=== PATIENT | female | born 1960 | race Caucasian/White ===

== ENCOUNTER 2020-01-11 08:00 | Outpatient (CLI) | payer MEDICAID ==
[2020-01-11 16:49] LABS: BASOPHILS # (AUTO) 0.1 10^3/uL (0.0-0.1); BASOPHILS % (AUTO) 0.7 %; EOSINOPHILS # (AUTO) 0.1 10^3/uL (0.0-0.7); EOSINOPHILS % (AUTO) 1.1 %; HGB - HEMOGLOBIN 15.9 g/dL (12.0-16.0); LYMPHOCYTES # (AUTO) 2.3 10^3/uL (1.5-3.5); LYMPHOCYTES % (AUTO) 24.2 %; MEAN CORPUSCULAR HEMOGLOBIN 30.2 pg (27.0-31.0); MEAN CORPUSCULAR HGB CONC 31.9 g/dL (32.0-36.0); MEAN CORPUSCULAR VOLUME 94.7 fL (81.0-99.0); MEAN PLATELET VOLUME 9.5 fL (7.9-10.8); MONOCYTES # (AUTO) 0.9 10^3/uL (0.0-1.0); MONOCYTES % (AUTO) 9.6 %; NEUTROPHILS % (AUTO) 63.8 %; PLT - PLATELET COUNT 246 10^3/uL (130-450); RED BLOOD COUNT 5.26 10^6/uL (4.20-5.40); RED CELL DISTRIBUTION WIDTH 12.7 % (12.0-15.0); WHITE BLOOD COUNT 9.4 x10^3/uL (4.8-10.8)
[2020-01-11 17:57] LABS: ALBUMIN 4.3 g/dL (3.2-5.5); ALBUMIN/GLOBULIN RATIO 1.4 (1.0-2.2); ALKALINE PHOSPHATASE 63 IU/L (42-121); ALT ALANINE AMINOTRANSFERASE 19 IU/L (10-60); AST ASPARTATE AMINOTRANSFERASE 20 IU/L (10-42); BUN - BLOOD UREA NITROGEN 8 mg/dL (6-20); CALCIUM 9.2 mg/dL (8.5-10.3); CARBON DIOXIDE - CO2 25 mmol/L (21-32); CHLORIDE 91 mmol/L (101-111); CHOL/HDL RATIO 2.1 (<4.4); CHOLESTEROL 204 mg/dL; CREATININE 0.6 mg/dL (0.4-1.0); GLUCOSE 103 mg/dL (70-100); HDL CHOLESTEROL 97 mg/dL; LDL CHOLESTEROL,CALCULATED 91 mg/dL; LDL/HDL RATIO 0.9 (<4.4); SODIUM 127 mmol/L (135-145); TOTAL PROTEIN 7.4 g/dL (6.7-8.2); VLDL CHOLESTEROL 16 mg/dL
== END 2020-01-11 23:59 | disposition home or self-care (01) ==
LOC: LAB.WCP 08:00
PROVIDERS: ATTEND Registered Nurse
DX: J44.9 Chronic obstructive pulmonary disease, unspecified (principal); I10 Essential (primary) hypertension
CPT/HCPCS: 36415; 80053; 80061; 83721; 84443; 85025

== ENCOUNTER 2021-10-17 20:25 | Outpatient (CLI) | payer MEDICAID | END 2021-10-17 20:26 | disposition critical access hospital (66) | LOC: EMS 20:25 | DX: R06.02 Shortness of breath (principal) | CPT/HCPCS: A0425; A0427; A0999 ==

== ENCOUNTER 2021-10-17 20:51 | Observation (INO) | payer MEDICAID ==
--- NOTE | 2021-10-17 21:16 | ED Physician Documentation ---
PD HPI DYSPNEA - Stated complaint Stated Complaint: SOA/POSS C+ EXPOSURE - Chief complaint Chief Complaint: Cardiac - History obtained from History obtained from: Patient - History of Present Illness Timing - onset: How many days ago (2) Timing - onset during: Rest, Light activity Timing - duration: Days (2) Timing - details: Gradual onset, Still present Review of Systems Constitutional: reports: Chills, Myalgias Nose: reports: Congestion Throat: denies: Sore throat Cardiac: denies: Chest pain / pressure, Palpitations, Pedal edema Respiratory: reports: Dyspnea, Cough, Wheezing. denies: Hemoptysis GI: denies: Abdominal Pain, Nausea, Vomiting, Diarrhea Musculoskeletal: denies: Extremity swelling Neurologic: reports: Generalized weakness. denies: Near syncope, Altered mental status, Headache Endocrine: denies: Weight loss Immunocompromised: denies: Immunocompromised PD PAST MEDICAL HISTORY - Past Medical History Cardiovascular: None Respiratory: COPD (uses ALbuterol MDI PRN. Not on regular nebs/steroids. Does not use home oxygen. ) Neuro: None Endocrine/Autoimmune: None - Past Surgical History Past Surgical History: No - Present Medications Home Medications: Ambulatory Orders Medication Instructions Recorded Confirmed Loratadine 10 mg PO DAILY 09/06/15 09/06/15 - Allergies Allergies/Adverse Reactions: Allergies Allergy/AdvReac Type Severity Reaction Status Date / Time No Known Drug Allergies Allergy Verified 10/17/21 21:10 - Living Situation Living Situation: reports: With family Living Arrangement: reports: At home - Social History Does the pt smoke?: Yes Smoking Status: Current every day smoker (she says she stopped smoking 2 days ago.) Does the pt drink ETOH?: Yes Does the pt have substance abuse?: No PD ED PE NORMAL - Vitals Vital signs reviewed: Yes (EMS reported 67% sats RA on their first assessment. ) - General General: Alert and oriented X 3, Well developed/nourished, Other (few word conversational dyspnea, sitting straight upright. ) - HEENT HEENT: Ears normal, Pharynx benign. No: Moist mucous membranes - Neck Neck: Supple, no meningeal sign, No adenopathy - Cardiac Cardiac: No murmur. No: RRR (tachycardic at 109 rate. ) - Respiratory Respiratory: No: No respiratory distress (accessory muscle use, prolonged exp phase, and tripod sitting position. ), Clear bilaterally (diffuse exp tight whee zing. Faint coarse sounds right side in particular. ) - Abdomen Abdomen: Soft, Non tender. No: Normal bowel sounds (diminished) - Back Back: No CVA TTP - Derm Derm: Normal color, Warm and dry - Extremities Extremities: No tenderness to palpate, No edema, No calf tenderness / cord - Neuro Neuro: Alert and oriented X 3, No motor deficit. No: Normal speech (initially unable to talk more than few words at a time. ) Results - Vitals Vitals: Vital Signs - 24 hr 10/17/21 10/17/21 10/17/21 21:00 21:34 21:55 Temperature 36.4 C L Heart Rate 109 H 108 H 114 H Respiratory 22 23 24 Rate Blood Pressure 167/93 H 160/97 H O2 Saturation 91 L 93 10/17/21 10/17/21 10/17/21 22:04 22:55 23:00 Temperature Heart Rate 106 H 92 97 Respiratory 18 24 27 H Rate Blood Pressure 155/92 H 135/80 H O2 Saturation 99 97 Oxygen O2 Source Nasal cannula Oxygen Flow Rate 3 - EKG (time done) 21:20 Rate: Rate (enter#) (105) Rhythm: Sinus tachycardia, Other (lot of artifact from movement/work of breathing.) [place]: Normal - Labs Labs: Laboratory Tests 10/17/21 10/17/21 10/17/21 21:16 21:16 21:16 WBC 12.0 H RBC 5.00 Hgb 15.6 Hct 47.3 H MCV 94.6 MCH 31.2 H MCHC 33.0 RDW 12.8 Plt Count 275 MPV 10.4 Neut # (Auto) 8.7 H Lymph # (Auto) 1.9 Woodward # (Auto) 1.0 Eos # (Auto) 0.3 Baso # (Auto) 0.1 Absolute Nucleated RBC 0.00 Nucleated RBC % 0.0 Sodium Potassium Chloride Carbon Dioxide Anion Gap BUN Creatinine Estimated GFR (MDRD) Glucose Calcium Magnesium Total Bilirubin AST ALT Alkaline Phosphatase Troponin I High Sens 12.0 B-Natriuretic Peptide 63 Total Protein Albumin Globulin Albumin/Globulin Ratio Lipase Nasal Adenovirus (PCR) Nasal B. parapertussis DNA (PCR) Nasal Coronavir 229E PCR Nasal Coronavir HKU1 PCR Nasal Coronavir NL63 PCR Nasal Coronavir OC43 PCR Nasal Enterovir/Rhinovir PCR Nasal Influenza B PCR Nasal Influenza A PCR Nasal Parainfluen 1 PCR Nasal Parainfluen 2 PCR Nasal Parainfluen 3 PCR Nasal Parainfluen 4 PCR Nasal RSV (PCR) Nasal B.pertussis DNA PCR Nasal C.pneumoniae (PCR) Matt Human Metapneumo PCR Nasal M.pneumoniae (PCR) Nasal SARS-CoV-2 (PCR) 10/17/21 10/17/21 21:45 21:50 WBC RBC Hgb Hct MCV MCH MCHC RDW Plt Count MPV Neut # (Auto) Lymph # (Auto) Woodward # (Auto) Eos # (Auto) Baso # (Auto) Absolute Nucleated RBC Nucleated RBC % Sodium 126 L Potassium 4.5 Chloride 89 L Carbon Dioxide 28 Anion Gap 9.0 BUN 11 Creatinine 0.6 Estimated GFR (MDRD) 102 Glucose 165 H Calcium 8.9 Magnesium 2.0 Total Bilirubin 0.6 AST 23 ALT 18 Alkaline Phosphatase 70 Troponin I High Sens B-Natriuretic Peptide Total Protein 7.6 Albumin 4.0 Globulin 3.6 Albumin/Globulin Ratio 1.1 Lipase 24 Nasal Adenovirus (PCR) NOT DETECTED Nasal B. parapertussis DNA (PCR) NOT DETECTED Nasal Coronavir 229E PCR NOT DETECTED Nasal Coronavir HKU1 PCR NOT DETECTED Nasal Coronavir NL63 PCR NOT DETECTED Nasal Coronavir OC43 PCR NOT DETECTED Nasal Enterovir/Rhinovir PCR NOT DETECTED Nasal Influenza B PCR NOT DETECTED Nasal Influenza A PCR NOT DETECTED Nasal Parainfluen 1 PCR NOT DETECTED Nasal Parainfluen 2 PCR NOT DETECTED Nasal Parainfluen 3 PCR NOT DETECTED Nasal Parainfluen 4 PCR NOT DETECTED Nasal RSV (PCR) NOT DETECTED Nasal B.pertussis DNA PCR NOT DETECTED Nasal C.pneumoniae (PCR) NOT DETECTED Matt Human Metapneumo PCR NOT DETECTED Nasal M.pneumoniae (PCR) NOT DETECTED Nasal SARS-CoV-2 (PCR) NOT DETECTED - Rads (name of study) chest xray Radiology: Prelim report reviewed (hyperinflation. No infiltrates, effusion. ), See rad report PD MEDICAL DECISION MAKING - ED course Complexity details: reviewed results, re-evaluated patient, considered differential (seems URI symptoms and has wheezing/COPD exacerbation, but baseline sounds like just intermittent MDI use. Concern for COVID/viral, versus bacterial. Unlikely clinically to be VTE, CHF. ), d/w patient ED course: Lessened work of breathing with few neb treatments. Still wanting to be upright position. But able to talk in sentences now. Lessened wheezing, but still exp wheezing. Sats off oxygen low to 88-91%. Holding okay with just simple NC. I do not feel she is at risk right now of needing intubation/advanced airway. Consider viral illness to cause exac of her mild COPD. Departure - Departure Disposition: ED Place in Observation Clinical Impression: Acute exacerbation of COPD with asthma, Exposure to COVID-19 virus Dyspnea Qualifiers: Dyspnea type: shortness of breath Qualified Code(s): R06.02 - Shortness of breath Condition: Stable Record reviewed to determine appropriate education?: Yes Discharge Date/Time: 10/17/21 23:41
[2021-10-17 21:20] LABS: BASOPHILS # (AUTO) 0.1 10^3/uL (0.0-0.1); BASOPHILS % (AUTO) 0.8 %; EOSINOPHILS # (AUTO) 0.3 10^3/uL (0.0-0.7); EOSINOPHILS % (AUTO) 2.2 %; HCT - HEMATOCRIT 47.3 % (37.0-47.0); HGB - HEMOGLOBIN 15.6 g/dL (12.0-16.0); LYMPHOCYTES # (AUTO) 1.9 10^3/uL (1.5-3.5); LYMPHOCYTES % (AUTO) 15.6 %; MEAN CORPUSCULAR HEMOGLOBIN 31.2 pg (27.0-31.0); MEAN CORPUSCULAR VOLUME 94.6 fL (81.0-99.0); MEAN PLATELET VOLUME 10.4 fL (7.9-10.8); MONOCYTES % (AUTO) 8.4 %; NEUTROPHILS # (AUTO) 8.7 10^3/uL (1.5-6.6); NEUTROPHILS % (AUTO) 72.6 %; PLT - PLATELET COUNT 275 10^3/uL (130-450); RED CELL DISTRIBUTION WIDTH 12.8 % (12.0-15.0)
[2021-10-17] MEDS ORDERED: SODIUM CHLORIDE 0.9% 1,000 ML IV STA (21:36)
[2021-10-17] MEDS ORDERED: IPRATROPIUM/ALBUTEROL 3 ML NEB INH STA (21:36)
[2021-10-17] MEDS ORDERED: MAGNESIUM SULFATE 2 GRAM 2 GM/50 ML BAG IV ONE (21:37)
--- NOTE | 2021-10-17 21:54 | XRAY Report ---
PROCEDURE: Chest 1 View X-Ray INDICATIONS: Chest pain TECHNIQUE: One view of the chest was acquired. COMPARISON: 09/06/2015 FINDINGS: Surgical changes and devices: None. Lungs and pleura: No pleural effusions or pneumothorax. There is no focal infiltrate. Mild hyperinfl ation is seen. Mediastinum: Mediastinal contours appear normal. Heart size is normal. Bones and chest wall: No suspicious bony lesions. Overlying soft tissues appear unremarkable. IMPRESSION: Hyperinflation. No focal infiltrate, pleural effusion or pneumothorax. Reviewed by: Ashwin Ramirez MD on 10/17/2021 9:52 PM PST Approved by: Ashwin Ramirez MD on 10/17/2021 9:52 PM PST Station ID: [id number]
[2021-10-17 22:02] LABS: ALBUMIN/GLOBULIN RATIO 1.1 (1.0-2.2); BILIRUBIN,TOTAL 0.6 mg/dL (0.2-1.0); CALCIUM 8.9 mg/dL (8.5-10.3); CREATININE 0.6 mg/dL (0.4-1.0); POTASSIUM 4.5 mmol/L (3.5-5.0); TOTAL PROTEIN 7.6 g/dL (6.7-8.2)
[2021-10-17] MEDS ORDERED: ALBUTEROL NEB 2.5 MG/3 ML INH STA (22:43)
[2021-10-17 23:12] LABS: B. PARAPERTUSSIS- RESP PCR PAN NOT DETECTED; B. PERTUSSIS- RESP PCR PANEL NOT DETECTED; C. PNEUMONIAE- RESP PCR PANEL NOT DETECTED; CORONAVIRUS 229E-RESP PCR NOT DETECTED; CORONAVIRUS HKU1-RESP PCR NOT DETECTED; CORONAVIRUS NL63-RESP PCR NOT DETECTED; CORONAVIRUS OC43-RESP PCR NOT DETECTED; HUMAN METAPNEUMOVIRUS NOT DETECTED; INFLUENZA A- RESP PCR PANEL NOT DETECTED; INFLUENZA B - RESP PCR PANEL NOT DETECTED; M. PNEUMONIAE- RESP PCR PANEL NOT DETECTED; PARAINFLUENZA VIRUS 1 NOT DETECTED; PARAINFLUENZA VIRUS 2 NOT DETECTED; PARAINFLUENZA VIRUS 3 NOT DETECTED; PARAINFLUENZA VIRUS 4 NOT DETECTED; RHINOVIRUS/ENTEROVIRUS NOT DETECTED; RSV- RESP PCR PANEL NOT DETECTED; SARS-CoV-2 -RESP PCR PANEL NOT DETECTED
[2021-10-17] MEDS ORDERED: ONDANSETRON 4 MG/2 ML VIAL IVP PRN (23:13)
[2021-10-17] MEDS ORDERED: ACETAMINOPHEN 325 MG TABLET PO PRN (23:13)
[2021-10-17] MEDS ORDERED: SODIUM CHLORIDE FLUSH 0.9% 10 ML SYRINGE IVP PRN (23:13)
[2021-10-17] MEDS ORDERED: oxyCODONE 5 MG TABLET PO PRN (23:13)
[2021-10-17] MEDS ORDERED: ONDANSETRON ODT 4 MG TABLET TL PRN (23:13)
[2021-10-17] MEDS ORDERED: MONTELUKAST 10 MG TABLET PO SCH (23:15)
[2021-10-17] MEDS ORDERED: ALBUTEROL NEB 2.5 MG/3 ML INH PRN (23:16)
[2021-10-18] MEDS: SODIUM CHLORIDE FLUSH 0.9% 10 ML SYRINGE IVP SCH ×2 (00:35→09:40)
[2021-10-18] MEDS: SODIUM CHLORIDE 0.9% 1,000 ML IV SCH ×2 (00:35→06:54)
--- NOTE | 2021-10-18 01:11 | HISTORY & PHYSICAL EXAMINATION ---
Chief Complaint - Chief Complaint Chief Complaint: acute on chronic sob History of Present Illness - Admitted From Admitted From:: home - History Obtained From [facility] History obtained from: patient Exam Limitations: short of breath - History of Present Illness HPI Comment/Other: This pleasant female is a 63-year-old who has emphysema. That has been her main problem as well as hypertension for the last 2 to 3 years. She used to see a Dr. Ayoub who had several years ago and her last primary care may have been in 2004. She gradually became becoming blind from cataracts and stopped driving in June 2019 because of the blindness. She finally sought care with an conduit mechanic who requested preoperative evaluation. That meant she had to establish yourself with her primary care provider which was November 2019 with Wendi Lopez. As far as the patient is concerned, she really did not have much problems with her emphysema until the preoperative evaluation started the ball rolling with an overall evaluation of her health. She was drinking a sixpack of beer a day and is currently drinking 2 beers a day. Depression has been a problem and she uses her daughter and is emotional support. At that point in time she was noticing that she was having less and less endurance for getting simple wafer mounter done. She had a chronic daily cough of scant phlegm pr oduction. Her primary care provider started her on a program cessation. Encouraged her to start bupropion and nicotine patches. But she really did not do them for unclear reasons. O2 sat in 2019 was 90% on room air. And she improved to 92% on room air by July 2021. She has not had formal pulmonary function studies yet. She has good days and bad days. There are days that she can work in the garden, bring in wood, and only slow down a little bit. Then there are days where she cannot walk across the room more than 20 feet. She says there is no rhyme or reason to that. The only medicine she has at home is loratadine and a nebulizer that is handheld. In the last 2 weeks that hand-held nebulizer is not helping her at all. There is no hemoptysis, change in phlegm production, fever, chills. No one else is sick around her.Weight over the last couple of years has been stable. She was 102 pounds when she for started seeing her primary care provider and her last weight in July 2021 was 100.6 pounds. July was her last visit with her primary care provider where her medications were adjusted for high blood pressure. She now presents with a 2-week history of gradually increasing dyspnea on exertion. Her nebulizer is not giving her any relief whatsoever. Cough is occ asionally spasmodic but then will go away. Phlegm is unchanged. She denies any fever, chills, hemoptysis. No one else is sick around her. She is vaccinated with the J&J vaccine. EMS was called when she finally had such severe shortness of breath that she thought she was going to . In the EMS rate she was 67% on room air. She was given a nebulizer, Solu-Medrol. When she got to the ER she was able to be maintained on her O2 sats but was still tripoding with tachypnea and a heart rate of 108 214. She has received more nebulizers. And gradually starting to improve but is not stable enough to go home.Chest x-ray has hyperinflation but no infiltrate. She is chronically hyponatremic and is 126 today. White cell count is mildly elevated at 12. She is COVID-negative on swab testing. Dr. Rios, emergency room provider, has asked us to place this patient in observation to continue nebulizers and steroids and see if she can be discharged tomorrow. 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 She had severe hypertension and of a heart attack. Dad in his 60s of drug and alcohol abuse. 1 brother. She is not In contact and does not know anything about them in his adulthood. 3 children are healthy except they all have high blood pressure. There is no depression or alcohol abuse or major medical issues. Living arrangement: At home Living Situation: With spouse/s.o. Social History Notes: Born and raised in [place] until the age of 18 and her family moved to [facility]. She has lived here since. to her first and they live in their own home. She started smoking 20 years ago and smoked up to 1 pack/day. She is drinking a sixpack a day at the beginning of the COVID epidemic and is brought her self down to 2 a day. 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 She and her live in their own home about 3 [place] from [place]. - Substance History Use: Uses substance without health or social issues: Tobacco, Alcohol Abuse: Recurrent use of substance despite neg consequences: Alcohol Dependence: Experiences withdrawal or developed tolerances: NONE - POLST Patient has POLST: No POLST Status: Full Code (SHe does not want to be intubated for any length of time. If we can save her life and she can come off the ventilator and 2 or 3 days that would be fine. If it looks like its going to be longer than that, DO NOT INTUBATE her.) Meds/Allgy - Home Medications Home Medications: Ambulatory Orders Medication Instructions Recorded Confirmed Loratadine 10 mg PO DAILY 09/06/15 09/06/15 - Allergies Allergies/Adverse Reactions: Allergies Allergy/AdvReac Type Severity Reaction Status Date / Time No Known Drug Allergies Allergy Verified 10/17/21 21:10 Review of Systems - Constitutional Constitutional: reports: Fatigue, Poor appetite. denies: Fever, Chills, Weight gain, Weight loss - Eyes Eyes: reports: Vision loss. denies: Pain, Irritation, Amaurosis - Ears, Nose & Throat Ears, Nose & Throat: denies: Ear pain, Hearing loss, Hearing aids, Nasal discharge, Nasal obstruction, Nasal congestion, Postnasal drainage, Sore throat - Cardiovascular Cariovascular: reports: Palpitations (in the past), Chest pain (right now, sharp pleuritic, worse w cough). denies: Irregular heart rate - Respiratory Respiratory: reports: Cough, Sputum production, Wheezing, Orthopnea, SOB at rest, SOB with exertion. denies: Snoring - Gastrointestinal Gastrointestinal: reports: Other (has never had a colonscopy). denies: Abdominal pain, Abdominal distention, Constipation, Diarrhea, Change in bowel habits, Bloody stools - Genitourinary Genitourinary: denies: Dysuria, Frequency, Urgency, Hematuria - Musculoskeletal Musculoskeletal: reports: Other (has never had DEXA scan). denies: Muscle pain, Back pain, Muscle aches, Stiffness, Joint pain - Integumentary Integumentary: denies: Rash, Pruritis, Lesions, Dryness, Pigment changes - Neurological Neurological: denies: General weakness, Focal weakness, Headache, Memory problems, Pre-existing deficit - Psychiatric Psychiatric: reports: Depression, Anxiety. denies: Suicidal, Delusions - Endocrine Endocrine: denies: Polyuria, Polydypsia, Polyphagia - Hematologic/Lymphatic Hematologic/Lymphatic: denies: Anemia, Bruising, Petechiae - All Other Systems All Other Systems: denies: Reviewed and negative Prior Level of Functionality: She does not use any durable medical equipment. At this point she can still dress herself, feed herself, do housework and work in the garden if is not a bad day with her emphysema. Exam - Vital Signs Reviewed Vital Signs: Yes Vital Signs: Vital Signs x48h Temp Pulse Pulse Resp BP BP Pulse Ox 10/17/21 23:55 36.4 C L 106 H 18 115/89 H 99 10/17/21 23:00 97 27 H 135/80 H 97 10/17/21 22:55 92 24 10/17/21 22:04 106 H 18 155/92 H 99 10/17/21 21:55 114 H 24 10/17/21 21:34 108 H 23 160/97 H 93 10/17/21 21:00 36.4 C L 109 H 22 167/93 H 91 L - Physical Exam General Appearance: positive: Alert, Moderate distress (short of breath w speaking but no tripodding and no use of accessory muscles), Other (thin female, looks fatigued and older than stated age) Eyes Bilateral: positive: PERRL, EOMI ENT: positive: No signs of dehydration Neck: positive: No JVD. negative: Stiff neck Respiratory: positive: Wheezes, Other (occ pursed lip breathing when she speaks to me. has to stop talking for a bit then resumes). negative: Rales, Rhonchi Cardiovascular: positive: Regular rate & rhythm, Systolic murmur. negative: Gallop/S4, Friction rub Peripheral Pulses: positive: 1+ Abdomen: positive: Non-tender, No organomegaly, Nml bowel sounds, No distention Skin: positive: Warm, Dry Extremities: positive: Full ROM, No pedal edema Neurologic/Psychiatric: positive: Oriented x3, CN's nml (2-12), Motor nml Conclusion/Plan - Problem List (1) Acute and chronic respiratory failure with hypoxia Conclusion/Plan: In reviewing her outpatient medical records, this patient has chronic respiratory failure and is chronically hypoxic. However she does not meet the criteria for home oxygen yet. With this current episode of hypoxemia, she has definitely worsening hypoxia. Wheezing is gradually getting better with our treatment. She states that if she has to go home on oxygen she would be okay with that. We also discussed her advanced directives. She is hesitant about calling herself a full code but she is never really discussed this with her . Or her family. She does not want to be intubated for any great length of time because of her claustrophobia. She would rather . But she would like to have full treatment up until that point. If she needs CPR and chest compressions she is willing to do that. Cardioversion electrically is acceptab le. She just hesitates that intubation. For now she will let us intubate her but if she is going to be intubated for longer than 2 or 3 days to let her go. I have also encouraged her to make sure that she speaks to her and family about her wishes so they know to plan accordingly. (2) Acute exacerbation of COPD with asthma Conclusion/Plan: In a smoker. Plan: Patient educated about emphysema and asthma and what the differences between the 2 of them. Observation status Solu-Medrol DuoNeb on a fixed schedule plus albuterol as needed Azithromycin empirically, p.o. Patient is encouraged to stop smoking. When in a stable status, outpatient pulmonary function studies. (3) Hypertension Conclusion/Plan: While here her blood pressure was high in the emergency room. She was 167/93. By the time she got to her room on the MedSurg unit she is 135/80. Her primary care provider notes state that she is on losartan and clonidine patch. She states she is not taking any medication at this time. I would let her address that in the outpatient setting with her primary care provider. I told her that she may need medication even if it is just 1 medication such as losartan. Qualifiers: Hypertension type: primary hypertension Qualified Code(s): I10 - Essential (primary) hypertension (4) Alcohol abuse Conclusion/Plan: She hesitates when she says that she is only drinking 2 beers a day. But she says that she is no longer drinking a sixpack a day. She denies alcohol withdrawal history, alcohol withdrawal seizures. Chronic hyponatremia on labs. So there may be some element of cirrhosis that is yet diagnosed. Plan: Multivitamin p.o. in the form of a vitamin as well as thiamine. - Lab Results Lab results reviewed: Yes Tank Bones: 10/17/21 21:16 10/17/21 21:45 - Diagnostic Imaging Results Diagnostic Imaging Results: positive: Final report reviewed Diagnostic Imaging Results Comments: hyperinflation without acute cardiopulmonary status - EKG Results EKG Interpreted Independently: No Core Measures - Anticipated LOS I expect patient to be DC'd or transferred within 96 hours.: Yes - DVT/VTE - Prophylaxis VTE/DVT Device ordered at admit?: Yes
[2021-10-18] MEDS: AZITHROMYCIN 250 MG TABLET PO SCH ×2 (01:27→09:40)
[2021-10-18] MEDS: IPRATROPIUM/ALBUTEROL 3 ML NEB INH SCH ×3 (07:20→15:12)
[2021-10-18] MEDS ORDERED: predniSONE 20 MG TABLET PO SCH (07:35)
[2021-10-18] MEDS: methylPREDNISolone SUCCINATE 40 MG/ML VIAL IVP SCH ×2 (07:59→13:56)
[2021-10-18 08:06] LABS: BASOPHILS % (AUTO) 0.2 %; EOSINOPHILS % (AUTO) 2.1 %; HCT - HEMATOCRIT 44.1 % (37.0-47.0); HGB - HEMOGLOBIN 14.3 g/dL (12.0-16.0); LYMPHOCYTES % (AUTO) 11.5 %; MEAN CORPUSCULAR HEMOGLOBIN 31.2 pg (27.0-31.0); MEAN CORPUSCULAR HGB CONC 32.4 g/dL (32.0-36.0); MEAN CORPUSCULAR VOLUME 96.1 fL (81.0-99.0); MEAN PLATELET VOLUME 9.3 fL (7.9-10.8); MONOCYTES % (AUTO) 6.5 %; NEUTROPHILS % (AUTO) 79.4 %; PLT - PLATELET COUNT 210 10^3/uL (130-450); RED BLOOD COUNT 4.59 10^6/uL (4.20-5.40); RED CELL DISTRIBUTION WIDTH 12.5 % (12.0-15.0); WHITE BLOOD COUNT 6.6 x10^3/uL (4.8-10.8)
[2021-10-18 08:11] LABS: ABNORMAL LYMPHS % (MANUAL) 0 %
[2021-10-18 08:12] LABS: CALCIUM 8.6 mg/dL (8.5-10.3); CREATININE 0.5 mg/dL (0.4-1.0); POTASSIUM 5.7 mmol/L (3.5-5.0)
[2021-10-18 08:29] LABS: BAND NEUTROPHILS % (MANUAL) 8 %; DIFFERENTIAL COMMENT MANUAL DIFFERENTIAL; LYMPHOCYTES # (MANUAL) 0.7 10^3/uL (1.5-3.5); LYMPHOCYTES % (MANUAL) 2 %; MONOCYTES # (MANUAL) 0.5 10^3/uL (0.0-1.0); NEUTROPHILS # (MANUAL) 5.4 10^3/uL (1.5-6.6); REACTIVE LYMPHS % (MANUAL) 8 %
[2021-10-18] MEDS ORDERED: SODIUM POLYSTYRENE SULFONATE 15 GM/60 ML BOTTLE PO ONE (08:45)
[2021-10-18] MEDS ORDERED: ALBUTEROL NEB 2.5 MG/3 ML INH ONE (08:48)
[2021-10-18] MEDS ORDERED: FOLIC ACID 1 MG TABLET PO SCH (09:00)
[2021-10-18] MEDS ORDERED: ENOXAPARIN 40 MG/0.4 ML SYRINGE SUBQ SCH (09:00)
[2021-10-18] MEDS ORDERED: THIAMINE 100 MG TABLET PO SCH (09:00)
[2021-10-18 13:26] LABS: CALCIUM 8.3 mg/dL (8.5-10.3); CREATININE 0.5 mg/dL (0.4-1.0)
--- NOTE | 2021-10-18 14:19 | Discharge Plan ---
Discharge Plan Problem Reviewed?: Yes Disposition: Home, Self Care Condition: Stable No Smoking: If you smoke, Please STOP! Call for help.
--- NOTE | 2021-10-18 14:21 | PHARMACY PROGRESS NOTE ---
- Best Possible Medication History Admit Date and Time: 10/17/21 2494 Processed by: Pharmacy Medication History completed: Yes Secondary Source(s): Physician records, Insurance records As the person ultimately responsible for medication therapy, providers are able to order a medication from an existing home medication list in [facility] via the "Reconcile Routine" prior to Confirmation of that medication by physician support coordinator. Such practice is discouraged except when the physician, in their clinical judgment, deems that a medical need exists for a medication without regard to previous use.
--- NOTE | 2021-10-18 14:33 | Discharge Plan ---
Discharge Plan Problem Reviewed?: Yes Disposition: Home, Self Care Condition: Stable Prescriptions: Albuterol Sulfate 1.25 mg IH Q4H PRN #100 vial PRN Reason: Shortness Of Air/Wheezing Ipratropium [Atrovent] 0.5 mg INH Q6H PRN #100 vial PRN Reason: Shortness Of Air/Wheezing predniSONE [Deltasone] 20 mg PO [id number] #21 tab Pnv No.95/Ferrous Fum/Folic AC [ Tablet] 1 each PO DAILY #30 tablet Montelukast [Singulair] 10 mg PO QPM #30 tablet Thiamine [Vitamin B-1] 100 mg PO DAILY #30 tablet Azithromycin [Zithromax] 250 mg PO DAILY #4 tablet Diet: Regular Activity Restrictions: Activity as Tolerated Shower Restrictions: No (fall precaution) Instruction Topics: Oxygen Home Use, Nebulizer Use, Azithromycin tablets, Prednisone tablets, Montelukast oral tablets Health Concerns: COPD, home Oxygen usage Plan of Treatment: You are really hoping to be d/c to home. You are prescribed home O2. per RT desat study, recommend you have 2 lpm of O2 at rest and 4 lpm of O2 at exertion. Please followup with RT instruction for safety usage of O2 at home. You are also prescribed home nebulizer, albuterol and ipratropium solution are prescribed for nebulizer. tapered down of Prednisone, singular, and short term of antibiotics of azithromycin are prescribed for you. Strongly advise you quit of cigarette smoking and alcohol abuse. Care Goals: Stabilization and improvement of your medical conditions Assessment: Discussed the care plan with you, answered your questions, you understood Additional Instructions or Follow Up instructions: You may follow-up with your PCP in 1 week, Follow-up with weed cutter as outpatient. Should your symptoms return or worsen, you may present to ER or call 911 for help Follow-Up Care: [facility] No Smoking: If you smoke, Please STOP! Call for help.
--- NOTE | 2021-10-18 15:44 | DISCHARGE SUMMARY ---
Discharge Summary Admit Date: 10/18/21 Discharge Date: 10/18/21 Discharging Provider: Luis Daniel Fonseca Primary Care Provider: Shantel Fish Condition at Discharge: Stable Discharge Disposition: 01 Home, Self Care Discharge Facility Name: home - DIAGNOSES Discharge Diagnoses with Status of Each Condition: (1) Acute and chronic respiratory failure with hypoxia pt report she had 100% better on today and really hope to be d/c to home on today. after treatment, her Tachycardia and tachypnea are resolved, she is very comfortable rest with 94% O2 sat on 3 lpm of O2. pt is prescribed home O2 as blow (2) Acute exacerbation of COPD with asthma resolved on acute exacerbation of COPD with asthma. her Tachycardia and tachypnea are resolved, she is very comfortable rest with 94% O2 sat on 3 lpm of O2. pt is prescribed tapered down Prednisone, singular, 4 days Of Azithromycin, home O2, nebulizer with albuterol and ipratropium solution. pt had O2 desat study. Patient was hypoxia at the rest on room air, oxygen saturation is 84%. With exertion or room air, her oxygen saturation was 82%. On 2 lpm of O2, At her rest, her oxygen saturation was 92%. ON 4 lpm, On ambulation, her oxygen saturation was 90%. I am ordering home O2 on 2 LPM on rest, 4 LPM on exertion to treat her COPD. I am also ordering a home nebulizer machine to administer of albuterol and ipratropium to treat her COPD (3) Hypertension stable, resume home meds (4) Alcohol abuse stable, without alcohol withdrawal symptoms. - HPI History of Present Illness: refer from Dr. Gongora's HPI on 10/18/21 This pleasant female is a 63-year-old who has emphysema. That has been her main problem as well as hypertension for the last 2 to 3 years. She used to see a Dr. Ayoub who had several years ago and her last primary care may have been in 2004. She gradually became becoming blind from cataracts and stopped driving in June 2019 because of the blindness. She finally sought care with an bench worker helper who requested preoperative evaluation. That meant she had to establish yourself with her primary care provider which was November 2019 with Wendi Lopez. As far as the patient is concerned, she really did not have much problems with her emphysema until the preoperative evaluation started the ball rolling with an overall evaluation of her health. She was drinking a sixpack of beer a day and is currently drinking 2 beers a day. Depression has been a problem and she uses her daughter and is emotional support. At that point in time she was noticing that she was having less and less endurance for getting simple industrial/organizational psychologist done. She had a chronic daily cough of scant phlegm production. Her primary care provider started her on a program cessation. Encouraged her to start bupropion and nicotine patches. But she really did not do them for unclear reasons. O2 sat in 2019 was 90% on room air. And she improved to 92% on room air by July 2021. She has not had formal pulmonary function studies yet. She has good days and bad days. There are days that she can work in the garden, bring in wood, and only slow down a little bit. Then there are days where she cannot walk across the room more than 20 feet. She says there is no rhyme or reason to that. The only medicine she has at home is loratadine and a nebulizer that is handheld. In the last 2 weeks that hand-held nebulizer is not helping her at all. There is no hemoptysis, change in phlegm production, fever, chills. No one else is sick around her.Weight over the last couple of years has been stable. She was 102 pounds when she for started seeing her primary care provider and her last weight in July 2021 was 100.6 pounds. July was her last visit with her primary care provider where her medications were adjusted for high blood pressure. She now presents with a 2-week history of gradually increasing dyspnea on exertion. Her nebulizer is not giving her any relief whatsoever. Cough is occasionally spasmodic but then will go away. Phlegm is unchanged. She denies any fever, chills, hemoptysis. No one else is sick around her. She is vaccinated with the J&J vaccine. EMS was called when she finally had such severe shortness of breath that she thought she was going to . In the EMS rate she was 67% on room air. She was given a nebulizer, Solu-Medrol. When she got to the ER she was able to be maintained on her O2 sats but was still tripoding with tachypnea and a heart rate of 108 214. She has received more nebulizers. And gradually starting to improve but is not stable enough to go home.Chest x-ray has hyperinflation but no infiltrate. She is chronically hyponatremic and is 126 today. White cell count is mildly elevated at 12. She is COVID-negative on swab testing. Dr. Rios, emergency room provider, has asked us to place this patient in observation to continue nebulizers and steroids and see if she can be discharged tomorrow. - ALLERGIES Allergies/Adverse Reactions: Allergies Allergy/AdvReac Type Severity Reaction Status Date / Time No Known Drug Allergies Allergy Verified 10/17/21 21:10 - MEDICATIONS Home Medications: Ambulatory Orders Medication Instructions Recorded Confirmed Loratadine 10 mg PO DAILY 09/06/15 10/18/21 Albuterol Sulfate 1.25 mg IH Q4H PRN #100 vial 10/18/21 Albuterol Sulfate [Proair Hfa 2 puffs INH Q4H PRN 10/18/21 10/18/21 Inhaler] Aspirin EC [Ecotrin] 325 mg PO DAILY 10/18/21 10/18/21 Azithromycin [Zithromax] 250 mg PO DAILY #4 tablet 10/18/21 Ipratropium [Atrovent] 0.5 mg INH Q6H PRN #100 vial 10/18/21 Ipratropium [Atrovent] 2 puffs INH QID 10/18/21 10/18/21 Losartan [Cozaar] 50 mg PO DAILY 10/18/21 10/18/21 Montelukast [Singulair] 10 mg PO QPM #30 tablet 10/18/21 Pnv No.95/Ferrous Fum/Folic AC 1 each PO DAILY #30 tablet 10/18/21 [ Tablet] Thiamine [Vitamin B-1] 100 mg PO DAILY #30 tablet 10/18/21 cloNIDine 0.1 MG PATCH 1 patch TD Q7D 10/18/21 10/18/21 [[id number]] predniSONE [Deltasone] 20 mg PO [id number] #21 tab 10/18/21 - PHYSICAL EXAM AT DISCHARGE General Appearance: positive: No acute distress, Alert. negative: Lethargic Eyes Bilateral: positive: Normal inspection, No lid inflammation ENT: positive: ENT inspection nml, No signs of dehydration. negative: Purulent nasal drainage Neck: positive: Nml inspection, Trachea midline. negative: Tracheal deviation Respiratory: positive: Chest non-tender, No respiratory distress. negative: Wheezes Cardiovascular: positive: Regular rate & rhythm. negative: Tachycardia, Buddy cardia, Systolic murmur Peripheral Pulses: positive: 2+ Abdomen: positive: Non-tender, Nml bowel sounds, No distention. negative: Tenderness Back: positive: Nml inspection Skin: positive: Color nml, Warm, Dry. negative: Cyanosis Extremities: positive: Non-tender, Full ROM, Nml appearance Neurologic/Psychiatric: positive: Oriented x3, Motor nml, Sensation nml, Mood/affect nml. negative: Weakness, Sensory loss, Facial droop, Slurred/abnml speech, Depressed mood/affect - LABS Result Diagrams: 10/18/21 07:52 10/18/21 13:14 - FOLLOW UP Follow Up: You are really hoping to be d/c to home. You are prescribed home O2. per RT desat study, recommend you have 2 lpm of O2 at rest and 4 lpm of O2 at exertion. Please followup with RT instruction for safety usage of O2 at home. You are also prescribed home nebulizer, albuterol and ipratropium solution are prescribed for nebulizer. tapered down of Prednisone, singular, and short term of antibiotics of azithromycin are prescribed for you. Strongly advise you quit of cigarette smoking and alcohol abuse. You may follow-up with your PCP in 1 week, Follow-up with corporate quality manager as outpatient. Should your symptoms return or worsen, you may present to ER or call 911 for help - TIME SPENT Time Spent in Discharge (Minutes): 30
[2021-10-18 16:13] VITALS: BP 128/69
== END 2021-10-18 18:00 | disposition home or self-care (01) ==
LOC: EDUNIT# → EDBD → ED 20:51 → MS2 23:13
PROVIDERS: ADMIT Specialist; ATTEND Nurse Practitioner Gerontology
DX: J96.01 Acute respiratory failure with hypoxia (principal); J43.9 Emphysema, unspecified; I10 Essential (primary) hypertension; F10.10 Alcohol abuse, uncomplicated; F32.A Depression, unspecified; Z20.822 Contact with and (suspected) exposure to COVID-19; F41.9 Anxiety disorder, unspecified; F17.210 Nicotine dependence, cigarettes, uncomplicated
CPT/HCPCS: 0202U; 36415; 71045; 80048; 80053; 83690; 83735; 83880; 84484; 85025; 93005; 94640; 94664; 94761; 96365; 96372; 96375; 96376; 99283; 99285; A9270; G0378; J1650; 84132

== ENCOUNTER 2021-11-22 05:11 | Outpatient (CLI) | payer MEDICAID | END 2021-11-22 05:12 | disposition critical access hospital (66) | LOC: EMS 05:11 | DX: R06.00 Dyspnea, unspecified (principal); R07.89 Other chest pain; R53.83 Other fatigue | CPT/HCPCS: A0425; A0427; A0999 ==

== ENCOUNTER 2021-11-22 05:40 | Emergency (ER) | payer MEDICAID ==
[2021-11-22] MEDS ORDERED: IPRATROPIUM/ALBUTEROL 3 ML NEB INH STA ×2 (05:51→08:54)
[2021-11-22 05:58] LABS: BASOPHILS # (AUTO) 0.1 10^3/uL (0.0-0.1); BASOPHILS % (AUTO) 0.9 %; EOSINOPHILS # (AUTO) 0.2 10^3/uL (0.0-0.7); EOSINOPHILS % (AUTO) 2.6 %; HGB - HEMOGLOBIN 14.1 g/dL (12.0-16.0); MEAN CORPUSCULAR HEMOGLOBIN 30.5 pg (27.0-31.0); MEAN CORPUSCULAR VOLUME 95.2 fL (81.0-99.0); MEAN PLATELET VOLUME 8.7 fL (7.9-10.8); MONOCYTES % (AUTO) 12.2 %; NEUTROPHILS # (AUTO) 4.9 10^3/uL (1.5-6.6); NEUTROPHILS % (AUTO) 59.8 %; PLT - PLATELET COUNT 238 10^3/uL (130-450); RED BLOOD COUNT 4.62 10^6/uL (4.20-5.40); RED CELL DISTRIBUTION WIDTH 12.4 % (12.0-15.0); WHITE BLOOD COUNT 8.2 x10^3/uL (4.8-10.8)
[2021-11-22 05:59] LABS: VBG BASE EXCESS -0.1 mmol/L (-2 - +2); VBG HCO3 29.6 mmol/L (23-28); VBG OXYGEN SATURATION 52.9 % (60-80); VBG PH 7.232 (7.31-7.41); VBG PO2 31.4 mmHg (25-47); VBG TOTAL CO2 31.8 mmol/L (24-29)
[2021-11-22 06:11] LABS: ALBUMIN 4.2 g/dL (3.2-5.5); ALBUMIN/GLOBULIN RATIO 1.2 (1.0-2.2); BILIRUBIN,TOTAL 0.8 mg/dL (0.2-1.0); CALCIUM 9.1 mg/dL (8.5-10.3); CREATININE 0.4 mg/dL (0.4-1.0); TOTAL PROTEIN 7.8 g/dL (6.7-8.2)
[2021-11-22] MEDS ORDERED: SODIUM CHLORIDE 0.9% 1,000 ML IV STA (07:07)
--- NOTE | 2021-11-22 07:11 | ED Physician Documentation ---
History of Present Illness - Stated complaint Stated Complaint: COPD EXACERBATION - Chief complaint Chief Complaint: Resp - History obtained from History obtained from: Patient, EMS - Additonal information Additional information: 61yF with advanced copd on 2-3 liters home o2 p/w acute SOA this am requiring 2 neb treatments at home, additional albuterol neb and duoneb en route with 125 solumedrol and 250 ns administered by iv. on arrival patient with some persistent soa. endorses nonproductive cough but no fevers. had been feeling progressively soa over past couple days, unrelieved by home neb machine. denies hemoptysis, leg swelling, pleurisy, cp, nausea. Review of Systems Ten Systems: 10 systems reviewed and negative Constitutional: denies: Fever, Chills Cardiac: denies: Chest pain / pressure Respiratory: reports: Dyspnea, Cough PD PAST MEDICAL HISTORY - Past Medical History Past Medical History: Yes Cardiovascular: None Respiratory: COPD Neuro: None Endocrine/Autoimmune: None GI: None INFECTION CONTROL SPECIALIST: Other : None HEENT: Chronic vision loss Psych: Depression, Anxiety Musculoskeletal: None Derm: None - Past Surgical History Past Surgical History: Yes HEENT: Cataracts - Present Medications Home Medications: Ambulatory Orders Medication Instructions Recorded Confirmed Loratadine 10 mg PO DAILY 09/06/15 10/18/21 Albuterol Sulfate 1.25 mg IH Q4H PRN #100 vial 10/18/21 Albuterol Sulfate [Proair Hfa 2 puffs INH Q4H PRN 10/18/21 10/18/21 Inhaler] Aspirin EC [Ecotrin] 325 mg PO DAILY 10/18/21 10/18/21 Azithromycin [Zithromax] 250 mg PO DAILY #4 tablet 10/18/21 Ipratropium [Atrovent] 0.5 mg INH Q6H PRN #100 vial 10/18/21 Ipratropium [Atrovent] 2 puffs INH QID 10/18/21 10/18/21 Losartan [Cozaar] 50 mg PO DAILY 10/18/21 10/18/21 Montelukast [Singulair] 10 mg PO QPM #30 tablet 10/18/21 Pnv No.95/Ferrous Fum/Folic AC 1 each PO DAILY #30 tablet 10/18/21 [ Tablet] Thiamine [Vitamin B-1] 100 mg PO DAILY #30 tablet 10/18/21 cloNIDine 0.1 MG PATCH 1 patch TD Q7D 10/18/21 10/18/21 [[id number]] predniSONE [Deltasone] 20 mg PO [id number] #21 tab 10/18/21 predniSONE [Prednisone 21-TAB dose 60 mg PO QDAC 6 Days #21 tab 11/22/21 pack] - Allergies Allergies/Adverse Reactions: Allergies Allergy/AdvReac Type Severity Reaction Status Date / Time No Known Drug Allergies Allergy Verified 11/22/21 05:59 - Social History Does the pt smoke?: No Smoking Status: Never smoker Does the pt drink ETOH?: Yes Does the pt have substance abuse?: No - Immunizations Immunizations: TDAP >10years/unknown - POLST Patient has POLST: No POLST Status: Full Code (SHe does not want to be intubated for any length of time. If we can save her life and she can come off the ventilator and 2 or 3 days that would be fine. If it looks like its going to be longer than that, DO NOT INTUBATE her.) PD ED PE NORMAL - Vitals Vital signs reviewed: Yes - General General: Alert and oriented X 3, No acute distress, Other (uncomfortable appearing on initial exam, improving s/p nebulizer in ED. ) - HEENT HEENT: Atraumatic, PERRL, EOMI - Neck Neck: Supple, no meningeal sign - Cardiac Cardiac: Other (tachycardic rate, regular rhythm) - Respiratory Respiratory: Other (initially with scant BL end expiratory wheezing, improved s/p nebulizer) - Abdomen Abdomen: Non tender, Non distended - Derm Derm: Normal color, Warm and dry - Extremities Extremities: No edema, No calf tenderness / cord - Neuro Neuro: No motor deficit, No sensory deficit - Psych Psych: Normal mood, Normal affect Results - Vitals Vitals: Vital Signs - 24 hr 11/22/21 11/22/21 11/22/21 05:52 05:54 06:04 Temperature 36.6 C Heart Rate 145 H 139 H 128 H Respiratory 22 24 19 Rate Blood Pressure 157/101 H O2 Saturation 91 L 11/22/21 06:25 Temperature Heart Rate 140 H Respiratory 14 Rate Blood Pressure 170/100 H O2 Saturation Oxygen O2 Source Nasal cannula Oxygen Flow Rate 4 - Labs Labs: Laboratory Tests 11/22/21 11/22/21 11/22/21 05:54 05:54 05:54 WBC 8.2 RBC 4.62 Hgb 14.1 Hct 44.0 MCV 95.2 MCH 30.5 MCHC 32.0 RDW 12.4 Plt Count 238 MPV 8.7 Neut # (Auto) 4.9 Lymph # (Auto) 2.0 Donley # (Auto) 1.0 Eos # (Auto) 0.2 Baso # (Auto) 0.1 Absolute Nucleated RBC 0.00 Nucleated RBC % 0.0 VBG pH 7.232 L VBG pCO2 72.0 H VBG pO2 31.4 VBG HCO3 29.6 H VBG Total CO2 31.8 H VBG O2 Saturation 52.9 L VBG Base Excess -0.1 Sodium 133 L Potassium 4.0 Chloride 90 L Carbon Dioxide 30 Anion Gap 13.0 BUN 6 Creatinine 0.4 Estimated GFR (MDRD) 163 Glucose 140 H Calcium 9.1 Total Bilirubin 0.8 AST 20 ALT 20 Alkaline Phosphatase 81 Total Protein 7.8 Albumin 4.2 Globulin 3.6 Albumin/Globulin Ratio 1.2 Lipase 31 Nasal Adenovirus (PCR) Nasal B. parapertussis DNA (PCR) Nasal Coronavir 229E PCR Nasal Coronavir HKU1 PCR Nasal Coronavir NL63 PCR Nasal Coronavir OC43 PCR Nasal Enterovir/Rhinovir PCR Nasal Influenza B PCR Nasal Influenza A PCR Nasal Parainfluen 1 PCR Nasal Parainfluen 2 PCR Nasal Parainfluen 3 PCR Nasal Parainfluen 4 PCR Nasal RSV (PCR) Nasal B.pertussis DNA PCR Nasal C.pneumoniae (PCR) Matt Human Metapneumo PCR Nasal M.pneumoniae (PCR) Nasal SARS-CoV-2 (PCR) 11/22/21 06:15 WBC RBC Hgb Hct MCV MCH MCHC RDW Plt Count MPV Neut # (Auto) Lymph # (Auto) Donley # (Auto) Eos # (Auto) Baso # (Auto) Absolute Nucleated RBC Nucleated RBC % VBG pH VBG pCO2 VBG pO2 VBG HCO3 VBG Total CO2 VBG O2 Saturation VBG Base Excess Sodium Potassium Chloride Carbon Dioxide Anion Gap BUN Creatinine Estimated GFR (MDRD) Glucose Calcium Total Bilirubin AST ALT Alkaline Phosphatase Total Protein Albumin Globulin Albumin/Globulin Ratio Lipase Nasal Adenovirus (PCR) NOT DETECTED Nasal B. parapertussis DNA (PCR) NOT DETECTED Nasal Coronavir 229E PCR NOT DETECTED Nasal Coronavir HKU1 PCR NOT DETECTED Nasal Coronavir NL63 PCR NOT DETECTED Nasal Coronavir OC43 PCR NOT DETECTED Nasal Enterovir/Rhinovir PCR NOT DETECTED Nasal Influenza B PCR NOT DETECTED Nasal Influenza A PCR NOT DETECTED Nasal Parainfluen 1 PCR NOT DETECTED Nasal Parainfluen 2 PCR NOT DETECTED Nasal Parainfluen 3 PCR NOT DETECTED Nasal Parainfluen 4 PCR NOT DETECTED Nasal RSV (PCR) NOT DETECTED Nasal B.pertussis DNA PCR NOT DETECTED Nasal C.pneumoniae (PCR) NOT DETECTED Matt Human Metapneumo PCR NOT DETECTED Nasal M.pneumoniae (PCR) NOT DETECTED Nasal SARS-CoV-2 (PCR) NOT DETECTED PD MEDICAL DECISION MAKING - ED course ED course: 61yF with pmh copd p/w soa improved with nebs and steroid treatment. Still tachycardic s/p 4 nebs. Pulse ox 95% on 2.5 L o2, which is her home dose. patient feeling significantly better but is tachycardic to 130 on my reexam. Likely side effect of her nebs. Will endorse to Dr. Rios awaiting ivf to finish. Departure - Departure Clinical Impression: COPD exacerbation Condition: Good Instructions: COPD Dc Prescriptions: predniSONE [Prednisone 21-TAB dose pack] 60 mg PO QDAC 6 Days #21 tab Comments: You were seen in the ED for evaluation of shortness of breath and found to have a copd exacerbation. Steroids were given and you should fill the script as soon as possible and follow up with your primary doctor. Return to the ED for any new or worsening symptoms or if you have other concerns.
[2021-11-22 07:24] LABS: B. PARAPERTUSSIS- RESP PCR PAN NOT DETECTED; B. PERTUSSIS- RESP PCR PANEL NOT DETECTED; C. PNEUMONIAE- RESP PCR PANEL NOT DETECTED; CORONAVIRUS 229E-RESP PCR NOT DETECTED; CORONAVIRUS HKU1-RESP PCR NOT DETECTED; CORONAVIRUS NL63-RESP PCR NOT DETECTED; CORONAVIRUS OC43-RESP PCR NOT DETECTED; HUMAN METAPNEUMOVIRUS NOT DETECTED; INFLUENZA A- RESP PCR PANEL NOT DETECTED; INFLUENZA B - RESP PCR PANEL NOT DETECTED; M. PNEUMONIAE- RESP PCR PANEL NOT DETECTED; PARAINFLUENZA VIRUS 1 NOT DETECTED; PARAINFLUENZA VIRUS 2 NOT DETECTED; PARAINFLUENZA VIRUS 3 NOT DETECTED; PARAINFLUENZA VIRUS 4 NOT DETECTED; RHINOVIRUS/ENTEROVIRUS NOT DETECTED; RSV- RESP PCR PANEL NOT DETECTED; SARS-CoV-2 -RESP PCR PANEL NOT DETECTED
--- NOTE | 2021-11-22 07:45 | XRAY Report ---
PROCEDURE: Chest 1 View X-Ray INDICATIONS: Chest Pain TECHNIQUE: One view of the chest was acquired. COMPARISON: 10/17/2021. FINDINGS: Surgical changes and devices: None. Lungs and pleura: No pleural effusions or pneumothorax. Lungs are clear. Lungs hyperinflated chest with COPD. Possible 8 mm nodule in the right lung base adjacent to the diaphragm. Mediastinum: Mediastinal contours appear normal. Heart size is normal. Bones and chest wall: No suspicious bony lesions. Overlying soft tissues appear unremarkable. IMPRESSION: 1. No acute cardiopulmonary disease process. 2. Possible 8 mm nodule in the right lung base adjacent to the hemidiaphragm. Recommend standard two- view chest or CT scan of the chest when clinically feasible. Reviewed by: Malgorzata Mclaughlin MD, PhD on 11/22/2021 7:43 AM PST Approved by: Malgorzata Mclaughlin MD, PhD on 11/22/2021 7:43 AM PST Station ID: [id number]
[2021-11-22 09:20] LABS: VBG BASE EXCESS -0.1 mmol/L (-2 - +2); VBG HCO3 29.3 mmol/L (23-28); VBG OXYGEN SATURATION 51.7 % (60-80); VBG PCO2 70.6 mmHg (41-51); VBG PH 7.236 (7.31-7.41); VBG PO2 33.5 mmHg (25-47); VBG TOTAL CO2 31.5 mmol/L (24-29)
[2021-11-22 11:58] VITALS: BP 124/88
--- NOTE | 2021-11-23 00:27 | ED Physician Documentation ---
ED Addendum - Addendum Addendum: 11/23/21 00:25 PAtient seen on re-exam and was still wheezing. Given repeat Duoneb. She was not sure if felt well enough for home and wanted to give a bit more time. Subsequently she did feel improved enough. Sats adequate here on NC< which she has at home. Discharged stable. DIsopsition: discharged home in stable condition. DIagnoses: 1. acute exacerbation COPD WITH Wheezing. 2. dyspnea.
== END 2021-11-22 11:57 | disposition home or self-care (01) ==
LOC: EDUNIT# → ED 05:40
DX: J44.1 Chronic obstructive pulmonary disease with (acute) exacerbation (principal); Z99.81 Dependence on supplemental oxygen; Z20.822 Contact with and (suspected) exposure to COVID-19
CPT/HCPCS: 0202U; 36415; 71045; 80053; 82803; 83690; 85025; 94640; 94664; 96360; 99284

== ENCOUNTER 2022-02-05 13:30 | Outpatient (CLI) | payer MEDICAID ==
--- NOTE | 2022-02-05 16:27 | CT Report ---
PROCEDURE: CHEST WO INDICATIONS: COPD TECHNIQUE: Noncontrast 1mm axial images were acquired from the pulmonary apices to the posterior costophrenic an gles. Axial 5 mm soft tissue kernel reconstructions were performed as well as 8 mm axial MIP and cor onal and sagittal 5 mm reformations. For radiation dose reduction, the following was used: automate d exposure control, adjustment of mA and/or kV according to patient size. COMPARISON: Chest x-ray, 11/22/2021 and 10/15/2021. FINDINGS: Image quality: There are respiratory motions. Lungs and pleura: Moderate emphysema. There is a 2 mm nodule in the left lower lobe (series 4 image 179). No acute air space opacities. No pleural effusions or pneumothorax. Central and peripheral ai rways are patent and normal in caliber. Mediastinum: Heart size is normal. Severe coronary artery calcification. No pericardial effusion. N o mediastinal adenopathy by size criteria. Thoracic aorta and central pulmonary arteries are normal in size. Moderate aortic calcification. Esophagus is normal in caliber. No hiatal hernia. Bones and chest wall: No suspicious bony lesions. No vertebral body compression fractures. No axil amanda or supraclavicular adenopathy by size criteria. The thyroid is normal in size and there are no incidental findings. Abdomen: Visualized upper abdominal solid organs and bowel loops appear normal in the absence of con trast. IMPRESSION: 1. Moderate emphysema. 2. A 2 mm nodule in the left lower lobe. Please see enclosed follow-up recommendation. 3. Atherosclerosis. Fleischner Society criteria for SOLID lung nodule followup. Nodule size (mm)Low-risk patientHigh-risk patient "d4No follow-up neededFollow-up at 12 mo; if no change, no further follow-up >0-3Klatdt-zr CT at 12 mo; if no change, no further follow-up needed.Initial follow-up CT at 6-12 mo, then 18-24 mo if no change. >6-8Initial follow-up CT at 6-12 mo, then 18-24 mo if no change. Initial follow-up CT at 3-6 mo, then 9-12 mo and 24 mo if no change. >8Follow-up CT at 3, 9, 24 mo. Or PET and/or biopsy.Same as for low-risk pts. Reviewed by: Nena Donovan MD on 02/05/2022 3:26 PM AKDT Approved by: Nena Donovan MD on 02/05/2022 3:26 PM AKVILMA Station ID: [id number]
== END 2022-02-05 13:31 | disposition home or self-care (01) ==
LOC: DI 13:30
PROVIDERS: ATTEND Internal Medicine
DX: J43.9 Emphysema, unspecified (principal); R91.1 Solitary pulmonary nodule; I25.10 Atherosclerotic heart disease of native coronary artery without angina pectoris

== ENCOUNTER 2022-06-20 16:10 | Outpatient (CLI) | payer MEDICAID | END 2022-06-20 16:11 | disposition critical access hospital (66) | LOC: EMS 16:10 | DX: R06.02 Shortness of breath (principal); R45.1 Restlessness and agitation | CPT/HCPCS: A0425; A0427; A0999 ==

== ENCOUNTER 2022-06-20 16:32 | Emergency (ER) | payer MEDICAID ==
[2022-06-20] MEDS ORDERED: KETAMINE 500 MG/10 ML VIAL IVP STA (16:37)
[2022-06-20] MEDS ORDERED: ROCURONIUM 50 MG/5 ML VIAL IVP STA (16:37)
[2022-06-20 16:50] LABS: VBG BASE EXCESS -1.8 mmol/L (-2 - +2); VBG HCO3 28.1 mmol/L (23-28); VBG PCO2 77.3 mmHg (41-51); VBG PH 7.179 (7.31-7.41); VBG PO2 110.1 mmHg (25-47); VBG TOTAL CO2 30.5 mmol/L (24-29)
[2022-06-20 16:51] LABS: BASOPHILS # (AUTO) 0.1 10^3/uL (0.0-0.1); EOSINOPHILS # (AUTO) 0.1 10^3/uL (0.0-0.7); EOSINOPHILS % (AUTO) 1.2 %; HCT - HEMATOCRIT 31.7 % (37.0-47.0); HGB - HEMOGLOBIN 10.9 g/dL (12.0-16.0); LYMPHOCYTES # (AUTO) 2.3 10^3/uL (1.5-3.5); LYMPHOCYTES % (AUTO) 19.7 %; MEAN CORPUSCULAR HEMOGLOBIN 31.4 pg (27.0-31.0); MEAN CORPUSCULAR HGB CONC 34.4 g/dL (32.0-36.0); MEAN CORPUSCULAR VOLUME 91.4 fL (81.0-99.0); MONOCYTES # (AUTO) 1.3 10^3/uL (0.0-1.0); MONOCYTES % (AUTO) 10.8 %; NEUTROPHILS # (AUTO) 7.5 10^3/uL (1.5-6.6); NEUTROPHILS % (AUTO) 63.2 %; NRBC ABSOLUTE COUNT (AUTO) 0.09 x10^3/uL; NUCLEATED RED BLOOD CELLS AUTO 0.8 /100WBC; PLT - PLATELET COUNT 376 10^3/uL (130-450); RED BLOOD COUNT 3.47 10^6/uL (4.20-5.40); RED CELL DISTRIBUTION WIDTH 12.5 % (12.0-15.0); WHITE BLOOD COUNT 11.8 x10^3/uL (4.8-10.8)
[2022-06-20] MEDS ORDERED: KETAMINE 500 MG/10 ML VIAL ONE (16:54)
[2022-06-20] MEDS ORDERED: ROCURONIUM 50 MG/5 ML VIAL ONE (16:54)
[2022-06-20 16:56] LABS: INR 1.1 (0.8-1.2); PT - PROTHROMBIN TIME 12.4 secs (9.9-12.6)
[2022-06-20] MEDS ORDERED: ALBUTEROL NEB 2.5 MG/3 ML INH STA (16:59)
[2022-06-20] MEDS ORDERED: PROPOFOL 1000 MG/100 ML 1,000 MG/100 ML BOTTLE IV STA ×2 (16:59→18:10)
--- NOTE | 2022-06-20 17:02 | ED Physician Documentation ---
History of Present Illness - Stated complaint Stated Complaint: COPD EXACERBATION - History obtained from History obtained from: EMS - Additonal information Additional information: 61-year-old woman with history of COPD is brought in by ambulance for respiratory distress. Reportedly has been feeling ill for a few days with cough and cold symptoms. On EMS arrival today her room air oximetry was in the 80s. She was brought in, intubation in route failed, but she has a Car tube in place. 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 HEENT: Chronic vision loss Psych: Depression, Anxiety Musculoskeletal: None Derm: None - Past Surgical History Past Surgical History: Yes HEENT: Cataracts - Present Medications Home Medications: Ambulatory Orders Medication Instructions Recorded Confirmed Loratadine 10 mg PO DAILY 09/06/15 10/18/21 Albuterol Sulfate 1.25 mg IH Q4H PRN #100 vial 10/18/21 Albuterol Sulfate [Proair Hfa 2 puffs INH Q4H PRN 10/18/21 10/18/21 Inhaler] Aspirin EC [Ecotrin] 325 mg PO DAILY 10/18/21 10/18/21 Azithromycin [Zithromax] 250 mg PO DAILY #4 tablet 10/18/21 Ipratropium [Atrovent] 0.5 mg INH Q6H PRN #100 vial 10/18/21 Ipratropium [Atrovent] 2 puffs INH QID 10/18/21 10/18/21 Losartan [Cozaar] 50 mg PO DAILY 10/18/21 10/18/21 Montelukast [Singulair] 10 mg PO QPM #30 tablet 10/18/21 Pnv No.95/Ferrous Fum/Folic AC 1 each PO DAILY #30 tablet 10/18/21 [ Tablet] Thiamine [Vitamin B-1] 100 mg PO DAILY #30 tablet 10/18/21 cloNIDine 0.1 MG PATCH 1 patch TD Q7D 10/18/21 10/18/21 [[id number]] predniSONE [Deltasone] 20 mg PO [id number] #21 tab 10/18/21 predniSONE [Prednisone 21-TAB dose 60 mg PO QDAC 6 Days #21 tab 11/22/21 pack] - Allergies Allergies/Adverse Reactions: Allergies Allergy/AdvReac Type Severity Reaction Status Date / Time No Known Drug Allergies Allergy Verified 11/22/21 05:59 - Social History Does the pt smoke?: No Smoking Status: Never smoker Does the pt drink ETOH?: Yes Does the pt have substance abuse?: No - Immunizations Immunizations: TDAP >10years/unknown - POLST Patient has POLST: No POLST Status: Full Code (SHe does not want to be intubated for any length of time. If we can save her life and she can come off the ventilator and 2 or 3 days that would be fine. If it looks like its going to be longer than that, DO NOT INTUBATE her.) PD ED PE NORMAL - Vitals Vital signs reviewed: Yes - General General: Other (Car tube in place with bilateral rhonchorous breath sounds. Initially GCS 3 but starts to wake up a bit as prehospital meds wear off.) - HEENT HEENT: PERRL, EOMI - Neck Neck: Supple, no meningeal sign, No bony TTP - Cardiac Cardiac: Other (Tachycardic but regular, no murmur) - Respiratory Respiratory: Other (Rhonchorous throughout) - Abdomen Abdomen: Soft, Non tender, Other (Distended abdomen with no free fluid on ultrasound) - Back Back: No CVA TTP, No spinal TTP - Derm Derm: Normal color, Warm and dry - Extremities Extremities: Other (3+ pitting pedal edema) - Neuro Eye Opening: Spontaneous Motor: Withdraws to Pain Verbal: None GCS Score: 9 Results - Vitals Vitals: Vital Signs - 24 hr 06/20/22 06/20/22 06/20/22 17:07 17:29 18:47 Temperature 36.0 C L Heart Rate 132 H 105 H 113 H Respiratory 25 H 16 Rate Blood Pressure 160/97 H 94/63 O2 Saturation 100 100 If not protocol : Oxygen Flow, liters/minute 06/20/22 06/20/22 06/20/22 18:49 19:00 19:15 Temperature 36.4 C L Heart Rate 113 H 108 H 109 H Respiratory 12 20 20 Rate Blood Pressure 103/71 123/82 H 93/63 O2 Saturation 100 100 97 If not protocol 3 3 : Oxygen Flow, liters/minute 06/20/22 06/20/22 06/20/22 19:44 20:15 21:15 Temperature 36.7 C 36.7 C Heart Rate 106 H 105 H 105 H Respiratory 20 20 20 Rate Blood Pressure 106/70 103/70 116/77 O2 Saturation 98 100 99 If not protocol : Oxygen Flow, liters/minute Oxygen O2 Source Mechanical ventilator - EKG (time done) 1720 Rate: Rate (enter#) (106) Rhythm: Sinus tachycardia [place]: Normal Intervals: Normal NC, Prolonged QT QRS: Normal Ischemia: Normal ST segments - Labs Labs: Laboratory Tests 06/20/22 06/20/22 06/20/22 16:41 16:41 16:41 WBC 11.8 H RBC 3.47 L Hgb 10.9 L Hct 31.7 L MCV 91.4 MCH 31.4 H MCHC 34.4 RDW 12.5 Plt Count 376 MPV 8.0 Neut # (Auto) 7.5 H Lymph # (Auto) 2.3 [place] # (Auto) 1.3 H Eos # (Auto) 0.1 Baso # (Auto) 0.1 Absolute Nucleated RBC 0.09 Nucleated RBC % 0.8 PT 12.4 INR 1.1 Bld Gas Analysis Time Sample Site ABG pH ABG pCO2 ABG pO2 ABG HCO3 ABG Total CO2 ABG O2 Saturation ABG Base Excess Josh Test VBG pH VBG pCO2 VBG pO2 VBG HCO3 VBG Total CO2 VBG O2 Saturation VBG Base Excess Respiration Rate O2 Delivery Device Vent Mode FiO2 Tidal Volume PEEP Sodium 112 L* Potassium 4.5 Chloride 74 L* Carbon Dioxide 29 Anion Gap 9.0 BUN 5 L Creatinine 0.4 Estimated GFR (MDRD) 163 Glucose 131 H Lactic Acid Calcium 8.3 L Phosphorus 4.1 Magnesium 1.6 L Total Bilirubin 1.0 AST 45 H ALT 47 Alkaline Phosphatase 99 Troponin I High Sens B-Natriuretic Peptide Total Protein 6.8 Albumin 3.3 Globulin 3.5 Albumin/Globulin Ratio 0.9 L Urine Color Urine Clarity Urine pH Ur Specific [place] Urine Protein Urine Glucose (UA) Urine Ketones Urine Occult Blood Urine Nitrite Urine Bilirubin Urine Urobilinogen Ur Leukocyte Esterase Ur Microscopic Review Urine Culture Comments Nasal Adenovirus (PCR) Nasal B. parapertussis DNA (PCR) Nasal Coronavir 229E PCR Nasal Coronavir HKU1 PCR Nasal Coronavir NL63 PCR Nasal Coronavir OC43 PCR Nasal Enterovir/Rhinovir PCR Nasal Influenza B PCR Nasal Influenza A PCR Nasal Parainfluen 1 PCR Nasal Parainfluen 2 PCR Nasal Parainfluen 3 PCR Nasal Parainfluen 4 PCR Nasal RSV (PCR) Nasal B.pertussis DNA PCR Nasal C.pneumoniae (PCR) Matt Human Metapneumo PCR Nasal M.pneumoniae (PCR) Nasal SARS-CoV-2 (PCR) Urine Opiates Screen Ur Oxycodone Screen Urine Methadone Screen Ur Propoxyphene Screen Ur Barbiturates Screen Ur Tricyclics Screen Ur Phencyclidine Scrn Ur Amphetamine Screen U Methamphetamines Scrn U Benzodiazepines Scrn Urine Cocaine Screen U Cannabinoids Screen Ethyl Alcohol < 5.0 06/20/22 06/20/22 06/20/22 16:41 16:41 16:41 WBC RBC Hgb Hct MCV MCH MCHC RDW Plt Count MPV Neut # (Auto) Lymph # (Auto) [place] # (Auto) Eos # (Auto) Baso # (Auto) Absolute Nucleated RBC Nucleated RBC % PT INR Bld Gas Analysis Time Sample Site ABG pH ABG pCO2 ABG pO2 ABG HCO3 ABG Total CO2 ABG O2 Saturation ABG Base Excess Josh Test VBG pH VBG pCO2 VBG pO2 VBG HCO3 VBG Total CO2 VBG O2 Saturation VBG Base Excess Respiration Rate O2 Delivery Device Vent Mode FiO2 Tidal Volume PEEP Sodium Potassium Chloride Carbon Dioxide Anion Gap BUN Creatinine Estimated GFR (MDRD) Glucose Lactic Acid 1.8 Calcium Phosphorus Magnesium Total Bilirubin AST ALT Alkaline Phosphatase Troponin I High Sens 20.1 H* B-Natriuretic Peptide 110 H Total Protein Albumin Globulin Albumin/Globulin Ratio Urine Color Urine Clarity Urine pH Ur Specific [place] Urine Protein Urine Glucose (UA) Urine Ketones Urine Occult Blood Urine Nitrite Urine Bilirubin Urine Urobilinogen Ur Leukocyte Esterase Ur Microscopic Review Urine Culture Comments Nasal Adenovirus (PCR) Nasal B. parapertussis DNA (PCR) Nasal Coronavir 229E PCR Nasal Coronavir HKU1 PCR Nasal Coronavir NL63 PCR Nasal Coronavir OC43 PCR Nasal Enterovir/Rhinovir PCR Nasal Influenza B PCR Nasal Influenza A PCR Nasal Parainfluen 1 PCR Nasal Parainfluen 2 PCR Nasal Parainfluen 3 PCR Nasal Parainfluen 4 PCR Nasal RSV (PCR) Nasal B.pertussis DNA PCR Nasal C.pneumoniae (PCR) Matt Human Metapneumo PCR Nasal M.pneumoniae (PCR) Nasal SARS-CoV-2 (PCR) Urine Opiates Screen Ur Oxycodone Screen Urine Methadone Screen Ur Propoxyphene Screen Ur Barbiturates Screen Ur Tricyclics Screen Ur Phencyclidine Scrn Ur Amphetamine Screen U Methamphetamines Scrn U Benzodiazepines Scrn Urine Cocaine Screen U Cannabinoids Screen Ethyl Alcohol 06/20/22 06/20/22 06/20/22 16:41 17:00 17:28 WBC RBC Hgb Hct MCV MCH MCHC RDW Plt Count MPV Neut # (Auto) Lymph # (Auto) [place] # (Auto) Eos # (Auto) Baso # (Auto) Absolute Nucleated RBC Nucleated RBC % PT INR Bld Gas Analysis Time Sample Site ABG pH ABG pCO2 ABG pO2 ABG HCO3 ABG Total CO2 ABG O2 Saturation ABG Base Excess Josh Test VBG pH 7.179 L VBG pCO2 77.3 H VBG pO2 110.1 H VBG HCO3 28.1 H VBG Total CO2 30.5 H VBG O2 Saturation 97.0 H VBG Base Excess -1.8 Respiration Rate O2 Delivery Device Vent Mode FiO2 Tidal Volume PEEP Sodium Potassium Chloride Carbon Dioxide Anion Gap BUN Creatinine Estimated GFR (MDRD) Glucose Lactic Acid Calcium Phosphorus Magnesium Total Bilirubin AST ALT Alkaline Phosphatase Troponin I High Sens B-Natriuretic Peptide Total Protein Albumin Globulin Albumin/Globulin Ratio Urine Color YELLOW Urine Clarity CLEAR Urine pH 6.0 Ur Specific [place] >=1.030 H Urine Protein NEGATIVE Urine Glucose (UA) NEGATIVE Urine Ketones >=80 H Urine Occult Blood NEGATIVE Urine Nitrite NEGATIVE Urine Bilirubin NEGATIVE Urine Urobilinogen 0.2 (NORMAL) Ur Leukocyte Esterase NEGATIVE Ur Microscopic Review NOT INDICATED Urine Culture Comments NOT INDICATED Nasal Adenovirus (PCR) NOT DETECTED Nasal B. parapertussis DNA (PCR) NOT DETECTED Nasal Coronavir 229E PCR NOT DETECTED Nasal Coronavir HKU1 PCR NOT DETECTED Nasal Coronavir NL63 PCR NOT DETECTED Nasal Coronavir OC43 PCR NOT DETECTED Nasal Enterovir/Rhinovir PCR NOT DETECTED Nasal Influenza B PCR NOT DETECTED Nasal Influenza A PCR NOT DETECTED Nasal Parainfluen 1 PCR NOT DETECTED Nasal Parainfluen 2 PCR NOT DETECTED Nasal Parainfluen 3 PCR NOT DETECTED Nasal Parainfluen 4 PCR NOT DETECTED Nasal RSV (PCR) NOT DETECTED Nasal B.pertussis DNA PCR NOT DETECTED Nasal C.pneumoniae (PCR) NOT DETECTED Matt Human Metapneumo PCR NOT DETECTED Nasal M.pneumoniae (PCR) NOT DETECTED Nasal SARS-CoV-2 (PCR) NOT DETECTED Urine Opiates Screen NEGATIVE Ur Oxycodone Screen NEGATIVE Urine Methadone Screen NEGATIVE Ur Propoxyphene Screen NEGATIVE Ur Barbiturates Screen NEGATIVE Ur Tricyclics Screen NEGATIVE Ur Phencyclidine Scrn NEGATIVE Ur Amphetamine Screen NEGATIVE U Methamphetamines Scrn NEGATIVE U Benzodiazepines Scrn NEGATIVE Urine Cocaine Screen NEGATIVE U Cannabinoids Screen NEGATIVE Ethyl Alcohol 06/20/22 06/20/22 06/20/22 19:18 20:13 20:13 WBC RBC Hgb Hct MCV MCH MCHC RDW Plt Count MPV Neut # (Auto) Lymph # (Auto) [place] # (Auto) Eos # (Auto) Baso # (Auto) Absolute Nucleated RBC Nucleated RBC % PT INR Bld Gas Analysis Time 1923 Sample Site RIGHT RADIAL ABG pH 7.34 L ABG pCO2 47 H ABG pO2 76 L ABG HCO3 24.3 ABG Total CO2 25.8 ABG O2 Saturation 95 ABG Base Excess -1.7 Josh Test POSITIVE VBG pH VBG pCO2 VBG pO2 VBG HCO3 VBG Total CO2 VBG O2 Saturation VBG Base Excess Respiration Rate 20 O2 Delivery Device VENTILATOR Vent Mode ASSIST/CONTROL FiO2 30.00 Tidal Volume 450 PEEP 5 Sodium 117 L* Potassium 3.8 Chloride 79 L* Carbon Dioxide 24 Anion Gap 14.0 H BUN 5 L Creatinine 0.4 Estimated GFR (MDRD) 163 Glucose 114 H Lactic Acid Calcium 8.0 L Phosphorus Magnesium Total Bilirubin AST ALT Alkaline Phosphatase Troponin I High Sens 24.7 H* B-Natriuretic Peptide Total Protein Albumin Globulin Albumin/Globulin Ratio Urine Color Urine Clarity Urine pH Ur Specific [place] Urine Protein Urine Glucose (UA) Urine Ketones Urine Occult Blood Urine Nitrite Urine Bilirubin Urine Urobilinogen Ur Leukocyte Esterase Ur Microscopic Review Urine Culture Comments Nasal Adenovirus (PCR) Nasal B. parapertussis DNA (PCR) Nasal Coronavir 229E PCR Nasal Coronavir HKU1 PCR Nasal Coronavir NL63 PCR Nasal Coronavir OC43 PCR Nasal Enterovir/Rhinovir PCR Nasal Influenza B PCR Nasal Influenza A PCR Nasal Parainfluen 1 PCR Nasal Parainfluen 2 PCR Nasal Parainfluen 3 PCR Nasal Parainfluen 4 PCR Nasal RSV (PCR) Nasal B.pertussis DNA PCR Nasal C.pneumoniae (PCR) Matt Human Metapneumo PCR Nasal M.pneumoniae (PCR) Nasal SARS-CoV-2 (PCR) Urine Opiates Screen Ur Oxycodone Screen Urine Methadone Screen Ur Propoxyphene Screen Ur Barbiturates Screen Ur Tricyclics Screen Ur Phencyclidine Scrn Ur Amphetamine Screen U Methamphetamines Scrn U Benzodiazepines Scrn Urine Cocaine Screen U Cannabinoids Screen Ethyl Alcohol - Rads (name of study) CTA Chest Radiology: EMP read contemporaneously (No PE, Mild pulm edema, ETT @ roxy, Mild T6/T7 comp frxs) Procedures - Intubation Provider: Emergency physician Medications: Ketamine (200mg), Rocuronium (40mg) Blade: Glidescope Tube: Size-enter number (7.0), Cuffed Route: Oral Confirmation: Direct visualization, Bilateral breath sounds, No abdominal breath sound, End tidal CO2 Complications: No compications - Central Line Central Line Preparation: Unable to obtain consent, Time out completed, Ultrasound used, Sterile prep and drape Central line location: Right IJ Central line type: Triple lumen Central line aftercare: Chlorhexidine disc placed, Secured, Placement confirmed, No pneumothorax, No complications, Bundle checklist complete, Pt tolerated well PD MEDICAL DECISION MAKING - ED course ED course: 61-year-old woman presents with respiratory failure, likely related to known history of COPD but the differential includes other causes. She does have some pedal edema as well, that appears symmetric so CHF is a possibility, that said her BNP is negligibly elevated at 110. She has a Car tube on arrival and this was switched out via glide scope for an endotracheal tube. A central line was placed as well given her critical illness. She was treated with Solu-Medrol, inline nebs and Rocephin for likely COPD exacerbation. Her chest x-ray looks relatively clear so PE is still in the differential and a pulmonary angiogram was ordered. Notes from previous hospitalizations reviewed, it mentioned that she would not want to be intubated for more than a few days but initial intubation was okay. Our ICU is full and we also do not have a respiratory therapist in house at this moment, efforts to transfer were begun, but due to hospital capacity issues throughout the state she may have to board in the emergency department. Lab fajardo she is noted to be mildly anemic with a modest leukocytosis, she has acute on chronic CO2 retention with acidosis, she has profound hyponatremia. Prior values on the chart ranged from 126-133. She was administered 1 L of normal saline as she did become hypotensive, and 50 mL of hypertonic saline as well. Subsequently her sodium came up to 117 which I am happy with that rise, we can stop the hypertonic saline and I will put her on maintenance saline with 20 of K. Her troponin went up just a bit but not enough to be really consistent with a primary ACS. Multiple hospitals in the [place] [facility] called, disposition tonight is unlikely despite her critical nature. - Critical Care Time(min): 85 Time Includes: Direct patient care, Review records, Reassess patient, Document care, Coordinate care, Medical consult Data interpretation: Labs, Pulse ox Procedures included in critical care time: Peripheral IV Procedures excluded from critical care time: Central IV, Intubation, EKG Departure - Departure Disposition: 02 Transfer Acute Care Hosp Clinical Impression: Hyponatremia Respiratory failure Qualifiers: Chronicity: acute on chronic Respiratory failure complication: hypoxia and hypercapnia Qualified Code(s): J96.21 - Acute and chronic respiratory failure with hypoxia Condition: Critical
[2022-06-20 17:05] LABS: ALBUMIN 3.3 g/dL (3.2-5.5); ALBUMIN/GLOBULIN RATIO 0.9 (1.0-2.2); ALKALINE PHOSPHATASE 99 IU/L (42-121); ALT ALANINE AMINOTRANSFERASE 47 IU/L (10-60); AST ASPARTATE AMINOTRANSFERASE 45 IU/L (10-42); BUN - BLOOD UREA NITROGEN 5 mg/dL (6-20); CALCIUM 8.3 mg/dL (8.5-10.3); CARBON DIOXIDE - CO2 29 mmol/L (21-32); CREATININE 0.4 mg/dL (0.4-1.0); ETOH - ETHANOL < 5.0 mg/dL; GFR - MDRD 163 (>89); GLUCOSE 131 mg/dL (70-100); MAGNESIUM 1.6 mg/dL (1.7-2.8); PHOSPHORUS 4.1 mg/dL (2.5-4.6); POTASSIUM 4.5 mmol/L (3.5-5.0); TOTAL PROTEIN 6.8 g/dL (6.7-8.2)
[2022-06-20] MEDS ORDERED: cefTRIAXone 1 GM in SODIUM CHLORIDE 0.9% MINIBAG 100 ML IV STA (17:05)
[2022-06-20] MEDS ORDERED: methylPREDNISolone SUCCINATE 125 MG/2 ML VIAL IVP STA (17:05)
[2022-06-20 17:13] LABS: SODIUM 112 mmol/L (135-145)
[2022-06-20 17:14] LABS: CHLORIDE 74 mmol/L (101-111)
[2022-06-20] MEDS ORDERED: SODIUM CHLORIDE 0.9% 1,000 ML IV STA (17:15)
[2022-06-20] MEDS ORDERED: ALBUTEROL NEB 2.5 MG/3 ML INH ONE (17:15)
[2022-06-20] MEDS ORDERED: MAGNESIUM SULFATE 2 GRAM 2 GM/50 ML BAG IV ONE (17:15)
[2022-06-20 17:59] LABS: B. PARAPERTUSSIS- RESP PCR PAN NOT DETECTED; B. PERTUSSIS- RESP PCR PANEL NOT DETECTED; C. PNEUMONIAE- RESP PCR PANEL NOT DETECTED; CORONAVIRUS 229E-RESP PCR NOT DETECTED; CORONAVIRUS HKU1-RESP PCR NOT DETECTED; CORONAVIRUS NL63-RESP PCR NOT DETECTED; CORONAVIRUS OC43-RESP PCR NOT DETECTED; HUMAN METAPNEUMOVIRUS NOT DETECTED; INFLUENZA A- RESP PCR PANEL NOT DETECTED; INFLUENZA B - RESP PCR PANEL NOT DETECTED; M. PNEUMONIAE- RESP PCR PANEL NOT DETECTED; PARAINFLUENZA VIRUS 1 NOT DETECTED; PARAINFLUENZA VIRUS 2 NOT DETECTED; PARAINFLUENZA VIRUS 3 NOT DETECTED; PARAINFLUENZA VIRUS 4 NOT DETECTED; RHINOVIRUS/ENTEROVIRUS NOT DETECTED; RSV- RESP PCR PANEL NOT DETECTED; SARS-CoV-2 -RESP PCR PANEL NOT DETECTED
[2022-06-20] MEDS ORDERED: SODIUM CHLORIDE 3% HYPERTONIC 500 ML IV SCH (18:00)
[2022-06-20] MEDS ORDERED: SODIUM CHLORIDE 3% HYPERTONIC 100 ML IV SCH (18:40)
[2022-06-20 18:50] LABS: MUDS CUTOFF CONCENTRATIONS CUTOFF CONC BELOW:
[2022-06-20 18:55] LABS: BILIRUBIN,URINE NEGATIVE (NEGATIVE); GLUCOSE, URINE (UA) NEGATIVE (NEGATIVE); KETONES,URINE (UA) >=80 mg/dL (NEGATIVE); LEUKOCYTE ESTERASE, URINE NEGATIVE (NEGATIVE); NITRITE,URINE NEGATIVE (NEGATIVE); OCCULT BLOOD,URINE NEGATIVE (NEGATIVE); PROTEIN,URINE NEGATIVE (NEGATIVE); UROBILINOGEN,URINE 0.2 (NORMAL) E.U./dL (NORMAL)
[2022-06-20 18:56] LABS: CLARITY,URINE CLEAR (CLEAR)
[2022-06-20 19:06] LABS: AMPHETAMINE SCREEN,URINE NEGATIVE (NEGATIVE); BARBITURATE SCREEN,UR NEGATIVE (NEGATIVE); BENZODIAZEPINES SCREEN, URINE NEGATIVE (NEGATIVE); COCAINE SCREEN URINE NEGATIVE (NEGATIVE); METHADONE SCREEN, URINE NEGATIVE (NEGATIVE); METHAMPHETAMINES SCREEN, URINE NEGATIVE (NEGATIVE); OPIATE SCREEN, URINE NEGATIVE (NEGATIVE); OXYCODONE SCREEN, URINE NEGATIVE (NEGATIVE); PROPOXYPHENE SCREEN, URINE NEGATIVE (NEGATIVE); THC CANNABINOID SCREEN, URINE NEGATIVE (NEGATIVE); TRICYCLIC ANTIDEPRESSANT,URINE NEGATIVE (NEGATIVE)
[2022-06-20 19:23] LABS: ABG BASE EXCESS -1.7 mmol/L (-2.0-3.0); ABG HCO3 24.3 mmol/L (22.0-26.0); ABG OXYGEN SATURATION 95 % (94-98); ABG PCO2 47 mmHg (34-45); ABG PH 7.34 (7.35-7.45); ABG PO2 76 mmHg (80-100); ABG TCO2 25.8 MMOL/L (21.0-29.0); ALLEN TEST POSITIVE
[2022-06-20 19:24] LABS: ABG MODE OF VENTILATION ASSIST/CONTROL; ABG RESPIRATORY RATE 20 b/min
--- NOTE | 2022-06-20 19:42 | CT Report ---
PROCEDURE: ANGIO CHEST with contrast pulmonary embolism protocol INDICATIONS: resp failure, pe protocol CONTRAST: IV CONTRAST: Optiray 320 ml: 80 PO CONTRAST: *NO PO CONTRAST TECHNIQUE: After the administration of intravenous contrast, 2 mm axial images were acquired from the pulmonary apices to the posterior costophrenic angles during the arterial phase. In addition, 1 mm lung kernel and 5 mm soft tissue kernel reconstructions were performed. 3-dimensional coronal oblique maximum int ensity projection (MIP) reformats, 8 mm axial MIP, and 5 mm coronal and sagittal MPR reformats were t hen performed through the thorax. For radiation dose reduction, the following was used: automated exp osure control, adjustment of mA and/or kV according to patient size. COMPARISON: CT chest 02/05/2022. FINDINGS: Image quality: Excellent. Medical devices: Right internal jugular central venous catheter terminates at the lower SVC. Endotrac heal tube terminates at the roxy. NG/OG tube terminates at the mid-lower esophagus. Pulmonary arteries: Pulmonary arteries are normal in size, and demonstrate no intraluminal filling d efects to suggest central pulmonary embolism. Lungs and pleura: Emphysema. No lobar consolidation, pleural effusion, or pneumothorax. Interlobular septal thickening is present. Mediastinum: Heart size is normal, without pericardial effusion. No mediastinal or hilar adenopathy . Thoracic aorta is normal in caliber and enhancement. Esophagus is normal in caliber, without hiat al hernia. Bones and chest wall: No suspicious bony lesions. Mild compression deformity of T6 and T7 superior endplates, approximately 25% vertebral body height loss, new since the prior exam. No axillary or ceballos praclavicular adenopathy. Abdomen: Visualized upper abdominal solid organs appear normal in the early arterial phase of enhanc ement. IMPRESSION: 1. No pulmonary embolism demonstrated. 2. Findings suggestive of mild pulmonary edema. 3. Endotracheal tube terminates at the roxy. 4. Mild compression deformities of the T6 and T7 superior endplates are new since the prior exam. Reviewed by: Dion Alvarez MD on 06/20/2022 7:41 PM PDT Approved by: Dion Alvarez MD on 06/20/2022 7:41 PM PDT Station ID: [id number]
[2022-06-20] MEDS ORDERED: ENOXAPARIN 60 MG/0.6 ML SYRINGE SUBQ SCH (21:00)
[2022-06-20] MEDS ORDERED: IPRATROPIUM/ALBUTEROL 3 ML NEB INH SCH (21:00)
[2022-06-20 21:05] LABS: CREATININE 0.4 mg/dL (0.4-1.0); POTASSIUM 3.8 mmol/L (3.5-5.0)
[2022-06-20] MEDS ORDERED: NS W/20 MEQ KCL 1,000 ML IV STA (21:23)
--- NOTE | 2022-06-20 23:55 | ED Physician Documentation ---
ED Addendum - Addendum Addendum: 06/20/22 23:43 D/W Dr. Madsen (ICU, [facility]). Reviewed history and pertinent results. Graciously accepts the patient for transfer. Departure - Departure Disposition: 02 Transfer Acute Care Hosp Clinical Impression: Hyponatremia Respiratory failure Qualifiers: Chronicity: acute on chronic Respiratory failure complication: hypoxia and hypercapnia Qualified Code(s): J96.21 - Acute and chronic respiratory failure with hypoxia Condition: Critical Discharge Date/Time: 06/21/22 00:46
[2022-06-21] MEDS ORDERED: PROPOFOL 1000 MG/100 ML 1,000 MG/100 ML BOTTLE IV STA (00:09)
[2022-06-21 00:46] VITALS: BP 110/84
[2022-06-21] MEDS ORDERED: PANTOPRAZOLE 40 MG VIAL IV SCH (09:00)
== END 2022-06-21 00:46 | disposition short-term general hospital (02) ==
LOC: EDUNIT# → ED 16:32
DX: J96.90 Respiratory failure, unspecified, unspecified whether with hypoxia or hypercapnia (principal); E87.1 Hypo-osmolality and hyponatremia; Z20.822 Contact with and (suspected) exposure to COVID-19
CPT/HCPCS: 31500; 36415; 36556; 36600; 43753; 51702; 71275; 80048; 80053; 80306; 80320; 81003; 82803; 83605; 83735; 83880; 84100; 84484; 85025; 85610; 87040; 87150; 87181; 87633; 93005; 94640; 96365; 96366; 96368; 96372; 96375; 99291; 99292; J1650; Q9967; 81001; 87086; 94770

== ENCOUNTER 2022-09-10 15:05 | Outpatient (CLI) | payer MEDICAID | END 2022-09-10 15:06 | disposition home or self-care (01) | LOC: DI 15:05 | PROVIDERS: ATTEND Registered Nurse | DX: J43.9 Emphysema, unspecified (principal); Z99.81 Dependence on supplemental oxygen | CPT/HCPCS: 93306 ==

== ENCOUNTER 2023-02-25 13:34 | Outpatient (CLI) | payer MEDICAID ==
--- NOTE | 2023-02-25 15:52 | CT Report ---
PROCEDURE: CHEST WO INDICATIONS: PULMONARY NODULE TECHNIQUE: Noncontrast 1mm axial images were acquired from the pulmonary apices to the posterior costophrenic an gles. Axial 5 mm soft tissue kernel reconstructions were performed as well as 8 mm axial MIP and cor onal and sagittal 5 mm reformations. For radiation dose reduction, the following was used: automate d exposure control, adjustment of mA and/or kV according to patient size. COMPARISON: CT chest without contrast dated 02/05/2022 FINDINGS: Image quality: Excellent. Lungs and pleura: At least moderate centrilobular emphysema. No pleural effusions. No pneumothorax. Development of ill-defined multifocal peripheral opacities, most likely representing an inflammatory or infectious process. However, there are somewhat confluent nodular densities which have developed, including a 7 x 13 mm pleural-based pulmonary nodular density in the left lower lobe on image 145/4. Other patchy densities are less masslike, and appear more inflammatory or infectious in nature, and m ay also potentially represent atelectasis. A 2 mm subpleural nodular density in previously described the left lower lobe is unchanged. Mediastinum: Heart size is normal. No pericardial effusions. Moderate to severe coronary artery calci fications. There is dense circumferential atherosclerotic calcification involving the origin of the r ight subclavian artery. Suspect possible hemodynamically significant stenosis, proximal to the right vertebral artery. No mediastinal adenopathy by size criteria. Chest wall and lower neck: Thyroid is unremarkable. No axillary or supraclavicular adenopathy by size . Bones: Interval development of numerous compression fractures. These include moderate T7, moderate to severe T8, mild to moderate T9, mild to moderate T10, and mild T11. Upper Abdomen: Unremarkable. IMPRESSION: 1. A 2 mm pulmonary nodule previously in the left lower lobe is unchanged. 2. Interval development of a process which has the appearance of an inflammatory infectious process. Findings include a 7 x 13 mm pleural-based nodular pulmonary density in the left lower lobe. 3. Moderate to severe coronary artery disease, severe proximal right subclavian artery calcifications with a suggestion of possible stenosis proximal to the right vertebral artery. This may potentially result in right subclavian steal physiology. If the patient has symptoms suggesting metastases, consi le carotid ultrasound. 4. Interval development of numerous compression fractures. Differential includes severe osteoporosis, and less likely multiple myeloma. Comment: Recommend three-month follow-up CT to evaluate change in the size and appearance of the 7 x 13 mm pulmonary density in the left lower lobe. Recommend DEXA bone densitometry for this patient wit h numerous compression fractures. Reviewed by: Len Jimenez MD on 02/25/2023 3:51 PM PDT Approved by: Len Jimenez MD on 02/25/2023 3:51 PM PDT Station ID: [id number]
== END 2023-02-25 13:35 | disposition home or self-care (01) ==
LOC: DI 13:34
PROVIDERS: ATTEND Registered Nurse
DX: R91.8 Other nonspecific abnormal finding of lung field (principal); I25.10 Atherosclerotic heart disease of native coronary artery without angina pectoris; M48.54XA Collapsed vertebra, not elsewhere classified, thoracic region, initial encounter for fracture

== ENCOUNTER 2023-03-19 13:45 | Outpatient (CLI) | payer MEDICAID ==
--- NOTE | 2023-03-19 16:55 | Ultrasound Report ---
PROCEDURE: Carotid Doppler Complete INDICATIONS: RIGHT SUBCLAVIAN ARTERY STENOSIS TECHNIQUE: Color and pulse Doppler interrogation was performed of both carotid systems, with image documentation and velocity measurements. COMPARISON: None. FINDINGS: Right side: Brachial blood pressure: 161/80 mm Hg. Common carotid artery peak systolic velocity: 55 cm/sec. Internal carotid artery peak systolic velocity: 95 cm/sec. Internal carotid artery end diastolic velocity: 34 cm/sec. External carotid artery peak systolic velocity: 95 cm/sec. ICA/CCA peak systolic ratio: 1.7 . Pinto scale imaging description: Mild plaque Percent internal carotid artery stenosis: Less than 50% stenosis.. Vertebral artery: Flow direction is antegrade. Left side: Brachial blood pressure: 151/75 mm Hg. Common carotid artery peak systolic velocity: 69 cm/sec. Internal carotid artery peak systolic velocity: 116 cm/sec. Internal carotid artery end diastolic velocity: 44 cm/sec. External carotid artery peak systolic velocity: 99 cm/sec. ICA/CCA peak systolic ratio: 1.67 . Pinto scale imaging description: Mild plaque Percent internal carotid artery stenosis: Less than 50 percent stenosis. Vertebral artery: Flow direction is antegrade. IMPRESSION: 1. In the right internal carotid artery, there is less than 50% based on peak systolic velocity crite patrick. 2. In the left internal carotid artery, there is less than 50% based on peak systolic velocity criter ia. 3. Antegrade blood flow within the right vertebral artery. 4. Antegrade blood flow within the left vertebral artery. The estimate of stenosis included in the report of the imaging study was calculated using the [facility]-end orsed standards of carotid artery stenosis. Reviewed by: Kashif Mendoza on 03/19/2023 4:53 PM PDT Approved by: Kashif Mendoza on 03/19/2023 4:53 PM PDT Station ID: [id number]
== END 2023-03-19 13:46 | disposition home or self-care (01) ==
LOC: DI 13:45
PROVIDERS: ATTEND Registered Nurse
DX: I65.23 Occlusion and stenosis of bilateral carotid arteries (principal)
CPT/HCPCS: 93880

== ENCOUNTER 2023-08-19 13:02 | Outpatient (CLI) | payer MEDICAID ==
--- NOTE | 2023-08-19 14:41 | CT Report ---
PROCEDURE: CHEST WO INDICATIONS: MASS OF PLEURA TECHNIQUE: Noncontrast 1mm axial images were acquired from the pulmonary apices to the posterior costophrenic an gles. Axial 5 mm soft tissue kernel reconstructions were performed as well as 8 mm axial MIP and cor onal and sagittal 5 mm reformations. For radiation dose reduction, the following was used: automate d exposure control, adjustment of mA and/or kV according to patient size. COMPARISON: 02/25/2023 FINDINGS: Image quality: Excellent. Lungs and pleura: Multifocal subtle ill-defined peripheral opacities in the left lower lobe, first pr esent on the previous study, with a focal consolidative density measuring 7 x 13 mm extending to the pleura on that study has nearly completely resolved. No acute pulmonary process. At least moderate ce ntrilobular emphysema. No suspicious pulmonary nodules. No pleural effusions. No pneumothorax. No ceballos spicious pulmonary nodules which require follow up. Mediastinum: Heart size is normal. No pericardial effusion. Moderate to severe coronary artery athero sclerotic calcifications. Again noted is dense circumferential calcifications of the right subclavian artery at its origin, with a suggestion of possible hemodynamically significant stenosis proximal to the origin of the right vertebral artery. No mediastinal adenopathy by size criteria. Chest wall and lower neck: Thyroid is unremarkable. No axillary or supraclavicular adenopathy by size . Bones: No aggressive osseous abnormality. Numerous compression fractures, including T7, T8, T9, T10, and T11, as well as the inferior endplate of L2, are all chronic. No interval compression fractures. No lytic or blastic bony lesions. Upper Abdomen: Unremarkable. IMPRESSION: 1. Near-complete resolution of a infectious or inflammatory process in the left lower lobe. The assoc iated 7 x 13 mm pleural-based masslike density has resolved. 2. At least moderate centrilobular emphysema. 3. Moderate to severe coronary artery calcifications. 4. Possible hemodynamically significant stenosis of the origin of the right subclavian artery, which could potentially result in a right subclavian steal syndrome. 5. Severe osteoporosis with numerous chronic compressions. Comment: Consider yearly screening lung CT, next study in 12 months. Also consider DEXA bone densitom etry. Reviewed by: Len Jimenez MD on 08/19/2023 2:39 PM PST Approved by: Len Jimenez MD on 08/19/2023 2:39 PM PST Station ID: [id number]
== END 2023-08-19 13:03 | disposition home or self-care (01) ==
LOC: DI 13:02
PROVIDERS: ATTEND Registered Nurse
DX: J43.2 Centrilobular emphysema (principal); I25.10 Atherosclerotic heart disease of native coronary artery without angina pectoris; M48.54XA Collapsed vertebra, not elsewhere classified, thoracic region, initial encounter for fracture

== ENCOUNTER 2023-10-07 16:21 | Outpatient (CLI) | payer BC | END 2023-10-07 23:59 | disposition critical access hospital (66) | LOC: EMS 16:21 | DX: R06.03 Acute respiratory distress (principal); R09.02 Hypoxemia; R00.0 Tachycardia, unspecified; Z99.81 Dependence on supplemental oxygen | CPT/HCPCS: A0425; A0427 ==

== ENCOUNTER 2023-10-07 16:53 | Inpatient (IN) | payer BC, MEDICAID ==
[2023-10-07] MEDS ORDERED: IPRATROPIUM/ALBUTEROL 3 ML NEB INH STA (16:57)
[2023-10-07] MEDS ORDERED: SODIUM CHLORIDE 0.9% 1,000 ML IV STA (16:58)
[2023-10-07] MEDS ORDERED: DEXAMETHASONE 10 MG/ML VIAL IV STA (16:58)
--- NOTE | 2023-10-07 17:02 | ED Physician Documentation ---
History of Present Illness - Stated complaint Stated Complaint: SOA - History obtained from History obtained from: Patient, EMS - Additonal information Additional information: The patient comes to the emergency department chief complaint of shortness of breath and cough. She has a history of severe COPD and is on home oxygen at home. She says some sort of upper respiratory infection has been going around their family and that she feels like she has had it for about the last 3 to 4 days. She states that she just been feeling more short of breath and medics state that when they arrived to the clinic on self would be, where the patient had presented, they found the patient to be at an oxygen saturation of 79% on her normal 2 L of supplemental O2. They do state that they tried to give a DuoNeb in route and it did seem to objectively improve the patient's status, but the patient felt that she was not able to breathe with the mask on and refused to complete the treatment. The patient states she had a fever right at the beginning of her illness but has not had any since. No history of any cardiac issues. She does have hypertension. No other complaints at this time. 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 HEENT: Chronic vision loss Psych: Depression, Anxiety Musculoskeletal: None Derm: None - Past Surgical History Past Surgical History: Yes HEENT: Cataracts - Present Medications Home Medications: Ambulatory Orders Medication Instructions Recorded Confirmed Albuterol Sulfate [Proair Hfa 2 puffs INH Q4H PRN 10/18/21 10/08/23 Inhaler] Aspirin EC [Ecotrin] 325 mg PO DAILY 10/18/21 10/08/23 Ipratropium/Albuterol [Duoneb] 3 ml INH QID PRN 10/08/23 10/08/23 Mometasone/Formoterol [Dulera 200 2 puffs PO BID 10/08/23 10/08/23 Mcg-5 Mcg Inhaler] cloNIDine [Catapres] 0.1 mg PO DAILY 10/08/23 10/08/23 - Allergies Allergies/Adverse Reactions: Allergies Allergy/AdvReac Type Severity Reaction Status Date / Time No Known Drug Allergies Allergy Verified 10/07/23 16:55 - Social History Does the pt smoke?: No Smoking Status: Never smoker Does the pt drink ETOH?: Yes Does the pt have substance abuse?: No - Immunizations Immunizations: TDAP >10years/unknown - POLST Patient has POLST: No POLST Status: Full Code (SHe does not want to be intubated for any length of time. If we can save her life and she can come off the ventilator and 2 or 3 days that would be fine. If it looks like its going to be longer than that, DO NOT INTUBATE her.) PD ED PE NORMAL - Vitals Vital signs reviewed: Yes - General General: No acute distress, Other (Alert, responsive. Moderate resp distress) - HEENT HEENT: Atraumatic, PERRL, EOMI, Moist mucous membranes - Neck Neck: Supple, no meningeal sign - Cardiac Cardiac: RRR, No murmur - Respiratory Respiratory: Other (SEverely decreased air movement, mild wheezing, moderate resp distress with tripoding and speaking in phrases.) - Abdomen Abdomen: Normal bowel sounds, Soft, Non tender, Non distended - Derm Derm: Normal color, Warm and dry, No rash - Extremities Extremities: No deformity, No edema - Neuro Neuro: Other (Grossly intact) - Psych Psych: Normal mood, Normal affect Results - Vitals Vitals: Oxygen O2 Source BIPAP - Labs Labs: Microbiology 10/07/23 22:20 Blood Culture - Preliminary Blood - Right Hand NO GROWTH AFTER 2 DAYS Laboratory Tests 10/07/23 10/07/23 10/07/23 17:10 17:10 17:10 WBC 18.4 H RBC 3.72 L Hgb 10.3 L Hct 34.6 L MCV 93.0 MCH 27.7 MCHC 29.8 L RDW 13.2 Plt Count 537 H MPV 8.1 Neut # (Auto) Not Reportable Lymph # (Auto) Not Reportable Grayson # (Auto) Not Reportable Eos # (Auto) Not Reportable Baso # (Auto) Not Reportable Absolute Nucleated RBC Not Reportable Total Counted 100 Band Neuts % (Manual) 2 Abnorm Lymph % (Manual) 0 Metamyelocytes % 1 H Nucleated RBC % Not Reportable Neutrophils # (Manual) 14.0 H Lymphocytes # (Manual) 1.5 Monocytes # (Manual) 2.8 H Eosinophils # (Manual) 0.0 Basophils # (Manual) 0.0 Differential Comment MANUAL DIFFERENTIAL Manual Slide Review Indicated WBC Morphology 1+ TOXIC GRANULATION Platelet Estimate INCREASED (>450,000) Platelet Morphology NORMAL APPEARANCE RBC Morph Micro Appear NORMAL APPEARANCE Bld Gas Analysis Time Sample Site ABG pH ABG pCO2 ABG pO2 ABG HCO3 ABG Total CO2 ABG O2 Saturation ABG Base Excess Josh Test Respiration Rate O2 Delivery Device FiO2 EPAP IPAP Sodium 130 L Potassium 4.5 Chloride 88 L Carbon Dioxide 37 H Anion Gap 5.0 L BUN 9 Creatinine 0.2 L Estimated GFR (MDRD) 360 Glucose 120 H Calcium 9.3 Total Bilirubin 0.3 AST 10 ALT 9 L Alkaline Phosphatase 111 Troponin I High Sens B-Natriuretic Peptide Total Protein 7.2 Albumin 3.5 Globulin 3.7 Albumin/Globulin Ratio 0.9 L Lipase 15 Nasal Adenovirus (PCR) NOT DETECTED Nasal B. parapertussis DNA (PCR) NOT DETECTED Nasal Coronavir 229E PCR NOT DETECTED Nasal Coronavir HKU1 PCR NOT DETECTED Nasal Coronavir NL63 PCR NOT DETECTED Nasal Coronavir OC43 PCR NOT DETECTED Nasal Enterovir/Rhinovir PCR NOT DETECTED Nasal Influenza B PCR NOT DETECTED Nasal Influenza A PCR NOT DETECTED Nasal Parainfluen 1 PCR NOT DETECTED Nasal Parainfluen 2 PCR NOT DETECTED Nasal Parainfluen 3 PCR NOT DETECTED Nasal Parainfluen 4 PCR NOT DETECTED Nasal RSV (PCR) DETECTED A Nasal B.pertussis DNA PCR NOT DETECTED Nasal C.pneumoniae (PCR) NOT DETECTED Matt Human Metapneumo PCR NOT DETECTED Nasal M.pneumoniae (PCR) NOT DETECTED Nasal SARS-CoV-2 (PCR) NOT DETECTED 10/07/23 10/07/23 10/07/23 17:30 19:50 22:20 WBC RBC Hgb Hct MCV MCH MCHC RDW Plt Count MPV Neut # (Auto) Lymph # (Auto) Grayson # (Auto) Eos # (Auto) Baso # (Auto) Absolute Nucleated RBC Total Counted Band Neuts % (Manual) Abnorm Lymph % (Manual) Metamyelocytes % Nucleated RBC % Neutrophils # (Manual) Lymphocytes # (Manual) Monocytes # (Manual) Eosinophils # (Manual) Basophils # (Manual) Differential Comment Manual Slide Review WBC Morphology Platelet Estimate Platelet Morphology RBC Morph Micro Appear Bld Gas Analysis Time 1822 1949 Sample Site RIGHT RADIAL RIGHT RADIAL ABG pH 7.27 L 7.33 L ABG pCO2 77 H* 68 H* ABG pO2 99 78 L ABG HCO3 34.1 H 35.0 H ABG Total CO2 36.5 H 37.1 H ABG O2 Saturation 96 94 ABG Base Excess 5.3 H 7.2 H Josh Test POSITIVE POSITIVE Respiration Rate 16 O2 Delivery Device BiPAP BiPAP FiO2 45.00 35.00 EPAP 5 5 IPAP 14 16 Sodium Potassium Chloride Carbon Dioxide Anion Gap BUN Creatinine Estimated GFR (MDRD) Glucose Calcium Total Bilirubin AST ALT Alkaline Phosphatase Troponin I High Sens 18.2 H* B-Natriuretic Peptide Total Protein Albumin Globulin Albumin/Globulin Ratio Lipase Nasal Adenovirus (PCR) Nasal B. parapertussis DNA (PCR) Nasal Coronavir 229E PCR Nasal Coronavir HKU1 PCR Nasal Coronavir NL63 PCR Nasal Coronavir OC43 PCR Nasal Enterovir/Rhinovir PCR Nasal Influenza B PCR Nasal Influenza A PCR Nasal Parainfluen 1 PCR Nasal Parainfluen 2 PCR Nasal Parainfluen 3 PCR Nasal Parainfluen 4 PCR Nasal RSV (PCR) Nasal B.pertussis DNA PCR Nasal C.pneumoniae (PCR) Matt Human Metapneumo PCR Nasal M.pneumoniae (PCR) Nasal SARS-CoV-2 (PCR) 10/07/23 22:20 WBC RBC Hgb Hct MCV MCH MCHC RDW Plt Count MPV Neut # (Auto) Lymph # (Auto) Grayson # (Auto) Eos # (Auto) Baso # (Auto) Absolute Nucleated RBC Total Counted Band Neuts % (Manual) Abnorm Lymph % (Manual) Metamyelocytes % Nucleated RBC % Neutrophils # (Manual) Lymphocytes # (Manual) Monocytes # (Manual) Eosinophils # (Manual) Basophils # (Manual) Differential Comment Manual Slide Review WBC Morphology Platelet Estimate Platelet Morphology RBC Morph Micro Appear Bld Gas Analysis Time Sample Site ABG pH ABG pCO2 ABG pO2 ABG HCO3 ABG Total CO2 ABG O2 Saturation ABG Base Excess Josh Test Respiration Rate O2 Delivery Device FiO2 EPAP IPAP Sodium Potassium Chloride Carbon Dioxide Anion Gap BUN Creatinine Estimated GFR (MDRD) Glucose Calcium Total Bilirubin AST ALT Alkaline Phosphatase Troponin I High Sens B-Natriuretic Peptide 236 H Total Protein Albumin Globulin Albumin/Globulin Ratio Lipase Nasal Adenovirus (PCR) Nasal B. parapertussis DNA (PCR) Nasal Coronavir 229E PCR Nasal Coronavir HKU1 PCR Nasal Coronavir NL63 PCR Nasal Coronavir OC43 PCR Nasal Enterovir/Rhinovir PCR Nasal Influenza B PCR Nasal Influenza A PCR Nasal Parainfluen 1 PCR Nasal Parainfluen 2 PCR Nasal Parainfluen 3 PCR Nasal Parainfluen 4 PCR Nasal RSV (PCR) Nasal B.pertussis DNA PCR Nasal C.pneumoniae (PCR) Matt Human Metapneumo PCR Nasal M.pneumoniae (PCR) Nasal SARS-CoV-2 (PCR) - Rads (name of study) CXR Relevant Findings:: Final report received, See rad report PD Medical Decision Making - ED course Complexity details: reviewed old records, reviewed results, re-evaluated patient, considered differential, d/w patient, d/w mobile sales consultant ED course: The pt was immediately given a duoneb and steroids, but it quickly became clear she needed biPAP. She did improve with this, but continued to need respiratory support in the form of biPAP throughout her stay in the ED. The pt was clearly in need of ICU admission, but due to the time of day, we could not admit to the daytime hospitalist, but had to wait for the night coverage to be available. As such, the pt was signed out to Dr. Rios at change of shift, pending admission. - Critical Care Time(min): 30 Comments: Critical care time was necessary, due to high probability of imminent decline and , secondary to COPD exacerbation and respiratory failure in the setting of end-stage COPD. Time Includes: Direct patient care, Review records, Reassess patient, Document care, Coordinate care, Medical consult, See progress note Data interpretation: Labs, Pulse ox, ABG, CXR, Cardiac output, See progress note Procedures included in critical care time: Ventilator mgmt, See progress note Departure - Departure Disposition: 66 [facility] DC/Xfer Clinical Impression: Moderate COPD (chronic obstructive pulmonary disease), Respiratory failure, Pneumonia, Dyspnea, Hypoxia, Hypercapnia, RSV (acute bronchiolitis due to resp iratory syncytial virus) Condition: Serious Discharge Date/Time: 10/07/23 23:26
[2023-10-07] MEDS ORDERED: LORazepam 2 MG/ML VIAL IVP STA (17:11)
[2023-10-07 17:25] LABS: BASOPHILS % (AUTO) 0.5 %; HCT - HEMATOCRIT 34.6 % (37.0-47.0); HGB - HEMOGLOBIN 10.3 g/dL (12.0-16.0); MEAN CORPUSCULAR HEMOGLOBIN 27.7 pg (27.0-31.0); MEAN CORPUSCULAR HGB CONC 29.8 g/dL (32.0-36.0); MEAN PLATELET VOLUME 8.1 fL (7.9-10.8); MONOCYTES % (AUTO) 11.6 %; NEUTROPHILS % (AUTO) 76.5 %; PLT - PLATELET COUNT 537 10^3/uL (130-450); RED BLOOD COUNT 3.72 10^6/uL (4.20-5.40); RED CELL DISTRIBUTION WIDTH 13.2 % (12.0-15.0); WHITE BLOOD COUNT 18.4 x10^3/uL (4.8-10.8)
[2023-10-07 17:27] LABS: SLIDE REVIEW? Indicated
--- NOTE | 2023-10-07 17:39 | XRAY Report ---
PROCEDURE: Chest 1V INDICATIONS: cough/sob TECHNIQUE: One view of the chest was acquired. COMPARISON: Chest CT 08/19/2023. FINDINGS: Surgical changes and devices: None. Lungs and pleura: Small right pleural effusion. Bibasilar opacities. Mediastinum: Mediastinal contours appear normal. Heart size is normal. Bones and chest wall: No suspicious bony lesions. Overlying soft tissues appear unremarkable. IMPRESSION: Bibasilar opacities and small right pleural effusion concerning for infection. Recommend follow-up ra diographs to resolution. Reviewed by: Orion Tineo MD on 10/07/2023 5:38 PM PST Approved by: Orion Tineo MD on 10/07/2023 5:38 PM PST Station ID: [id number]
[2023-10-07 17:50] LABS: ALBUMIN 3.5 g/dL (3.2-5.5); ALBUMIN/GLOBULIN RATIO 0.9 (1.0-2.2); BILIRUBIN,TOTAL 0.3 mg/dL (0.2-1.0); CALCIUM 9.3 mg/dL (8.5-10.3); CREATININE 0.2 mg/dL (0.6-1.3); POTASSIUM 4.5 mmol/L (3.5-4.5); TOTAL PROTEIN 7.2 g/dL (6.4-8.9)
[2023-10-07 17:51] LABS: ABNORMAL LYMPHS % (MANUAL) 0 %
[2023-10-07 17:54] LABS: BAND NEUTROPHILS % (MANUAL) 2 %; LYMPHOCYTES # (MANUAL) 1.5 10^3/uL (1.5-3.5); LYMPHOCYTES % (MANUAL) 8 %; METAMYELOCYTES % (MANUAL) 1 %; MONOCYTES # (MANUAL) 2.8 10^3/uL (0.0-1.0)
[2023-10-07 17:55] LABS: DIFFERENTIAL COMMENT MANUAL DIFFERENTIAL; PLATELET ESTIMATE, MANUAL INCREASED (>450,000) (NORMAL); PLATELET MORPHOLOGY NORMAL APPEARANCE (NORMAL); RBC MORPHOLOGY (MULTIPLE) NORMAL APPEARANCE (NORMAL); WBC MORPHOLOGY (MULTIPLE) 1+ TOXIC GRANULATION (NORMAL)
[2023-10-07 18:29] LABS: ABG BASE EXCESS 5.3 mmol/L (-2.0-3.0); ABG HCO3 34.1 mmol/L (22.0-26.0); ABG OXYGEN SATURATION 96 % (94-98); ABG PH 7.27 (7.35-7.45); ABG PO2 99 mmHg (80-100); ABG TCO2 36.5 MMOL/L (21.0-29.0); ALLEN TEST POSITIVE
[2023-10-07 18:31] LABS: ABG PCO2 77 mmHg (34-45)
[2023-10-07] MEDS ORDERED: cefTRIAXone 2 GM in SODIUM CHLORIDE 0.9% MINIBAG 100 ML IV STA (19:02)
[2023-10-07] MEDS ORDERED: AZITHROMYCIN INJ 500 MG in SODIUM CHLORIDE 0.9% 250 ML IV STA (19:03)
[2023-10-07 19:07] LABS: CORONAVIRUS 229E-RESP PCR NOT DETECTED; CORONAVIRUS HKU1-RESP PCR NOT DETECTED; CORONAVIRUS NL63-RESP PCR NOT DETECTED; CORONAVIRUS OC43-RESP PCR NOT DETECTED; HUMAN METAPNEUMOVIRUS NOT DETECTED; INFLUENZA A- RESP PCR PANEL NOT DETECTED; INFLUENZA B - RESP PCR PANEL NOT DETECTED; PARAINFLUENZA VIRUS 1 NOT DETECTED; PARAINFLUENZA VIRUS 2 NOT DETECTED; PARAINFLUENZA VIRUS 3 NOT DETECTED; PARAINFLUENZA VIRUS 4 NOT DETECTED; RHINOVIRUS/ENTEROVIRUS NOT DETECTED; SARS-CoV-2 -RESP PCR PANEL NOT DETECTED
[2023-10-07 19:08] LABS: B. PARAPERTUSSIS- RESP PCR PAN NOT DETECTED; B. PERTUSSIS- RESP PCR PANEL NOT DETECTED; C. PNEUMONIAE- RESP PCR PANEL NOT DETECTED; M. PNEUMONIAE- RESP PCR PANEL NOT DETECTED; RSV- RESP PCR PANEL DETECTED
[2023-10-07] MEDS ORDERED: cefTRIAXone 2 GM VIAL ONE (19:36)
[2023-10-07 19:58] LABS: ABG PH 7.33 (7.35-7.45); ABG PO2 78 mmHg (80-100)
[2023-10-07 19:59] LABS: ABG BASE EXCESS 7.2 mmol/L (-2.0-3.0); ABG OXYGEN SATURATION 94 % (94-98); ABG RESPIRATORY RATE 16 b/min; ABG TCO2 37.1 MMOL/L (21.0-29.0); ALLEN TEST POSITIVE
[2023-10-07 20:02] LABS: ABG PCO2 68 mmHg (34-45)
--- NOTE | 2023-10-07 21:55 | ED Physician Documentation ---
ED Addendum - Addendum Addendum: 10/07/23 21:53 The patient remains comfortable on the BiPAP. She is arousable easily to verbal and light tactile. She answers questions yes and no. She does still seem a bit sleepy. We did recheck a blood gas which showed improvement from 7.1 now to 7.3 pH and pCO2 improved from 77 to 60s. She is still maintaining good respiratory effort. I put in a consult to the telemetry hospitalist to call back. I reviewed the case with him and agreement was to write orders and place the patient in the ICU. Disposition the patient is admitted to the hospital in stable condition Diagnoses 1. Respiratory insufficiency 2. Exacerbation of COPD with hypoxia 3. Acute pneumonia 4. Hypercapneia.
[2023-10-07] MEDS ORDERED: ONDANSETRON 4 MG/2 ML VIAL IVP PRN (22:03)
[2023-10-07] MEDS ORDERED: ACETAMINOPHEN 325 MG TABLET PO PRN (22:03)
[2023-10-07] MEDS: IPRATROPIUM 0.2 MG/ML NEB INH SCH (23:21)
[2023-10-07] MEDS ORDERED: BENZONATATE 100 MG CAPSULE PO PRN (23:25)
--- NOTE | 2023-10-07 23:33 | HISTORY & PHYSICAL EXAMINATION ---
Chief Complaint - Chief Complaint Chief Complaint: sob, fatigue History of Present Illness - History of Present Illness HPI Comment/Other: pt with worsening sob + fevers and chills over last 3-4 days. some family members have also been sick at home. she has also been more confused and tired lately. no recent travels reported. no chest pain reported. no falls reported. pt has been overall weak. 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 She had severe hypertension and of a heart attack. Dad in his 60s of drug and alcohol abuse. 1 brother. She is not In contact and does not know anything about them in his adulthood. 3 children are healthy except they all have high blood pressure. There is no depression or alcohol abuse or major medical issues. Living Situation: With family Social History Notes: Born and raised in [place] until the age of 18 and her family moved to [facility]. She has lived here since. to her first and they live in their own home. She started smoking 20 years ago and smoked up to 1 pack/day. She is drinking a sixpack a day at the beginning of the COVID epidemic and is brought her self down to 2 a day. 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 She and her live in their own home about 3 [place] from [place]. - Substance History Use: Uses substance without health or social issues: Tobacco, Alcohol - POLST Patient has POLST: No POLST Status: Full Code (SHe does not want to be intubated for any length of time. If we can save her life and she can come off the ventilator and 2 or 3 days that would be fine. If it looks like its going to be longer than that, DO NOT INTUBATE her.) Meds/Allgy - Home Medications Home Medications: Ambulatory Orders Medication Instructions Recorded Confirmed Loratadine 10 mg PO DAILY 09/06/15 10/18/21 Albuterol Sulfate 1.25 mg IH Q4H PRN #100 vial 10/18/21 10/07/23 Albuterol Sulfate [Proair Hfa 2 puffs INH Q4H PRN 10/18/21 10/07/23 Inhaler] Aspirin EC [Ecotrin] 325 mg PO DAILY 10/18/21 10/07/23 Azithromycin [Zithromax] 250 mg PO DAILY #4 tablet 10/18/21 Ipratropium [Atrovent] 0.5 mg INH Q6H PRN #100 vial 10/18/21 10/07/23 Ipratropium [Atrovent] 2 puffs INH QID 10/18/21 10/07/23 Losartan [Cozaar] 50 mg PO DAILY 10/18/21 10/18/21 Montelukast [Singulair] 10 mg PO QPM #30 tablet 10/18/21 10/07/23 Pnv No.95/Ferrous Fum/Folic AC 1 each PO DAILY #30 tablet 10/18/21 10/07/23 [ Tablet] Thiamine [Vitamin B-1] 100 mg PO DAILY #30 tablet 10/18/21 10/07/23 cloNIDine 0.1 MG PATCH 1 patch TD Q7D 10/18/21 10/07/23 [[id number]] predniSONE [Deltasone] 20 mg PO [id number] #21 tab 10/18/21 predniSONE [Prednisone 21-TAB dose 60 mg PO QDAC 6 Days #21 tab 11/22/21 pack] Mometasone/Formoterol [Dulera 200 10/07/23 Mcg-5 Mcg Inhaler] Mometasone/Formoterol [Dulera 200 2 puffs BID PRN 10/07/23 Mcg-5 Mcg Inhaler] - Allergies Allergies/Adverse Reactions: Allergies Allergy/AdvReac Type Severity Reaction Status Date / Time No Known Drug Allergies Allergy Verified 10/07/23 16:55 Review of Systems - Other Findings Other Findings: unable to obtain d/t ams / lethargy Exam - Vital Signs Vital Signs: Vital Signs x48h Temp Pulse Resp BP Pulse Ox 10/07/23 23:24 87 17 10/07/23 21:47 104 H 10/07/23 21:00 107 H 19 120/77 97 01/09/24 20:00 110 H 22 143/88 H 94 10/07/23 19:00 112 H 25 H 158/74 H 92 10/07/23 18:30 109 H 19 128/75 95 10/07/23 18:28 110 H 10/07/23 18:00 122 H 28 H 154/79 H 97 10/07/23 17:28 120 H 10/07/23 17:05 118 H 24 10/07/23 17:00 112 H 40 H 161/94 H 95 10/07/23 16:55 36.2 C L 117 H 28 H 161/93 H 99 - Physical Exam Comments/Other: gen - on bipap, asleep, tired, arousable but falls back asleep heent - bipap, nc/at heart - per ed charting lungs - per ed charting abd - per ed charting msk - no obvious evidence of acute trauma Conclusion/Plan - Lab Results Fish Bones: 10/07/23 17:10 10/07/23 17:10 - Other Other Results/Comments: pt with - - acute, hypoxemic resp failure in setting of copd exacerbation + pna + rsv O2/bipap, supportive mgmt, further details below - pna rsv + bacterial pna rocephin + azithromycin inhalers/nebs, supportive mgmt, steroid - rsv contributory to above - elevated troponin no chest pain reported check 2d echo continue trending trop check bnp likely elevated in setting of current presentation vs viral myocarditis f/u labs, cultures, replete electrolytes further orders per clinical course CODE STATUS - DO NOT INTUBATE - also noted in ED documentation
[2023-10-07] MEDS: guaiFENesin 600 MG TABLET PO SCH (23:40)
[2023-10-07] MEDS: SODIUM CHLORIDE FLUSH 0.9% 10 ML SYRINGE IVP SCH (23:41)
--- NOTE | 2023-10-08 01:38 | CT Report ---
PROCEDURE: Head WO INDICATIONS: ams TECHNIQUE: Noncontrast 4.5 mm thick angled axial sections acquired from the foramen magnum to the vertex. For r adiation dose reduction, the following was used: automated exposure control, adjustment of mA and/or kV according to patient size. COMPARISON: None. FINDINGS: Image quality: Diagnostic CSF spaces: Basal cisterns are patent. Lateral ventricles are symmetric. Volume: Vascular calcifications. Periventricular white matter disease is commonly seen with chronic m icroangiopathy. Volume loss is present. These findings are mild. Brain: No intracranial hemorrhage. Pinto-white differentiation is grossly maintained. Craniofacial structures: Partially seen paranasal sinus opacification, particularly in the left sphen oid and ethmoid air cells. Partially seen empty sella. Left mastoid effusion. IMPRESSION: No acute intracranial abnormality. If there is high concern for parenchymal pathology, consider furth er evaluation with MRI. Paranasal sinus disease partially seen. Left mastoid effusion. Reviewed by: Raad Jarquin MD on 10/08/2023 1:37 AM PST Approved by: Raad Jarquin MD on 10/08/2023 1:37 AM PST Station ID: [id number]
[2023-10-08 04:42] LABS: BASOPHILS # (AUTO) 0.1 10^3/uL (0.0-0.1); BASOPHILS % (AUTO) 0.4 %; HCT - HEMATOCRIT 32.2 % (37.0-47.0); HGB - HEMOGLOBIN 9.5 g/dL (12.0-16.0); LYMPHOCYTES # (AUTO) 0.7 10^3/uL (1.5-3.5); LYMPHOCYTES % (AUTO) 5.1 %; MEAN CORPUSCULAR HEMOGLOBIN 28.1 pg (27.0-31.0); MEAN CORPUSCULAR HGB CONC 29.5 g/dL (32.0-36.0); MEAN CORPUSCULAR VOLUME 95.3 fL (81.0-99.0); MEAN PLATELET VOLUME 8.2 fL (7.9-10.8); MONOCYTES # (AUTO) 0.5 10^3/uL (0.0-1.0); MONOCYTES % (AUTO) 3.6 %; NEUTROPHILS # (AUTO) 12.9 10^3/uL (1.5-6.6); NEUTROPHILS % (AUTO) 88.6 %; PLT - PLATELET COUNT 451 10^3/uL (130-450); RED BLOOD COUNT 3.38 10^6/uL (4.20-5.40); RED CELL DISTRIBUTION WIDTH 13.4 % (12.0-15.0); WHITE BLOOD COUNT 14.5 x10^3/uL (4.8-10.8)
[2023-10-08 04:44] LABS: CALCIUM, IONIZED 1.05 mmol/L (1.15-1.33); VBG PH 7.436 (7.31-7.41)
[2023-10-08 04:54] LABS: ALBUMIN 3.1 g/dL (3.2-5.5); ALBUMIN/GLOBULIN RATIO 0.9 (1.0-2.2); ALKALINE PHOSPHATASE 92 IU/L (42-121); ALT ALANINE AMINOTRANSFERASE 7 IU/L (10-60); AST ASPARTATE AMINOTRANSFERASE 9 IU/L (10-42); BILIRUBIN,TOTAL 0.2 mg/dL (0.2-1.0); BUN - BLOOD UREA NITROGEN 6 mg/dL (6-20); CALCIUM 8.9 mg/dL (8.5-10.3); CARBON DIOXIDE - CO2 37 mmol/L (21-32); CHLORIDE 95 mmol/L (101-111); CREATININE < 0.2 mg/dL (0.6-1.3); GLUCOSE 134 mg/dL (74-104); PHOSPHORUS 3.7 mg/dL (2.5-5.0); POTASSIUM 4.9 mmol/L (3.5-4.5); SODIUM 136 mmol/L (135-145); TOTAL PROTEIN 6.4 g/dL (6.4-8.9)
[2023-10-08] MEDS: IPRATROPIUM 0.2 MG/ML NEB INH SCH (06:15)
[2023-10-08] MEDS ORDERED: PANTOPRAZOLE 40 MG TABLET PO SCH (07:00)
[2023-10-08 07:36] LABS: ABG HCO3 37.8 mmol/L (22.0-26.0); ABG OXYGEN SATURATION 99 % (94-98); ABG PCO2 55 mmHg (34-45); ABG PH 7.45 (7.35-7.45)
[2023-10-08 07:37] LABS: ABG MODE OF VENTILATION S/T; ABG RESPIRATORY RATE 10 b/min; ALLEN TEST POSITIVE
[2023-10-08 07:40] LABS: ABG PO2 150 mmHg (80-100)
[2023-10-08] MEDS ORDERED: PRENATAL VITAMIN TABLET PO SCH (08:00)
[2023-10-08] MEDS ORDERED: SACCHAROMYCES BOULARDII 250 MG CAPSULE PO SCH (08:00)
[2023-10-08] MEDS ORDERED: predniSONE 20 MG TABLET PO SCH (08:00)
[2023-10-08] MEDS ORDERED: IPRATROPIUM/ALBUTEROL 3 ML NEB INH PRN (08:57)
[2023-10-08] MEDS ORDERED: THIAMINE 100 MG TABLET PO SCH (09:00)
[2023-10-08] MEDS ORDERED: ASPIRIN CHEW 81 MG TABLET PO SCH (09:00)
[2023-10-08] MEDS: BUDESONIDE 0.5 MG/2 ML NEB INH SCH ×2 (09:00→18:43)
[2023-10-08] MEDS ORDERED: ASPIRIN EC 325 MG TABLET PO SCH (09:00)
--- NOTE | 2023-10-08 09:02 | PROVIDER PROGRESS NOTE ---
Subjective - Subjective Pt reports feeling: No change (The patient was admitted last night and required BiPAP, this morning she is down to needing 4 to 6 L/min O2 via nasal cannula, however she feels unchanged shortness of breath) Objective - Vital Signs/Intake & Output Vital Signs: Vital Signs Temp Pulse Pulse Resp BP Pulse Ox O2 Flow Rate 10/08/23 08:00 105 H 20 145/90 H 98 4 10/08/23 07:44 35.8 C L 10/08/23 07:20 103 H 10/08/23 07:00 106 H 18 143/82 H 99 10/08/23 06:16 98 19 10/08/23 06:00 105 H 20 135/77 H 100 Intake & Output: Intake & Output 10/05/23 10/06/23 10/07/23 10/08/23 23:59 23:59 23:59 23:59 Intake Total 1350 Output Total 100 Balance 1350 -100 - Objective General Appearance: positive: Moderate distress (from air hunger, she is tachypneic, sitting bolt upright w/ one leg dangling off the side lof bed), Other (Emaciated) Eyes Bilateral: positive: No lid inflammation ENT: positive: No signs of dehydration, Other (wearing O2 n.c.) Neck: positive: Nml inspection Respiratory: positive: Wheezes (Poor air movement in all lung hunter), Other (Her voice is hoarse. She has to take a breath at [facility]) Cardiovascular: positive: Tachycardia (Very distant heart sounds due to COPD) Abdomen: positive: Non-tender, No distention Skin: positive: Warm, Dry Extremities: positive: Non-tender, No pedal edema Neurologic/Psychiatric: positive: Oriented x3, CN's nml (2-12) - Lab Results Fish Bones: 10/08/23 04:29 10/08/23 04:29 Other Labs: Lab Results x24hrs 10/08/23 10/08/23 10/08/23 Range/Units 07:23 07:15 04:29 WBC (4.8-10.8) x10^3/uL RBC (4.20-5.40) 10^6/uL Hgb (12.0-16.0) g/dL Hct (37.0-47.0) % MCV (81.0-99.0) fL MCH (27.0-31.0) pg MCHC (32.0-36.0) g/dL RDW (12.0-15.0) % Plt Count (130-450) 10^3/uL MPV (7.9-10.8) fL Neut # (Auto) Lymph # (Auto) [place] # (Auto) Eos # (Auto) Baso # (Auto) Absolute Nucleated RBC Total Counted Band Neuts % (Manual) (0 - 10) % Abnorm Lymph % (Manual) % Metamyelocytes % ( - 0) % Nucleated RBC % Neutrophils # (Manual) (1.5-6.6) 10^3/uL Lymphocytes # (Manual) (1.5-3.5) 10^3/uL Monocytes # (Manual) (0.0-1.0) 10^3/uL Eosinophils # (Manual) (0-0.7) 10^3/uL Basophils # (Manual) (0-0.1) 10^3/uL Differential Comment Manual Slide Review WBC Morphology (NORMAL) Platelet Estimate (NORMAL) Platelet Morphology (NORMAL) RBC Morph Micro Appear (NORMAL) Bld Gas Analysis Time 0725 Sample Site ABG pH 7.45 (7.35-7.45) ABG pCO2 55 H (34-45) mmHg ABG pO2 150 H* (80-100) mmHg ABG HCO3 37.8 H (22.0-26.0) mmol/L ABG Total CO2 39.0 H (21.0-29.0) MMOL/L ABG O2 Saturation 99 H (94-98) % ABG Base Excess 14.0 H (-2.0-3.0) mmol/L Josh Test POSITIVE VBG pH (7.31-7.41) Ionized Calcium (1.15-1.33) mmol/L Respiration Rate 10 b/min O2 Delivery Device BiPAP S/T Vent Mode S/T FiO2 40.00 EPAP 5 cmH2O IPAP 10 cmH2O Sodium (135-145) mmol/L Potassium (3.5-4.5) mmol/L Chloride (101-111) mmol/L Carbon Dioxide (21-32) mmol/L Anion Gap (6-13) BUN (6-20) mg/dL Creatinine (0.6-1.3) mg/dL Estimated GFR (MDRD) (>89) Glucose (74-104) mg/dL Calcium (8.5-10.3) mg/dL Phosphorus (2.5-5.0) mg/dL Magnesium (1.7-2.3) mg/dL Total Bilirubin (0.2-1.0) mg/dL AST (10-42) IU/L ALT (10-60) IU/L Alkaline Phosphatase (42-121) IU/L Troponin I High Sens 13.6 13.9 (2.3-14.8) ng/L B-Natriuretic Peptide (5-100) pg/mL Total Protein (6.4-8.9) g/dL Albumin (3.2-5.5) g/dL Globulin (2.1-4.2) g/dL Albumin/Globulin Ratio (1.0-2.2) Lipase (11-82) U/L Nasal Adenovirus (PCR) Nasal B. parapertussis DNA (PCR) Nasal Coronavir 229E PCR Nasal Coronavir HKU1 PCR Nasal Coronavir NL63 PCR Nasal Coronavir OC43 PCR Nasal Enterovir/Rhinovir PCR Nasal Influenza B PCR Nasal Influenza A PCR Nasal Parainfluen 1 PCR Nasal Parainfluen 2 PCR Nasal Parainfluen 3 PCR Nasal Parainfluen 4 PCR Nasal RSV (PCR) Nasal Screen MRSA (PCR) (NEGATIVE) Nasal B.pertussis DNA PCR Nasal C.pneumoniae (PCR) Matt Human Metapneumo PCR Nasal M.pneumoniae (PCR) Nasal SARS-CoV-2 (PCR) 10/08/23 10/08/23 10/08/23 Range/Units 04:29 04:29 04:29 WBC 14.5 H (4.8-10.8) x10^3/uL RBC 3.38 L (4.20-5.40) 10^6/uL Hgb 9.5 L (12.0-16.0) g/dL Hct 32.2 L (37.0-47.0) % MCV 95.3 (81.0-99.0) fL MCH 28.1 (27.0-31.0) pg MCHC 29.5 L (32.0-36.0) g/dL RDW 13.4 (12.0-15.0) % Plt Count 451 H (130-450) 10^3/uL MPV 8.2 (7.9-10.8) fL Neut # (Auto) 12.9 H Lymph # (Auto) 0.7 L [place] # (Auto) 0.5 Eos # (Auto) 0.0 Baso # (Auto) 0.1 Absolute Nucleated RBC 0.00 Total Counted Band Neuts % (Manual) (0 - 10) % Abnorm Lymph % (Manual) % Metamyelocytes % ( - 0) % Nucleated RBC % 0.0 Neutrophils # (Manual) (1.5-6.6) 10^3/uL Lymphocytes # (Manual) (1.5-3.5) 10^3/uL Monocytes # (Manual) (0.0-1.0) 10^3/uL Eosinophils # (Manual) (0-0.7) 10^3/uL Basophils # (Manual) (0-0.1) 10^3/uL Differential Comment Manual Slide Review WBC Morphology (NORMAL) Platelet Estimate (NORMAL) Platelet Morphology (NORMAL) RBC Morph Micro Appear (NORMAL) Bld Gas Analysis Time Sample Site ABG pH (7.35-7.45) ABG pCO2 (34-45) mmHg ABG pO2 (80-100) mmHg ABG HCO3 (22.0-26.0) mmol/L ABG Total CO2 (21.0-29.0) MMOL/L ABG O2 Saturation (94-98) % ABG Base Excess (-2.0-3.0) mmol/L Josh Test VBG pH 7.436 H (7.31-7.41) Ionized Calcium 1.05 L (1.15-1.33) mmol/L Respiration Rate b/min O2 Delivery Device Vent Mode FiO2 EPAP cmH2O IPAP cmH2O Sodium 136 (135-145) mmol/L Potassium 4.9 H (3.5-4.5) mmol/L Chloride 95 L (101-111) mmol/L Carbon Dioxide 37 H (21-32) mmol/L Anion Gap 4.0 L (6-13) BUN 6 (6-20) mg/dL Creatinine < 0.2 L (0.6-1.3) mg/dL Estimated GFR (MDRD) (>89) Glucose 134 H (74-104) mg/dL Calcium 8.9 (8.5-10.3) mg/dL Phosphorus 3.7 (2.5-5.0) mg/dL Magnesium 2.0 (1.7-2.3) mg/dL Total Bilirubin 0.2 (0.2-1.0) mg/dL AST 9 L (10-42) IU/L ALT 7 L (10-60) IU/L Alkaline Phosphatase 92 (42-121) IU/L Troponin I High Sens (2.3-14.8) ng/L B-Natriuretic Peptide (5-100) pg/mL Total Protein 6.4 (6.4-8.9) g/dL Albumin 3.1 L (3.2-5.5) g/dL Globulin 3.3 (2.1-4.2) g/dL Albumin/Globulin Ratio 0.9 L (1.0-2.2) Lipase (11-82) U/L Nasal Adenovirus (PCR) Nasal B. parapertussis DNA (PCR) Nasal Coronavir 229E PCR Nasal Coronavir HKU1 PCR Nasal Coronavir NL63 PCR Nasal Coronavir OC43 PCR Nasal Enterovir/Rhinovir PCR Nasal Influenza B PCR Nasal Influenza A PCR Nasal Parainfluen 1 PCR Nasal Parainfluen 2 PCR Nasal Parainfluen 3 PCR Nasal Parainfluen 4 PCR Nasal RSV (PCR) Nasal Screen MRSA (PCR) (NEGATIVE) Nasal B.pertussis DNA PCR Nasal C.pneumoniae (PCR) Matt Human Metapneumo PCR Nasal M.pneumoniae (PCR) Nasal SARS-CoV-2 (PCR) 10/08/23 10/07/23 10/07/23 Range/Units 00:12 23:40 22:20 WBC (4.8-10.8) x10^3/uL RBC (4.20-5.40) 10^6/uL Hgb (12.0-16.0) g/dL Hct (37.0-47.0) % MCV (81.0-99.0) fL MCH (27.0-31.0) pg MCHC (32.0-36.0) g/dL RDW (12.0-15.0) % Plt Count (130-450) 10^3/uL MPV (7.9-10.8) fL Neut # (Auto) Lymph # (Auto) [place] # (Auto) Eos # (Auto) Baso # (Auto) Absolute Nucleated RBC Total Counted Band Neuts % (Manual) (0 - 10) % Abnorm Lymph % (Manual) % Metamyelocytes % ( - 0) % Nucleated RBC % Neutrophils # (Manual) (1.5-6.6) 10^3/uL Lymphocytes # (Manual) (1.5-3.5) 10^3/uL Monocytes # (Manual) (0.0-1.0) 10^3/uL Eosinophils # (Manual) (0-0.7) 10^3/uL Basophils # (Manual) (0-0.1) 10^3/uL Differential Comment Manual Slide Review WBC Morphology (NORMAL) Platelet Estimate (NORMAL) Platelet Morphology (NORMAL) RBC Morph Micro Appear (NORMAL) Bld Gas Analysis Time Sample Site ABG pH (7.35-7.45) ABG pCO2 (34-45) mmHg ABG pO2 (80-100) mmHg ABG HCO3 (22.0-26.0) mmol/L ABG Total CO2 (21.0-29.0) MMOL/L ABG O2 Saturation (94-98) % ABG Base Excess (-2.0-3.0) mmol/L Josh Test VBG pH (7.31-7.41) Ionized Calcium (1.15-1.33) mmol/L Respiration Rate b/min O2 Delivery Device Vent Mode FiO2 EPAP cmH2O IPAP cmH2O Sodium (135-145) mmol/L Potassium (3.5-4.5) mmol/L Chloride (101-111) mmol/L Carbon Dioxide (21-32) mmol/L Anion Gap (6-13) BUN (6-20) mg/dL Creatinine (0.6-1.3) mg/dL Estimated GFR (MDRD) (>89) Glucose (74-104) mg/dL Calcium (8.5-10.3) mg/dL Phosphorus (2.5-5.0) mg/dL Magnesium (1.7-2.3) mg/dL Total Bilirubin (0.2-1.0) mg/dL AST (10-42) IU/L ALT (10-60) IU/L Alkaline Phosphatase (42-121) IU/L Troponin I High Sens 15.4 H* (2.3-14.8) ng/L B-Natriuretic Peptide 236 H (5-100) pg/mL Total Protein (6.4-8.9) g/dL Albumin (3.2-5.5) g/dL Globulin (2.1-4.2) g/dL Albumin/Globulin Ratio (1.0-2.2) Lipase (11-82) U/L Nasal Adenovirus (PCR) Nasal B. parapertussis DNA (PCR) Nasal Coronavir 229E PCR Nasal Coronavir HKU1 PCR Nasal Coronavir NL63 PCR Nasal Coronavir OC43 PCR Nasal Enterovir/Rhinovir PCR Nasal Influenza B PCR Nasal Influenza A PCR Nasal Parainfluen 1 PCR Nasal Parainfluen 2 PCR Nasal Parainfluen 3 PCR Nasal Parainfluen 4 PCR Nasal RSV (PCR) Nasal Screen MRSA (PCR) NEGATIVE (NEGATIVE) Nasal B.pertussis DNA PCR Nasal C.pneumoniae (PCR) Matt Human Metapneumo PCR Nasal M.pneumoniae (PCR) Nasal SARS-CoV-2 (PCR) 10/07/23 10/07/23 10/07/23 Range/Units 22:20 19:50 17:30 WBC (4.8-10.8) x10^3/uL RBC (4.20-5.40) 10^6/uL Hgb (12.0-16.0) g/dL Hct (37.0-47.0) % MCV (81.0-99.0) fL MCH (27.0-31.0) pg MCHC (32.0-36.0) g/dL RDW (12.0-15.0) % Plt Count (130-450) 10^3/uL MPV (7.9-10.8) fL Neut # (Auto) Lymph # (Auto) [place] # (Auto) Eos # (Auto) Baso # (Auto) Absolute Nucleated RBC Total Counted Band Neuts % (Manual) (0 - 10) % Abnorm Lymph % (Manual) % Metamyelocytes % ( - 0) % Nucleated RBC % Neutrophils # (Manual) (1.5-6.6) 10^3/uL Lymphocytes # (Manual) (1.5-3.5) 10^3/uL Monocytes # (Manual) (0.0-1.0) 10^3/uL Eosinophils # (Manual) (0-0.7) 10^3/uL Basophils # (Manual) (0-0.1) 10^3/uL Differential Comment Manual Slide Review WBC Morphology (NORMAL) Platelet Estimate (NORMAL) Platelet Morphology (NORMAL) RBC Morph Micro Appear (NORMAL) Bld Gas Analysis Time 1950 1823 Sample Site RIGHT RADIAL RIGHT RADIAL ABG pH 7.33 L 7.27 L (7.35-7.45) ABG pCO2 68 H* 77 H* (34-45) mmHg ABG pO2 78 L 99 (80-100) mmHg ABG HCO3 35.0 H 34.1 H (22.0-26.0) mmol/L ABG Total CO2 37.1 H 36.5 H (21.0-29.0) MMOL/L ABG O2 Saturation 94 96 (94-98) % ABG Base Excess 7.2 H 5.3 H (-2.0-3.0) mmol/L Josh Test POSITIVE POSITIVE VBG pH (7.31-7.41) Ionized Calcium (1.15-1.33) mmol/L Respiration Rate 16 b/min O2 Delivery Device BiPAP BiPAP Vent Mode FiO2 35.00 45.00 EPAP 5 5 cmH2O IPAP 16 14 cmH2O Sodium (135-145) mmol/L Potassium (3.5-4.5) mmol/L Chloride (101-111) mmol/L Carbon Dioxide (21-32) mmol/L Anion Gap (6-13) BUN (6-20) mg/dL Creatinine (0.6-1.3) mg/dL Estimated GFR (MDRD) (>89) Glucose (74-104) mg/dL Calcium (8.5-10.3) mg/dL Phosphorus (2.5-5.0) mg/dL Magnesium (1.7-2.3) mg/dL Total Bilirubin (0.2-1.0) mg/dL AST (10-42) IU/L ALT (10-60) IU/L Alkaline Phosphatase (42-121) IU/L Troponin I High Sens 18.2 H* (2.3-14.8) ng/L B-Natriuretic Peptide (5-100) pg/mL Total Protein (6.4-8.9) g/dL Albumin (3.2-5.5) g/dL Globulin (2.1-4.2) g/dL Albumin/Globulin Ratio (1.0-2.2) Lipase (11-82) U/L Nasal Adenovirus (PCR) Nasal B. parapertussis DNA (PCR) Nasal Coronavir 229E PCR Nasal Coronavir HKU1 PCR Nasal Coronavir NL63 PCR Nasal Coronavir OC43 PCR Nasal Enterovir/Rhinovir PCR Nasal Influenza B PCR Nasal Influenza A PCR Nasal Parainfluen 1 PCR Nasal Parainfluen 2 PCR Nasal Parainfluen 3 PCR Nasal Parainfluen 4 PCR Nasal RSV (PCR) Nasal Screen MRSA (PCR) (NEGATIVE) Nasal B.pertussis DNA PCR Nasal C.pneumoniae (PCR) Matt Human Metapneumo PCR Nasal M.pneumoniae (PCR) Nasal SARS-CoV-2 (PCR) 10/07/23 10/07/23 10/07/23 Range/Units 17:10 17:10 17:10 WBC 18.4 H (4.8-10.8) x10^3/uL RBC 3.72 L (4.20-5.40) 10^6/uL Hgb 10.3 L (12.0-16.0) g/dL Hct 34.6 L (37.0-47.0) % MCV 93.0 (81.0-99.0) fL MCH 27.7 (27.0-31.0) pg MCHC 29.8 L (32.0-36.0) g/dL RDW 13.2 (12.0-15.0) % Plt Count 537 H (130-450) 10^3/uL MPV 8.1 (7.9-10.8) fL Neut # (Auto) Not Reportable Lymph # (Auto) Not Reportable [place] # (Auto) Not Reportable Eos # (Auto) Not Reportable Baso # (Auto) Not Reportable Absolute Nucleated RBC Not Reportable Total Counted 100 Band Neuts % (Manual) 2 (0 - 10) % Abnorm Lymph % (Manual) 0 % Metamyelocytes % 1 H ( - 0) % Nucleated RBC % Not Reportable Neutrophils # (Manual) 14.0 H (1.5-6.6) 10^3/uL Lymphocytes # (Manual) 1.5 (1.5-3.5) 10^3/uL Monocytes # (Manual) 2.8 H (0.0-1.0) 10^3/uL Eosinophils # (Manual) 0.0 (0-0.7) 10^3/uL Basophils # (Manual) 0.0 (0-0.1) 10^3/uL Differential Comment MANUAL DIFFERENTIAL Manual Slide Review Indicated WBC Morphology 1+ TOXIC GRANULATION (NORMAL) Platelet Estimate INCREASED (>450,000) (NORMAL) Platelet Morphology NORMAL APPEARANCE (NORMAL) RBC Morph Micro Appear NORMAL APPEARANCE (NORMAL) Bld Gas Analysis Time Sample Site ABG pH (7.35-7.45) ABG pCO2 (34-45) mmHg ABG pO2 (80-100) mmHg ABG HCO3 (22.0-26.0) mmol/L ABG Total CO2 (21.0-29.0) MMOL/L ABG O2 Saturation (94-98) % ABG Base Excess (-2.0-3.0) mmol/L Josh Test VBG pH (7.31-7.41) Ionized Calcium (1.15-1.33) mmol/L Respiration Rate b/min O2 Delivery Device Vent Mode FiO2 EPAP cmH2O IPAP cmH2O Sodium 130 L (135-145) mmol/L Potassium 4.5 (3.5-4.5) mmol/L Chloride 88 L (101-111) mmol/L Carbon Dioxide 37 H (21-32) mmol/L Anion Gap 5.0 L (6-13) BUN 9 (6-20) mg/dL Creatinine 0.2 L (0.6-1.3) mg/dL Estimated GFR (MDRD) 360 (>89) Glucose 120 H (74-104) mg/dL Calcium 9.3 (8.5-10.3) mg/dL Phosphorus (2.5-5.0) mg/dL Magnesium (1.7-2.3) mg/dL Total Bilirubin 0.3 (0.2-1.0) mg/dL AST 10 (10-42) IU/L ALT 9 L (10-60) IU/L Alkaline Phosphatase 111 (42-121) IU/L Troponin I High Sens (2.3-14.8) ng/L B-Natriuretic Peptide (5-100) pg/mL Total Protein 7.2 (6.4-8.9) g/dL Albumin 3.5 (3.2-5.5) g/dL Globulin 3.7 (2.1-4.2) g/dL Albumin/Globulin Ratio 0.9 L (1.0-2.2) Lipase 15 (11-82) U/L Nasal Adenovirus (PCR) NOT DETECTED Nasal B. parapertussis DNA (PCR) NOT DETECTED Nasal Coronavir 229E PCR NOT DETECTED Nasal Coronavir HKU1 PCR NOT DETECTED Nasal Coronavir NL63 PCR NOT DETECTED Nasal Coronavir OC43 PCR NOT DETECTED Nasal Enterovir/Rhinovir PCR NOT DETECTED Nasal Influenza B PCR NOT DETECTED Nasal Influenza A PCR NOT DETECTED Nasal Parainfluen 1 PCR NOT DETECTED Nasal Parainfluen 2 PCR NOT DETECTED Nasal Parainfluen 3 PCR NOT DETECTED Nasal Parainfluen 4 PCR NOT DETECTED Nasal RSV (PCR) DETECTED A Nasal Screen MRSA (PCR) (NEGATIVE) Nasal B.pertussis DNA PCR NOT DETECTED Nasal C.pneumoniae (PCR) NOT DETECTED Matt Human Metapneumo PCR NOT DETECTED Nasal M.pneumoniae (PCR) NOT DETECTED Nasal SARS-CoV-2 (PCR) NOT DETECTED Assessment/Plan - Problem List (1) Acute and chronic respiratory failure with hypoxia Impression: The cause appears to be bilateral pneumonia and COPD exacerbation Her trop was 18 then each subsequent trop was lower (all labs were reviewed). Plan: Continue with supplemental O2, weaning down BiPAP as tolerated. As of this morning she is down to 4-5 L O2 per minute via nasal cannula Treat the underlying causes Remain in the ICU in case BiPAP is needed again Await Echo result (2) COPD exacerbation Impression: Exacerbation likely caused by the pneumonia plus the RSV. Patient takes inhalers at home but according to her she has never had formal PFTs to diagnose COPD. She was an ex-smoker who quit about 2 years ago Plan: I we will give her scheduled bronchodilators and as needed every 4 hours Add Pulmicort nebulized BID Unfortunately she cannot get montelukast pills because she cannot swallow tablets because of problem #3 I will order liquid cough suppressant/expectorant Continue with IV steroids, not p.o. steroids Remain on supplemental O2 with target saturation 88% or greater (3) Odynophagia Impression: Since Jun 2023, after she swallowed meat which "got stuck" going down, she has had pain and inability to swallow solids. There is a plan for a barium swallow to be done at [facility] in the upcoming weeks and she has not been able to get into a [employer] office yet for several more months, both were scheduled to be done as an outpatient I discussed this case with the general surgeon, Dr. Basilio today and was told that while the pt has hypoxia, it is not advised to put her under anesthesia to undergo endoscopy. Plan: I will change all her necessary p.o. meds and give them either IV or crushed in applesauce Will change her diet to pure and thin liquids I will order her cough expectorant by using liquid cough medicine dextromethorphan/guaifenesin prn, and stop po Guaifenesin BID CT of the chest will be considered (4) PNA (pneumonia) Impression: Plan: Continue with empiric IV Zithromax and IV ceftriaxone Unfortunately she cannot get Mucinex to help expectorate her phlegm, because she cannot swallow pills because of problem #3 I will give liquid cough suppressant/expectorant (5) RSV (acute bronchiolitis due to respiratory syncytial virus) Impression: Plan: Continue with droplet isolation (6) KWASI on CPAP Impression: The RT learned that the patient has sleep apnea and has a home CPAP device Plan: I will order her home CPAP device to be used while she is here (7) Anxiety Impression: Patient is telling her RN that she is very anxious. This is probably from getting albuterol nebs at a high dose, and IV steroids at high doses, and from air hunger Plan: I will restart any antianxiety meds that she is on, once the med list is reconciled by pharmacy Will give small doses of IV lorazepam as needed for anxiety (8) Severe protein-calorie malnutrition Impression: This patient has lost 15 pounds over the last month. She reports that all she does is drink a liquid diet for the past 3 months because of the trouble swallowing Plan: Nutrition consult ordered I will start her on PPN via peripheral iv
[2023-10-08] MEDS: ENOXAPARIN 40 MG/0.4 ML SYRINGE SUBQ SCH (09:53)
[2023-10-08] MEDS: methylPREDNISolone SUCCINATE 40 MG/ML VIAL IVP SCH ×3 (09:54→22:20)
[2023-10-08] MEDS: SODIUM CHLORIDE FLUSH 0.9% 10 ML SYRINGE IVP SCH ×2 (09:54→18:10)
--- NOTE | 2023-10-08 10:50 | PHARMACY PROGRESS NOTE ---
- Best Possible Medication History Admit Date and Time: 10/07/236 Processed by: Pharmacy Medication History completed: Yes Patient Interview: Completed Secondary Source(s): Written medication list, Pharmacy records, Insurance records As the person ultimately responsible for medication therapy, providers are able to order a medication from an existing home medication list in [facility] via the "Reconcile Routine" prior to Confirmation of that medication by support associate. Such practice is discouraged except when the physician, in their clinical judgment, deems that a medical need exists for a medication without regard to previous use.
[2023-10-08] MEDS: IPRATROPIUM/ALBUTEROL 3 ML NEB INH SCH ×3 (10:58→18:43)
[2023-10-08] MEDS ORDERED: ACETAMINOPHEN 160 MG/5 ML SUSP UDC PO PRN ×2 (13:09→13:10)
[2023-10-08] MEDS: guaiFENesin 600 MG TABLET PO SCH (13:10)
[2023-10-08] MEDS: cloNIDine 0.1 MG PATCH TOP SCH (14:15)
[2023-10-08] MEDS: SODIUM CHLORIDE FLUSH 0.9% 10 ML SYRINGE IVP PRN (14:19)
[2023-10-08] MEDS: LORazepam 2 MG/ML VIAL IVP PRN ×2 (14:22→18:39)
[2023-10-08] MEDS: guaiFENesin/DEXTROMETHORPHAN 10 ML UDC PO PRN (16:05)
[2023-10-08] MEDS ORDERED: BENZOCAINE/MENTHOL LOZENGE MM PRN (18:06)
[2023-10-08] MEDS: cefTRIAXone 1 GM in SODIUM CHLORIDE 0.9% MINIBAG 100 ML IV SCH (18:40)
[2023-10-08] MEDS: PPN (CLINIMIX E 4.25/5) 2,000 ML with MULTIVITAMIN 10 ML, TRACE ELEMENTS 1 ML IV SCH ×3 (18:59)
[2023-10-08] MEDS ORDERED: FAT EMULSION 20% 250 ML IV SCH (19:00)
[2023-10-08] MEDS ORDERED: PPN (CLINIMIX E 4.25/5) 2,000 ML with MULTIVITAMIN 10 ML, TRACE ELEMENTS 1 ML IV SCH ×3 (19:00)
[2023-10-08] MEDS: AZITHROMYCIN INJ 500 MG in SODIUM CHLORIDE 0.9% 250 ML IV SCH (20:31)
[2023-10-08] MEDS ORDERED: MONTELUKAST 10 MG TABLET PO SCH (21:00)
[2023-10-08] MEDS ORDERED: LORazepam 2 MG/ML VIAL IVP SCH (21:00)
[2023-10-09] MEDS: SODIUM CHLORIDE FLUSH 0.9% 10 ML SYRINGE IVP SCH ×3 (00:19→18:20)
[2023-10-09 05:11] LABS: BASOPHILS % (AUTO) 0.2 %; HCT - HEMATOCRIT 30.2 % (37.0-47.0); LYMPHOCYTES % (AUTO) 7.1 %; MEAN CORPUSCULAR HEMOGLOBIN 28.2 pg (27.0-31.0); MEAN CORPUSCULAR HGB CONC 29.8 g/dL (32.0-36.0); MEAN CORPUSCULAR VOLUME 94.7 fL (81.0-99.0); MONOCYTES % (AUTO) 8.1 %; PLT - PLATELET COUNT 498 10^3/uL (130-450); RED BLOOD COUNT 3.19 10^6/uL (4.20-5.40); RED CELL DISTRIBUTION WIDTH 13.2 % (12.0-15.0); WHITE BLOOD COUNT 15.4 x10^3/uL (4.8-10.8)
[2023-10-09 05:19] LABS: CALCIUM, IONIZED 1.11 mmol/L (1.15-1.33); VBG PH 7.435 (7.31-7.41)
[2023-10-09] MEDS: methylPREDNISolone SUCCINATE 40 MG/ML VIAL IVP SCH ×3 (05:27→21:17)
[2023-10-09 05:34] LABS: ABNORMAL LYMPHS % (MANUAL) 0 %
[2023-10-09 05:39] LABS: MAGNESIUM 1.9 mg/dL (1.7-2.3); PHOSPHORUS 2.9 mg/dL (2.5-5.0)
[2023-10-09] MEDS: BUDESONIDE 0.5 MG/2 ML NEB INH SCH ×2 (05:40→20:48)
[2023-10-09] MEDS: IPRATROPIUM/ALBUTEROL 3 ML NEB INH SCH ×4 (05:40→20:48)
[2023-10-09 05:55] LABS: POTASSIUM 4.4 mmol/L (3.5-4.5)
[2023-10-09 05:56] LABS: BILIRUBIN,TOTAL 0.2 mg/dL (0.2-1.0); CALCIUM 8.9 mg/dL (8.5-10.3); CREATININE 0.3 mg/dL (0.6-1.3)
[2023-10-09 05:57] LABS: ALBUMIN/GLOBULIN RATIO 0.9 (1.0-2.2); TOTAL PROTEIN 6.2 g/dL (6.4-8.9)
[2023-10-09] MEDS: LORazepam 2 MG/ML VIAL IVP PRN ×3 (06:11→21:48)
[2023-10-09 06:40] LABS: BAND NEUTROPHILS % (MANUAL) 8 %; DIFFERENTIAL COMMENT MANUAL DIFFERENTIAL; LYMPHOCYTES % (MANUAL) 13 %; METAMYELOCYTES % (MANUAL) 2 %; MONOCYTES # (MANUAL) 0.8 10^3/uL (0.0-1.0); MYELOCYTES % (MANUAL) 2 %; PLATELET ESTIMATE, MANUAL INCREASED (>450,000) (NORMAL); RBC MORPHOLOGY (MULTIPLE) NORMAL APPEARANCE (NORMAL)
[2023-10-09] MEDS: ALBUTEROL NEB 2.5 MG/3 ML INH PRN ×2 (08:41→12:04)
--- NOTE | 2023-10-09 09:50 | XRAY Report ---
PROCEDURE: Chest 1V INDICATIONS: SOB, Hypoxia, COPD, PNA TECHNIQUE: One view of the chest was acquired. COMPARISON: None. FINDINGS: Surgical changes and devices: None. Lungs and pleura: No pleural effusions or pneumothorax. Mild diffuse reticulonodular pulmonary opaci ty. Mediastinum: Mediastinal contours appear normal. Heart size is normal. Bones and chest wall: No suspicious bony lesions. Overlying soft tissues appear unremarkable. IMPRESSION: Mild atypical pneumonia. Reviewed by: Bc Shaffer MD on 10/09/2023 9:48 AM PST Approved by: Bc Shaffer MD on 10/09/2023 9:48 AM [facility] Station ID: [id number]
[2023-10-09] MEDS: ACETAMINOPHEN 1,000 MG/100 ML 1,000 MG/100 ML BAG IV PRN (09:59)
[2023-10-09] MEDS: guaiFENesin/DEXTROMETHORPHAN 10 ML UDC PO PRN (10:02)
[2023-10-09] MEDS: ENOXAPARIN 40 MG/0.4 ML SYRINGE SUBQ SCH (10:06)
[2023-10-09] MEDS: SODIUM CHLORIDE FLUSH 0.9% 10 ML SYRINGE IVP PRN ×2 (10:07→14:33)
[2023-10-09] MEDS ORDERED: FAMOTIDINE 20 MG/2 ML VIAL IVP SCH (10:32)
[2023-10-09] MEDS: THIAMINE INJ 100 MG in SODIUM CHLORIDE 0.9% 50 ML IV SCH (11:47)
[2023-10-09] MEDS: CHLORHEXIDINE GLUCONATE 15 ML UDC PO SCH ×2 (11:48→20:38)
[2023-10-09] MEDS: FAMOTIDINE 20 MG/2 ML VIAL IVP SCH (12:14)
[2023-10-09] MEDS: MORPHINE 10 MG/ML VIAL IVP STA ×2 (12:34→14:34)
[2023-10-09] MEDS ORDERED: MORPHINE 10 MG/ML VIAL ONE (14:24)
--- NOTE | 2023-10-09 17:23 | PROVIDER PROGRESS NOTE ---
Subjective - Subjective Pt reports feeling: Worse Objective - Vital Signs/Intake & Output Reviewed Vital Signs: Yes Vital Signs: Vital Signs Temp Pulse Pulse Resp BP Pulse Ox O2 Flow Rate 10/09/23 16:56 104 H 13 120/68 94 10/09/23 16:00 36.3 C L 110 H 13 120/68 99 10/09/23 15:00 116 H 12 121/71 96 10/09/23 14:04 133 H 22 10/09/23 14:00 123 H 130 H 21 168/99 H 87 L 4 Intake & Output: Intake & Output 10/06/23 10/07/23 10/08/23 10/09/23 23:59 23:59 23:59 23:59 Intake Total 1350 1530 611 Output Total 800 1150 Balance 1350 730 -539 - Objective General Appearance: positive: Lethargic (After getting iv Morphine for dyspnea), Other (Cachectic) Eyes Bilateral: positive: No lid inflammation ENT: positive: No signs of dehydration Neck: positive: Nml inspection, No JVD Respiratory: positive: Wheezes, Other (Increased AP diameter. Poor air mvm in all lung hunter. Tachypnea despite being lethargic) Cardiovascular: positive: Tachycardia (distant heart sounds due to COPD) Abdomen: positive: Non-tender, No distention Skin: positive: Warm, Dry Extremities: positive: Non-tender, No pedal edema, Other (Muscle wasting of limbs) Neurologic/Psychiatric: positive: Other (Lethargic. Moves all extrem spontaneously) - Lab Results Fish Bones: 10/09/23 04:59 10/09/23 04:59 Other Labs: Lab Results x24hrs 10/09/23 10/09/23 10/09/23 Range/Units 09:43 04:59 04:59 WBC 15.4 H (4.8-10.8) x10^3/uL RBC 3.19 L (4.20-5.40) 10^6/uL Hgb 9.0 L (12.0-16.0) g/dL Hct 30.2 L (37.0-47.0) % MCV 94.7 (81.0-99.0) fL MCH 28.2 (27.0-31.0) pg MCHC 29.8 L (32.0-36.0) g/dL RDW 13.2 (12.0-15.0) % Plt Count 498 H (130-450) 10^3/uL MPV 8.0 (7.9-10.8) fL Neut # (Auto) Not Reportable Lymph # (Auto) Not Reportable [place] # (Auto) Not Reportable Eos # (Auto) Not Reportable Baso # (Auto) Not Reportable Absolute Nucleated RBC Not Reportable Total Counted 100 Band Neuts % (Manual) 8 (0 - 10) % Abnorm Lymph % (Manual) 0 % Metamyelocytes % 2 H ( - 0) % Myelocytes % 2 H ( - 0) % Nucleated RBC % Not Reportable Neutrophils # (Manual) 12.0 H (1.5-6.6) 10^3/uL Lymphocytes # (Manual) 2.0 (1.5-3.5) 10^3/uL Monocytes # (Manual) 0.8 (0.0-1.0) 10^3/uL Eosinophils # (Manual) 0.0 (0-0.7) 10^3/uL Basophils # (Manual) 0.0 (0-0.1) 10^3/uL Differential Comment MANUAL DIFFERENTIAL Platelet Estimate INCREASED (>450,000) (NORMAL) RBC Morph Micro Appear NORMAL APPEARANCE (NORMAL) VBG pH (7.31-7.41) Ionized Calcium (1.15-1.33) mmol/L Sodium 134 L (135-145) mmol/L Potassium 4.4 (3.5-4.5) mmol/L Chloride 93 L (101-111) mmol/L Carbon Dioxide 40 H* (21-32) mmol/L Anion Gap 1.0 L (6-13) BUN 12 (6-20) mg/dL Creatinine 0.3 L (0.6-1.3) mg/dL Estimated GFR (MDRD) 225 (>89) Glucose 149 H (74-104) mg/dL Calcium 8.9 (8.5-10.3) mg/dL Phosphorus 2.9 (2.5-5.0) mg/dL Magnesium 1.9 (1.7-2.3) mg/dL Iron 61 (50-212) ug/dL TIBC 137 L (250-450) ug/dL % Saturation 44 (20-50) % Transferrin 98 L (203-362) mg/dL Total Bilirubin 0.2 (0.2-1.0) mg/dL AST 9 L (10-42) IU/L ALT 8 L (10-60) IU/L Alkaline Phosphatase 78 (42-121) IU/L B-Natriuretic Peptide 779 H (5-100) pg/mL Total Protein 6.2 L (6.4-8.9) g/dL Albumin 3.0 L (3.2-5.5) g/dL Globulin 3.2 (2.1-4.2) g/dL Albumin/Globulin Ratio 0.9 L (1.0-2.2) Prealbumin 8 L (17-34) mg/dL Triglycerides 131 (48-352) mg/dL Vitamin B12 327 (180-914) pg/mL Folate 8.3 (5.90 - >24.8) ng/mL 10/09/23 Range/Units 04:59 WBC (4.8-10.8) x10^3/uL RBC (4.20-5.40) 10^6/uL Hgb (12.0-16.0) g/dL Hct (37.0-47.0) % MCV (81.0-99.0) fL MCH (27.0-31.0) pg MCHC (32.0-36.0) g/dL RDW (12.0-15.0) % Plt Count (130-450) 10^3/uL MPV (7.9-10.8) fL Neut # (Auto) Lymph # (Auto) [place] # (Auto) Eos # (Auto) Baso # (Auto) Absolute Nucleated RBC Total Counted Band Neuts % (Manual) (0 - 10) % Abnorm Lymph % (Manual) % Metamyelocytes % ( - 0) % Myelocytes % ( - 0) % Nucleated RBC % Neutrophils # (Manual) (1.5-6.6) 10^3/uL Lymphocytes # (Manual) (1.5-3.5) 10^3/uL Monocytes # (Manual) (0.0-1.0) 10^3/uL Eosinophils # (Manual) (0-0.7) 10^3/uL Basophils # (Manual) (0-0.1) 10^3/uL Differential Comment Platelet Estimate (NORMAL) RBC Morph Micro Appear (NORMAL) VBG pH 7.435 H (7.31-7.41) Ionized Calcium 1.11 L (1.15-1.33) mmol/L Sodium (135-145) mmol/L Potassium (3.5-4.5) mmol/L Chloride (101-111) mmol/L Carbon Dioxide (21-32) mmol/L Anion Gap (6-13) BUN (6-20) mg/dL Creatinine (0.6-1.3) mg/dL Estimated GFR (MDRD) (>89) Glucose (74-104) mg/dL Calcium (8.5-10.3) mg/dL Phosphorus (2.5-5.0) mg/dL Magnesium (1.7-2.3) mg/dL Iron (50-212) ug/dL TIBC (250-450) ug/dL % Saturation (20-50) % Transferrin (203-362) mg/dL Total Bilirubin (0.2-1.0) mg/dL AST (10-42) IU/L ALT (10-60) IU/L Alkaline Phosphatase (42-121) IU/L B-Natriuretic Peptide (5-100) pg/mL Total Protein (6.4-8.9) g/dL Albumin (3.2-5.5) g/dL Globulin (2.1-4.2) g/dL Albumin/Globulin Ratio (1.0-2.2) Prealbumin (17-34) mg/dL Triglycerides (48-352) mg/dL Vitamin B12 (180-914) pg/mL Folate (5.90 - >24.8) ng/mL Assessment/Plan - Problem List (1) Acute and chronic respiratory failure with hypoxia Impression: She does use O2 at home. The current cause for worsening hypoxia appears to be bilateral pneumonia and a COPD exacerbation Her trop was 18 then each subsequent trop was lower (all labs were reviewed), so [place] ruled out. ABG obtained today when she had a "panic attack" with air hunger and this showed resp acidosis and hypoxia Plan: Continue with supplemental O2, weaning down as tolerated. She did need BIPAP overnight. Treat the underlying causes Remain in the ICU for BiPAP use again Today I added Morphine iv prn dyspnea Await Echo result (2) COPD exacerbation Impression: Exacerbation likely caused by the pneumonia plus the RSV. Patient takes inhalers at home but according to her she has never had formal PFTs to diagnose COPD. She was an ex-smoker who quit about 2 years ago Plan: Cont scheduled bronchodilators and as needed every 4 hours Cont Pulmicort nebulized BID Unfortunately she cannot get montelukast pills because she cannot swallow tablets because of problem #3 Cont liquid cough suppressant/expectorant Continue with IV steroids, not p.o. steroids Remain on supplemental O2 with target saturation 88% or greater (3) Odynophagia Impression: Since Jun 2023, after she swallowed meat which "got stuck" going down, she has had pain in mid-chest after swallowing and inability to swallow solids. There is a plan for a barium swallow w/ flouroscopy to be done at [facility] in the upcoming weeks and she has not been able to get into a [employer] office yet for several more months, both were scheduled to be done as an outpatient On 10/08/23 I discussed this case with the general surgeon, Dr. Basilio who said that while the pt has hypoxia, it is not advised to put her under anesthesia to undergo endoscopy. Plan: I changed all her necessary p.o. meds and ordered them either IV or as liquids or crushed in applesauce I changed her diet to pure and thin liquids I ordered her cough expectorant by using liquid cough medicine dextromethorphan/guaifenesin prn, and stopped po Guaifenesin tabs BID (4) PNA (pneumonia) Impression: CXR repeated today and showed atypical infiltrate Plan: Continue with empiric IV Zithromax and IV ceftriaxone Unfortunately she cannot get Mucinex to help expectorate her phlegm, because she cannot swallow pills because of problem #3 Cont liquid cough suppressant/expectorant (5) RSV (acute bronchiolitis due to respiratory syncytial virus) Impression: Plan: Continue with droplet isolation (6) KWASI on CPAP Impression: The RT learned that the patient has sleep apnea and has a home CPAP device Plan: I ordered her home CPAP device to be used while she is here, in her case she needs BIPAP at night (7) Anxiety Impression: Patient is telling her RN that she is very anxious. This is probably from getting albuterol nebs at a high dose, and IV steroids at high doses, and from air hunger. Overnight she had several panic attacks, pulled off her BIPAP mask, was yelling at hrr RN Plan: I will restart any antianxiety meds that she is on, once the med list is shamika nciled by pharmacy I ordered IV lorazepam as needed for anxiety Today I added Morphine iv prn dyspnea (8) Severe protein-calorie malnutrition Impression: This patient has lost 15-30 pounds over the last month. She reports that all she does is drink a liquid diet for the past 3 months because of the trouble swallowing Plan: Nutrition consult ordered I started her on PPN w/ Lipids via peripheral iv
[2023-10-09] MEDS: cefTRIAXone 1 GM in SODIUM CHLORIDE 0.9% MINIBAG 100 ML IV SCH (18:41)
[2023-10-09] MEDS: AZITHROMYCIN INJ 500 MG in SODIUM CHLORIDE 0.9% 250 ML IV SCH (20:38)
[2023-10-09] MEDS: PPN (CLINIMIX E 4.25/5) 2,000 ML with MULTIVITAMIN 10 ML, TRACE ELEMENTS 1 ML IV SCH ×3 (20:40)
[2023-10-09] MEDS: MORPHINE 2 MG/ML CARPUJECT IVP PRN (20:44)
[2023-10-10] MEDS: SODIUM CHLORIDE FLUSH 0.9% 10 ML SYRINGE IVP SCH ×3 (02:48→17:17)
[2023-10-10 04:50] LABS: BASOPHILS % (AUTO) 0.2 %; HCT - HEMATOCRIT 31.3 % (37.0-47.0); HGB - HEMOGLOBIN 9.1 g/dL (12.0-16.0); LYMPHOCYTES # (AUTO) 0.8 10^3/uL (1.5-3.5); LYMPHOCYTES % (AUTO) 6.8 %; MEAN CORPUSCULAR HEMOGLOBIN 28.3 pg (27.0-31.0); MEAN CORPUSCULAR HGB CONC 29.1 g/dL (32.0-36.0); MEAN CORPUSCULAR VOLUME 97.2 fL (81.0-99.0); MEAN PLATELET VOLUME 8.2 fL (7.9-10.8); MONOCYTES % (AUTO) 8.4 %; NEUTROPHILS # (AUTO) 9.8 10^3/uL (1.5-6.6); NEUTROPHILS % (AUTO) 82.7 %; PLT - PLATELET COUNT 498 10^3/uL (130-450); RED BLOOD COUNT 3.22 10^6/uL (4.20-5.40); RED CELL DISTRIBUTION WIDTH 13.1 % (12.0-15.0); WHITE BLOOD COUNT 11.8 x10^3/uL (4.8-10.8)
[2023-10-10 05:05] LABS: CALCIUM, IONIZED 1.15 mmol/L (1.15-1.33); VBG PH 7.408 (7.31-7.41)
[2023-10-10 05:13] LABS: CALCIUM 9.1 mg/dL (8.5-10.3); CREATININE 0.3 mg/dL (0.6-1.3); POTASSIUM 4.5 mmol/L (3.5-4.5)
[2023-10-10] MEDS: LORazepam 2 MG/ML VIAL IVP PRN ×4 (05:22→20:34)
[2023-10-10] MEDS: IPRATROPIUM/ALBUTEROL 3 ML NEB INH SCH ×4 (05:24→18:45)
[2023-10-10] MEDS: BUDESONIDE 0.5 MG/2 ML NEB INH SCH ×2 (05:24→18:45)
[2023-10-10 05:33] LABS: PHOSPHORUS 2.7 mg/dL (2.5-5.0)
[2023-10-10] MEDS: methylPREDNISolone SUCCINATE 40 MG/ML VIAL IVP SCH (05:33)
[2023-10-10] MEDS: MORPHINE 2 MG/ML CARPUJECT IVP PRN ×3 (05:33→23:34)
[2023-10-10] MEDS ORDERED: THIAMINE 100 MG/1 ML 2 ML MDV ONE (10:07)
[2023-10-10] MEDS: THIAMINE INJ 100 MG in SODIUM CHLORIDE 0.9% 50 ML IV SCH (10:22)
[2023-10-10] MEDS: CHLORHEXIDINE GLUCONATE 15 ML UDC PO SCH ×2 (10:43→20:29)
[2023-10-10] MEDS: ENOXAPARIN 40 MG/0.4 ML SYRINGE SUBQ SCH (11:45)
[2023-10-10] MEDS: ACETAMINOPHEN 1,000 MG/100 ML 1,000 MG/100 ML BAG IV PRN (12:50)
--- NOTE | 2023-10-10 12:53 | PROVIDER PROGRESS NOTE ---
Subjective - Subjective Pt reports feeling: No change Objective - Vital Signs/Intake & Output Vital Signs: Vital Signs Pulse Pulse Resp BP Pulse Ox O2 Flow Rate 10/10/23 11:35 104 H 10/10/23 11:18 104 H 16 10/10/23 11:00 108 H 24 174/91 H 99 4 10/10/23 10:00 81 18 163/74 H 99 10/10/23 09:53 78 10/10/23 09:00 81 16 141/79 H 99 Intake & Output: Intake & Output 10/07/23 10/08/23 10/09/23 10/10/23 23:59 23:59 23:59 23:59 Intake Total 1350 1530 2629.05 400 Output Total 800 2550 1150 Balance 1350 730 79.05 -750 - Objective General Appearance: positive: Lethargic (Asleep after Ativan and Morphine, and is complying with wearing BIPAP) Eyes Bilateral: positive: No lid inflammation ENT: positive: No signs of dehydration, Other (Face is fluished, while on BIPAP) Neck: positive: Nml inspection Respiratory: positive: Other (Poor air mvm in all lung hunter and scattered wheezing) Cardiovascular: positive: Regular rate & rhythm Abdomen: positive: No distention Skin: positive: Warm, Dry Extremities: positive: No pedal edema, Other (Muscle wasting) Neurologic/Psychiatric: positive: Oriented x3 (when awake), Other (Currently lethargic after Ativan and Morphine) - Lab Results Fish Bones: 10/10/23 04:35 10/10/23 04:35 Other Labs: Lab Results x24hrs 10/10/23 10/10/23 10/10/23 Range/Units 04:35 04:35 04:35 WBC 11.8 H (4.8-10.8) x10^3/uL RBC 3.22 L (4.20-5.40) 10^6/uL Hgb 9.1 L (12.0-16.0) g/dL Hct 31.3 L (37.0-47.0) % MCV 97.2 (81.0-99.0) fL MCH 28.3 (27.0-31.0) pg MCHC 29.1 L (32.0-36.0) g/dL RDW 13.1 (12.0-15.0) % Plt Count 498 H (130-450) 10^3/uL MPV 8.2 (7.9-10.8) fL Neut # (Auto) 9.8 H (1.5-6.6) 10^3/uL Lymph # (Auto) 0.8 L (1.5-3.5) 10^3/uL [place] # (Auto) 1.0 (0.0-1.0) 10^3/uL Eos # (Auto) 0.0 (0.0-0.7) 10^3/uL Baso # (Auto) 0.0 (0.0-0.1) 10^3/uL Absolute Nucleated RBC 0.00 x10^3/uL Nucleated RBC % 0.0 /100WBC VBG pH (7.31-7.41) Ionized Calcium (1.15-1.33) mmol/L Sodium 136 (135-145) mmol/L Potassium 4.5 (3.5-4.5) mmol/L Chloride 89 L (101-111) mmol/L Carbon Dioxide 43 H* (21-32) mmol/L Anion Gap 4.0 L (6-13) BUN 16 (6-20) mg/dL Creatinine 0.3 L (0.6-1.3) mg/dL Estimated GFR (MDRD) 225 (>89) Glucose 133 H (74-104) mg/dL Calcium 9.1 (8.5-10.3) mg/dL Phosphorus 2.7 (2.5-5.0) mg/dL Magnesium 2.0 (1.7-2.3) mg/dL 10/10/23 Range/Units 04:35 WBC (4.8-10.8) x10^3/uL RBC (4.20-5.40) 10^6/uL Hgb (12.0-16.0) g/dL Hct (37.0-47.0) % MCV (81.0-99.0) fL MCH (27.0-31.0) pg MCHC (32.0-36.0) g/dL RDW (12.0-15.0) % Plt Count (130-450) 10^3/uL MPV (7.9-10.8) fL Neut # (Auto) (1.5-6.6) 10^3/uL Lymph # (Auto) (1.5-3.5) 10^3/uL [place] # (Auto) (0.0-1.0) 10^3/uL Eos # (Auto) (0.0-0.7) 10^3/uL Baso # (Auto) (0.0-0.1) 10^3/uL Absolute Nucleated RBC x10^3/uL Nucleated RBC % /100WBC VBG pH 7.408 (7.31-7.41) Ionized Calcium 1.15 (1.15-1.33) mmol/L Sodium (135-145) mmol/L Potassium (3.5-4.5) mmol/L Chloride (101-111) mmol/L Carbon Dioxide (21-32) mmol/L Anion Gap (6-13) BUN (6-20) mg/dL Creatinine (0.6-1.3) mg/dL Estimated GFR (MDRD) (>89) Glucose (74-104) mg/dL Calcium (8.5-10.3) mg/dL Phosphorus (2.5-5.0) mg/dL Magnesium (1.7-2.3) mg/dL Assessment/Plan - Problem List (1) Acute and chronic respiratory failure with hypoxia Impression: She does use O2 at home. The current cause for worsening hypoxia appears to be bilateral pneumonia and a COPD exacerbation Her trop was 18 then each subsequent trop was lower (all labs were reviewed), so [place] ruled out. ABG done yesterday, when she had a "panic attack" with air hunger, showed resp acidosis and hypoxia. Today and yest she has elevated Bicarb (from CO2 retention) on her BMP. Her Echo was done yesterday and showed normal LV size and syst function, and mild cor pulmonale with dilated RV with mildly depressed RV function Plan: Continue with supplemental O2, weaning down as tolerated. She does need BIPAP overnight and during naps. Cont to treat the underlying causes Remain in the ICU for BiPAP use Cont Morphine iv prn dyspnea I updated daughter and her family at bedside today (2) COPD exacerbation Impression: Exacerbation likely caused by the pneumonia plus the RSV infection. Patient takes inhalers at home but according to her she has never had formal PFTs to diagnose COPD. She was an ex-smoker who quit about 2 years ago Plan: Cont scheduled bronchodilators and as needed Duonebs every 4 hours Cont Pulmicort nebulized BID Unfortunately she cannot get montelukast pills because she cannot swallow tablets because of problem #3 Cont liquid cough suppressant/expectorant Continue with IV steroids, not p.o. steroids Remain on supplemental O2 with target saturation 88% or greater (3) Odynophagia Impression: Since Jun 2023, after she swallowed meat which "got stuck" going down, she has had pain in mid-chest after swallowing and inability to swallow solids. There is a plan for a barium swallow w/ flouroscopy to be done at [facility] in the upcoming weeks and she has not been able to get into a [employer] office yet for several more months, both were scheduled to be done as an outpatient On 10/08/23 I discussed this case with the general surgeon, Dr. Basilio who said that while the pt has hypoxia, it is not advised to put her under anesthesia to undergo endoscopy. Plan: I changed all her necessary p.o. meds and ordered them either IV or as liquids or crushed in applesauce I changed her diet to pure and thin liquids I ordered her cough expectorant by using liquid cough medicine dextro methorphan/guaifenesin prn, and stopped po Guaifenesin tabs BID If O2 desats improve, I will request Gen Surg to see for endoscopy (4) PNA (pneumonia) Impression: CXR repeated yesterday and still showed infiltrate her bld cx are ntd Plan: Continue with empiric IV Zithromax and IV ceftriaxone I will add Flagyl for poss aspuration, given her 3 mos of "food getting stuck" Unfortunately she cannot get Mucinex to help expectorate her phlegm, because she cannot swallow pills because of problem #3 Cont liquid cough suppressant/expectorant (5) RSV (acute bronchiolitis due to respiratory syncytial virus) Impression: Plan: Continue with droplet isolation (6) KWASI on CPAP Impression: The RT learned that the patient has sleep apnea and has a home CPAP device Plan: I ordered her home CPAP device to be used while she is here, in her case she needs BIPAP at night The daughter said they want education on ow to better clean it. I will order RT to educate (7) Anxiety Impression: Patient was telling her RN that she is very anxious. This is probably from getting albuterol nebs at a high dose, and IV steroids at high doses, and from air hunger. Over the last 24 hrs, she had several panic attacks, pulled off her BIPAP mask, was yelling at her RN Plan: I ordered IV lorazepam as needed for anxiety Also I added Morphine iv prn dyspnea which will help with anxiety (8) HTN Despite no anxiety today, her BP is running 170/99. She is on a Clonidine patch here, since Clonidone was listed as a home med Plan: Will add iv Hydralazine BID scheduled (9) Severe protein-calorie malnutrition Impression: This patient has lost 15-30 pounds over the last month. She reports that all she does is drink a liquid diet for the past 3 months because of the trouble swallowing Plan: Nutrition consult ordered Cont her on PPN w/ Lipids via peripheral iv
[2023-10-10] MEDS ORDERED: methylPREDNISolone SUCCINATE 125 MG/2 ML VIAL IVP SCH (14:30)
[2023-10-10] MEDS ORDERED: methylPREDNISolone SUCCINATE 125 MG/2 ML VIAL IVP ONE (14:30)
[2023-10-10] MEDS: methylPREDNISolone SUCCINATE 125 MG/2 ML VIAL IVP SCH ×2 (14:50→22:37)
[2023-10-10] MEDS ORDERED: hydrALAZINE INJ 20 MG/ML VIAL IVP ONE (15:32)
[2023-10-10] MEDS ORDERED: MORPHINE 2 MG/ML CARPUJECT IVP ONE (18:16)
[2023-10-10] MEDS: MULTIVITAMIN IV SCH ×4 (18:29)
[2023-10-10] MEDS: PPN IV SCH ×4 (18:29)
[2023-10-10] MEDS: [UNRECOGNIZED DRUG - OTHER] IV SCH ×4 (18:29)
[2023-10-10] MEDS: TRACE ELEMENTS IV SCH ×4 (18:29)
[2023-10-10] MEDS: FAT EMULSION 20% 250 ML IV SCH (18:30)
[2023-10-10] MEDS ORDERED: cefTRIAXone 1 GM VIAL ONE (18:45)
[2023-10-10] MEDS: cefTRIAXone 1 GM in SODIUM CHLORIDE 0.9% MINIBAG 100 ML IV SCH (18:46)
[2023-10-10 19:30] LABS: MYCOPLASMA PNEUMONIAE IGG ABS 202 U/mL (0-99); MYCOPLASMA PNEUMONIAE IGM ABS <770 U/mL (0-769)
[2023-10-10] MEDS: metroNIDAZOLE 500 MG/100 ML 500 MG/100 ML BAG IV SCH (20:05)
[2023-10-10] MEDS: hydrALAZINE INJ 20 MG/ML VIAL IVP SCH (20:29)
[2023-10-10] MEDS: guaiFENesin/DEXTROMETHORPHAN 10 ML UDC PO PRN (20:29)
[2023-10-10] MEDS: ALBUTEROL NEB 2.5 MG/3 ML INH PRN (20:35)
[2023-10-11] MEDS: SODIUM CHLORIDE FLUSH 0.9% 10 ML SYRINGE IVP SCH ×3 (00:35→18:52)
[2023-10-11] MEDS: metroNIDAZOLE 500 MG/100 ML 500 MG/100 ML BAG IV SCH ×3 (02:58→20:02)
[2023-10-11] MEDS: MORPHINE 2 MG/ML CARPUJECT IVP PRN ×3 (03:48→16:15)
[2023-10-11] MEDS: ALBUTEROL NEB 2.5 MG/3 ML INH PRN ×2 (03:49→09:37)
[2023-10-11] MEDS: LORazepam 2 MG/ML VIAL IVP PRN ×3 (04:21→20:07)
[2023-10-11] MEDS: SODIUM CHLORIDE FLUSH 0.9% 10 ML SYRINGE IVP PRN ×3 (04:21→18:47)
[2023-10-11 04:58] LABS: BASOPHILS % (AUTO) 0.3 %; HCT - HEMATOCRIT 32.6 % (37.0-47.0); HGB - HEMOGLOBIN 9.6 g/dL (12.0-16.0); LYMPHOCYTES # (AUTO) 0.7 10^3/uL (1.5-3.5); LYMPHOCYTES % (AUTO) 4.8 %; MEAN CORPUSCULAR HEMOGLOBIN 27.5 pg (27.0-31.0); MEAN CORPUSCULAR HGB CONC 29.4 g/dL (32.0-36.0); MEAN CORPUSCULAR VOLUME 93.4 fL (81.0-99.0); MEAN PLATELET VOLUME 8.3 fL (7.9-10.8); MONOCYTES # (AUTO) 1.1 10^3/uL (0.0-1.0); MONOCYTES % (AUTO) 7.9 %; NEUTROPHILS # (AUTO) 11.2 10^3/uL (1.5-6.6); NEUTROPHILS % (AUTO) 82.6 %; PLT - PLATELET COUNT 574 10^3/uL (130-450); RED BLOOD COUNT 3.49 10^6/uL (4.20-5.40); RED CELL DISTRIBUTION WIDTH 13.5 % (12.0-15.0); WHITE BLOOD COUNT 13.6 x10^3/uL (4.8-10.8)
[2023-10-11 05:13] LABS: CALCIUM, IONIZED 1.12 mmol/L (1.15-1.33); VBG PH 7.508 (7.31-7.41)
[2023-10-11 05:51] LABS: ALBUMIN 3.3 g/dL (3.2-5.5)
[2023-10-11] MEDS: methylPREDNISolone SUCCINATE 125 MG/2 ML VIAL IVP SCH ×3 (06:05→21:42)
[2023-10-11] MEDS: IPRATROPIUM/ALBUTEROL 3 ML NEB INH SCH (06:25)
[2023-10-11] MEDS: BUDESONIDE 0.5 MG/2 ML NEB INH SCH ×2 (06:25→19:40)
[2023-10-11 06:46] LABS: ALBUMIN/GLOBULIN RATIO 1.1 (1.0-2.2); BILIRUBIN,TOTAL 0.2 mg/dL (0.2-1.0); CALCIUM 9.2 mg/dL (8.5-10.3); CREATININE 0.3 mg/dL (0.6-1.3); TOTAL PROTEIN 6.3 g/dL (6.4-8.9)
[2023-10-11] MEDS: polyethylene glycoL 3350 17 GM PACKET PO SCH (08:38)
[2023-10-11] MEDS: hydrALAZINE INJ 20 MG/ML VIAL IVP SCH (09:16)
[2023-10-11] MEDS: CHLORHEXIDINE GLUCONATE 15 ML UDC PO SCH ×2 (09:16→21:42)
[2023-10-11] MEDS: ENOXAPARIN 40 MG/0.4 ML SYRINGE SUBQ SCH (09:16)
[2023-10-11] MEDS: FAMOTIDINE 20 MG/2 ML VIAL IVP SCH (09:16)
--- NOTE | 2023-10-11 10:33 | PROVIDER PROGRESS NOTE ---
Subjective - Subjective Pt reports feeling: Improved (Less panicky, is laughing and has lonegr sentences, even while wearing BIPAP) Objective - Vital Signs/Intake & Output Vital Signs: Vital Signs Temp Pulse Pulse Resp BP BP Pulse Ox 10/11/23 09:45 123 H 10/11/23 09:39 123 H 17 10/11/23 09:16 141/94 H 10/11/23 09:00 116 H 17 141/94 H 98 10/11/23 08:54 36.4 C L 103 H 16 152/88 H 99 10/11/23 07:56 101 H 10/11/23 07:00 104 H 15 137/89 H 91 L O2 Flow Rate 10/11/23 09:45 10/11/23 09:39 10/11/23 09:16 10/11/23 09:00 4 10/11/23 08:54 4 10/11/23 07:56 10/11/23 07:00 Intake & Output: Intake & Output 10/08/23 10/09/23 10/10/23 10/11/23 23:59 23:59 23:59 23:59 Intake Total 1530 2629.05 1801 650 Output Total 800 2550 3100 850 Balance 730 79.05 -1299 -200 - Objective General Appearance: positive: No acute distress, Alert Eyes Bilateral: positive: No lid inflammation ENT: positive: No signs of dehydration, Other (wearing BIPAP) Neck: positive: Nml inspection, Other (No carotid bruits) Respiratory: positive: Other (No wheezing slightly better air mvm) Cardiovascular: positive: No murmur, Tachycardia Abdomen: positive: Non-tender, No distention Skin: positive: Warm, Dry Extremities: positive: Non-tender, No pedal edema Neurologic/Psychiatric: positive: Oriented x3, CN's nml (2-12), Motor nml - Lab Results Fish Bones: 10/11/23 04:19 10/11/23 04:19 Other Labs: Lab Results x24hrs 10/11/23 10/11/23 10/11/23 Range/Units 04:19 04:19 04:19 WBC (4.8-10.8) x10^3/uL RBC (4.20-5.40) 10^6/uL Hgb (12.0-16.0) g/dL Hct (37.0-47.0) % MCV (81.0-99.0) fL MCH (27.0-31.0) pg MCHC (32.0-36.0) g/dL RDW (12.0-15.0) % Plt Count (130-450) 10^3/uL MPV (7.9-10.8) fL Neut # (Auto) (1.5-6.6) 10^3/uL Lymph # (Auto) (1.5-3.5) 10^3/uL [place] # (Auto) (0.0-1.0) 10^3/uL Eos # (Auto) (0.0-0.7) 10^3/uL Baso # (Auto) (0.0-0.1) 10^3/uL Absolute Nucleated RBC x10^3/uL Nucleated RBC % /100WBC VBG pH 7.508 H (7.31-7.41) Ionized Calcium 1.12 L (1.15-1.33) mmol/L Sodium 134 L (135-145) mmol/L Potassium 4.0 (3.5-4.5) mmol/L Chloride 92 L (101-111) mmol/L Carbon Dioxide 41 H* (21-32) mmol/L Anion Gap 1.0 L (6-13) BUN 15 (6-20) mg/dL Creatinine 0.3 L (0.6-1.3) mg/dL Estimated GFR (MDRD) 225 (>89) Glucose 146 H (74-104) mg/dL Calcium 9.2 (8.5-10.3) mg/dL Phosphorus 3.2 (2.5-5.0) mg/dL Magnesium 2.0 (1.7-2.3) mg/dL Total Bilirubin 0.2 (0.2-1.0) mg/dL AST 13 (10-42) IU/L ALT 13 (10-60) IU/L Alkaline Phosphatase 68 (42-121) IU/L Total Protein 6.3 L (6.4-8.9) g/dL Albumin 3.3 (3.2-5.5) g/dL Globulin 3.0 (2.1-4.2) g/dL Albumin/Globulin Ratio 1.1 (1.0-2.2) Prealbumin 23 (17-34) mg/dL Mycoplasma pneumon IgG (0-99) U/mL Mycoplasma pneumon IgM (0-769) U/mL 10/11/23 10/07/23 Range/Units 04:19 17:10 WBC 13.6 H (4.8-10.8) x10^3/uL RBC 3.49 L (4.20-5.40) 10^6/uL Hgb 9.6 L (12.0-16.0) g/dL Hct 32.6 L (37.0-47.0) % MCV 93.4 (81.0-99.0) fL MCH 27.5 (27.0-31.0) pg MCHC 29.4 L (32.0-36.0) g/dL RDW 13.5 (12.0-15.0) % Plt Count 574 H (130-450) 10^3/uL MPV 8.3 (7.9-10.8) fL Neut # (Auto) 11.2 H (1.5-6.6) 10^3/uL Lymph # (Auto) 0.7 L (1.5-3.5) 10^3/uL [place] # (Auto) 1.1 H (0.0-1.0) 10^3/uL Eos # (Auto) 0.0 (0.0-0.7) 10^3/uL Baso # (Auto) 0.0 (0.0-0.1) 10^3/uL Absolute Nucleated RBC 0.00 x10^3/uL Nucleated RBC % 0.0 /100WBC VBG pH (7.31-7.41) Ionized Calcium (1.15-1.33) mmol/L Sodium (135-145) mmol/L Potassium (3.5-4.5) mmol/L Chloride (101-111) mmol/L Carbon Dioxide (21-32) mmol/L Anion Gap (6-13) BUN (6-20) mg/dL Creatinine (0.6-1.3) mg/dL Estimated GFR (MDRD) (>89) Glucose (74-104) mg/dL Calcium (8.5-10.3) mg/dL Phosphorus (2.5-5.0) mg/dL Magnesium (1.7-2.3) mg/dL Total Bilirubin (0.2-1.0) mg/dL AST (10-42) IU/L ALT (10-60) IU/L Alkaline Phosphatase (42-121) IU/L Total Protein (6.4-8.9) g/dL Albumin (3.2-5.5) g/dL Globulin (2.1-4.2) g/dL Albumin/Globulin Ratio (1.0-2.2) Prealbumin (17-34) mg/dL Mycoplasma pneumon IgG 202 H (0-99) U/mL Mycoplasma pneumon IgM <770 (0-769) U/mL Assessment/Plan - Problem List (1) Acute and chronic respiratory failure with hypoxia Impression: She does use O2 at home. The current cause for worsening hypoxia appears to be bilateral pneumonia and a COPD exacerbation Her trop was 18 then each subsequent trop was lower (all labs were reviewed), so ID ruled out. ABG done yesterday, when she had a "panic attack" with air hunger, showed resp acidosis and hypoxia. Today and yest she has elevated Bicarb (from CO2 retent ion) on her BMP. Her Echo was done yesterday and showed normal LV size and syst function, and mild cor pulmonale with dilated RV with mildly depressed RV function Plan: Continue with supplemental O2, weaning down as tolerated. She does need BIPAP overnight and during naps. Cont to treat the underlying causes Remain in the ICU for BiPAP use Cont Morphine iv prn dyspnea I updated daughter and her family at bedside today (2) Tachycardia Her HR is maintaining at 120-130, joon after a DuoNeb treatment Her BUN/creat are WNL, suggesting no dehydration. I did carotid massage, after listening for bruits. This did not slow the HR. EKG was done just as she did slow down, I interpreted it: NSR at 98, LA enlgm, otherwise WNL. Plan: I will change the Duoneb to Xopenex I will also add iv Lopressor scheduled for her HTN control, given the persistent tachycardia (3) COPD exacerbation Impression: Exacerbation likely caused by the pneumonia plus the RSV infection. Patient takes inhalers at home but according to her she has never had formal PFTs to diagnose COPD. She was an ex-smoker who quit about 2 years ago Plan: Cont scheduled bronchodilators and as needed Duonebs every 4 hours Cont Pulmicort nebulized BID Unfortunately she cannot get montelukast pills because she cannot swallow tablets because of problem #3 Cont liquid cough suppressant/expectorant Continue with IV steroids, not p.o. steroids Remain on supplemental O2 with target saturation 88% or greater (4) PNA (pneumonia) Impression: CXR repeated yesterday and still showed infiltrate her bld cx are ntd Plan: Continue with empiric IV Zithromax and IV ceftriaxone I will add Flagyl for poss aspuration, given her 3 mos of "food getting stuck" Unfortunately she cannot get Mucinex to help expectorate her phlegm, because she cannot swallow pills because of problem #3 Cont liquid cough suppressant/expectorant (5) RSV (acute bronchiolitis due to respiratory syncytial virus) Impression: Plan: Continue with droplet isolation (6) KWASI on CPAP Impression: The RT learned that the patient has sleep apnea and has a home CPAP device Plan: I ordered her home CPAP device to be used while she is here, in her case she needs BIPAP at night The daughter said they want education on ow to better clean it. I will order RT to educate (7) Odynophagia Impression: Since Jun 2023, after she swallowed meat which "got stuck" going down, she has had pain in mid-chest after swallowing and inability to swallow solids. There is a plan for a barium swallow w/ flouroscopy to be done at [facility] in the upcoming weeks and she has not been able to get into a [employer] office yet for several more months, both were scheduled to be done as an outpatient On 10/08/23 I discussed this case with the general surgeon, Dr. Basilio who said that while the pt has hypoxia, it is not advised to put her under anesthesia to undergo endoscopy. Plan: I changed all her necessary p.o. meds and ordered them either IV or as liquids or crushed in applesauce I changed her diet to pure and thin liquids I ordered her cough expectorant by using liquid cough medicine dextromethorph an/guaifenesin prn, and stopped po Guaifenesin tabs BID If O2 desats improve, I will request Gen Surg to see for endoscopy (8) Anxiety Impression: Patient was telling her RN that she is very anxious. This is probably from getting albuterol nebs at a high dose, and IV steroids at high doses, and from air hunger. Over the last 24 hrs, she had several panic attacks, pulled off her BIPAP mask, was yelling at her RN Plan: I ordered IV lorazepam as needed for anxiety Also I added Morphine iv prn dyspnea which will help with anxiety (9) HTN Despite no anxiety today, her BP is running 170/99. She is on a Clonidine patch here, since Clonidine was listed as a home med On Cloidone plus Hydralazine her BP is 120 Plan: Stop iv Hydralazine BID scheduled Start iv Lopressor scheduled q8h, given the persistent tachycardia (10) Severe protein-calorie malnutrition Impression: This patient has lost 15-30 pounds over the last month. She reports that all she does is drink a liquid diet for the past 3 months because of the trouble swallowing Plan: Nutrition consult ordered Cont her on PPN w/ Lipids via peripheral iv
[2023-10-11] MEDS: METOPROLOL 5 MG/5 ML VIAL IVP SCH ×2 (15:07→21:42)
[2023-10-11] MEDS: LEVALBUTEROL 1.25 MG/3 ML NEB INH SCH ×2 (15:30→19:40)
[2023-10-11] MEDS: LEVALBUTEROL 1.25 MG/3 ML NEB INH PRN (16:29)
[2023-10-11] MEDS: cefTRIAXone 1 GM in SODIUM CHLORIDE 0.9% MINIBAG 100 ML IV SCH (18:39)
[2023-10-11] MEDS: PPN IV SCH ×4 (18:42)
[2023-10-11] MEDS: MULTIVITAMIN IV SCH ×4 (18:42)
[2023-10-11] MEDS: TRACE ELEMENTS IV SCH ×4 (18:42)
[2023-10-11] MEDS: [UNRECOGNIZED DRUG - OTHER] IV SCH ×4 (18:42)
[2023-10-12] MEDS: SODIUM CHLORIDE FLUSH 0.9% 10 ML SYRINGE IVP SCH ×3 (00:10→18:38)
[2023-10-12] MEDS: MORPHINE 2 MG/ML CARPUJECT IVP PRN ×5 (02:07→20:29)
[2023-10-12] MEDS: metroNIDAZOLE 500 MG/100 ML 500 MG/100 ML BAG IV SCH ×3 (02:48→18:36)
[2023-10-12] MEDS: LORazepam 2 MG/ML VIAL IVP PRN ×5 (04:19→22:33)
[2023-10-12 05:10] LABS: BASOPHILS % (AUTO) 0.3 %; HCT - HEMATOCRIT 32.2 % (37.0-47.0); HGB - HEMOGLOBIN 9.7 g/dL (12.0-16.0); LYMPHOCYTES # (AUTO) 0.8 10^3/uL (1.5-3.5); LYMPHOCYTES % (AUTO) 5.2 %; MEAN CORPUSCULAR HEMOGLOBIN 27.7 pg (27.0-31.0); MEAN CORPUSCULAR HGB CONC 30.1 g/dL (32.0-36.0); MEAN PLATELET VOLUME 8.3 fL (7.9-10.8); MONOCYTES # (AUTO) 0.9 10^3/uL (0.0-1.0); MONOCYTES % (AUTO) 6.4 %; NEUTROPHILS # (AUTO) 12.6 10^3/uL (1.5-6.6); NEUTROPHILS % (AUTO) 86.1 %; PLT - PLATELET COUNT 549 10^3/uL (130-450); RED CELL DISTRIBUTION WIDTH 13.9 % (12.0-15.0); WHITE BLOOD COUNT 14.6 x10^3/uL (4.8-10.8)
[2023-10-12 05:22] LABS: CALCIUM, IONIZED 1.12 mmol/L (1.15-1.33); VBG PH 7.506 (7.31-7.41)
[2023-10-12 05:30] LABS: CALCIUM 9.1 mg/dL (8.5-10.3); CREATININE 0.3 mg/dL (0.6-1.3); POTASSIUM 4.2 mmol/L (3.5-4.5)
[2023-10-12 05:46] LABS: MAGNESIUM 1.9 mg/dL (1.7-2.3); PHOSPHORUS 3.4 mg/dL (2.5-5.0)
[2023-10-12] MEDS: METOPROLOL 5 MG/5 ML VIAL IVP SCH ×3 (05:53→21:17)
[2023-10-12] MEDS: methylPREDNISolone SUCCINATE 125 MG/2 ML VIAL IVP SCH ×3 (05:55→21:18)
[2023-10-12] MEDS: BUDESONIDE 0.5 MG/2 ML NEB INH SCH ×2 (07:48→17:37)
[2023-10-12] MEDS: LEVALBUTEROL 1.25 MG/3 ML NEB INH SCH ×4 (07:52→17:37)
--- NOTE | 2023-10-12 07:59 | CONSULTATION NOTE ---
Surgery Consult - Admit Date Hospital Admission Date: 10/07/23 - Consult Date Consult Date: 10/12/23 Requesting Provider: Guille - Chief Complaint Chief Complaint: Inability to swallow - Home Meds/Allergies Home Medications: Patient History Medication Instructions Recorded Confirmed Albuterol Sulfate [Proair Hfa 2 puffs INH Q4H PRN 10/18/21 10/08/23 Inhaler] Aspirin EC [Ecotrin] 325 mg PO DAILY 10/18/21 10/08/23 Ipratropium/Albuterol [Duoneb] 3 ml INH QID PRN 10/08/23 10/08/23 Mometasone/Formoterol [Dulera 200 2 puffs PO BID 10/08/23 10/08/23 Mcg-5 Mcg Inhaler] cloNIDine [Catapres] 0.1 mg PO DAILY 10/08/23 10/08/23 Allergies/Adverse Reactions: Allergies Allergy/AdvReac Type Severity Reaction Status Date / Time No Known Drug Allergies Allergy Verified 10/07/23 16:55 - Vital Signs Vital Signs: Last Vital Signs Temp 97.7 F 10/12/23 00:00 Pulse 110 H 10/12/23 07:54 Resp 17 10/12/23 07:53 BP 161/94 H 10/12/23 07:00 Pulse Ox 97 10/12/23 07:00 O2 Flow Rate 4 10/11/23 09:00 Intake & Output: Intake & Output 10/09/23 10/10/23 10/11/23 10/12/23 23:59 23:59 23:59 23:59 Intake Total 2629.05 3176 3040.65 300 Output Total 2550 3100 2200 1250 Balance 79.05 76 840.65 -950 - Lab Results Result Diagrams: 10/12/23 04:18 10/12/23 04:18 - Consultation Note Consultation Note: General Surgery Consultation Note Assessment: 1) Dysphagia for solid foods with 30 pound weight loss. Upper endoscopy for diagnosis and possible dilation indicated. I would like to see her respiratory status improved before considering IV sedation. I will discuss this with anesthesia tomorrow and if they are comfortable with managing her airway we can proceed with EGD this week. 2) COPD 3) Protein/calorie malnutrition Recommendation: 1) Continue to manage her COPD exacerbation 2) May have sips, liquids as tolerated; avoid solid food 3) PPN has been started 4) If her pulmonary condition continues to improve, EGD this week will be performed. <><><><><><><><><><> Reason for Consultation Dysphagia HPI I am asked to see Aleena Chatman in consultation from Dr. Han for a possible esophageal stricture. She has had several months of symptoms (food getting stuck in her esophagus) and was scheduled for an out-patient esophagram which has yet to be performed. She was admitted to our facility 10-07-2023 for exacerbation of her COPD and is in the ICU on BiPap support. Her respiratory status is improving but she has been unable to swallow solids. She is tolerating liquids and pureed food but is also receiving PPN as she has lost 30+ pounds over the last several months. Her UGI symptoms started in June after she "choked" eating a hamburger. She has had progressive worsening of her swallowing symptoms. I am asked to consider offering her upper endoscopy for diagnosis and potential therapy (dilation) for her symptoms. Past Medical History COPD, Depression, Hiatal hernia with GERD Past Surgical History None Family History No history of esophageal issues Current Medications See "Medication" section Allergies PCN ROS Pertinent positives Dysphagia for solid food All other reviewed systems negative Physical Examination Vital Signs: See "Vital Signs" section BMI: 16 GENERAL APPEARANCE: Thin, emaciated, female struggling to speak while on BiPap PSYCHIATRIC: AAO; No complaint of pain EYES: Pupils equal, round and reactive to light, sclera anicteric NECK: No crepitus, lymphadenopathy, or thyromegaly LUNGS: Distant sounds but clear CARDIOVASCULAR: Heart-NSR without murmurs; ABD: soft, non distended, No masses LYMPHATIC: Neck, Axillae no palpable adenopathy Labs See "Labs" section Imaging CT Chest August 2023 reviewed. No clear indication of a distal esophageal m ass but the air column does narrow at the GEJ. All images were personally reviewed by me for this encounter. Cameron Broderick MD, FACS General Surgery Service [phone]
[2023-10-12] MEDS: CHLORHEXIDINE GLUCONATE 15 ML UDC PO SCH ×2 (10:15→21:17)
[2023-10-12] MEDS: ENOXAPARIN 40 MG/0.4 ML SYRINGE SUBQ SCH (10:25)
[2023-10-12] MEDS: FAMOTIDINE 20 MG/2 ML VIAL IVP SCH (10:26)
[2023-10-12] MEDS: polyethylene glycoL 3350 17 GM PACKET PO SCH (11:37)
[2023-10-12] MEDS: SODIUM CHLORIDE FLUSH 0.9% 10 ML SYRINGE IVP PRN (11:40)
--- NOTE | 2023-10-12 14:30 | PROVIDER PROGRESS NOTE ---
Subjective - Subjective Pt reports feeling: Improved (Feels better, more energy. She is able to speak in longer sentences and laugh) Objective - Vital Signs/Intake & Output Vital Signs: Vital Signs Pulse Resp BP Pulse Ox O2 Flow Rate 10/12/23 14:00 94 15 146/96 H 94 10/12/23 13:00 102 H 13 155/103 H 95 10/12/23 12:00 121 H 14 152/84 H 93 10/12/23 11:00 123 H 13 135/80 H 93 4 Intake & Output: Intake & Output 10/09/23 10/10/23 10/11/23 10/12/23 23:59 23:59 23:59 23:59 Intake Total 2629.05 3176 3040.65 740 Output Total 2550 3100 2200 1900 Balance 79.05 76 840.65 -1160 - Objective General Appearance: positive: No acute distress (wearing BIPAP), Alert, Other (cachectic) Eyes Bilateral: positive: Normal inspection, EOMI ENT: positive: ENT inspection nml, No signs of dehydration Neck: positive: Nml inspection, No JVD Respiratory: positive: Wheezes (scattered wheeze, better air mvm) Cardiovascular: positive: Regular rate & rhythm, No murmur (distant heart sounds due to COPD), Tachycardia Abdomen: positive: Non-tender, No distention Skin: positive: Warm, Dry Extremities: positive: Non-tender, No pedal edema Neurologic/Psychiatric: positive: Oriented x3, CN's nml (2-12) - Lab Results Fish Bones: 10/12/23 04:18 10/12/23 04:18 Other Labs: Lab Results x24hrs 10/12/23 10/12/23 10/12/23 Range/Units 04:18 04:18 04:18 WBC (4.8-10.8) x10^3/uL RBC (4.20-5.40) 10^6/uL Hgb (12.0-16.0) g/dL Hct (37.0-47.0) % MCV (81.0-99.0) fL MCH (27.0-31.0) pg MCHC (32.0-36.0) g/dL RDW (12.0-15.0) % Plt Count (130-450) 10^3/uL MPV (7.9-10.8) fL Neut # (Auto) (1.5-6.6) 10^3/uL Lymph # (Auto) (1.5-3.5) 10^3/uL [place] # (Auto) (0.0-1.0) 10^3/uL Eos # (Auto) (0.0-0.7) 10^3/uL Baso # (Auto) (0.0-0.1) 10^3/uL Absolute Nucleated RBC x10^3/uL Nucleated RBC % /100WBC VBG pH 7.506 H (7.31-7.41) Ionized Calcium 1.12 L (1.15-1.33) mmol/L Sodium 135 (135-145) mmol/L Potassium 4.2 (3.5-4.5) mmol/L Chloride 94 L (101-111) mmol/L Carbon Dioxide 37 H (21-32) mmol/L Anion Gap 4.0 L (6-13) BUN 18 (6-20) mg/dL Creatinine 0.3 L (0.6-1.3) mg/dL Estimated GFR (MDRD) 225 (>89) Glucose 147 H (74-104) mg/dL Calcium 9.1 (8.5-10.3) mg/dL Phosphorus 3.4 (2.5-5.0) mg/dL Magnesium 1.9 (1.7-2.3) mg/dL 10/12/23 Range/Units 04:18 WBC 14.6 H (4.8-10.8) x10^3/uL RBC 3.50 L (4.20-5.40) 10^6/uL Hgb 9.7 L (12.0-16.0) g/dL Hct 32.2 L (37.0-47.0) % MCV 92.0 (81.0-99.0) fL MCH 27.7 (27.0-31.0) pg MCHC 30.1 L (32.0-36.0) g/dL RDW 13.9 (12.0-15.0) % Plt Count 549 H (130-450) 10^3/uL MPV 8.3 (7.9-10.8) fL Neut # (Auto) 12.6 H (1.5-6.6) 10^3/uL Lymph # (Auto) 0.8 L (1.5-3.5) 10^3/uL [place] # (Auto) 0.9 (0.0-1.0) 10^3/uL Eos # (Auto) 0.0 (0.0-0.7) 10^3/uL Baso # (Auto) 0.0 (0.0-0.1) 10^3/uL Absolute Nucleated RBC 0.00 x10^3/uL Nucleated RBC % 0.0 /100WBC VBG pH (7.31-7.41) Ionized Calcium (1.15-1.33) mmol/L Sodium (135-145) mmol/L Potassium (3.5-4.5) mmol/L Chloride (101-111) mmol/L Carbon Dioxide (21-32) mmol/L Anion Gap (6-13) BUN (6-20) mg/dL Creatinine (0.6-1.3) mg/dL Estimated GFR (MDRD) (>89) Glucose (74-104) mg/dL Calcium (8.5-10.3) mg/dL Phosphorus (2.5-5.0) mg/dL Magnesium (1.7-2.3) mg/dL Assessment/Plan - Problem List (1) Acute and chronic respiratory failure with hypoxia Impression: (1) Acute and chronic respiratory failure with hypoxia Impression: She does use O2 at home. The current cause for worsening hypoxia appears to be bilateral pneumonia and a COPD exacerbation Her trop was 18 then each subsequent trop was lower (all labs were reviewed), so MD ruled out. ABG done yesterday, when she had a "panic attack" with air hunger, showed resp acidosis and hypoxia. Today and yest she has elevated Bicarb (from CO2 retention) on her BMP. Her Echo was done yesterday and showed normal LV size and syst function, and mild cor pulmonale with dilated RV with mildly depressed RV function Plan: Continue with supplemental O2, weaning down as tolerated. She does need BIPAP o vernight and during naps. Cont to treat the underlying causes Remain in the ICU for BiPAP use Cont Morphine iv prn dyspnea (2) Tachycardia Her HR is maintaining at 120-130, joon after a DuoNeb treatment Her BUN/creat are WNL, suggesting no dehydration. I did carotid massage, after listening for bruits. This did not slow the HR. EKG was done just as she did slow down, I interpreted it: NSR at 98, LA enlgm, otherwise WNL. Plan: I changed the Duoneb to Xopenex I added iv Lopressor scheduled for her HTN control, given the persistent tachycardia (3) COPD exacerbation Impression: Exacerbation likely caused by the pneumonia plus the RSV infection. Patient takes inhalers at home but according to her she has never had formal PFTs to diagnose COPD. She was an ex-smoker who quit about 2 years ago Plan: Cont scheduled bronchodilators and as needed Duonebs every 4 hours Cont Pulmicort nebulized BID Unfortunately she cannot get montelukast pills because she cannot swallow tablets because of problem #3 Cont liquid cough suppressant/expectorant Continue with IV steroids, not p.o. steroids, I have been titrating the iv dose down slowly Remain on supplemental O2 with target saturation 88% or greater (4) PNA (pneumonia) Impression: CXR repeated yesterday and still showed infiltrate her bld cx are ntd Plan: Continue with empiric IV Zithromax and IV ceftriaxone I added Flagyl for poss aspuration, given her 3 mos of "food getting stuck" Unfortunately she cannot get Mucinex to help expectorate her phlegm, because she cannot swallow pills because of problem #3 Cont liquid cough suppressant/expectorant (5) RSV (acute bronchiolitis due to respiratory syncytial virus) Impression: Plan: Continue with droplet isolation (6) KWASI on CPAP Impression: The RT learned that the patient has sleep apnea and has a home CPAP device. The daughter said they want education on how to better clean it. I ordered RT to educate Plan: I ordered her home CPAP device to be used while she is here, in her case she needs BIPAP at night (7) Odynophagia Impression: Since Jun 2023, after she swallowed meat which "got stuck" going down, she has had pain in mid-chest after swallowing and inability to swallow solids. There is a plan for a barium swallow w/ flouroscopy to be done at [facility] in the upcoming weeks and she has not been able to get into a [employer] office yet for several more months, both were scheduled to be done as an outpatient On 1/10/24 I discussed this case with the general surgeon, Dr. Basilio who said that while the pt has hypoxia, it is not advised to put her under anesthesia to undergo endoscopy. Plan: I changed all her necessary p.o. meds and ordered them either IV or as liquids or crushed in applesauce I changed her diet to pure and thin liquids I ordered her cough expectorant by using liquid cough medicine dextromethorphan/guaifenesin prn, and stopped po Guaifenesin tabs BID Today I requested Gen Surg consult to see for endoscopy, and spoke to Dr Broderick about her case (8) Anxiety Impression: Patient was telling her RN that she is very anxious. This is probably from getting albuterol nebs at a high dose, and IV steroids at high doses, and from air hunger. Over the last 24 hrs, she had several panic attacks, pulled off her BIPAP mask, was yelling at her RN Plan: I ordered IV lorazepam as needed for anxiety Also I added Morphine iv prn dyspnea which will help with anxiety (9) HTN Despite no anxiety today, her BP is running 170/99. She is on a Clonidine patch here, since Clonidine was listed as a home med On Cloidone plus Hydralazine her BP is 120 Plan: I added iv Lopressor scheduled q8h, given the persistent tachycardia, and stopped iv Hydralazine (10) Severe protein-calorie malnutrition Impression: This patient has lost 15-30 pounds over the last month. She reports that all she does is drink a liquid diet for the past 3 months because of the trouble swallowing Plan: Nutrition consult appreciated Cont her on PPN w/ Lipids via peripheral iv
[2023-10-12] MEDS: TRACE ELEMENTS IV SCH ×4 (18:17)
[2023-10-12] MEDS: PPN IV SCH ×4 (18:17)
[2023-10-12] MEDS: MULTIVITAMIN IV SCH ×4 (18:17)
[2023-10-12] MEDS: [UNRECOGNIZED DRUG - OTHER] IV SCH ×4 (18:17)
[2023-10-12] MEDS: FAT EMULSION 20% 250 ML IV SCH (18:26)
[2023-10-13] MEDS: SODIUM CHLORIDE FLUSH 0.9% 10 ML SYRINGE IVP SCH ×3 (02:54→20:04)
[2023-10-13] MEDS: metroNIDAZOLE 500 MG/100 ML 500 MG/100 ML BAG IV SCH ×2 (03:42→13:15)
[2023-10-13] MEDS: MORPHINE 2 MG/ML CARPUJECT IVP PRN ×5 (05:35→20:04)
[2023-10-13] MEDS: METOPROLOL 5 MG/5 ML VIAL IVP SCH ×3 (05:37→21:00)
[2023-10-13] MEDS: methylPREDNISolone SUCCINATE 125 MG/2 ML VIAL IVP SCH ×3 (05:38→21:00)
[2023-10-13] MEDS: BUDESONIDE 0.5 MG/2 ML NEB INH SCH ×2 (06:15→19:44)
[2023-10-13] MEDS: LEVALBUTEROL 1.25 MG/3 ML NEB INH SCH ×4 (06:15→19:45)
[2023-10-13 06:39] LABS: ALBUMIN 3.1 g/dL (3.2-5.5); ALBUMIN/GLOBULIN RATIO 1.3 (1.0-2.2); BILIRUBIN,TOTAL 0.2 mg/dL (0.2-1.0); CALCIUM 8.8 mg/dL (8.5-10.3); CREATININE 0.2 mg/dL (0.6-1.3); MAGNESIUM 1.9 mg/dL (1.7-2.3); PHOSPHORUS 3.5 mg/dL (2.5-5.0); POTASSIUM 4.3 mmol/L (3.5-4.5); TOTAL PROTEIN 5.5 g/dL (6.4-8.9)
[2023-10-13] MEDS: LORazepam 2 MG/ML VIAL IVP PRN ×3 (08:04→21:01)
[2023-10-13] MEDS: FAMOTIDINE 20 MG/2 ML VIAL IVP SCH ×2 (08:05→21:01)
[2023-10-13] MEDS: guaiFENesin/DEXTROMETHORPHAN 10 ML UDC PO PRN (09:30)
[2023-10-13] MEDS: polyethylene glycoL 3350 17 GM PACKET PO SCH (10:16)
[2023-10-13] MEDS: CHLORHEXIDINE GLUCONATE 15 ML UDC PO SCH ×2 (10:16→21:01)
--- NOTE | 2023-10-13 10:28 | CONSULTATION NOTE ---
Consultation Report: Evaluated patient for possible EGD with anesthesia. Patient is in the ICU for exacerbation of COPD and bilateral pneumonia. She is currently on BiPAP. She has very poor physical status and immediately desaturates with removal of BiPAP. She has air hunger with BiPAP. In order to provide anesthesia for an EGD, she would require intubation and it is unlikely she would be extubated post op. She would need vent management post op and is not a good candidate for [facility] since we do not have intensivists/pulmonology available. She would likely need exterminator helper ventilatory support. Discussed with Dr. Han who stated she would work on transfer to a facility with those services available.
[2023-10-13] MEDS: ENOXAPARIN 40 MG/0.4 ML SYRINGE SUBQ SCH (12:12)
--- NOTE | 2023-10-13 13:33 | XRAY Report ---
PROCEDURE: Chest 1V INDICATIONS: Worse SOB, persistent hypoxia TECHNIQUE: One view of the chest was acquired. COMPARISON: Chest x-ray 10/09/2023 FINDINGS: Surgical changes and devices: None. Lungs and pleura: Lungs are hyperexpanded suggestive COPD. There is unchanged blunting of the costop hrenic angles bilaterally. No consolidations. Mediastinum: Mediastinal contours appear normal. Heart size is enlarged. Bones and chest wall: No suspicious bony lesions. Overlying soft tissues appear unremarkable. IMPRESSION: No consolidations. Reviewed by: Myrtle Leger MD on 10/13/2023 1:32 PM PST Approved by: Myrtle Leger MD on 10/13/2023 1:32 PM [facility] Station ID: [id number]
--- NOTE | 2023-10-13 13:34 | PROVIDER PROGRESS NOTE ---
Subjective - Subjective Pt reports feeling: No change Subjective: Breathing is better every day. Today she feels anxious. RN noticed that she is anxious before every nebulizer treatment Objective - Vital Signs/Intake & Output Reviewed Vital Signs: Yes Vital Signs: Vital Signs Temp Pulse Pulse Resp BP Pulse Ox O2 Flow Rate 10/13/23 12:00 37.1 C 96 13 150/97 H 100 10/13/23 11:00 120 H 24 133/107 H 94 4 10/13/23 10:17 104 H 10/13/23 10:16 128 H 18 10/13/23 10:00 119 H 15 148/101 H 95 Intake & Output: Intake & Output 10/10/23 10/11/23 10/12/23 10/13/23 23:59 23:59 23:59 23:59 Intake Total 3176 3040.65 2725.75 710 Output Total 3100 2200 3450 1650 Balance 76 840.65 -724.25 -940 - Objective General Appearance: positive: No acute distress, Alert, Other (Cachectic) Eyes Bilateral: positive: No lid inflammation ENT: positive: Other (wearing BIPAP) Neck: positive: Nml inspection Respiratory: positive: Wheezes (scattered and poor air mvm in al, lung hunter) Cardiovascular: positive: Regular rate & rhythm, No murmur (Distant heart sounds due to COPD), Tachycardia Abdomen: positive: Non-tender, No distention Skin: positive: Warm, Dry Extremities: positive: Non-tender, No pedal edema Neurologic/Psychiatric: positive: Oriented x3, CN's nml (2-12), Motor nml, Other (Has generalized weakness) - Lab Results Fish Bones: 10/12/23 04:18 10/13/23 05:22 Other Labs: Lab Results x24hrs 10/13/23 Range/Units 05:22 Sodium 135 (135-145) mmol/L Potassium 4.3 (3.5-4.5) mmol/L Chloride 95 L (101-111) mmol/L Carbon Dioxide 37 H (21-32) mmol/L Anion Gap 3.0 L (6-13) BUN 18 (6-20) mg/dL Creatinine 0.2 L (0.6-1.3) mg/dL Estimated GFR (MDRD) 360 (>89) Glucose 137 H (74-104) mg/dL Calcium 8.8 (8.5-10.3) mg/dL Phosphorus 3.5 (2.5-5.0) mg/dL Magnesium 1.9 (1.7-2.3) mg/dL Total Bilirubin 0.2 (0.2-1.0) mg/dL AST 14 (10-42) IU/L ALT 42 (10-60) IU/L Alkaline Phosphatase 56 (42-121) IU/L Total Protein 5.5 L (6.4-8.9) g/dL Albumin 3.1 L (3.2-5.5) g/dL Globulin 2.4 (2.1-4.2) g/dL Albumin/Globulin Ratio 1.3 (1.0-2.2) Prealbumin 30 (17-34) mg/dL Triglycerides 118 (48-352) mg/dL Assessment/Plan - Problem List (1) Acute and chronic respiratory failure with hypoxia Impression: She does use O2 at home. The current cause for worsening hypoxia was bilateral pneumonia and a severe COPD exacerbation Her trop was 18 then each subsequent trop was lower (all labs were reviewed), so MS ruled out. She has elevated Bicarb (from CO2 retention) on her BMP. Her Echo was done and showed normal LV size and syst function, and mild cor pulmonale with dilated RV with mildly depressed RV function A chest x-ray was repeated today and shows resolution of infiltrates Plan: Continue with supplemental O2 using BIPAP. Remain in the ICU for BiPAP use Cont to treat the underlying cause Cont Morphine iv prn dyspnea (2) COPD exacerbation Impression: Exacerbation likely caused by the pneumonia plus the RSV infection. Patient takes inhalers at home but according to her she has never had formal PFTs to diagnose COPD. She was an ex-smoker who quit about 2 years ago Plan: Cont scheduled and prn nebulized Xopenex bronchodilator Cont Pulmicort nebulized BID Unfortunately she cannot get montelukast pills because she cannot swallow tablets Cont liquid cough suppressant/expectorant Continue with IV steroids, not p.o. steroids, I have been titrating the iv dose down slowly Remain on supplemental O2 with target saturation 88% or greater This patient has chronic respiratory failure and COPD and currently uses a home noninvasive ventilator from [facility]. I am increasing the previously ordered target volumes of 420 mL up to 450 mL. This noninvasive home ventilator device is needed to treat her symptoms and reduce her hospital readmissions. (3) KWASI on CPAP Impression: After adm, the RT learned that the patient has sleep apnea and has a home CPAP device. The daughter said they want education on how to better clean it. I ordered RT to educate Plan: I ordered her home CPAP device to be used while she is here, in her case she needs BIPAP at night (4) RSV (acute bronchiolitis due to respiratory syncytial virus) Impression: Plan: Continue with droplet isolation until OK to stop, as per CD guidelines (5) Odynophagia Impression: Since Jun 2023, after she swallowed meat which "got stuck" going down, she has had pain in mid-chest after swallowing and inability to swallow solids. There is a plan for a barium swallow w/ flouroscopy to be done at [facility] in the upcoming weeks and she has not been able to get into a Aviation Program Manager office yet for several more months, both were scheduled to be done as an outpatient On 10/08/23 I discussed this case with the general surgeon, Dr. Basilio who said that while the pt has hypoxia, it is not advised to put her under anesthesia to undergo endoscopy. On 10/11/23, I requested a Gen Surg consult from Dr Broderick and agreed that she needs an EGD. Today the patient was seen by Anesthesia for preop eval for her EGD. Anton Quinonezin came to talk to me about her today and said the patient is excessively high risk to have an EGD done here because she would need general anesthesia, intubation and then may be on the vent a prolonged time. Thus no EGD can be done here, I informed Dr Broderick. Plan: I changed all her necessary p.o. meds and ordered them either IV or as liquids or crushed in applesauce I changed her diet to pure and thin liquids I ordered her cough expectorant by using liquid cough medicine dextromethorphan/guaifenesin prn, and stopped po Guaifenesin tabs BID She has been on PPN with Lipids for a week Since she cannot have EGD here, she may need transfer for EGD at a larger h ospital (6) Anxiety Impression: Patient reports her RN that she is very anxious. This was probably from getting albuterol nebs at a high dose, and IV steroids at high doses, and from air hunger. Since being put on BiPAP she now wears it all day long and is now afraid to stop using BIPAP. RN reports that the patient was very nervous today and that she is usually nervous noiw before getting bronchodilator nebulized treatments.The patient requested more frequent Ativan and morphine as needed Plan: I ordered IV lorazepam as needed for anxiety Also I added Morphine iv prn dyspnea which will help with anxiety, and have shortened the time between treatments (7) Tachycardia Her HR was maintaining at 120-130, joon after a DuoNeb treatment Her BUN/creat are WNL, suggesting no dehydration. I did carotid massage, after listening for bruits. This did slow the HR briefly to 98, there was no Aflutter uncovered. Plan: I changed the Duoneb to Xopenex I added iv Lopressor scheduled for her HTN control, given the persistent tachycardia. Cont iv form, since she cannot swallow pills, unless we transition to crushing immediate release Metoprolol (8) HTN Her BP was running 170/99. She is on a Clonidine patch here, since Clonidine was listed as a home med Plan: I added iv Lopressor scheduled q8h, given the persistent tachycardia, and stopped iv Hydralazine (9) Severe protein-calorie malnutrition Impression: This patient has lost 15-30 pounds over the last month. She reports that all she does is drink a liquid diet for the past 3 months because of the trouble swallowing Plan: Nutrition consult appreciated Cont her on PPN w/ Lipids via peripheral iv (10) PNA (pneumonia) Impression: RESOLVED She got empiric IV Zithromax and IV ceftriaxone and I added Flagyl for poss aspiration, given her 3 mos of "food getting stuck" Unfortunately she cannot get Mucinex to help expectorate her phlegm, because she cannot swallow pills Cont liquid cough suppressant/expectorant
[2023-10-13] MEDS: MULTIVITAMIN IV SCH ×4 (18:00)
[2023-10-13] MEDS: TRACE ELEMENTS IV SCH ×4 (18:00)
[2023-10-13] MEDS: PPN IV SCH ×4 (18:00)
[2023-10-13] MEDS: [UNRECOGNIZED DRUG - OTHER] IV SCH ×4 (18:00)
[2023-10-13] MEDS: SODIUM CHLORIDE FLUSH 0.9% 10 ML SYRINGE IVP PRN (21:01)
[2023-10-14] MEDS: SODIUM CHLORIDE FLUSH 0.9% 10 ML SYRINGE IVP SCH ×4 (04:35→20:49)
[2023-10-14] MEDS: METOPROLOL 5 MG/5 ML VIAL IVP SCH ×3 (06:10→21:04)
[2023-10-14] MEDS: methylPREDNISolone SUCCINATE 125 MG/2 ML VIAL IVP SCH ×3 (06:11→21:04)
[2023-10-14] MEDS: LEVALBUTEROL 1.25 MG/3 ML NEB INH SCH ×4 (07:27→19:40)
[2023-10-14] MEDS: BUDESONIDE 0.5 MG/2 ML NEB INH SCH ×2 (07:27→19:40)
[2023-10-14] MEDS: CHLORHEXIDINE GLUCONATE 15 ML UDC PO SCH ×2 (08:43→20:48)
[2023-10-14] MEDS: MORPHINE 2 MG/ML CARPUJECT IVP PRN ×3 (08:44→20:48)
[2023-10-14] MEDS: polyethylene glycoL 3350 17 GM PACKET PO SCH (08:44)
[2023-10-14] MEDS: FAMOTIDINE 20 MG/2 ML VIAL IVP SCH ×2 (08:44→20:48)
[2023-10-14] MEDS: ENOXAPARIN 40 MG/0.4 ML SYRINGE SUBQ SCH (08:44)
[2023-10-14] MEDS: FAT EMULSION 20% 250 ML IV SCH (09:54)
--- NOTE | 2023-10-14 14:55 | PROVIDER PROGRESS NOTE ---
Subjective - Prog Note Date Prog Note Date: 10/14/23 Prog Note Time: 14:55 - Subjective Pt reports feeling: Improved Subjective: She was reluctant to do so but I did managed to get her out of bed and into a chair. She has only been off BiPAP for 20 minutes this morning and 20 minutes this afternoon. She seems to have an anxiety driven shortness of breath. Within 10 minutes of being off BiPAP she starts to feel like she cannot breathe and wants the machine back on. Plan is for her to use this at home on a long- term basis. Shortness of breath is present with minimal activity such as speaking. She is able to stand but completely winded just doing that (going from supine to sitting to standing). She complains that she has been out of bed for 4 hours and really just wants to be in bed. She does tell me that at home she is up and about, does not spend her time in bed. She is not eating. She is on a pured diet and TPN. The diet is minimal and most of her caloric intake is TPN at this point in time. She is not eating because of dysphagia in the upper esophagus. Not oropharyngeal. And we cannot do an EGD to figure out why she has dysphagia due to anesthesia declining to do the case. I discussed the case with radiology. We do not have a fluoroscopy room and as such cannot do an upper GI. But the radiologist feels that we can do a CT of the chest with oral and IV contrast. In reviewing the previous CTs she has 1 from July that has a possible esophageal mass. Prior to that she had a food bolus impaction in June. Just speaking about the CT causes tremendous anxiety for her. She starts to get tachypneic and panicky. She is afraid of laying flat because she feels like she cannot breathe when she does that. Current Medications - Current Medications Current Medications: Active Medications Budesonide (Budesonide 0.5 Mg/2 Ml Neb) 0.5 mg INH RTBID [facility] Last Admin: 10/14/23 07:27 Dose: 0.5 mg Chlorhexidine Gluconate (Chlorhexidine Gluconate 15 Ml Udc) 15 ml PO BID [facility] Last Admin: 10/14/23 08:43 Dose: 15 ml Clonidine HCl (Clonidine 0.1 Mg Patch) 1 patch TOP Q7D [facility] Last Admin: 10/08/23 14:15 Dose: 1 patch Enoxaparin Sodium (Enoxaparin 40 Mg/0.4 Ml Syringe) 40 mg SUBQ DAILY [facility] Last Admin: 10/14/23 08:44 Dose: 40 mg Famotidine (Famotidine 20 Mg/2 Ml Vial) 20 mg IVP BID [facility] Last Admin: 10/14/23 08:44 Dose: 20 mg Guaifenesin (Guaifenesin/Dextromethorphan 10 Ml Udc) 10 ml PO Q6HR PRN PRN Reason: Cough Last Admin: 10/13/23 09:30 Dose: 10 ml Acetaminophen (Acetaminophen) 1,000 mg in 100 mls @ 400 mls/hr IV Q6HR PRN PRN Reason: Pain or Fever > 38C (100.4F) Last Infusion: 10/10/23 13:05 Dose: Infused Fat Emulsion Intravenous (Intralipid 20%) 250 mls @ 21 mls/hr IV QOD [facility] Last Admin: 10/14/23 09:54 Dose: 21 mls/hr Multivitamins 10 ml/ TRACE ELEMENTS 1 ml/ Thiamine HCl 100 mg/ Amino Acids/Electrolytes/Dextrose 2,012 mls @ 63 mls/hr IV 1900 [facility]; Protocol Last Admin: 10/13/23 18:00 Dose: 63 mls/hr Levalbuterol HCl (Levalbuterol 1.25 Mg/3 Ml Neb) 1.25 mg INH Q4H PRN PRN Reason: Shortness of Air/Wheezing Last Admin: 10/11/23 16:29 Dose: 1.25 mg Levalbuterol HCl (Levalbuterol 1.25 Mg/3 Ml Neb) 1.25 mg INH RTQID [facility] Last Admin: 10/14/23 11:15 Dose: 1.25 mg Lorazepam (Lorazepam 2 Mg/Ml Vial) 0.5 mg IVP Q4H PRN PRN Reason: Anxiety Last Admin: 10/13/23 21:01 Dose: 0.5 mg Methylprednisolone Sodium Succinate (Methylprednisolone Succinate 125 Mg/2 Ml Vial) 40 mg IVP TID [facility] Last Admin: 10/14/23 13:25 Dose: 40 mg Metoprolol Tartrate (Metoprolol 5 Mg/5 Ml Vial) 5 mg IVP Q8HR [facility] Last Admin: 10/14/23 13:24 Dose: 5 mg Morphine Sulfate (Morphine 2 Mg/Ml Carpuject) 2 mg IVP Q2HR PRN PRN Reason: Dyspnea Last Admin: 10/14/23 13:25 Dose: 2 mg Ondansetron HCl (Ondansetron 4 Mg/2 Ml Vial) 4 mg IVP Q6HR PRN PRN Reason: Nausea / Vomiting Polyethylene Glycol (Polyethylene Glycol 3350 17 Gm Packet) 17 gm PO DAILY [facility] Last Admin: 10/14/23 08:44 Dose: 17 gm Sodium Chloride (Sodium Chloride Flush 0.9% 10 Ml Syringe) 10 ml IVP 0100,0900,1700 [facility] Last Admin: 10/14/23 08:44 Dose: 10 ml Sodium Chloride (Sodium Chloride Flush 0.9% 10 Ml Syringe) 10 ml IVP PRN PRN PRN Reason: NEEDED PER PROVIDER ORDERS Last Admin: 10/13/23 21:01 Dose: 10 ml Throat Lozenges (Benzocaine/Menthol Lozenge) 1 lozenge MM Q2HR PRN PRN Reason: Throat pain Last Admin: 10/08/23 19:06 Dose: 1 lozenge Albuterol Sulfate [Proair Hfa Inhaler] 2 puffs INH Q4H PRN 10/18/21 Aspirin EC [Ecotrin] 325 mg PO DAILY 10/18/21 Ipratropium/Albuterol [Duoneb] 3 ml INH QID PRN 10/08/23 Mometasone/Formoterol [Dulera 200 Mcg-5 Mcg Inhaler] 2 puffs PO BID 10/08/23 cloNIDine [Catapres] 0.1 mg PO DAILY 10/08/23 Objective - Vital Signs/Intake & Output Reviewed Vital Signs: Yes Vital Signs: Vital Signs Pulse Pulse Pulse Resp BP BP BP 10/14/23 13:24 131/91 H 10/14/23 13:00 123 H 16 131/91 H 10/14/23 12:00 102 H 19 131/91 H 10/14/23 11:42 90 163/87 H 10/14/23 11:16 86 16 10/14/23 11:00 82 15 163/87 H Pulse Ox Pulse Ox O2 Flow Rate 10/14/23 13:24 10/14/23 13:00 95 2 10/14/23 12:00 94 2 10/14/23 11:42 95 10/14/23 11:16 10/14/23 11:00 98 2 Intake & Output: Intake & Output 10/11/23 10/12/23 10/13/23 10/14/23 23:59 23:59 23:59 23:59 Intake Total 3040.65 2725.75 2384.15 630 Output Total 2200 3450 2400 650 Balance 840.65 -724.25 -15.85 -20 - Objective General Appearance: positive: No acute distress, Alert, Other (5 foot tall, 36 kg female. The markings of the face macular them better into the skin of her face from the pressure. Again she is only taken off the mask 40 minutes in 24 hours. Alert, oriented) Eyes Bilateral: positive: PERRL, EOMI ENT: positive: No signs of dehydration Neck: positive: No JVD. negative: Stiff neck Respiratory: positive: No respiratory distress (Unless she gets anxious then she gets tachypneic), Other (Very silent lungs. Almost no air sounds in both lung hunter). negative: Wheezes, Rales, Rhonchi Cardiovascular: positive: Regular rate & rhythm, Tachycardia (When she tries to get out of bed and when she is speaking about the CT) Abdomen: positive: Non-tender, No organomegaly, Nml bowel sounds Skin: positive: Warm, Dry Extremities: positive: Full ROM, No pedal edema Neurologic/Psychiatric: positive: Oriented x3, CN's nml (2-12), Motor nml - Lab Results Fish Bones: 10/12/23 04:18 10/13/23 05:22 Assessment/Plan - Problem List (1) Acute and chronic respiratory failure with hypoxia Impression: Patient is on home O2 even before admission. Current because of acute on chronic failure is bilateral pneumonia and severe COPD exacerbation. AL ruled out with negative troponin. Compensatory metabolic alkalosis present on her labs. Her Echo was done and showed normal LV size and syst function, and mild cor pulmonale with dilated RV with mildly depressed RV function A chest x-ray was repeated and shows resolution of infiltrates seen by OT and PT: Pt is a 63 yo female who was referred for OT evaluation secondary to weakness and anxiety during movement. Pt lives in her dtr's home with her , "Ryan" (she and recently lost their home). There are a total of 6 people living in the home along with a dog and cat. H with 3 JENNIFER. Pt owns a walker but does not use it. Pt was previously indep for mobility and ADLs, req supplemental O2 use of 2L at baseline. Upon OT eval, pt was anxious with self limiting behaviors req mod encouragement to participate. She req SBA for bed mobility and tolerated sitting EOB for ~8 mins indep. CGA for STS t/f with FWW and for standing balance (~4 mins) with maxA to change soiled brief and remove purewick. CGA w/ FWW for SPT to b/s chair. Pt strongly directed session and req cueing for attention to task. Positioned comfortably in b/s chair with call machado and all needs met. Pt presents below baseline for functional task performance and will benefit from skilled OT services in acute care setting to increase safety and indep with ADLs and functional mobility. Pt is a 63 y/o F presenting to PT COPD exacerbation, RSV and bilateral pneumonia. Pt currently is on 2LO2 on BIPAP highly anxious regarding mobility secondary to poor breathing mechanics. Pt at baseline reports mostly limited activity secondary to fatigue and SOB. Pt tolerated sitting up at eOB for a few minutes and standing with FWW 2P assist for management of multiple lines/tubes. Pt tolerated taking 4-5 side steps towards the recliner chair to sit up. Pt would benefit from continued skilled PT in SNF setting to improve breathing mechanics for improve functional activity tolerance and build gait tolerance. Plan: Continue with supplemental O2 using BIPAP. Remain in the ICU for BiPAP use Cont to treat the underlying causes Cont Morphine iv prn dyspnea. I have reassured her that I will use morphine or Ativan tomorrow before she goes on the CT table so that her sense of respiratory distress is not so severe thereby causing increased anxiety Continue working with PT and OT. Possibility of having to transfer to a long term facility for rehab is now being thought of (2) COPD exacerbation Impression: Exacerbation caused by the pneumonia plus RSV infection. Patient takes inhalers at home but according to her she has never had formal PFTs to diagnose COPD. She was an ex-smoker who quit about 2 years ago Plan: Cont scheduled and prn nebulized Xopenex bronchodilator Cont Pulmicort nebulized BID Unfortunately she cannot get montelukast pills because she cannot swallow tablets Cont liquid cough suppressant/expectorant She was on Solu-Medrol 80 mg IV push 3 times daily. On the she went down to 40 mg IV push 3 times daily. Tomorrow I will decrease to 40 mg IV push twice daily. Remain on supplemental O2 with target saturation 88% or greater This patient has chronic respiratory failure and COPD and currently uses a home noninvasive ventilator from [facility]. On this her previously ordered target volumes of 420 mL was increased to 450 mL.. This noninvasive home ventilator device is needed to treat her symptoms and reduce her hospital readmissions. She is currently stable on his treatment regimen. However I am worried that she needs quite a bit of noninvasive support to get home. She cannot maintain 24/7 mask support indefinitely (3) KWASI on CPAP Impression: After adm, the RT learned that the patient has sleep apnea and has a home CPAP device. Daughter and the patient were instructed on how to clean the CPAP device from RT here. (4) RSV (acute bronchiolitis due to respiratory syncytial virus) Impression: Plan: Continue with droplet isolation until OK to stop, as per CD guidelines RSV usually presents as tracheobronchitis. There is no rhonchi, or spasmodic coughing on today's exam (5) Odynophagia Impression: Since Jun 2023, after she swallowed meat which "got stuck" going down, she has had pain in mid-chest after swallowing and inability to swallow solids. There is a plan for a barium swallow w/ flouroscopy to be done at [facility] in the upcoming weeks and she has not been able to get into a Senior Electrical Designer office yet for several more months, both were scheduled to be done as an outpatient On 10/08/23 case discussed with the general surgeon, Dr. Basilio who said that while the pt has hypoxia, it is not advised to put her under anesthesia to undergo endoscopy. On 10/11/23, Gen Surg consult requested from Dr Broderick and he agreed that she needs an EGD. 10/13 the patient was seen by Anesthesia for preop eval for her E GD. Anton Dillon from Anesthesia said the patient is excessively high risk to have an EGD done here because she would need general anesthesia, intubation and then may be on the vent a prolonged time. Thus no EGD can be done here, and Dr Broderick was informed. In trying to figure out why this lady cannot swallow, I reviewed her records. In July CT of the chest shows possible esophageal thickening. So the differential should include esophageal neoplasm. I discussed the case with radiology and explained that we cannot get an EGD. We do not have fluoroscopy. He suggested an oral and IV contrast CT. That would at least get his pulmonary information. Depending on the results of the CT, the patient could then follow-up with outpatient gastroenterology. Or, if the results are severe, I will transfer her for higher level of care for diagnosis and treatment. I explained this to the patient which then set off her anxiety. Understandably so. We went over the pros and cons. She is scared about laying down but agrees to do this tomorrow if she can at least keep her mask on to breathe. As such I will order a CT of the chest with oral and IV contrast for tomorrow. Oral contrast to be given [address] and IV contrast. Approved by Dr. Jarquin (6) Anxiety Impression: Anxiety, in addition to her shortness of breath is her predominant complaint today. Initially anxiety was attributed to frequent albuterol, IV steroids, and air hunger. BiPAP has alleviated his anxiety tremendously but that in itself is a problem and that she gets very anxious when the BiPAP is removed. So she is not eating very much nor is she taking much by p.o. Currently on IV lorazepam as needed, and morphine IV as needed dyspnea and anxiety. Plan is to give her 1 mg of morphine and half a milligram of Ativan before her CT tomorrow. (7) Tachycardia Her HR was maintaining at 120-130, joon after a DuoNeb treatment Her BUN/creat are WNL, suggesting no dehydration. Previous hospitalist was worried about atrial flutter. So the hospitalist did carotid massage and the heart rate did slow briefly to 98. No atrial flutter w as present with the slowed heart rate. Her DuoNeb was changed to Xopenex, and IV Lopressor was added for persistent tachycardia. IV Lopressor was added because she could not swallow pills. As of today, she still finds it difficult to swallow pills we will keep her on IV metoprolol (8) HTN Her BP was running 170/99. She is on a Clonidine patch here, since Clonidine was listed as a home med With the slowing of her heart rate with metoprolol, her blood pressure has come down. Yesterday she was in the 120s. Today she is 102 pulse. With that blood pressure is 131/91. However it was as high as 163/87. Plan: Continue clonidine patch, metoprolol 5 mg IV push every 8 hours as needed. (9) Severe protein-calorie malnutrition Impression: This patient has lost 15-30 pounds over the last month. She reports that all she does is drink a liquid diet for the past 3 months because of the trouble swallowing. We are attempting a slow workup with the above-mentioned CT of the chest. If this does not get us an answer, we may have to transfer. She cannot be sent home with such a high level of oxygen need, and inability to eat. Plan: Nutrition consult appreciated Cont her on PPN w/ Lipids via peripheral iv (10) PNA (pneumonia) Impression: RESOLVED She got empiric IV Zithromax and IV ceftriaxone and I added Flagyl for poss aspiration, given her 3 mos of "food getting stuck" Unfortunately she cannot get Mucinex to help expectorate her phlegm, because she cannot swallow pills Cont liquid cough suppressant/expectorant
[2023-10-14] MEDS: LORazepam 2 MG/ML VIAL IVP PRN ×2 (16:49→20:48)
[2023-10-14] MEDS: MULTIVITAMIN IV SCH ×4 (19:29)
[2023-10-14] MEDS: TRACE ELEMENTS IV SCH ×4 (19:29)
[2023-10-14] MEDS: [UNRECOGNIZED DRUG - OTHER] IV SCH ×4 (19:29)
[2023-10-14] MEDS: PPN IV SCH ×4 (19:29)
[2023-10-15] MEDS: LORazepam 2 MG/ML VIAL IVP PRN ×3 (02:32→23:00)
[2023-10-15] MEDS: MORPHINE 2 MG/ML CARPUJECT IVP PRN ×3 (02:32→21:16)
[2023-10-15 05:08] LABS: CALCIUM, IONIZED 1.11 mmol/L (1.15-1.33); VBG PH 7.467 (7.31-7.41)
[2023-10-15 05:16] LABS: MAGNESIUM 2.1 mg/dL (1.7-2.3); PHOSPHORUS 3.7 mg/dL (2.5-5.0)
[2023-10-15] MEDS: METOPROLOL 5 MG/5 ML VIAL IVP SCH ×3 (05:48→21:16)
[2023-10-15] MEDS: methylPREDNISolone SUCCINATE 40 MG/ML VIAL IVP SCH ×3 (05:48→20:51)
[2023-10-15] MEDS: LEVALBUTEROL 1.25 MG/3 ML NEB INH SCH ×4 (07:54→18:57)
[2023-10-15] MEDS: BUDESONIDE 0.5 MG/2 ML NEB INH SCH ×2 (07:54→18:57)
[2023-10-15] MEDS: CHLORHEXIDINE GLUCONATE 15 ML UDC PO SCH ×2 (08:41→20:50)
[2023-10-15] MEDS: FAMOTIDINE 20 MG/2 ML VIAL IVP SCH ×2 (08:41→20:51)
[2023-10-15] MEDS: polyethylene glycoL 3350 17 GM PACKET PO SCH (08:41)
[2023-10-15] MEDS: SODIUM CHLORIDE FLUSH 0.9% 10 ML SYRINGE IVP SCH ×2 (08:42→17:14)
[2023-10-15] MEDS: ENOXAPARIN 40 MG/0.4 ML SYRINGE SUBQ SCH (08:42)
[2023-10-15] MEDS ORDERED: DIATRIZOATE MEGLU/DIATRIZO SOD 30 ML BOTTLE PO ONE (09:17)
[2023-10-15] MEDS ORDERED: iohexoL-300 100 ML VIAL ONE (09:17)
[2023-10-15] MEDS: ACETAMINOPHEN 1,000 MG/100 ML 1,000 MG/100 ML BAG IV PRN (10:37)
[2023-10-15] MEDS: cloNIDine 0.1 MG PATCH TOP SCH (14:45)
--- NOTE | 2023-10-15 17:46 | PROVIDER PROGRESS NOTE ---
Subjective - Prog Note Date Prog Note Date: 10/15/23 Prog Note Time: 17:46 - Subjective Subjective: Today is a day of tears. She is scared about going home but wants to go home. She would really love a bowl of mac & cheese but knows that she cannot eat because she just cannot swallow. She says that even water at this time comes right back up after she tries to swallow it. And then there is the shortness of breath. She gets that severe anxiety when she feels like she cannot breathe. The BiPAP machine really helps her but she only takes it off for a few minutes at a time. Nursing is working with her trying to get her out of bed. Their goal is to get her to a bedside commode as opposed to pure wick when she has to urinate. And hopefully have her sitting up in a chair longer. CT scan was to be today. But the machine is down so we are not able to get the CT with oral or IV contrast. Current Medications - Current Medications Current Medications: Active Medications Budesonide (Budesonide 0.5 Mg/2 Ml Neb) 0.5 mg INH RTBID [facility] Last Admin: 10/15/23 07:54 Dose: 0.5 mg Chlorhexidine Gluconate (Chlorhexidine Gluconate 15 Ml Udc) 15 ml PO BID [facility] Last Admin: 10/15/23 08:41 Dose: 15 ml Clonidine HCl (Clonidine 0.1 Mg Patch) 1 patch TOP Q7D [facility] Last Admin: 10/15/23 14:45 Dose: 1 patch Enoxaparin Sodium (Enoxaparin 40 Mg/0.4 Ml Syringe) 40 mg SUBQ DAILY [facility] Last Admin: 10/15/23 08:42 Dose: 40 mg Famotidine (Famotidine 20 Mg/2 Ml Vial) 20 mg IVP BID [facility] Last Admin: 10/15/23 08:41 Dose: 20 mg Guaifenesin (Guaifenesin/Dextromethorphan 10 Ml Udc) 10 ml PO Q6HR PRN PRN Reason: Cough Last Admin: 10/13/23 09:30 Dose: 10 ml Acetaminophen (Acetaminophen) 1,000 mg in 100 mls @ 400 mls/hr IV Q6HR PRN PRN Reason: Pain or Fever > 38C (100.4F) Last Infusion: 10/15/23 10:55 Dose: Infused Fat Emulsion Intravenous (Intralipid 20%) 250 mls @ 21 mls/hr IV QOD [facility] Last Infusion: 10/15/23 04:57 Dose: Infused Multivitamins 10 ml/ TRACE ELEMENTS 1 ml/ Thiamine HCl 100 mg/ Amino Acids/Electrolytes/Dextrose 2,012 mls @ 63 mls/hr IV 1900 AZAEL; Protocol Last Admin: 10/14/23 19:29 Dose: 63 mls/hr Levalbuterol HCl (Levalbuterol 1.25 Mg/3 Ml Neb) 1.25 mg INH Q4H PRN PRN Reason: Shortness of Air/Wheezing Last Admin: 10/11/23 16:29 Dose: 1.25 mg Levalbuterol HCl (Levalbuterol 1.25 Mg/3 Ml Neb) 1.25 mg INH RTQID [facility] Last Admin: 10/15/23 14:55 Dose: 1.25 mg Lorazepam (Lorazepam 2 Mg/Ml Vial) 0.5 mg IVP Q4H PRN PRN Reason: Anxiety Last Admin: 10/15/23 08:42 Dose: 0.5 mg Methylprednisolone (Methylprednisolone Succinate 40 Mg/Ml Vial) 40 mg IVP TID [facility] Last Admin: 10/15/23 14:43 Dose: 40 mg Metoprolol Tartrate (Metoprolol 5 Mg/5 Ml Vial) 5 mg IVP Q8HR [facility] Last Admin: 10/15/23 14:45 Dose: 5 mg Morphine Sulfate (Morphine 2 Mg/Ml Carpuject) 2 mg IVP Q2HR PRN PRN Reason: Dyspnea Last Admin: 10/15/23 17:12 Dose: 2 mg Ondansetron HCl (Ondansetron 4 Mg/2 Ml Vial) 4 mg IVP Q6HR PRN PRN Reason: Nausea / Vomiting Polyethylene Glycol (Polyethylene Glycol 3350 17 Gm Packet) 17 gm PO DAILY [facility] Last Admin: 10/15/23 08:41 Dose: 17 gm Sodium Chloride (Sodium Chloride Flush 0.9% 10 Ml Syringe) 10 ml IVP 0100,0900,1700 [facility] Last Admin: 10/15/23 17:14 Dose: 10 ml Sodium Chloride (Sodium Chloride Flush 0.9% 10 Ml Syringe) 10 ml IVP PRN PRN PRN Reason: NEEDED PER PROVIDER ORDERS Last Admin: 10/13/23 21:01 Dose: 10 ml Throat Lozenges (Benzocaine/Menthol Lozenge) 1 lozenge MM Q2HR PRN PRN Reason: Throat pain Last Admin: 10/08/23 19:06 Dose: 1 lozenge Albuterol Sulfate [Proair Hfa Inhaler] 2 puffs INH Q4H PRN 10/18/21 Aspirin EC [Ecotrin] 325 mg PO DAILY 10/18/21 Ipratropium/Albuterol [Duoneb] 3 ml INH QID PRN 10/08/23 Mometasone/Formoterol [Dulera 200 Mcg-5 Mcg Inhaler] 2 puffs PO BID 10/08/23 cloNIDine [Catapres] 0.1 mg PO DAILY 10/08/23 Objective - Vital Signs/Intake & Output Reviewed Vital Signs: Yes Vital Signs: Vital Signs Temp Pulse Resp BP BP Pulse Ox O2 Flow Rate 10/15/23 17:00 84 23 166/99 H 100 4 10/15/23 16:00 36.5 C 82 22 163/105 H 100 4 10/15/23 15:00 69 13 139/81 H 98 2 10/15/23 14:45 147/79 H 10/15/23 14:00 85 14 147/79 H 99 4 Intake & Output: Intake & Output 10/12/23 10/13/23 10/14/23 10/15/23 23:59 23:59 23:59 23:59 Intake Total 2725.75 2384.15 2285.45 740 Output Total 3450 2400 1050 1400 Balance -724.25 -15.85 1235.45 -660 - Objective General Appearance: positive: Alert, Moderate distress (Emotionally. Crying. She is full of anxiety. Hurts all over. And then she cannot take pills to make yourself feel better (now that she wants to take pills) because she cannot swallow), Other (Short statured, very cachectic female who looks much older than stated age. Wearing BiPAP mask. She takes it on and off herself. Takes it off to converse with me so I can hear her better) Eyes Bilateral: positive: PERRL, EOMI ENT: positive: No signs of dehydration Neck: positive: No JVD. negative: Stiff neck Respiratory: positive: Other (Diffusely diminished breath sounds in all lung hunter. Occasional pursed lip breathing. BiPAP mask is essentially on 24 hours a day. Easily tachypneic with minimal activity.) Cardiovascular: positive: Regular rate & rhythm, No murmur Abdomen: positive: Non-tender, No organomegaly, Nml bowel sounds, No distention Skin: positive: Dry, Other (Hands and feet cool to touch but no cyanosis) Extremities: positive: Full ROM, No pedal edema, Other (Severe loss of muscle mass. Extremely cachectic) Neurologic/Psychiatric: positive: Oriented x3, CN's nml (2-12), Motor nml. negative: Mood/affect nml (Tearful, anxious, depressed), Slurred/abnml speech - Lab Results Fish Bones: 10/12/23 04:18 10/15/23 04:38 Other Labs: Lab Results x24hrs 10/15/23 10/15/23 10/15/23 Range/Units 04:38 04:38 04:38 VBG pH 7.467 H (7.31-7.41) Ionized Calcium 1.11 L (1.15-1.33) mmol/L Potassium 4.8 H (3.5-4.5) mmol/L Phosphorus 3.7 (2.5-5.0) mg/dL Magnesium 2.1 (1.7-2.3) mg/dL Assessment/Plan - Problem List (1) Acute and chronic respiratory failure with hypoxia Impression: Patient is on home O2 even before admission. Current because of acute on chronic failure is bilateral pneumonia and severe COPD exacerbation. CT ruled out with negative troponin. Compensatory metabolic alkalosis present on her labs. Her Echo was done and showed normal LV size and syst function, and mild cor pulmonale with dilated RV with mildly depressed RV function A chest x-ray was repeated and shows resolution of infiltrates Seen by Occupational Therapy today. Not able to be seen by PT because they thought she was going to get a CT scan. Recommend D/C to SNF for continued rehab to improve endurance and activity tolerance for increased indep and safety. Pt will req supplemental O2 during t/f to next location. I would say that her chronic hypoxia and chronic respiratory distress is tenuously stable. But you take off the facemask and tachypnea and pursed lip breathing starts immediately. She can only last about 5 or 10 minutes then she is to put the mask back on again. I am not sure how we can move forward with this unfortunate female. Wearing BiPAP 24 hours a day is not able to be done and still lead an independent life at home. Plan: Continue with supplemental O2 using BIPAP. Remain in the ICU for BiPAP use Cont to treat the underlying causes Cont Morphine iv prn dyspnea. I have reassured her again that I will use morphine or Ativan before she goes on the CT table so that her sense of respiratory distress is not so severe thereby causing increased anxiety Continue working with PT and OT. Possibility of having to [place] a [place] [facility] facility for rehab is now being thought of. She is not happy about that. Just just wants to go home. (2) COPD exacerbation Impression: Exacerbation caused by the pneumonia plus RSV infection. Patient takes inhalers at home but according to her she has never had formal PFTs to diagnose COPD. She was an ex-smoker who quit about 2 years ago Plan: Cont scheduled and prn nebulized Xopenex bronchodilator Cont Pulmicort nebulized BID Unfortunately she cannot get montelukast pills because she cannot swallow tablets Cont liquid cough suppressant/expectorant She was on Solu-Medrol 80 mg IV push 3 times daily. On the she went down to 40 mg IV push 3 times daily. Today I will decrease to 40 mg IV push twice reinaldo ly. Remain on supplemental O2 with target saturation 88% or greater This patient has chronic respiratory failure and COPD and currently uses a home noninvasive ventilator from [facility]. On this her previously ordered target volumes of 420 mL was increased to 450 mL.. This noninvasive home ventilator device is needed to treat her symptoms and reduce her hospital readmissions. She is currently stable on his treatment regimen. However I am worried that she needs quite a bit of noninvasive support to get home. She cannot maintain 24/7 mask support indefinitely. She herself acknowledges that if she cannot get her nutrition stabilized, be able to eat, she will not develop the muscular strength to allow her to get off BiPAP and permanent respiratory support. (3) KWASI on CPAP Impression: After adm, the RT learned that the patient has sleep apnea and has a home CPAP device. Daughter and the patient were instructed on how to clean the CPAP device from RT here. (4) RSV (acute bronchiolitis due to respiratory syncytial virus) Impression: Plan: Continue with droplet isolation until OK to stop, as per CD guidelines RSV usually presents as tracheobronchitis. There is no rhonchi, or spasmodic coughing on exam (5) Odynophagia Impression: Since Jun 2023, after she swallowed meat which "got stuck" going down, she has had pain in mid-chest after swallowing and inability to swallow solids. There is a plan for a barium swallow w/ flouroscopy to be done at [facility] in the upcoming weeks and she has not been able to get into a [facility] [employer] office yet for several more months, both were scheduled to be done as an outpatient On 10/08/23 case discussed with the general surgeon, Dr. Basilio who said that while the pt has hypoxia, it is not advised to put her under anesthesia to undergo endoscopy. On 10/11/23, Gen Surg consult requested from Dr Broderick and he agreed that she needs an EGD. 10/13 the patient was seen by Anesthesia for preop eval for her EGD. Anton Dillon from Anesthesia said the patient is excessively high risk to have an EGD done here because she would need general anesthesia, intubation and then may be on the vent a prolonged time. Thus no EGD can be done here, and Dr Broderick was informed. In trying to figure out why this lady cannot swallow, I reviewed her records. In July CT of the chest shows possible esophageal thickening. So the differential should include esophageal neoplasm. I discussed the case with radiology and explained that we cannot get an EGD. We do not have fluoroscopy. He suggested an oral and IV contrast CT. That would at least get his pulmonary information. Depending on the results of the CT, the patient could then follow-up with outpatient gastroenterology. Or, if the results are severe, I will transfer her for higher level of care for diagnosis and treatment. I explained this to the patient which then set off her anxiety. Understandably so. I ordered the CT of the chest with oral and IV contrast for today. Unfortunately the CT scanner broke down and were not going to try and do it mor rrow. She is in tears about all of this. But she does not want me to give her any benzodiazepines at this time. (6) Anxiety Impression: Anxiety, in addition to her shortness of breath is her predominant complaint today. Initially anxiety was attributed to frequent albuterol, IV steroids, and air hunger. BiPAP has alleviated his anxiety tremendously but that in itself is a problem and that she gets very anxious when the BiPAP is removed. So she is not eating very much nor is she taking much by p.o. Currently on IV lorazepam as needed, and morphine IV as needed dyspnea and anxiety. Plan is to give her 1 mg of morphine and half a milligram of Ativan before her CT tomorrow. I have also recommended that she really needs to start some type of therapy program. Whether it is a in person therapist in [place] or [place], or an online telehealth person. She is understandable reasons for being anxious. She is lost her home, living in a crowded house with her daughter and her children, is losing a tremendous amount of weight because of dysphagia, and has end-stage COPD.At this time she declines me starting her on any antianxiety medication. (7) Tachycardia Her HR was maintaining at 120-130, joon after a DuoNeb treatment Her BUN/creat are WNL, suggesting no dehydration. Previous hospitalist was worried about atrial flutter. So the hospitalist did carotid massage and the heart rate did slow briefly to 98. No atrial flutter was present with the slowed heart rate. Her DuoNeb was changed to Xopenex, and IV Lopressor was added for persistent tachycardia. IV Lopressor was added because she could not swallow pills. As of today, she still finds it difficult to swallow pills we will keep her on IV metoprolol (8) HTN Her BP was running 170/99. She is on a Clonidine patch here, since Clonidine was listed as a home med With the slowing of her heart rate with metoprolol, her blood pressure has come down. Today however, with her tears and anxiety, Blood pressure 166/99, 163/105. Plan: Continue clonidine patch, metoprolol 5 mg IV push every 8 hours as needed.I will not be making any changes right now (9) Severe protein-calorie malnutrition Impression: This patient has lost 15-30 pounds over the last month. She reports that all she does is drink a liquid diet for the past 3 months because of the trouble swallowing. We are attempting a slow workup with the above-mentioned CT of the chest. If this does not get us an answer, we may have to transfer. She cannot be sent home with such a high level of oxygen need, and inability to eat. Plan: Nutrition consult appreciated Cont her on PPN w/ Lipids via peripheral iv I told her that if she cannot keep any meaningful nutrition down, we may have to send her home or to a intermediate with TPN. That would mean getting a PICC line, etc. (10) PNA (pneumonia) Impression: RESOLVED She got empiric IV Zithromax and IV ceftriaxone and I added Flagyl for poss aspiration, given her 3 mos of "food getting stuck" Unfortunately she cannot get Mucinex to help expectorate her phlegm, because she cannot swallow pills Cont liquid cough suppressant/expectorant
[2023-10-15] MEDS: MULTIVITAMIN IV SCH ×4 (18:54)
[2023-10-15] MEDS: TRACE ELEMENTS IV SCH ×4 (18:54)
[2023-10-15] MEDS: PPN IV SCH ×4 (18:54)
[2023-10-15] MEDS: [UNRECOGNIZED DRUG - OTHER] IV SCH ×4 (18:54)
[2023-10-15] MEDS: SODIUM CHLORIDE FLUSH 0.9% 10 ML SYRINGE IVP PRN (19:01)
[2023-10-15] MEDS: LEVALBUTEROL 1.25 MG/3 ML NEB INH PRN (23:00)
[2023-10-16] MEDS: SODIUM CHLORIDE FLUSH 0.9% 10 ML SYRINGE IVP SCH ×3 (01:56→13:02)
[2023-10-16 04:35] LABS: BASOPHILS % (AUTO) 0.2 %; HCT - HEMATOCRIT 31.4 % (37.0-47.0); HGB - HEMOGLOBIN 9.8 g/dL (12.0-16.0); LYMPHOCYTES # (AUTO) 0.4 10^3/uL (1.5-3.5); LYMPHOCYTES % (AUTO) 3.3 %; MEAN CORPUSCULAR HEMOGLOBIN 28.7 pg (27.0-31.0); MEAN CORPUSCULAR HGB CONC 31.2 g/dL (32.0-36.0); MEAN CORPUSCULAR VOLUME 92.1 fL (81.0-99.0); MEAN PLATELET VOLUME 9.1 fL (7.9-10.8); MONOCYTES % (AUTO) 7.9 %; NEUTROPHILS # (AUTO) 11.2 10^3/uL (1.5-6.6); NEUTROPHILS % (AUTO) 87.8 %; PLT - PLATELET COUNT 392 10^3/uL (130-450); RED BLOOD COUNT 3.41 10^6/uL (4.20-5.40); RED CELL DISTRIBUTION WIDTH 14.3 % (12.0-15.0); WHITE BLOOD COUNT 12.7 x10^3/uL (4.8-10.8)
[2023-10-16 04:42] LABS: CALCIUM, IONIZED 1.09 mmol/L (1.15-1.33); VBG PH 7.529 (7.31-7.41)
[2023-10-16 05:01] LABS: ALBUMIN 2.8 g/dL (3.2-5.5); ALBUMIN/GLOBULIN RATIO 1.3 (1.0-2.2); BILIRUBIN,TOTAL 0.3 mg/dL (0.2-1.0); CALCIUM 8.4 mg/dL (8.5-10.3); CREATININE 0.2 mg/dL (0.6-1.3); MAGNESIUM 1.9 mg/dL (1.7-2.3); PHOSPHORUS 3.4 mg/dL (2.5-5.0); POTASSIUM 4.2 mmol/L (3.5-4.5)
[2023-10-16] MEDS: MORPHINE 2 MG/ML CARPUJECT IVP PRN ×5 (05:07→22:24)
[2023-10-16] MEDS ORDERED: CALCIUM GLUC 1,000MG/50ML-NACL 1,000 MG/50 ML BAG IV ONE (05:19)
[2023-10-16] MEDS: METOPROLOL 5 MG/5 ML VIAL IVP SCH ×3 (05:43→21:14)
[2023-10-16] MEDS: BUDESONIDE 0.5 MG/2 ML NEB INH SCH ×2 (05:48→17:48)
[2023-10-16] MEDS: LEVALBUTEROL 1.25 MG/3 ML NEB INH SCH ×4 (05:48→17:47)
[2023-10-16] MEDS: FAMOTIDINE 20 MG/2 ML VIAL IVP SCH ×2 (08:22→21:14)
[2023-10-16] MEDS: methylPREDNISolone SUCCINATE 40 MG/ML VIAL IVP SCH ×2 (08:22→21:15)
[2023-10-16] MEDS: FAT EMULSION 20% 250 ML IV SCH (08:23)
[2023-10-16] MEDS: CHLORHEXIDINE GLUCONATE 15 ML UDC PO SCH ×2 (08:23→21:13)
[2023-10-16] MEDS: ENOXAPARIN 40 MG/0.4 ML SYRINGE SUBQ SCH (08:23)
[2023-10-16] MEDS: polyethylene glycoL 3350 17 GM PACKET PO SCH (08:23)
[2023-10-16] MEDS: LORazepam 2 MG/ML VIAL IVP PRN ×3 (08:29→18:52)
--- NOTE | 2023-10-16 08:35 | PROVIDER PROGRESS NOTE ---
Subjective - Prog Note Date Prog Note Date: 10/16/23 Prog Note Time: 08:31 - Subjective Subjective: Much calmer affect today. Sitting upright in bed. The mask is not on. She is having a normal conversation with the nurse. Main complaint is indigestion that started last night after drinking strawberry Ensure. Indigestion is substernal and epigastric. Associated with belching that brings up acid waterbrash to the back of her throat. She lost Pepto-Bismol for this but I warned her that we may not be able to have that here. I will talk to pharmacy. Not tearful. Not tachypneic. Not anxious. Current Medications - Current Medications Current Medications: Active Medications Al Hydroxide/Mg Hydroxide (Mag Hydrox/Al Hydrox/Simeth 30 Ml Udc) 30 ml PO Q4HR PRN PRN Reason: INDIGESTION Budesonide (Budesonide 0.5 Mg/2 Ml Neb) 0.5 mg INH RTBID [facility] Last Admin: 10/16/23 05:48 Dose: 0.5 mg Calcium Carbonate/Glycine (Calcium Carbonate Chew 500 Mg Tablet) 1,250 mg PO Q4H [facility]; Protocol Stop: 10/16/23 13:01 Chlorhexidine Gluconate (Chlorhexidine Gluconate 15 Ml Udc) 15 ml PO BID [facility] Last Admin: 10/16/23 08:23 Dose: 15 ml Clonidine HCl (Clonidine 0.1 Mg Patch) 1 patch TOP Q7D [facility] Last Admin: 10/15/23 14:45 Dose: 1 patch Enoxaparin Sodium (Enoxaparin 40 Mg/0.4 Ml Syringe) 40 mg SUBQ DAILY [facility] Last Admin: 10/16/23 08:23 Dose: 40 mg Famotidine (Famotidine 20 Mg/2 Ml Vial) 20 mg IVP BID [facility] Last Admin: 10/16/23 08:22 Dose: 20 mg Guaifenesin (Guaifenesin/Dextromethorphan 10 Ml Udc) 10 ml PO Q6HR PRN PRN Reason: Cough Last Admin: 10/13/23 09:30 Dose: 10 ml Acetaminophen (Acetaminophen) 1,000 mg in 100 mls @ 400 mls/hr IV Q6HR PRN PRN Reason: Pain or Fever > 38C (100.4F) Last Infusion: 10/15/23 10:55 Dose: Infused Fat Emulsion Intravenous (Intralipid 20%) 250 mls @ 21 mls/hr IV QOD [facility] Last Admin: 10/16/23 08:23 Dose: 21 mls/hr Multivitamins 10 ml/ TRACE ELEMENTS 1 ml/ Thiamine HCl 100 mg/ Amino Acids /Electrolytes/Dextrose 2,012 mls @ 63 mls/hr IV 1900 AZAEL; Protocol Last Admin: 10/15/23 18:54 Dose: 63 mls/hr Levalbuterol HCl (Levalbuterol 1.25 Mg/3 Ml Neb) 1.25 mg INH Q4H PRN PRN Reason: Shortness of Air/Wheezing Last Admin: 10/15/23 23:00 Dose: 1.25 mg Levalbuterol HCl (Levalbuterol 1.25 Mg/3 Ml Neb) 1.25 mg INH RTQID [facility] Last Admin: 10/16/23 05:48 Dose: 1.25 mg Lorazepam (Lorazepam 2 Mg/Ml Vial) 0.5 mg IVP Q4H PRN PRN Reason: Anxiety Last Admin: 10/16/23 08:29 Dose: 0.5 mg Methylprednisolone (Methylprednisolone Succinate 40 Mg/Ml Vial) 40 mg IVP BID [facility] Last Admin: 10/16/23 08:22 Dose: 40 mg Metoprolol Tartrate (Metoprolol 5 Mg/5 Ml Vial) 5 mg IVP Q8HR [facility] Last Admin: 10/16/23 05:43 Dose: 5 mg Morphine Sulfate (Morphine 2 Mg/Ml Carpuject) 2 mg IVP Q2HR PRN PRN Reason: Dyspnea Last Admin: 10/16/23 05:07 Dose: 2 mg Ondansetron HCl (Ondansetron 4 Mg/2 Ml Vial) 4 mg IVP Q6HR PRN PRN Reason: Nausea / Vomiting Polyethylene Glycol (Polyethylene Glycol 3350 17 Gm Packet) 17 gm PO DAILY [facility] Last Admin: 10/16/23 08:23 Dose: 17 gm Sodium Chloride (Sodium Chloride Flush 0.9% 10 Ml Syringe) 10 ml IVP 0100,0900,1700 [facility] Last Admin: 10/16/23 08:24 Dose: 10 ml Sodium Chloride (Sodium Chloride Flush 0.9% 10 Ml Syringe) 10 ml IVP PRN PRN PRN Reason: NEEDED PER PROVIDER ORDERS Last Admin: 10/15/23 19:01 Dose: 10 ml Throat Lozenges (Benzocaine/Menthol Lozenge) 1 lozenge MM Q2HR PRN PRN Reason: Throat pain Last Admin: 10/08/23 19:06 Dose: 1 lozenge Albuterol Sulfate [Proair Hfa Inhaler] 2 puffs INH Q4H PRN 10/18/21 Aspirin EC [Ecotrin] 325 mg PO DAILY 10/18/21 Ipratropium/Albuterol [Duoneb] 3 ml INH QID PRN 10/08/23 Mometasone/Formoterol [Dulera 200 Mcg-5 Mcg Inhaler] 2 puffs PO BID 10/08/23 cloNIDine [Catapres] 0.1 mg PO DAILY 10/08/23 Objective - Vital Signs/Intake & Output Reviewed Vital Signs: Yes Vital Signs: Vital Signs Temp Pulse Pulse Resp BP BP Pulse Ox 10/16/23 07:00 36.7 C 71 15 150/73 H 100 10/16/23 06:00 62 13 140/80 H 96 10/16/23 05:45 74 16 10/16/23 05:43 157/87 H 10/16/23 05:00 75 16 157/87 H 96 O2 Flow Rate 10/16/23 07:00 4 10/16/23 06:00 2 10/16/23 05:45 2 10/16/23 05:43 10/16/23 05:00 2 Intake & Output: Intake & Output 10/13/23 10/14/23 10/15/23 10/16/23 23:59 23:59 23:59 23:59 Intake Total 2384.15 2285.45 2515.25 150 Output Total 2400 1050 1850 500 Balance -15.85 1235.45 665.25 -350 - Objective General Appearance: positive: No acute distress, Alert, Other (Cachectic, looks older than stated age.) Eyes Bilateral: positive: PERRL, EOMI ENT: positive: No signs of dehydration Neck: positive: No JVD. negative: Stiff neck Respiratory: positive: No respiratory distress, Other (Actually more air movement today. I can hear normal breath sounds. Slightly more diminished on the left than the right. She still has prolonged end exhalation phase but no wheezing. More importantly, no tachypnea struggling for air as she has the mask off and speaks to me). negative: Wheezes, Rales, Rhonchi Cardiovascular: positive: Regular rate & rhythm, Systolic murmur Abdomen: positive: Non-tender, No organomegaly, Nml bowel sounds, No distention Skin: positive: Warm, Dry Extremities: positive: Full ROM, No pedal edema Neurologic/Psychiatric: positive: Oriented x3, CN's nml (2-12), Motor nml - Lab Results Fish Bones: 10/16/23 04:12 10/16/23 04:12 Other Labs: Lab Results x24hrs 10/16/23 10/16/23 10/16/23 Range/Units 05:50 04:12 04:12 WBC (4.8-10.8) x10^3/uL RBC (4.20-5.40) 10^6/uL Hgb (12.0-16.0) g/dL Hct (37.0-47.0) % MCV (81.0-99.0) fL MCH (27.0-31.0) pg MCHC (32.0-36.0) g/dL RDW (12.0-15.0) % Plt Count (130-450) 10^3/uL MPV (7.9-10.8) fL Neut # (Auto) (1.5-6.6) 10^3/uL Lymph # (Auto) (1.5-3.5) 10^3/uL [place] # (Auto) (0.0-1.0) 10^3/uL Eos # (Auto) (0.0-0.7) 10^3/uL Baso # (Auto) (0.0-0.1) 10^3/uL Absolute Nucleated RBC x10^3/uL Nucleated RBC % /100WBC VBG pH 7.529 H (7.31-7.41) Ionized Calcium 1.09 L (1.15-1.33) mmol/L Sodium 132 L (135-145) mmol/L Potassium 4.2 (3.5-4.5) mmol/L Chloride 96 L (101-111) mmol/L Carbon Dioxide 35 H (21-32) mmol/L Anion Gap 1.0 L (6-13) BUN 22 H (6-20) mg/dL Creatinine 0.2 L (0.6-1.3) mg/dL Estimated GFR (MDRD) 360 (>89) Glucose 137 H (74-104) mg/dL POC Whole Bld Glucose 139 H (70 - 100) mg/dL Calcium 8.4 L (8.5-10.3) mg/dL Phosphorus 3.4 (2.5-5.0) mg/dL Magnesium 1.9 (1.7-2.3) mg/dL Total Bilirubin 0.3 (0.2-1.0) mg/dL AST 9 L (10-42) IU/L ALT 23 (10-60) IU/L Alkaline Phosphatase 45 (42-121) IU/L Total Protein 5.0 L (6.4-8.9) g/dL Albumin 2.8 L (3.2-5.5) g/dL Globulin 2.2 (2.1-4.2) g/dL Albumin/Globulin Ratio 1.3 (1.0-2.2) Prealbumin 33 (17-34) mg/dL Triglycerides 151 (48-352) mg/dL 10/16/23 10/16/23 10/15/23 Range/Units 04:12 00:21 18:21 WBC 12.7 H (4.8-10.8) x10^3/uL RBC 3.41 L (4.20-5.40) 10^6/uL Hgb 9.8 L (12.0-16.0) g/dL Hct 31.4 L (37.0-47.0) % MCV 92.1 (81.0-99.0) fL MCH 28.7 (27.0-31.0) pg MCHC 31.2 L (32.0-36.0) g/dL RDW 14.3 (12.0-15.0) % Plt Count 392 (130-450) 10^3/uL MPV 9.1 (7.9-10.8) fL Neut # (Auto) 11.2 H (1.5-6.6) 10^3/uL Lymph # (Auto) 0.4 L (1.5-3.5) 10^3/uL [place] # (Auto) 1.0 (0.0-1.0) 10^3/uL Eos # (Auto) 0.0 (0.0-0.7) 10^3/uL Baso # (Auto) 0.0 (0.0-0.1) 10^3/uL Absolute Nucleated RBC 0.00 x10^3/uL Nucleated RBC % 0.0 /100WBC VBG pH (7.31-7.41) Ionized Calcium (1.15-1.33) mmol/L Sodium (135-145) mmol/L Potassium (3.5-4.5) mmol/L Chloride (101-111) mmol/L Carbon Dioxide (21-32) mmol/L Anion Gap (6-13) BUN (6-20) mg/dL Creatinine (0.6-1.3) mg/dL Estimated GFR (MDRD) (>89) Glucose (74-104) mg/dL POC Whole Bld Glucose 141 H 139 H (70 - 100) mg/dL Calcium (8.5-10.3) mg/dL Phosphorus (2.5-5.0) mg/dL Magnesium (1.7-2.3) mg/dL Total Bilirubin (0.2-1.0) mg/dL AST (10-42) IU/L ALT (10-60) IU/L Alkaline Phosphatase (42-121) IU/L Total Protein (6.4-8.9) g/dL Albumin (3.2-5.5) g/dL Globulin (2.1-4.2) g/dL Albumin/Globulin Ratio (1.0-2.2) Prealbumin (17-34) mg/dL Triglycerides (48-352) mg/dL 10/15/23 10/15/23 10/15/23 Range/Units 12:24 06:00 04:38 WBC (4.8-10.8) x10^3/uL RBC (4.20-5.40) 10^6/uL Hgb (12.0-16.0) g/dL Hct (37.0-47.0) % MCV (81.0-99.0) fL MCH (27.0-31.0) pg MCHC (32.0-36.0) g/dL RDW (12.0-15.0) % Plt Count (130-450) 10^3/uL MPV (7.9-10.8) fL Neut # (Auto) (1.5-6.6) 10^3/uL Lymph # (Auto) (1.5-3.5) 10^3/uL [place] # (Auto) (0.0-1.0) 10^3/uL Eos # (Auto) (0.0-0.7) 10^3/uL Baso # (Auto) (0.0-0.1) 10^3/uL Absolute Nucleated RBC x10^3/uL Nucleated RBC % /100WBC VBG pH (7.31-7.41) Ionized Calcium (1.15-1.33) mmol/L Sodium (135-145) mmol/L Potassium 4.8 H (3.5-4.5) mmol/L Chloride (101-111) mmol/L Carbon Dioxide (21-32) mmol/L Anion Gap (6-13) BUN (6-20) mg/dL Creatinine (0.6-1.3) mg/dL Estimated GFR (MDRD) (>89) Glucose (74-104) mg/dL POC Whole Bld Glucose 119 H 127 H (70 - 100) mg/dL Calcium (8.5-10.3) mg/dL Phosphorus (2.5-5.0) mg/dL Magnesium (1.7-2.3) mg/dL Total Bilirubin (0.2-1.0) mg/dL AST (10-42) IU/L ALT (10-60) IU/L Alkaline Phosphatase (42-121) IU/L Total Protein (6.4-8.9) g/dL Albumin (3.2-5.5) g/dL Globulin (2.1-4.2) g/dL Albumin/Globulin Ratio (1.0-2.2) Prealbumin (17-34) mg/dL Triglycerides (48-352) mg/dL 10/14/23 10/14/23 10/14/23 Range/Units 23:52 17:49 11:39 WBC (4.8-10.8) x10^3/uL RBC (4.20-5.40) 10^6/uL Hgb (12.0-16.0) g/dL Hct (37.0-47.0) % MCV (81.0-99.0) fL MCH (27.0-31.0) pg MCHC (32.0-36.0) g/dL RDW (12.0-15.0) % Plt Count (130-450) 10^3/uL MPV (7.9-10.8) fL Neut # (Auto) (1.5-6.6) 10^3/uL Lymph # (Auto) (1.5-3.5) 10^3/uL [place] # (Auto) (0.0-1.0) 10^3/uL Eos # (Auto) (0.0-0.7) 10^3/uL Baso # (Auto) (0.0-0.1) 10^3/uL Absolute Nucleated RBC x10^3/uL Nucleated RBC % /100WBC VBG pH (7.31-7.41) Ionized Calcium (1.15-1.33) mmol/L Sodium (135-145) mmol/L Potassium (3.5-4.5) mmol/L Chloride (101-111) mmol/L Carbon Dioxide (21-32) mmol/L Anion Gap (6-13) BUN (6-20) mg/dL Creatinine (0.6-1.3) mg/dL Estimated GFR (MDRD) (>89) Glucose (74-104) mg/dL POC Whole Bld Glucose 152 H 181 H 151 H (70 - 100) mg/dL Calcium (8.5-10.3) mg/dL Phosphorus (2.5-5.0) mg/dL Magnesium (1.7-2.3) mg/dL Total Bilirubin (0.2-1.0) mg/dL AST (10-42) IU/L ALT (10-60) IU/L Alkaline Phosphatase (42-121) IU/L Total Protein (6.4-8.9) g/dL Albumin (3.2-5.5) g/dL Globulin (2.1-4.2) g/dL Albumin/Globulin Ratio (1.0-2.2) Prealbumin (17-34) mg/dL Triglycerides (48-352) mg/dL 10/14/23 10/14/23 10/13/23 Range/Units 06:10 00:02 18:26 WBC (4.8-10.8) x10^3/uL RBC (4.20-5.40) 10^6/uL Hgb (12.0-16.0) g/dL Hct (37.0-47.0) % MCV (81.0-99.0) fL MCH (27.0-31.0) pg MCHC (32.0-36.0) g/dL RDW (12.0-15.0) % Plt Count (130-450) 10^3/uL MPV (7.9-10.8) fL Neut # (Auto) (1.5-6.6) 10^3/uL Lymph # (Auto) (1.5-3.5) 10^3/uL [place] # (Auto) (0.0-1.0) 10^3/uL Eos # (Auto) (0.0-0.7) 10^3/uL Baso # (Auto) (0.0-0.1) 10^3/uL Absolute Nucleated RBC x10^3/uL Nucleated RBC % /100WBC VBG pH (7.31-7.41) Ionized Calcium (1.15-1.33) mmol/L Sodium (135-145) mmol/L Potassium (3.5-4.5) mmol/L Chloride (101-111) mmol/L Carbon Dioxide (21-32) mmol/L Anion Gap (6-13) BUN (6-20) mg/dL Creatinine (0.6-1.3) mg/dL Estimated GFR (MDRD) (>89) Glucose (74-104) mg/dL POC Whole Bld Glucose 121 H 136 H 167 H (70 - 100) mg/dL Calcium (8.5-10.3) mg/dL Phosphorus (2.5-5.0) mg/dL Magnesium (1.7-2.3) mg/dL Total Bilirubin (0.2-1.0) mg/dL AST (10-42) IU/L ALT (10-60) IU/L Alkaline Phosphatase (42-121) IU/L Total Protein (6.4-8.9) g/dL Albumin (3.2-5.5) g/dL Globulin (2.1-4.2) g/dL Albumin/Globulin Ratio (1.0-2.2) Prealbumin (17-34) mg/dL Triglycerides (48-352) mg/dL 10/13/23 10/13/23 10/13/23 Range/Units 12:07 06:07 00:23 WBC (4.8-10.8) x10^3/uL RBC (4.20-5.40) 10^6/uL Hgb (12.0-16.0) g/dL Hct (37.0-47.0) % MCV (81.0-99.0) fL MCH (27.0-31.0) pg MCHC (32.0-36.0) g/dL RDW (12.0-15.0) % Plt Count (130-450) 10^3/uL MPV (7.9-10.8) fL Neut # (Auto) (1.5-6.6) 10^3/uL Lymph # (Auto) (1.5-3.5) 10^3/uL [place] # (Auto) (0.0-1.0) 10^3/uL Eos # (Auto) (0.0-0.7) 10^3/uL Baso # (Auto) (0.0-0.1) 10^3/uL Absolute Nucleated RBC x10^3/uL Nucleated RBC % /100WBC VBG pH (7.31-7.41) Ionized Calcium (1.15-1.33) mmol/L Sodium (135-145) mmol/L Potassium (3.5-4.5) mmol/L Chloride (101-111) mmol/L Carbon Dioxide (21-32) mmol/L Anion Gap (6-13) BUN (6-20) mg/dL Creatinine (0.6-1.3) mg/dL Estimated GFR (MDRD) (>89) Glucose (74-104) mg/dL POC Whole Bld Glucose 135 H 133 H 187 H (70 - 100) mg/dL Calcium (8.5-10.3) mg/dL Phosphorus (2.5-5.0) mg/dL Magnesium (1.7-2.3) mg/dL Total Bilirubin (0.2-1.0) mg/dL AST (10-42) IU/L ALT (10-60) IU/L Alkaline Phosphatase (42-121) IU/L Total Protein (6.4-8.9) g/dL Albumin (3.2-5.5) g/dL Globulin (2.1-4.2) g/dL Albumin/Globulin Ratio (1.0-2.2) Prealbumin (17-34) mg/dL Triglycerides (48-352) mg/dL 10/12/23 10/12/23 10/12/23 Range/Units 18:07 12:03 06:03 WBC (4.8-10.8) x10^3/uL RBC (4.20-5.40) 10^6/uL Hgb (12.0-16.0) g/dL Hct (37.0-47.0) % MCV (81.0-99.0) fL MCH (27.0-31.0) pg MCHC (32.0-36.0) g/dL RDW (12.0-15.0) % Plt Count (130-450) 10^3/uL MPV (7.9-10.8) fL Neut # (Auto) (1.5-6.6) 10^3/uL Lymph # (Auto) (1.5-3.5) 10^3/uL [place] # (Auto) (0.0-1.0) 10^3/uL Eos # (Auto) (0.0-0.7) 10^3/uL Baso # (Auto) (0.0-0.1) 10^3/uL Absolute Nucleated RBC x10^3/uL Nucleated RBC % /100WBC VBG pH (7.31-7.41) Ionized Calcium (1.15-1.33) mmol/L Sodium (135-145) mmol/L Potassium (3.5-4.5) mmol/L Chloride (101-111) mmol/L Carbon Dioxide (21-32) mmol/L Anion Gap (6-13) BUN (6-20) mg/dL Creatinine (0.6-1.3) mg/dL Estimated GFR (MDRD) (>89) Glucose (74-104) mg/dL POC Whole Bld Glucose 157 H 186 H 148 H (70 - 100) mg/dL Calcium (8.5-10.3) mg/dL Phosphorus (2.5-5.0) mg/dL Magnesium (1.7-2.3) mg/dL Total Bilirubin (0.2-1.0) mg/dL AST (10-42) IU/L ALT (10-60) IU/L Alkaline Phosphatase (42-121) IU/L Total Protein (6.4-8.9) g/dL Albumin (3.2-5.5) g/dL Globulin (2.1-4.2) g/dL Albumin/Globulin Ratio (1.0-2.2) Prealbumin (17-34) mg/dL Triglycerides (48-352) mg/dL 10/12/23 10/11/23 10/11/23 Range/Units 00:07 18:26 18:14 WBC (4.8-10.8) x10^3/uL RBC (4.20-5.40) 10^6/uL Hgb (12.0-16.0) g/dL Hct (37.0-47.0) % MCV (81.0-99.0) fL MCH (27.0-31.0) pg MCHC (32.0-36.0) g/dL RDW (12.0-15.0) % Plt Count (130-450) 10^3/uL MPV (7.9-10.8) fL Neut # (Auto) (1.5-6.6) 10^3/uL Lymph # (Auto) (1.5-3.5) 10^3/uL [place] # (Auto) (0.0-1.0) 10^3/uL Eos # (Auto) (0.0-0.7) 10^3/uL Baso # (Auto) (0.0-0.1) 10^3/uL Absolute Nucleated RBC x10^3/uL Nucleated RBC % /100WBC VBG pH (7.31-7.41) Ionized Calcium (1.15-1.33) mmol/L Sodium (135-145) mmol/L Potassium (3.5-4.5) mmol/L Chloride (101-111) mmol/L Carbon Dioxide (21-32) mmol/L Anion Gap (6-13) BUN (6-20) mg/dL Creatinine (0.6-1.3) mg/dL Estimated GFR (MDRD) (>89) Glucose (74-104) mg/dL POC Whole Bld Glucose 153 H 152 H 174 H (70 - 100) mg/dL Calcium (8.5-10.3) mg/dL Phosphorus (2.5-5.0) mg/dL Magnesium (1.7-2.3) mg/dL Total Bilirubin (0.2-1.0) mg/dL AST (10-42) IU/L ALT (10-60) IU/L Alkaline Phosphatase (42-121) IU/L Total Protein (6.4-8.9) g/dL Albumin (3.2-5.5) g/dL Globulin (2.1-4.2) g/dL Albumin/Globulin Ratio (1.0-2.2) Prealbumin (17-34) mg/dL Triglycerides (48-352) mg/dL 10/11/23 10/11/23 10/11/23 Range/Units 12:02 06:12 00:16 WBC (4.8-10.8) x10^3/uL RBC (4.20-5.40) 10^6/uL Hgb (12.0-16.0) g/dL Hct (37.0-47.0) % MCV (81.0-99.0) fL MCH (27.0-31.0) pg MCHC (32.0-36.0) g/dL RDW (12.0-15.0) % Plt Count (130-450) 10^3/uL MPV (7.9-10.8) fL Neut # (Auto) (1.5-6.6) 10^3/uL Lymph # (Auto) (1.5-3.5) 10^3/uL [place] # (Auto) (0.0-1.0) 10^3/uL Eos # (Auto) (0.0-0.7) 10^3/uL Baso # (Auto) (0.0-0.1) 10^3/uL Absolute Nucleated RBC x10^3/uL Nucleated RBC % /100WBC VBG pH (7.31-7.41) Ionized Calcium (1.15-1.33) mmol/L Sodium (135-145) mmol/L Potassium (3.5-4.5) mmol/L Chloride (101-111) mmol/L Carbon Dioxide (21-32) mmol/L Anion Gap (6-13) BUN (6-20) mg/dL Creatinine (0.6-1.3) mg/dL Estimated GFR (MDRD) (>89) Glucose (74-104) mg/dL POC Whole Bld Glucose 204 H 156 H 145 H (70 - 100) mg/dL Calcium (8.5-10.3) mg/dL Phosphorus (2.5-5.0) mg/dL Magnesium (1.7-2.3) mg/dL Total Bilirubin (0.2-1.0) mg/dL AST (10-42) IU/L ALT (10-60) IU/L Alkaline Phosphatase (42-121) IU/L Total Protein (6.4-8.9) g/dL Albumin (3.2-5.5) g/dL Globulin (2.1-4.2) g/dL Albumin/Globulin Ratio (1.0-2.2) Prealbumin (17-34) mg/dL Triglycerides (48-352) mg/dL 10/10/23 10/10/23 10/10/23 Range/Units 18:34 12:08 00:30 WBC (4.8-10.8) x10^3/uL RBC (4.20-5.40) 10^6/uL Hgb (12.0-16.0) g/dL Hct (37.0-47.0) % MCV (81.0-99.0) fL MCH (27.0-31.0) pg MCHC (32.0-36.0) g/dL RDW (12.0-15.0) % Plt Count (130-450) 10^3/uL MPV (7.9-10.8) fL Neut # (Auto) (1.5-6.6) 10^3/uL Lymph # (Auto) (1.5-3.5) 10^3/uL [place] # (Auto) (0.0-1.0) 10^3/uL Eos # (Auto) (0.0-0.7) 10^3/uL Baso # (Auto) (0.0-0.1) 10^3/uL Absolute Nucleated RBC x10^3/uL Nucleated RBC % /100WBC VBG pH (7.31-7.41) Ionized Calcium (1.15-1.33) mmol/L Sodium (135-145) mmol/L Potassium (3.5-4.5) mmol/L Chloride (101-111) mmol/L Carbon Dioxide (21-32) mmol/L Anion Gap (6-13) BUN (6-20) mg/dL Creatinine (0.6-1.3) mg/dL Estimated GFR (MDRD) (>89) Glucose (74-104) mg/dL POC Whole Bld Glucose 188 H 162 H 152 H (70 - 100) mg/dL Calcium (8.5-10.3) mg/dL Phosphorus (2.5-5.0) mg/dL Magnesium (1.7-2.3) mg/dL Total Bilirubin (0.2-1.0) mg/dL AST (10-42) IU/L ALT (10-60) IU/L Alkaline Phosphatase (42-121) IU/L Total Protein (6.4-8.9) g/dL Albumin (3.2-5.5) g/dL Globulin (2.1-4.2) g/dL Albumin/Globulin Ratio (1.0-2.2) Prealbumin (17-34) mg/dL Triglycerides (48-352) mg/dL 10/09/23 10/09/23 10/08/23 Range/Units 12:40 00:12 18:52 WBC (4.8-10.8) x10^3/uL RBC (4.20-5.40) 10^6/uL Hgb (12.0-16.0) g/dL Hct (37.0-47.0) % MCV (81.0-99.0) fL MCH (27.0-31.0) pg MCHC (32.0-36.0) g/dL RDW (12.0-15.0) % Plt Count (130-450) 10^3/uL MPV (7.9-10.8) fL Neut # (Auto) (1.5-6.6) 10^3/uL Lymph # (Auto) (1.5-3.5) 10^3/uL [place] # (Auto) (0.0-1.0) 10^3/uL Eos # (Auto) (0.0-0.7) 10^3/uL Baso # (Auto) (0.0-0.1) 10^3/uL Absolute Nucleated RBC x10^3/uL Nucleated RBC % /100WBC VBG pH (7.31-7.41) Ionized Calcium (1.15-1.33) mmol/L Sodium (135-145) mmol/L Potassium (3.5-4.5) mmol/L Chloride (101-111) mmol/L Carbon Dioxide (21-32) mmol/L Anion Gap (6-13) BUN (6-20) mg/dL Creatinine (0.6-1.3) mg/dL Estimated GFR (MDRD) (>89) Glucose (74-104) mg/dL POC Whole Bld Glucose 174 H 183 H 152 H (70 - 100) mg/dL Calcium (8.5-10.3) mg/dL Phosphorus (2.5-5.0) mg/dL Magnesium (1.7-2.3) mg/dL Total Bilirubin (0.2-1.0) mg/dL AST (10-42) IU/L ALT (10-60) IU/L Alkaline Phosphatase (42-121) IU/L Total Protein (6.4-8.9) g/dL Albumin (3.2-5.5) g/dL Globulin (2.1-4.2) g/dL Albumin/Globulin Ratio (1.0-2.2) Prealbumin (17-34) mg/dL Triglycerides (48-352) mg/dL 10/08/23 Range/Units 12:58 WBC (4.8-10.8) x10^3/uL RBC (4.20-5.40) 10^6/uL Hgb (12.0-16.0) g/dL Hct (37.0-47.0) % MCV (81.0-99.0) fL MCH (27.0-31.0) pg MCHC (32.0-36.0) g/dL RDW (12.0-15.0) % Plt Count (130-450) 10^3/uL MPV (7.9-10.8) fL Neut # (Auto) (1.5-6.6) 10^3/uL Lymph # (Auto) (1.5-3.5) 10^3/uL [place] # (Auto) (0.0-1.0) 10^3/uL Eos # (Auto) (0.0-0.7) 10^3/uL Baso # (Auto) (0.0-0.1) 10^3/uL Absolute Nucleated RBC x10^3/uL Nucleated RBC % /100WBC VBG pH (7.31-7.41) Ionized Calcium (1.15-1.33) mmol/L Sodium (135-145) mmol/L Potassium (3.5-4.5) mmol/L Chloride (101-111) mmol/L Carbon Dioxide (21-32) mmol/L Anion Gap (6-13) BUN (6-20) mg/dL Creatinine (0.6-1.3) mg/dL Estimated GFR (MDRD) (>89) Glucose (74-104) mg/dL POC Whole Bld Glucose 189 H (70 - 100) mg/dL Calcium (8.5-10.3) mg/dL Phosphorus (2.5-5.0) mg/dL Magnesium (1.7-2.3) mg/dL Total Bilirubin (0.2-1.0) mg/dL AST (10-42) IU/L ALT (10-60) IU/L Alkaline Phosphatase (42-121) IU/L Total Protein (6.4-8.9) g/dL Albumin (3.2-5.5) g/dL Globulin (2.1-4.2) g/dL Albumin/Globulin Ratio (1.0-2.2) Prealbumin (17-34) mg/dL Triglycerides (48-352) mg/dL Assessment/Plan - Problem List (1) Acute and chronic respiratory failure with hypoxia Impression: This unfortunate lady already has chronic respiratory failure with hypoxia and hypercapnia due to COPD. Presented as exacerbation of baseline status because of RSV. We made sure she was not having an TN and she is not in congestive heart failure. Echo does show cor pulmonale with depressed RV function. Initial chest x-ray that showed infiltrates showed resolution of those infiltrates and follow-up chest x-ray. She is being followed by PT and OT. Significantly decreased mobility and strength from even the below normal baseline. They recommend SNF for continued rehab to improve endurance and activity tolerance so that she can have increased independence and safety at home. Yesterday I was really worried that this lady was not progressing at all. She was completely dependent on the mask, and would decompensate with pursed lip breathing and tachypnea when the mask would come off. This morning is the first time of seeing her relaxed, comfortably breathing and the mask is off. Judicious use of morphine and Ativan for anxiety and respiratory distress is ongoing. Yesterday she used the lorazepam 3 times. So far she has used it once this morning. On the she used it twice. Morphine was used 3 times yesterday. So far once this morning. We had a long talk about how her anxiety triggers her shortness of breath. I am willing to give her short-term use of benzodiazepines in the outpatient setting. I was also willing to start her on an SSRI while here. She says she does not want to do that. We then discussed therapy. She was exasperated and said "how my supposed to get there". I mentioned that we could definitely find therapist within her region [facility]. She could also do telemetry psych. She said she will think about it. I then pointed out to her that, on the one hand she is frightened and very anxious, but on the other hand refusing the opportunities that could treat that. She acknowledged that. Plan: Continue using BiPAP with supplemental oxygen. She has to remain in the ICU because of that. CT scan of chest is today. PT was canceled yesterday because we are awaiting the CT. CT was not done. I am hoping that she can get out of bed and sit in chair with PT and OT today for goal (2) COPD exacerbation Impression: Secondary to RSV infection with pneumonia. Ex-smoker, quit 2 years ago. On Dulera and albuterol at home. But not oxygen. At home she uses a noninvasive ventilator from [employer]. Currently she is being treated with Xopenex, Pulmicort twice daily, and Solu-Medrol started 80 mg IV push 3 times daily. I have been slowly tapering it and she is on 40 mg IV push twice daily starting yesterday. Tomorrow I will go to 40 mg daily and then stop. To remain on supplemental ox ygen with a target saturation of 88% or greater. Today is the first day of actually seen improvement. She is speaking to me without gasping. Her mask is off. Plan: I am continuing to work recommend the use of a noninvasive home ventilator device to treat her symptoms of COPD and hypoxia. Hopefully this will reduce hospital readmissions. improvement today. (3) KWASI on CPAP Impression: After adm, the RT learned that the patient has sleep apnea and has a home CPAP device. Daughter and the patient were instructed on how to clean the CPAP device from RT here. (4) RSV (acute bronchiolitis due to respiratory syncytial virus) Impression: Plan: She has been off droplet precautions for 2 days. RSV usually presents as tracheobronchitis. There is no rhonchi, or spasmodic coughing on exam (5) Odynophagia Impression: Today complains of reflux that it has been present almost nonstop since last night. Waxes and wanes. Associated with burping of waterbrash. I tried ordering Pepto-Bismol but our formulary does not have it so I will use Mylanta. Main problem is dysphagia since June 2023 when she swallowed meat and it "got stuck". She has pain in the mid chest because of swallowing. She was supposed to have a barium swallow with fluoroscopy at [facility] as well as a GI visit. Both scheduled as an outpatient. October 08 surgery declined to do an EGD because of hypoxia. October 11 general surgery said he would do an EGD. However anesthesia said on October 13 that they did not want to do sedation because of previously abnormal troponins. Troponins were minimally elevated on October 07 at 18. Then came down to 15. And they have been normal on the . EKG unremarkable. As such no EGD can be done right now. As a workaround, I spoke to radiology October 14. They said that his CT with oral and IV contrast could be done. I ordered it for the . CT scanner broke down. Now awaiting CT scan today if the CT scanner is working. If the CT scan shows a mass, at least we have a working diagnosis. There is suggestion of a mass or esophageal thickening on her July CT of the chest. The idea of doing a CT causes anxiety to the patient. I told her that we can definitely premedicate her before she goes to the CT scanner (6) Anxiety Impression: Anxiety has been a collateral problem that has impacted her medical problems. Initially anxiety was attributed to frequent albuterol, IV steroids, and air hunger. BiPAP has alleviated her anxiety tremendously but that in itself is a problem and that she gets very anxious when the BiPAP is removed. So she is not eating very much nor is she taking much by p.o. Currently on IV lorazepam as needed, and morphine IV as needed dyspnea and anxiety. Today is the first time I have ever seen her remove her mask and speak calmly to me . No tachypnea no air hunger no pursed lip breathing. Plan is to give her 1 mg of morphine and half a milligram of Ativan before her CT today I have also recommended that she really needs to start some type of therapy program. Whether it is a in person therapist in [place] or [place], or an online telehealth person. She is understandable reasons for being anxious. She is lost her home, living in a crowded house with her daughter and her children, is losing a tremendous amount of weight because of dysphagia, and has end-stage COPD.At this time she declines me starting her on any antianxiety medication. (7) Tachycardia After watching her for the last couple of days, some of her tachycardia is associated with anxiety. Her heart rate will go into the 120s and discussing her anxiety and when she is in tears. But since yesterday afternoon, she has been in the 80s or 70s. Already on Xopenex as opposed to albuterol. Already on IV Lopressor as needed tachycardia. Blood pressure is being used up to 3 times a day on a regular basis for her. She is on a dysphagia pured diet at her request. But really not eating very much. And she really cannot take pills so she is on IV Lopressor. For today's open no change. I will discuss with nursing if we could transition her to 2 pills and try that experiment today (8) HTN Her blood pressure has been elevated into the 170s over 90s. It was realized that she was on her home medications so her clonidine was resumed. Even as recently as yesterday blood pressure was still 147 systolic, 166 systolic. But this morning, with less anxiety, calm less, less respiratory distress blood pressure is very nicely controlled at 114 systolic. Plan: Continue clonidine patch, metoprolol 5 mg IV push every 8 hours as needed.I will not be making any changes right now However, as noted above, I am going to be asking nurse to see if we could get pills down her as opposed to do everything IV. (9) Severe protein-calorie malnutrition Impression: This patient has lost 15-30 pounds over the last month. She reports that all she does is drink a liquid diet for the past 3 months because of the trouble swallowing. We are attempting a slow workup with the above-mentioned CT of the chest. If this does not get us an answer, we may have to transfer. She cannot be sent home with such a high level of oxygen need, and inability to eat.I have already been trying to transfer another patient with significant GI issues. No beds are available for the last 2 days. I have also called [facility] for the other patient, and Bo T[facility] says that the patient such as this type would be of very low priority.She is currently on PPN with lipids via a peripheral IV plus any liquid diet she can keep down. Plan: I will discuss with nutrition services today. I may have to move to a PICC line with TPN. And then going home without so that she can continue her outpatient workup. (10) PNA (pneumonia) Impression: RESOLVED She got empiric IV Zithromax and IV ceftriaxone and I added Flagyl for poss aspiration, given her 3 mos of "food getting stuck" Unfortunately she cannot get Mucinex to help expectorate her phlegm, because she cannot swallow pills Cont liquid cough suppressant/expectorant
[2023-10-16] MEDS: MAG HYDROX/AL HYDROX/SIMETH 30 ML UDC PO PRN ×2 (09:06→13:01)
[2023-10-16 09:07] LABS: CALCIUM, IONIZED 1.19 mmol/L (1.15-1.33); VBG PH 7.411 (7.31-7.41)
[2023-10-16] MEDS: CALCIUM CARBONATE CHEW 500 MG TABLET PO SCH ×2 (10:46→10:47)
[2023-10-16] MEDS ORDERED: iohexoL-300 100 ML VIAL ONE (17:48)
[2023-10-16] MEDS: PPN IV SCH ×4 (19:49)
[2023-10-16] MEDS: [UNRECOGNIZED DRUG - OTHER] IV SCH ×4 (19:49)
[2023-10-16] MEDS: TRACE ELEMENTS IV SCH ×4 (19:49)
[2023-10-16] MEDS: MULTIVITAMIN IV SCH ×4 (19:49)
[2023-10-16] MEDS: LEVALBUTEROL 1.25 MG/3 ML NEB INH PRN (22:07)
[2023-10-17] MEDS: SODIUM CHLORIDE FLUSH 0.9% 10 ML SYRINGE IVP SCH ×3 (01:37→18:17)
[2023-10-17] MEDS: SODIUM CHLORIDE FLUSH 0.9% 10 ML SYRINGE IVP PRN ×2 (05:45→18:17)
[2023-10-17] MEDS: MORPHINE 2 MG/ML CARPUJECT IVP PRN ×2 (05:46→18:51)
[2023-10-17] MEDS: BUDESONIDE 0.5 MG/2 ML NEB INH SCH ×2 (05:51→19:52)
[2023-10-17] MEDS: LEVALBUTEROL 1.25 MG/3 ML NEB INH SCH ×4 (05:51→19:52)
[2023-10-17] MEDS: METOPROLOL 5 MG/5 ML VIAL IVP SCH ×2 (06:13→14:41)
[2023-10-17] MEDS: LORazepam 2 MG/ML VIAL IVP PRN ×3 (06:21→18:15)
[2023-10-17] MEDS: FAMOTIDINE 20 MG/2 ML VIAL IVP SCH (08:44)
[2023-10-17] MEDS: methylPREDNISolone SUCCINATE 40 MG/ML VIAL IVP SCH (08:44)
[2023-10-17] MEDS: polyethylene glycoL 3350 17 GM PACKET PO SCH (08:44)
[2023-10-17] MEDS: ENOXAPARIN 40 MG/0.4 ML SYRINGE SUBQ SCH (08:44)
[2023-10-17] MEDS: CHLORHEXIDINE GLUCONATE 15 ML UDC PO SCH ×2 (08:45→20:43)
[2023-10-17] MEDS ORDERED: iohexoL-300 100 ML VIAL ONE ×2 (13:14→15:17)
[2023-10-17] MEDS ORDERED: DIATRIZOATE MEGLU/DIATRIZO SOD 30 ML BOTTLE PO ONE ×2 (13:14→19:24)
--- NOTE | 2023-10-17 14:35 | PROVIDER PROGRESS NOTE ---
Subjective - Prog Note Date Prog Note Date: 10/17/23 Prog Note Time: 14:34 - Subjective Subjective: She is off of her BiPAP mask to eat. Compared to 48 hours ago, and yesterday, she is improved even more today. She is short of breath, she does get pursed of breathing but only after half an hour or more. This is a tremendous improvement where she can only be off for a few minutes at a time to eat or to try and speak. We have been waiting for her to get the CT scan for 2 days. Today may be the day it's done since repairs have been completed. Current Medications - Current Medications Current Medications: Active Medications Al Hydroxide/Mg Hydroxide (Mag Hydrox/Al Hydrox/Simeth 30 Ml Udc) 30 ml PO Q4HR PRN PRN Reason: INDIGESTION Last Admin: 10/16/23 13:01 Dose: 30 ml Budesonide (Budesonide 0.5 Mg/2 Ml Neb) 0.5 mg INH RTBID [facility] Last Admin: 10/17/23 05:51 Dose: 0.5 mg Chlorhexidine Gluconate (Chlorhexidine Gluconate 15 Ml Udc) 15 ml PO BID [facility] Last Admin: 10/17/23 08:45 Dose: 15 ml Clonidine HCl (Clonidine 0.1 Mg Patch) 1 patch TOP Q7D [facility] Last Admin: 10/15/23 14:45 Dose: 1 patch Enoxaparin Sodium (Enoxaparin 40 Mg/0.4 Ml Syringe) 40 mg SUBQ DAILY [facility] Last Admin: 10/17/23 08:44 Dose: 40 mg Famotidine (Famotidine 20 Mg/2 Ml Vial) 20 mg IVP BID [facility] Last Admin: 10/17/23 08:44 Dose: 20 mg Guaifenesin (Guaifenesin/Dextromethorphan 10 Ml Udc) 10 ml PO Q6HR PRN PRN Reason: Cough Last Admin: 10/13/23 09:30 Dose: 10 ml Acetaminophen (Acetaminophen) 1,000 mg in 100 mls @ 400 mls/hr IV Q6HR PRN PRN Reason: Pain or Fever > 38C (100.4F) Last Infusion: 10/15/23 10:55 Dose: Infused Fat Emulsion Intravenous (Intralipid 20%) 250 mls @ 21 mls/hr IV QOD [facility] Last Infusion: 10/17/23 07:33 Dose: Infused Multivitamins 10 ml/ TRACE ELEMENTS 1 ml/ Thiamine HCl 100 mg/ Amino Acids/Electrolytes/Dextrose 2,012 mls @ 63 mls/hr IV 1900 [facility]; Protocol Last Admin: 10/16/23 19:49 Dose: 63 mls/hr Levalbuterol HCl (Levalbuterol 1.25 Mg/3 Ml Neb) 1.25 mg INH Q4H PRN PRN Reason: Shortness of Air/Wheezing Last Admin: 10/16/23 22:07 Dose: 1.25 mg Levalbuterol HCl (Levalbuterol 1.25 Mg/3 Ml Neb) 1.25 mg INH RTQID [facility] Last Admin: 10/17/23 10:00 Dose: 1.25 mg Lorazepam (Lorazepam 2 Mg/Ml Vial) 0.5 mg IVP Q4H PRN PRN Reason: Anxiety Last Admin: 10/17/23 11:51 Dose: 0.5 mg Methylprednisolone (Methylprednisolone Succinate 40 Mg/Ml Vial) 40 mg IVP BID [facility] Last Admin: 10/17/23 08:44 Dose: 40 mg Metoprolol Tartrate (Metoprolol 5 Mg/5 Ml Vial) 5 mg IVP Q8HR [facility] Last Admin: 10/17/23 06:13 Dose: 5 mg Morphine Sulfate (Morphine 2 Mg/Ml Carpuject) 2 mg IVP Q2HR PRN PRN Reason: Dyspnea Last Admin: 10/17/23 05:46 Dose: 2 mg Ondansetron HCl (Ondansetron 4 Mg/2 Ml Vial) 4 mg IVP Q6HR PRN PRN Reason: Nausea / Vomiting Polyethylene Glycol (Polyethylene Glycol 3350 17 Gm Packet) 17 gm PO DAILY [facility] Last Admin: 10/17/23 08:44 Dose: 17 gm Sodium Chloride (Sodium Chloride Flush 0.9% 10 Ml Syringe) 10 ml IVP 0100,0900,1700 [facility] Last Admin: 10/17/23 08:44 Dose: 10 ml Sodium Chloride (Sodium Chloride Flush 0.9% 10 Ml Syringe) 10 ml IVP PRN PRN PRN Reason: NEEDED PER PROVIDER ORDERS Last Admin: 10/17/23 05:45 Dose: 10 ml Throat Lozenges (Benzocaine/Menthol Lozenge) 1 lozenge MM Q2HR PRN PRN Reason: Throat pain Last Admin: 10/08/23 19:06 Dose: 1 lozenge Albuterol Sulfate [Proair Hfa Inhaler] 2 puffs INH Q4H PRN 10/18/21 Aspirin EC [Ecotrin] 325 mg PO DAILY 10/18/21 Ipratropium/Albuterol [Duoneb] 3 ml INH QID PRN 10/08/23 Mometasone/Formoterol [Dulera 200 Mcg-5 Mcg Inhaler] 2 puffs PO BID 10/08/23 cloNIDine [Catapres] 0.1 mg PO DAILY 10/08/23 Objective - Vital Signs/Intake & Output Reviewed Vital Signs: Yes Vital Signs: Vital Signs x48h Temp Pulse Pulse Resp BP Pulse Ox O2 Flow Rate 10/17/23 10:00 89 17 2 10/17/23 07:54 36.6 C 82 19 122/65 100 4 Intake & Output: Intake & Output 10/14/23 10/15/23 10/16/23 10/17/23 23:59 23:59 23:59 23:59 Intake Total 2285.45 2515.25 1919.75 1090 Output Total 1050 1850 1100 1400 Balance 1235.45 665.25 819.75 -310 - Objective General Appearance: positive: No acute distress, Alert, Other (Cachectic fa tigued appearing female who looks much older than stated age) Eyes Bilateral: positive: PERRL, EOMI ENT: positive: No signs of dehydration Neck: positive: No JVD. negative: Stiff neck Respiratory: positive: Other (Overall quiet lung sounds. The first couple of days a medical there were no lung sounds. As the week is progressed, I can actually hear air movement and she has a very prolonged end exhalation. Desaturates to 87% with 4 L after 5 feet of ambulation). negative: Wheezes, Rales, Rhonchi Cardiovascular: positive: Regular rate & rhythm Abdomen: positive: Non-tender, No organomegaly, Nml bowel sounds, No distention Skin: positive: Warm, Dry Extremities: positive: Full ROM, No pedal edema Neurologic/Psychiatric: positive: Oriented x3, CN's nml (2-12), Motor nml (But moderate generalized weakness. Her strength is prohibited by the fact that she has chest tightness and increased shortness of breath when she tries to get out of bed. Needs a gait belt. Very low activity tolerance. Can only do 1 therapy session with PT. Unable to tolerate 2 therapy sessions) - Lab Results Fish Bones: 10/16/23 04:12 10/16/23 04:12 ABX Reporting Has patient been on IV antibiotics over the past 48 hours?: Yes Assessment/Plan - Problem List (1) Acute and chronic respiratory failure with hypoxia Impression: This unfortunate lady already has chronic respiratory failure with hypoxia and hypercapnia due to COPD. Presented as exacerbation of baseline status because of RSV. We made sure she was not having an UT and she is not in congestive heart failure. Echo does show cor pulmonale with depressed RV function. Initial chest x-ray that showed infiltrates showed resolution of those infiltrates and follow-up chest x-ray. She is being followed by PT and OT. Significantly decreased mobility and strength from even the below normal baseline. They recommend SNF for continued rehab to improve endurance and activity tolerance so that she can have increased independence and safety at home. When I examined her on the my fear was that this patient was not progressing at all. Anxiety was a big barrier to her moving forward with workup. But she improved on the and has improved even more today on the . She is less dependent on the mask but still using it quite a bit. We are using morphine and Ativan for anxiety and respiratory distress. Plan: Transfer her out of ICU with the BiPAP mask. This patient is able to put it on and take it off on her own. Continue to work with PT for strengthening for mobility and transition from supine to sitting Current recommendations are for SNF. Social work is already sent out request for authorization for several facilities and we will await their response. Continue using BiPAP with supplemental oxygen. (2) COPD exacerbation Impression: Secondary to RSV infection with pneumonia. Ex-smoker, quit 2 years ago. On Dulera and albuterol at home. But not oxygen. At home she uses a noninvasive v entilator from [employer]. Currently she is being treated with Xopenex, Pulmicort twice daily, and Solu-Medrol started 80 mg IV push 3 times daily. I have been slowly tapering it and she is on 40 mg IV push twice daily . Today I have stopped it. She started showing improvement on the . Today continues to show more improvement by being off the mask, and able to tolerate it Plan: I am continuing to work recommend the use of a noninvasive home ventilator device to treat her symptoms of COPD and hypoxia. Hopefully this will reduce hospital readmissions. (3) KWASI on CPAP Impression: After adm, the RT learned that the patient has sleep apnea and has a home CPAP device. Daughter and the patient were instructed on how to clean the CPAP device from RT here. (4) RSV (acute bronchiolitis due to respiratory syncytial virus) Impression: Plan: She has been off droplet precautions for 3 days RSV usually presents as tracheobronchitis. There is no rhonchi, or spasmodic coughing on exam (5) Odynophagia Impression: Today complains of reflux that it has been present almost nonstop since last night. Waxes and wanes. Associated with burping of waterbrash. I tried ordering Pepto-Bismol but our formulary does not have it so I will use Mylanta. Main problem is dysphagia since June 2023 when she swallowed meat and it "got stuck". She has pain in the mid chest because of swallowing. She was supposed to have a barium swallow with fluoroscopy at [facility] as well as a GI visit. Both scheduled as an outpatient. October 08 surgery declined to do an EGD because of hypoxia. October 11 general surgery said he would do an EGD. However anesthesia said on October 13 that they did not want to do sedation because of previously abnormal troponins. Troponins were minimally elevated on October 07 at 18. Then came down to 15. And they have been normal on the . EKG unremarkable. As such no EGD can be done right now. As a workaround, I spoke to radiology October 14. They said that his CT with oral and IV contrast could be done. I ordered it for the . CT scanner broke down. . Then it went back up again. On the it broke down again in the morning. But last evening it was up again and the patient was about to be taken down to the CT scanner room. She said she did not want to do it at night. She wanted to do it this morning. As such I am awaiting the CT scan for today. (6) Anxiety Impression: Anxiety has been a collateral problem that has impacted her medical problems. Initially anxiety was attributed to frequent albuterol, IV steroids, and air hunger. BiPAP has alleviated her anxiety tremendously but that in itself is a problem and that she gets very anxious when the BiPAP is removed. So she is not eating very much nor is she taking much by p.o. Currently on IV lorazepam as needed, and morphine IV as needed dyspnea and anxiety. On the there is notable improvement and that she was no longer crying, not as anxious. Coincidentally I have been tapering her steroid dose over this time. Plan is to give her 1 mg of morphine and half a milligram of Ativan before her CT today I have also recommended that she really needs to start some type of therapy program. Whether it is a in person therapist in [place] or [place], or an online telehealth person. She is understandable reasons for being anxious. She is lost her home, living in a crowded house with her daughter and her children, is losing a tremendous amount of weight because of dysphagia, and has end-stage COPD.At this time she declines me starting her on any antianxiety medication. (7) Tachycardia After watching her for the last couple of days, some of her tachycardia is associated with anxiety. Her heart rate will go into the 120s and discussing her anxiety and when she is in tears. But since the afternoon of 10/15, she has been in the 80s or 70s. Already on Xopenex as opposed to albuterol. Already on IV Lopressor as needed tachycardia. . She is on a dysphagia pured diet at her request. While she has not been eating very much, she ate 100% of her breakfast this morning. Plan is to change her IV Lopressor to p.o. Lopressor 50 mg p.o. twice daily (8) HTN Her blood pressure has been elevated into the 170s over 90s. It was realized that she was on her home medications so her clonidine was resumed. He has taken a couple of days, but blood pressure has come gradually under better control. Systolic can be occasionally in the 140s or 160s as recently as October 15. On the she was 120 systolic in the morning but 156-160 6 in the afternoon. So far today systolic is ranged between 119-137. Plan: Continue clonidine patch, Change metoprolol to 50 mg p.o. twice daily. Continue to monitor blood pressure and see if I need to increase her clonidine patch. Even if I do increase the patch dose, this could take up to a week to take effect. (9) Severe protein-calorie malnutrition Impression: This patient has lost 15-30 pounds over the last month. She reports that all she does is drink a liquid diet for the past 3 months because of the trouble swallowing. We are attempting a slow workup with the above-mentioned CT of the chest. If this does not get us an answer, we may have to transfer. I felt that if we could not get an answer to her dysphagia inability to eat, we would need to transfer to higher level of care. Mainly on the basis of anesthesia declining to put her to sleep for an EGD. However I am attempting to work around with a CT of the chest. If that gives us an answer she may be able to be [facility]. She will then need an outpatient cardiac workup for her NSTEMI. [facility] has notified me that she is coming off the list today since she is not an urgent need. Depending on the next day or so's ability to swallow, I will approach the enoch ent about a PICC line with TPN at home (10) PNA (pneumonia) Impression: RESOLVED She got empiric IV Zithromax and IV ceftriaxone and I added Flagyl for poss asp iration, given her 3 mos of "food getting stuck" Unfortunately she cannot get Mucinex to help expectorate her phlegm, because she cannot swallow pills Cont liquid cough suppressant/expectorant
--- NOTE | 2023-10-17 18:06 | CT Report ---
PROCEDURE: Chest W INDICATIONS: dysphagia CONTRAST: 100ml omni TECHNIQUE: After the administration of intravenous contrast, a CT scan of the chest was performed. Images were recorded and evaluated at appropriate window settings. Reformats: axial MIP of the chest, coronal and sagittal. For radiation dose reduction, the following was used: automated exposure control, adjustme nt of mA and/or kV according to patient size. COMPARISON: None. FINDINGS: Image quality: Excellent. Lungs and pleura: No consolidation. No pleural effusions. No pneumothorax. No suspicious pulmonary n odules which require follow up. Confluent centrilobular emphysema. Mediastinum: Heart size is enlarged. No pericardial effusion. No large vessel abnormality. No mediast inal adenopathy by size criteria. Long segment of distal esophageal wall thickening, measuring 6.7 c m in length. Contrast within the esophagus, presumably reflux. Severe coronary calcifications for age . Chest wall and lower neck: Thyroid is unremarkable. No axillary or supraclavicular adenopathy by size . Bones: Anterior wedging of the T11, T10, T8, T7 vertebral bodies. Upper Abdomen: Unremarkable. IMPRESSION: Long segment of distal esophageal wall thickening with esophageal reflux. Findings probably indicate esophagitis, less likely malignancy. Consider outpatient GI referral for diagnostic endoscopy. Marked coronary artery calcifications for age. Consider cardiology referral. Chronic compression deformities of the midthoracic spine. Reviewed by: Salinas Gilman MD on 10/17/2023 6:04 PM PST Approved by: Salinas Gilman MD on 10/17/2023 6:04 PM PST Station ID: [id number]
[2023-10-17] MEDS: PPN IV SCH ×4 (18:52)
[2023-10-17] MEDS: FAT EMULSION 20% 250 ML IV SCH (18:52)
[2023-10-17] MEDS: [UNRECOGNIZED DRUG - OTHER] IV SCH ×4 (18:52)
[2023-10-17] MEDS: TRACE ELEMENTS IV SCH ×4 (18:52)
[2023-10-17] MEDS: MULTIVITAMIN IV SCH ×4 (18:52)
[2023-10-17] MEDS ORDERED: iohexoL-300 100 ML VIAL IVP ONE (19:24)
[2023-10-17] MEDS: METOPROLOL TARTRATE 50 MG TABLET PO SCH (20:43)
[2023-10-18] MEDS: SODIUM CHLORIDE FLUSH 0.9% 10 ML SYRINGE IVP SCH ×3 (00:18→18:43)
[2023-10-18] MEDS: MORPHINE 2 MG/ML CARPUJECT IVP PRN ×4 (02:29→18:41)
[2023-10-18] MEDS: LORazepam 2 MG/ML VIAL IVP PRN ×2 (05:41→11:25)
[2023-10-18] MEDS: BUDESONIDE 0.5 MG/2 ML NEB INH SCH ×2 (05:46→19:42)
[2023-10-18] MEDS: LEVALBUTEROL 1.25 MG/3 ML NEB INH SCH ×4 (05:46→19:42)
[2023-10-18] MEDS ORDERED: PANTOPRAZOLE 40 MG VIAL IVP SCH (07:00)
[2023-10-18] MEDS: ENOXAPARIN 40 MG/0.4 ML SYRINGE SUBQ SCH (09:42)
[2023-10-18] MEDS: polyethylene glycoL 3350 17 GM PACKET PO SCH (09:42)
[2023-10-18] MEDS: CHLORHEXIDINE GLUCONATE 15 ML UDC PO SCH ×2 (09:42→20:42)
[2023-10-18] MEDS: METOPROLOL TARTRATE 50 MG TABLET PO SCH ×2 (09:50→20:45)
[2023-10-18] MEDS ORDERED: ACETAMINOPHEN 325 MG TABLET PO PRN (12:34)
--- NOTE | 2023-10-18 15:20 | PROVIDER PROGRESS NOTE ---
Subjective - Prog Note Date Prog Note Date: 10/18/23 Prog Note Time: 15:34 - Subjective Subjective: She firmly declines that. She says that she will not go to a residential as she only wants to go home. Today is continuing to demonstrate a marked improvement. I had assumed care of this patient on Current Medications - Current Medications Current Medications: Active Medications Acetaminophen (Acetaminophen 325 Mg Tablet) 650 mg PO Q4HR PRN PRN Reason: Pain or Fever > 38C (100.4F) Al Hydroxide/Mg Hydroxide (Mag Hydrox/Al Hydrox/Simeth 30 Ml Udc) 30 ml PO Q4HR PRN PRN Reason: INDIGESTION Last Admin: 10/16/23 13:01 Dose: 30 ml Budesonide (Budesonide 0.5 Mg/2 Ml Neb) 0.5 mg INH RTBID [facility] Last Admin: 10/18/23 05:46 Dose: 0.5 mg Chlorhexidine Gluconate (Chlorhexidine Gluconate 15 Ml Udc) 15 ml PO BID [facility] Last Admin: 10/18/23 09:42 Dose: 15 ml Clonidine HCl (Clonidine 0.1 Mg Patch) 1 patch TOP Q7D [facility] Last Admin: 10/15/23 14:45 Dose: 1 patch Enoxaparin Sodium (Enoxaparin 40 Mg/0.4 Ml Syringe) 40 mg SUBQ DAILY [facility] Last Admin: 10/18/23 09:42 Dose: 40 mg Guaifenesin (Guaifenesin/Dextromethorphan 10 Ml Udc) 10 ml PO Q6HR PRN PRN Reason: Cough Last Admin: 10/13/23 09:30 Dose: 10 ml Multivitamins 10 ml/ TRACE ELEMENTS 1 ml/ Thiamine HCl 100 mg/ Amino Acids/Electrolytes/Dextrose 2,012 mls @ 63 mls/hr IV 1900 AZAEL; Protocol Last Admin: 10/17/23 18:52 Dose: 63 mls/hr Fat Emulsion Intravenous (Intralipid 20%) 250 mls @ 21 mls/hr IV Q48H [facility] Last Infusion: 10/18/23 06:58 Dose: Infused Levalbuterol HCl (Levalbuterol 1.25 Mg/3 Ml Neb) 1.25 mg INH Q4H PRN PRN Reason: Shortness of Air/Wheezing Last Admin: 10/16/23 22:07 Dose: 1.25 mg Levalbuterol HCl (Levalbuterol 1.25 Mg/3 Ml Neb) 1.25 mg INH RTQID [facility] Last Admin: 10/18/23 11:04 Dose: 1.25 mg Lorazepam (Lorazepam 0.5 Mg Tablet) 0.5 mg PO Q6H PRN PRN Reason: Anxiety Metoprolol Tartrate (Metoprolol Tartrate 50 Mg Tablet) 50 mg PO BID [facility] Last Admin: 10/18/23 09:50 Dose: Not Given Morphine Sulfate (Morphine 2 Mg/Ml Carpuject) 2 mg IVP Q2HR PRN PRN Reason: Dyspnea Last Admin: 10/18/23 09:42 Dose: 2 mg Pantoprazole Sodium (Pantoprazole 40 Mg Tablet) 40 mg PO QDAC [facility] Polyethylene Glycol (Polyethylene Glycol 3350 17 Gm Packet) 17 gm PO DAILY [facility] Last Admin: 10/18/23 09:42 Dose: 17 gm Sodium Chloride (Sodium Chloride Flush 0.9% 10 Ml Syringe) 10 ml IVP 0100,0900,1700 [facility] Last Admin: 10/18/23 09:44 Dose: 10 ml Sodium Chloride (Sodium Chloride Flush 0.9% 10 Ml Syringe) 10 ml IVP PRN PRN PRN Reason: NEEDED PER PROVIDER ORDERS Last Admin: 10/17/23 18:17 Dose: 10 ml Throat Lozenges (Benzocaine/Menthol Lozenge) 1 lozenge MM Q2HR PRN PRN Reason: Throat pain Last Admin: 10/08/23 19:06 Dose: 1 lozenge Albuterol Sulfate [Proair Hfa Inhaler] 2 puffs INH Q4H PRN 10/18/21 Aspirin EC [Ecotrin] 325 mg PO DAILY 10/18/21 Ipratropium/Albuterol [Duoneb] 3 ml INH QID PRN 10/08/23 Mometasone/Formoterol [Dulera 200 Mcg-5 Mcg Inhaler] 2 puffs PO BID 10/08/23 cloNIDine [Catapres] 0.1 mg PO DAILY 10/08/23 Objective - Vital Signs/Intake & Output Reviewed Vital Signs: Yes Vital Signs: Vital Signs x48h Temp Pulse Pulse Resp BP BP 10/18/23 11:05 90 20 10/18/23 09:50 105/61 10/18/23 08:00 36.5 C 91 16 105/61 Intake & Output: Intake & Output 10/15/23 10/16/23 10/17/23 10/18/23 23:59 23:59 23:59 23:59 Intake Total 2515.25 1919.75 2308.3 730 Output Total 1850 1100 2600 700 Balance 665.25 819.75 -291.7 30 - Objective General Appearance: positive: No acute distress (Cachectic), Alert, Other (Re markable turnaround over the last 3 days. This wound was completely dependent on the BiPAP and was gasping for air every time she took it off. Over the last 3 to 4 days she is slowly improved and she is also off the mask and having completely normal conversation with me w/o respiratory distress) Eyes Bilateral: positive: PERRL, EOMI Neck: positive: No JVD. negative: Stiff neck Respiratory: positive: No respiratory distress, Wheezes Cardiovascular: positive: Regular rate & rhythm Abdomen: positive: Non-tender, No organomegaly, Nml bowel sounds, No distention Extremities: positive: Full ROM, No pedal edema Neurologic/Psychiatric: positive: Oriented x3, CN's nml (2-12), Motor nml - Lab Results Fish Bones: 10/16/23 04:12 10/16/23 04:12 Assessment/Plan - Problem List (1) Chronic respiratory failure with hypoxia Impression: This unfortunate lady already has chronic respiratory failure with hypoxia and hypercapnia due to COPD. Presented as exacerbation of baseline status because of RSV. We made sure she was not having an AK and she is not in congestive heart failure. Echo does show cor pulmonale with depressed RV function. Initial chest x-ray that showed infiltrates showed resolution of those infiltrates and follow-up chest x-ray. She is being followed by PT and OT. Significantly decreased mobility and strength from even the below normal baseline. They recommend SNF for continued rehab to improve endurance and activity tolerance so that she can have increased independence and safety at home. When I examined her on the my fear was that this patient was not progressin g at all. Anxiety was a big barrier to her moving forward with workup. But she improved on the and has improved even more today on the . She is less dependent on the mask but still using it quite a bit. We are using morphine and Ativan for anxiety and respiratory distress. Plan: Transfer her out of ICU with the BiPAP mask. This patient is able to put it on and take it off on her own. Continue to work with PT for strengthening for mobility and transition from supine to sitting Current recommendations are for SNF. Social work is already sent out request for authorization for several facilities and we will await their response. Continue using BiPAP with supplemental oxygen. (2) COPD exacerbation Impression: Secondary to RSV infection with pneumonia. Ex-smoker, quit 2 years ago. On Dulera and albuterol at home. But not oxygen. At home she uses a noninvasive ventilator from [facility]. Currently she is being treated with Xopenex, Pulmicort twice daily, and Solu-Medrol started 80 mg IV push 3 times daily. I have been slowly tapering it and she is on 40 mg IV push twice daily . Today I have stopped it. She started showing improvement on the . Today continues to show more improvement by being off the mask, and able to tolerate it Plan: I am continuing to work recommend the use of a noninvasive home ventilator device to treat her symptoms of COPD and hypoxia. Hopefully this will reduce hospital readmissions. (3) KWASI on CPAP Impression: After adm, the RT learned that the patient has sleep apnea and has a home CPAP device. Daughter and the patient were instructed on how to clean the CPAP device from RT here. (4) RSV (acute bronchiolitis due to respiratory syncytial virus) Impression: Plan: She has been off droplet precautions for 3 days RSV usually presents as tracheobronchitis. There is no rhonchi, or spasmodic coughing on exam (5) Odynophagia Impression: 10/16/23 c/o of reflux that it has been present almost nonstop since 10/15 Waxes and wanes. Associated with burping of waterbrash. I tried ordering Pepto- Bismol but our formulary does not have it so I used Mylanta. It did help. Main problem is dysphagia since June 2023 when she swallowed meat and it "got stuck". She has pain in the mid chest because of swallowing. She was supposed to have a barium swallow with fluoroscopy at [facility] as well as a GI visit. Both scheduled as an outpatient. October 08 surgery declined to do an EGD because of hypoxia. October 11 general surgery said he would do an EGD. However anesthesia said on October 13 that they did not want to do sedation because of previously abnormal troponins. Troponins were minimally elevated on October 07 at 18. Then came down to 15. And they have been normal on the . EKG unremarkable. As such no EGD can be done right now. As a workaround, I spoke to radiology October 14. They said that a CT with oral and IV contrast could be done. I ordered it for the . CT scanner broke down. . Then it went back up again. On the it broke down again in the morning. But last evening it was up again and the patient was about to be taken down to the CT scanner room. She said she did not want to do it at night. She wanted to do it 10/17. The chest CT yesterday afternoon shows a long segment of distal esophageal wall thickening with esophageal reflux. Findings probably indicate esophagitis and less likely malignancy. She still needs an outpatient GI referral for diagnostic endoscopy. Marked coronary artery calcifications. Compression deformities of the mid thoracic spine. I started Protonix yesterday afternoon. That will be continued today. Explained to her that she will need to take Protonix for at least a month. She still needs to do an EGD to make sure this is not cancer. But prior to the EGD she will need to be seen by cardiology to get an evaluation for her NSTEMI or elevated troponins. She really needs to establish yourself with a primary care provider or follow-up with her primary care provider to be referred to cardiology.Starting the she has been eating more of her food. I told her it was really happy about that because she has to be able to figure out a way to eat at home. I have offered her a feeding tube and she declines. And I do not think that she is a candidate for TPN if she has an intact gut. As such I am planning for discharge October 20. She is accepting of that. (6) Anxiety Impression: Anxiety has been a collateral problem that has impacted her medical problems. Initially anxiety was attributed to frequent albuterol, IV steroids, and air hunger. BiPAP has alleviated her anxiety tremendously but that in itself is a problem and that she gets very anxious when the BiPAP is removed. So she is not eating very much nor is she taking much by p.o. Currently on IV lorazepam as needed, and morphine IV as needed dyspnea and anxiety. On the there is notable improvement and that she was no longer crying, not as anxious. Coincidentally I have been tapering her steroid dose over this time. As I have been getting her ready for discharge, and I explained that we are going to need to discharge her in the next couple of days, she is not happy about having to stop that lorazepam or morphine IV. She likes the IV medi cation. I have also recommended that she really needs to start some type of therapy program. Whether it is a in person therapist in [place] or [place], or an online telehealth person. She is understandable reasons for being anxious. She is lost her home, living in a crowded house with her daughter and her children, is losing a tremendous amount of weight because of dysphagia, and has end-stage COPD.At this time she declines me starting her on any antianxiety medication. (7) Tachycardia Some of her tachycardia is associated with anxiety. Her heart rate will go into the 120s and discussing her anxiety and when she is in tears. But since the afternoon of 10/15, she has been in the 80s or 70s. Already on Xopenex as opposed to albuterol. Already on IV Lopressor as needed tachycardia. . She is on a dysphagia pured diet at her request. Metoprolol IV was changed to p.o. metoprolol on October 17. Heart rate has been 80, 90. No change to metoprolol at this time (8) HTN Her blood pressure has been elevated into the 170s over 90s. It was realized that she was on her home medications so her clonidine was resumed. It has taken a couple of days, but blood pressure has come gradually under better control. Systolic can be occasionally in the 140s or 160s as recently as October 15. On the she was 120 systolic in the morning but 156-160 in the afternoon. Today blood pressure 140/70. Plan: Continue clonidine patch, Change metoprolol to 50 mg p.o. twice daily. Continue to monitor blood pressure and see if I need to increase her clonidine patch. Even if I do increase the patch dose, this could take up to a week to take effect. (9) Severe protein-calorie malnutrition Impression: This patient has lost 15-30 pounds over the last month. She reports that all she does is drink a liquid diet for the past 3 months because of the trouble swallowing. We are attempting a slow workup with the above-mentioned CT of the chest. If this does not get us an answer, we may have to transfer. I felt that if we could not get an answer to her dysphagia inability to eat, we would need to transfer to higher level of care. Mainly on the basis of anesthesia declining to put her to sleep for an EGD. However I am attempting to work around with a CT of the chest. If that gives us an answer she may be able to be discharged to residential from here. She will then need an outpatient cardiac workup for her NSTEMI. W CLAUDIA has notified me that she is coming off the list today since she is not an urgent need. I thought about approaching the patient with a PICC line for TPN. But now the CT shows no blockage other than distal esophageal thickening, and her improved p.o. intake, I will hold off for PICC line and TPN (10) PNA (pneumonia) Impression: RESOLVED She got empiric IV Zithromax and IV ceftriaxone and I added Flagyl for poss aspiration, given her 3 mos of "food getting stuck" Unfortunately she cannot get Mucinex to help expectorate her phlegm, because she cannot swallow pills Cont liquid cough suppressant/expectorant
[2023-10-18] MEDS: LORazepam 0.5 MG TABLET PO PRN (18:28)
[2023-10-18] MEDS: TRACE ELEMENTS IV SCH ×4 (19:07)
[2023-10-18] MEDS: [UNRECOGNIZED DRUG - OTHER] IV SCH ×4 (19:07)
[2023-10-18] MEDS: PPN IV SCH ×4 (19:07)
[2023-10-18] MEDS: MULTIVITAMIN IV SCH ×4 (19:07)
[2023-10-19] MEDS: SODIUM CHLORIDE FLUSH 0.9% 10 ML SYRINGE IVP SCH ×3 (01:37→19:15)
[2023-10-19] MEDS: MORPHINE 2 MG/ML CARPUJECT IVP PRN ×4 (03:07→18:12)
[2023-10-19] MEDS: LORazepam 0.5 MG TABLET PO PRN ×2 (05:38→21:38)
[2023-10-19] MEDS: PANTOPRAZOLE 40 MG TABLET PO SCH (06:15)
[2023-10-19] MEDS: BUDESONIDE 0.5 MG/2 ML NEB INH SCH ×2 (07:05→20:31)
[2023-10-19] MEDS: LEVALBUTEROL 1.25 MG/3 ML NEB INH SCH ×4 (07:05→20:31)
[2023-10-19] MEDS: METOPROLOL TARTRATE 50 MG TABLET PO SCH ×2 (09:21→21:32)
[2023-10-19] MEDS: polyethylene glycoL 3350 17 GM PACKET PO SCH (09:21)
[2023-10-19] MEDS: ENOXAPARIN 40 MG/0.4 ML SYRINGE SUBQ SCH (09:22)
[2023-10-19] MEDS: CHLORHEXIDINE GLUCONATE 15 ML UDC PO SCH ×2 (09:31→21:32)
--- NOTE | 2023-10-19 15:46 | PROVIDER PROGRESS NOTE ---
Subjective - Prog Note Date Prog Note Date: 10/19/23 Prog Note Time: 15:44 - Subjective Subjective: More accepting about going home. I explained to her that with her refusal to go to a [place] [facility] [place] facility, she cannot stay here for rehab. While I und erstand her anxiety and the feeling of safety she must get from being here, she has stopped having any acute medical needs. Now that I know that she does not have an esophageal mass or blockage and that food will go down, she now needs to eat. That is going to be up to her. Current Medications - Current Medications Current Medications: Active Medications Acetaminophen (Acetaminophen 325 Mg Tablet) 650 mg PO Q4HR PRN PRN Reason: Pain or Fever > 38C (100.4F) Al Hydroxide/Mg Hydroxide (Mag Hydrox/Al Hydrox/Simeth 30 Ml Udc) 30 ml PO Q4HR PRN PRN Reason: INDIGESTION Last Admin: 10/16/23 13:01 Dose: 30 ml Budesonide (Budesonide 0.5 Mg/2 Ml Neb) 0.5 mg INH RTBID [facility] Last Admin: 10/19/23 07:05 Dose: 0.5 mg Chlorhexidine Gluconate (Chlorhexidine Gluconate 15 Ml Udc) 15 ml PO BID [facility] Last Admin: 10/19/23 09:31 Dose: 15 ml Clonidine HCl (Clonidine 0.1 Mg Patch) 1 patch TOP Q7D [facility] Last Admin: 10/15/23 14:45 Dose: 1 patch Enoxaparin Sodium (Enoxaparin 40 Mg/0.4 Ml Syringe) 40 mg SUBQ DAILY [facility] Last Admin: 10/19/23 09:22 Dose: 40 mg Guaifenesin (Guaifenesin/Dextromethorphan 10 Ml Udc) 10 ml PO Q6HR PRN PRN Reason: Cough Last Admin: 10/13/23 09:30 Dose: 10 ml Multivitamins 10 ml/ TRACE ELEMENTS 1 ml/ Thiamine HCl 100 mg/ Amino Acids/Electrolytes/Dextrose 2,012 mls @ 63 mls/hr IV 1900 AZAEL; Protocol Last Infusion: 10/18/23 22:33 Dose: 63 mls/hr Fat Emulsion Intravenous (Intralipid 20%) 250 mls @ 21 mls/hr IV Q48H [facility] Last Infusion: 10/18/23 06:58 Dose: Infused Levalbuterol HCl (Levalbuterol 1.25 Mg/3 Ml Neb) 1.25 mg INH Q4H PRN PRN Reason: Shortness of Air/Wheezing Last Admin: 10/16/23 22:07 Dose: 1.25 mg Levalbuterol HCl (Levalbuterol 1.25 Mg/3 Ml Neb) 1.25 mg INH RTQID [facility] Last Admin: 10/19/23 15:13 Dose: 1.25 mg Lorazepam (Lorazepam 0.5 Mg Tablet) 0.5 mg PO Q6H PRN PRN Reason: Anxiety Last Admin: 10/19/23 05:38 Dose: 0.5 mg Metoprolol Tartrate (Metoprolol Tartrate 50 Mg Tablet) 50 mg PO BID [facility] Last Admin: 10/19/23 09:21 Dose: 50 mg Morphine Sulfate (Morphine 2 Mg/Ml Carpuject) 2 mg IVP Q2HR PRN PRN Reason: Dyspnea Last Admin: 10/19/23 14:46 Dose: 2 mg Pantoprazole Sodium (Pantoprazole 40 Mg Tablet) 40 mg PO QDAC [facility] Last Admin: 10/19/23 06:15 Dose: 40 mg Polyethylene Glycol (Polyethylene Glycol 3350 17 Gm Packet) 17 gm PO DAILY [facility] Last Admin: 10/19/23 09:21 Dose: Not Given Sodium Chloride (Sodium Chloride Flush 0.9% 10 Ml Syringe) 10 ml IVP 0100,0900,1700 [facility] Last Admin: 10/19/23 09:22 Dose: 10 ml Sodium Chloride (Sodium Chloride Flush 0.9% 10 Ml Syringe) 10 ml IVP PRN PRN PRN Reason: NEEDED PER PROVIDER ORDERS Last Admin: 10/17/23 18:17 Dose: 10 ml Throat Lozenges (Benzocaine/Menthol Lozenge) 1 lozenge MM Q2HR PRN PRN Reason: Throat pain Last Admin: 10/08/23 19:06 Dose: 1 lozenge Albuterol Sulfate [Proair Hfa Inhaler] 2 puffs INH Q4H PRN 10/18/21 Aspirin EC [Ecotrin] 325 mg PO DAILY 10/18/21 Ipratropium/Albuterol [Duoneb] 3 ml INH QID PRN 10/08/23 Mometasone/Formoterol [Dulera 200 Mcg-5 Mcg Inhaler] 2 puffs PO BID 10/08/23 cloNIDine [Catapres] 0.1 mg PO DAILY 10/08/23 Objective - Vital Signs/Intake & Output Reviewed Vital Signs: Yes Vital Signs: Vital Signs x48h Temp Pulse Pulse Resp BP BP Pulse Ox 10/19/23 15:14 80 22 10/19/23 11:18 98 20 10/19/23 09:21 140/70 H 10/19/23 09:00 36.6 C 109 H 22 140/70 H 98 O2 Flow Rate 10/19/23 15:14 4 10/19/23 11:18 10/19/23 09:21 10/19/23 09:00 Intake & Output: Intake & Output 10/16/23 10/17/23 10/18/23 10/19/23 23:59 23:59 23:59 23:59 Intake Total 1919.75 2308.3 3134.05 1040 Output Total 1100 2600 1100 1000 Balance 819.75 -291.7 2034.05 40 - Objective General Appearance: positive: Alert, Other (Cachectic white female looks much, much older than stated age. Comfortable without the mask. Its only after 15 minutes of speaking to her, and then I sit her up for an exam that she needs with the mask on because of pursed lip breathing and shortness of breath. But she was very proud of herself.) Eyes Bilateral: positive: PERRL, EOMI ENT: positive: No signs of dehydration Neck: positive: No JVD. negative: Stiff neck Respiratory: positive: No respiratory distress, Wheezes. negative: Rales, Rhonchi Cardiovascular: positive: Regular rate & rhythm Abdomen: positive: Non-tender, No organomegaly, Nml bowel sounds, No distention Skin: positive: Warm, Dry Extremities: positive: No pedal edema Neurologic/Psychiatric: positive: Oriented x3, CN's nml (2-12), Motor nml - Lab Results Fish Bones: 10/16/23 04:12 10/16/23 04:12 Assessment/Plan - Problem List (1) Chronic respiratory failure with hypoxia Impression: This unfortunate lady already has chronic respiratory failure with hypoxia and hypercapnia due to COPD. Presented as exacerbation of baseline status because of RSV. We made sure she was not having an CO and she is not in congestive heart failure. Echo does show cor pulmonale with depressed RV function. Initial chest x-ray that showed infiltrates showed resolution of those infiltrates and follow-up chest x-ray. She is being followed by PT and OT. Significantly decreased mobility and strength from even the below normal baseline. They recommend SNF for continued rehab to improve endurance and activity tolerance so that she can have increased independence and safety at home. When I examined her on the my fear was that this patient was not progressing at all. Anxiety was a big barrier to her moving forward with workup. But she improved on the and has improved even more today on the . She is less dependent on the mask but still using it quite a bit. We are using morphine and Ativan for anxiety and respiratory distress.Out of the ICU since October 18. She is able to put on her mask and take it off. She says that she has been off the mask and most all day today and only recently just put it back on this afternoon when I am seeing her. I asked her if she feels safe to go home with this if she says yes. Plan: Continue to work with PT for strengthening for mobility and transition from supine to sitting, Plan for home health PT and OT. Although the current recommendations by our department is that she be discharged to SNF, she refuses. Continue using BiPAP with supplemental oxygen. Discharge to home tomorrow with home health (2) COPD exacerbation resolved Impression: Secondary to RSV infection with pneumonia. Ex-smoker, quit 2 years ago. On Dulera and albuterol at home. But not oxygen. At home she uses a noninvasive ventilator from [facility]. Currently she is being treated with Xopenex, Pulmicort twice daily, and Solu-Medrol started 80 mg IV push 3 times daily. I have been slowly tapering it and she is on 40 mg IV push twice daily . Today I have stopped it. Improvement has been noted since the . Less than last time on the mask. Today was phenomenal for her. She was able to be off the mask for hours before she had to put it back on this afternoon. Plan: I am continuing to work recommend the use of a noninvasive home ventilator device to treat her symptoms of COPD and hypoxia. Hopefully this will reduce hospital readmissions. (3) KWASI on CPAP Impression: After adm, the RT learned that the patient has sleep apnea and has a home CPAP d evice. Daughter and the patient were instructed on how to clean the CPAP device from RT here. (4) RSV (acute bronchiolitis due to respiratory syncytial virus) Impression: Plan: She has been off droplet precautions for 3 days RSV usually presents as tracheobronchitis. There is no rhonchi, or spasmodic coughing on exam (5) Odynophagia Impression: 10/16/23 c/o of reflux that it has been present almost nonstop since 10/15 Waxes and wanes. Associated with burping of waterbrash. I tried ordering Pepto- Bismol but our formulary does not have it so I used Mylanta. It did help. Main problem is dysphagia since June 2023 when she swallowed meat and it "got stuck". She has pain in the mid chest because of swallowing. She was supposed to have a barium swallow with fluoroscopy at [facility] as well as a GI vi sit. Both scheduled as an outpatient. October 08 surgery declined to do an EGD because of hypoxia. October 11 general surgery said he would do an EGD. However anesthesia said on October 13 that they did not want to do sedation because of previously abnormal troponins. Troponins were minimally elevated on October 07 at 18. Then came down to 15. And they have been normal on the . EKG unremarkable. As such no EGD can be done right now. As a workaround, I spoke to radiology October 14. They said that a CT with oral and IV contrast could be done. I ordered it for the . CT scanner broke down. . Then it went back up again. On the it broke down again in the morning. But last evening it was up again and the patient was about to be taken down to the CT scanner room. She said she did not want to do it at night. She wanted to do it 10/17. The chest CT yesterday afternoon shows a long segment of distal esophageal wall thickening with esophageal reflux. Findings probably indicate esophagitis and less likely malignancy. She still needs an outpatient GI referral for diagnostic endoscopy. Marked coronary artery calcifications. Compression deformities of the mid thoracic spine. I started Protonix yesterday afternoon. That will be continued today. Explained to her that she will need to take Protonix for at least a month. She still needs to do an EGD to make sure this is not cancer. But prior to the EGD she will need to be seen by cardiology to get an evaluation for her NSTEMI or elevated troponins. She really needs to establish yourself with a primary care provider or follow-up with her primary care provider to be referred to cardiology.Starting the she has been eating more of her food. I told her it was really happy about that because she has to be able to figure out a way to eat at home. I have offered her a feeding tube and she declines. And I do not think that she is a candidate for TPN if she has an intact gut. As such I am planning for discharge October 20. She is accepting of that. (6) Anxiety Impression: Anxiety has been a collateral problem that has impacted her medical problems. Initially anxiety was attributed to frequent albuterol, IV steroids, and air hunger. BiPAP has alleviated her anxiety tremendously but that in itself is a problem and that she gets very anxious when the BiPAP is removed. So she is not eating very much nor is she taking much by p.o. Currently on IV lorazepam as needed, and morphine IV as needed dyspnea and anxiety. On the there is notable improvement and that she was no longer crying, not as anxious. Coincidentally I have been tapering her steroid dose over this time. As I have been getting her ready for discharge, and I explained that we are going to need to discharge her in the next couple of days, she is not happy about having to stop that lorazepam or morphine IV. She likes the IV medication. I have also recommended that she really needs to start some type of therapy program. Whether it is a in person therapist in [place], or an online telehealth person. She is understandable reasons for being anxious. She is lost her home, living in a crowded house with her daughter and her children, is losing a tremendous amount of weight because of dysphagia, and has end-stage COPD.At this time she declines me starting her on any antianxiety medication. (7) Tachycardia Some of her tachycardia is associated with anxiety. Her heart rate will go into the 120s and discussing her anxiety and when she is in tears. But since the afternoon of 10/15, she has been in the 80s or 70s. Already on Xopenex as opposed to albuterol. Already on IV Lopressor as needed tachycardia. . She is on a dysphagia pured diet at her request. Metoprolol IV was changed to p.o. metoprolol on October 17. Heart rate has been 80, 90. No change to metoprolol at this time (8) HTN Her blood pressure has been elevated into the 170s over 90s. It was realized that she was on her home medications so her clonidine was resumed. It has taken a couple of days, but blood pressure has come gradually under better control. Systolic can be occasionally in the 140s or 160s as recently as October 15. On the she was 120 systolic in the morning but 156-160 in the afternoon. Today blood pressure 140/70. Plan: Continue clonidine patch, Change metoprolol to 50 mg p.o. twice daily. Continue to monitor blood pressure and see if I need to increase her clonidine patch. Even if I do increase the patch dose, this could take up to a week to take effect. (9) Severe protein-calorie malnutrition Impression: This patient has lost 15-30 pounds over the last month. She reports that all she does is drink a liquid diet for the past 3 months because of the trouble swallowing. We are attempting a slow workup with the above-mentioned CT of the chest. If this does not get us an answer, we may have to transfer. I felt that if we could not get an answer to her dysphagia inability to eat, we would need to transfer to higher level of care. Mainly on the basis of anesthesia declining to put her to sleep for an EGD. However I am attempting to work around with a CT of the chest. If that gives us an answer she may be able to be discharged to shelter from here. She will then need an outpatient cardiac workup for her NSTEMI. [facility] has notified me that she is coming off the list today since she is not an urgent need. I thought about approaching the patient with a PICC line for TPN. But now the CT shows no blockage other than distal esophageal thickening, and her improved p.o. intake, I will hold off for PICC line and TPN (10) PNA (pneumonia) Impression: RESOLVED She got empiric IV Zithromax and IV ceftriaxone and I added Flagyl for poss aspiration, given her 3 mos of "food getting stuck" Unfortunately she cannot get Mucinex to help expectorate her phlegm, because she cannot swallow pills Cont liquid cough suppressant/expectorant
[2023-10-19] MEDS: guaiFENesin/DEXTROMETHORPHAN 10 ML UDC PO PRN (16:14)
[2023-10-19] MEDS: MULTIVITAMIN IV SCH ×4 (19:14)
[2023-10-19] MEDS: FAT EMULSION 20% 250 ML IV SCH (19:14)
[2023-10-19] MEDS: PPN IV SCH ×4 (19:14)
[2023-10-19] MEDS: [UNRECOGNIZED DRUG - OTHER] IV SCH ×4 (19:14)
[2023-10-19] MEDS: TRACE ELEMENTS IV SCH ×4 (19:14)
[2023-10-20] MEDS: SODIUM CHLORIDE FLUSH 0.9% 10 ML SYRINGE IVP SCH ×2 (00:20→07:42)
[2023-10-20] MEDS: MORPHINE 2 MG/ML CARPUJECT IVP PRN ×3 (03:11→14:00)
[2023-10-20] MEDS: PANTOPRAZOLE 40 MG TABLET PO SCH (06:10)
[2023-10-20 06:12] VITALS: BP 106/56; O2SAT 96
[2023-10-20] MEDS: LORazepam 0.5 MG TABLET PO PRN (06:16)
[2023-10-20] MEDS: BUDESONIDE 0.5 MG/2 ML NEB INH SCH (06:25)
[2023-10-20] MEDS: LEVALBUTEROL 1.25 MG/3 ML NEB INH SCH ×3 (06:25→14:51)
[2023-10-20] MEDS: METOPROLOL TARTRATE 50 MG TABLET PO SCH (07:42)
[2023-10-20] MEDS: CHLORHEXIDINE GLUCONATE 15 ML UDC PO SCH (07:42)
[2023-10-20] MEDS: ENOXAPARIN 40 MG/0.4 ML SYRINGE SUBQ SCH (07:43)
[2023-10-20] MEDS: polyethylene glycoL 3350 17 GM PACKET PO SCH (07:44)
[2023-10-20 07:47] LABS: BASOPHILS % (AUTO) 0.1 %; EOSINOPHILS # (AUTO) 0.1 10^3/uL (0.0-0.7); HCT - HEMATOCRIT 32.7 % (37.0-47.0); HGB - HEMOGLOBIN 9.9 g/dL (12.0-16.0); LYMPHOCYTES # (AUTO) 1.3 10^3/uL (1.5-3.5); LYMPHOCYTES % (AUTO) 9.3 %; MEAN CORPUSCULAR HEMOGLOBIN 28.3 pg (27.0-31.0); MEAN CORPUSCULAR HGB CONC 30.3 g/dL (32.0-36.0); MEAN CORPUSCULAR VOLUME 93.4 fL (81.0-99.0); MEAN PLATELET VOLUME 9.5 fL (7.9-10.8); MONOCYTES # (AUTO) 1.6 10^3/uL (0.0-1.0); MONOCYTES % (AUTO) 11.5 %; NEUTROPHILS # (AUTO) 10.6 10^3/uL (1.5-6.6); NEUTROPHILS % (AUTO) 77.2 %; PLT - PLATELET COUNT 437 10^3/uL (130-450); RED CELL DISTRIBUTION WIDTH 15.4 % (12.0-15.0); WHITE BLOOD COUNT 13.7 x10^3/uL (4.8-10.8)
[2023-10-20 08:01] LABS: CREATININE 0.3 mg/dL (0.6-1.3); POTASSIUM 4.7 mmol/L (3.5-4.5)
--- NOTE | 2023-10-20 08:11 | Discharge Plan ---
Discharge Plan Problem Reviewed?: Yes Disposition: Home, Self Care Condition: Fair Prescriptions: Metoprolol Tartrate [Lopressor] 50 mg PO BID #60 tab Pnv No.121/Iron/Folic Acid [ Multivitamin Tablet] 1 each PO DAILY #30 tablet Pantoprazole [Protonix] 40 mg PO QDAC #30 tab Diet: Regular Activity Restrictions: Activity as Tolerated Shower Restrictions: No Driving Restrictions: Yes (no driving) Assistance Devices: Wheelchair, Walker Weight Bearing: Full Weight Health Concerns: You came to the hospital because you were in acute respiratory failure. You already have a known history of emphysema and take BiPAP at home with oxygen. But your emphysema was D stabilized by RSV. We treated your emphysema with almost [id number] BiPAP. You needed it every day. Sometimes you are able to come off for 10 minutes at a time. You are very, very anxious with this. There are moments of tears, frustration. But gradually, your lungs are stabilized and you now are able to take the BiPAP off for a considerable length of time during the day. A second problem that arose with your severe protein calorie malnutrition. You are basically starving to . You had not been able to eat very much since June when a piece of food got stuck in your esophagus and you have had pro blems swallowing since then. You did not want an EGD. I then did a workaround x-ray to see if I could see anything in your esophagus and your CAT scan of the chest was normal. There were no tumors or blockages. But if you continue to have discomfort with swallowing, feeling like food is getting stuck, you really are going to have to see a copy camera operator and get a workup. It boils down to you getting enough duration to eat. If you cannot get enough nutrition to eat he will slowly, with time, pass away from lack of eating. Plan of Treatment: You have vigorously refused to go to a long-term for physical rehab. You state that your family can take care of you at home and you want to go home. As such, I am discharging you with home health physical therapy and Occupational Therapy. You tell me that most likely will not do it because the trailer or house you live in is too small. Please take an acid reducing medicine called Protonix. Take that every day for the next 30 days and then you can stop. Please see your primary care provider for follow-up in the next 2 weeks. Again, she will need to refer you for gastroenterology workup to figure out why you cannot swallow You will be sent home with a noninvasive ventilator. It is pretty much the same machine you have had before but settings have been adjusted by respiratory therapy and discussed with you. Care Goals: To gain weight through eating normally. To control your emphysema I would also recommend a counselor for your severe anxiety. Your anxiety in and of itself can be a barrier to progressing forward with your health. Assessment: Patient is alert, oriented to person, place, time and situation. She is decisional with regards to her own health Follow-Up Care: Home Health - RN, Home Health - PT, Home Health - OT No Smoking: If you smoke, Please STOP! Call for help.
--- NOTE | 2023-10-20 08:24 | DISCHARGE SUMMARY ---
"Discharge Summary Admit Date: 10/07/23 Discharge Date: 10/20/23 Discharging Provider: Roxanne Gongora MD Primary Care Provider: Shantel Castano Condition at Discharge: Fair Discharge Disposition: 01 Home, Self Care - DIAGNOSES Discharge Diagnoses with Status of Each Condition: 1. Acute on chronic respiratory failure with hypoxia 2. RSV bronchiolitis with COPD exacerbation 3. Obstructive sleep apnea on CPAP 4. Odynophagia 5. Severe anxiety 7. Tachycardia 8. Hypertension 9. Severe protein calorie malnutrition 10. T-spine vertebral compression fractures 11. pneumonia - HPI History of Present Illness: pt with worsening sob + fevers and chills over last 3-4 days. some family members have also been sick at home. she has also been more confused and tired lately. no recent travels reported. no chest pain reported. no falls reported. pt has been overall weak. 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 No consolidations but lungs are hyperinflated suggesting COPD. Unchanged blunting of the costophrenic angles bilaterally. Head CT had no acute abnormality. Paranasal sinus disease seen, left mastoid effusion seen. Partially empty sella Chest CT done for dysphagia since EGD is refused by the patient. Heart size is enlarged. No pericardial effusion. Long segment of distal esophageal wall thickening measuring 6.7 cm in length. Contrast within the esophagus, most likely reflux. Severe coronary artery disease for age. Consider outpatient GI referral for diagnostic endoscopy. Because of coronary artery calcifications refer for cardiology evaluation. Chronic compression deformities of the mid thoracic spine. - HOSPITAL COURSE Hospital Course: She presented to the ER with acute respiratory failure. We found her respiratory failure to be from exacerbation of COPD. That was in the end of itself due to RSV. This patient has obstructive sleep apnea as well. She uses CPAP at home. We converted her to BiPAP here. She was very dependent on BiPAP mask care. Was on it almost 24 hours a day. Could only tolerate 15 to 20 minutes at a time to be off of it. She gradually improved. Some of the delayed progress was severe protracted anxiety. She gradually turned the corner and was able to come off BiPAP for hours at a time which led to the decision that she could be stable for discharge to home. She was severely deconditioned and weak but refused half-way facility placement. A second major problem was that of severe protein calorie malnutrition. She had not been able to eat much since June when a piece of food got stuck in her esophagus. She refused an EGD. I then did a workaround with a CT with oral and IV contrast and found her not to have any blockages or esophageal thickening. She is still having significant dysphagia and a dyne aphasia. She really needs to be followed up by gastroenterology but she is reluctant to do so. I did bluntly state that if she does not get enough nutrition, she will slowly start to . And if she gets another major illness she will not make it on the basis of her malnutrition alone. Again anxiety has a great deal to play in her decision making. There is a stressful home life situation going on and that I believe she and her have recently lost their home and have moved in with her daughter and her family. They live in a very small trailer. She also refuses home health and skilled PT and OT in the home setting. She is discharged in stable condition and now to be using noninvasive ventilator. [id number] was done with previous progress notes. Temperature is 36.6. Pulse is 84. Respirations 20. 4 L nasal cannula. She was not on oxygen before she came in. She is 5 foot tall weighs 40 kg and is 17 BMI. She is a cachectic sallow faced 63-year-old woman who looks much, much older than stated age. Anxiety leads to a very defensive mechanism communication and assuming offense or none is taken. We have to be very careful in communicating with her. She has shotty neck adenopathy. As she has air sounds at discharge where she had none when I first met her. Occasional scant wheezing. If she engages in prolonged conversation she develops pursed lip breathing, hunched up shoulders, tripoding which quickly resolves if she stops talking. She has a regular rate and rhythm. And abdomen is scaphoid, soft, nontender. Extremely cachectic extremities. She is discharged in stable condition with a guarded prognosis. Greater than 30 minutes was spent coordinating discharge This document was made in part using voice recognition software. While efforts are made to proofread this document, sound alike and grammatical errors may occur. - ALLERGIES Allergies/Adverse Reactions: Allergies Allergy/AdvReac Type Severity Reaction Status Date / Time No Known Drug Allergies Allergy Verified 10/07/23 16:55 - MEDICATIONS Home Medications: Ambulatory Orders Medication Instructions Recorded Confirmed Albuterol Sulfate [Proair Hfa 2 puffs INH Q4H PRN 10/18/21 10/08/23 Inhaler] Aspirin EC [Ecotrin] 325 mg PO DAILY 10/18/21 10/08/23 Ipratropium/Albuterol [Duoneb] 3 ml INH QID PRN 10/08/23 10/08/23 Mometasone/Formoterol [Dulera 200 2 puffs PO BID 10/08/23 10/08/23 Mcg-5 Mcg Inhaler] cloNIDine [Catapres] 0.1 mg PO DAILY 10/08/23 10/08/23 Acetaminophen [Tylenol] 650 mg PO Q4HR PRN tab 10/20/23 Metoprolol Tartrate [Lopressor] 50 mg PO BID #60 tab 10/20/23 Pantoprazole [Protonix] 40 mg PO QDAC #30 tab 10/20/23 Pnv No.121/Iron/Folic Acid 1 each PO DAILY #30 tablet 10/20/23 [ Multivitamin Tablet] - LABS Result Diagrams: 10/20/23 07:40 10/20/23 07:40"
[2023-10-20 08:27] LABS: SLIDE REVIEW? Indicated
[2023-10-20 08:28] LABS: PLATELET ESTIMATE, MANUAL NORMAL (130-450,000) (NORMAL); PLATELET MORPHOLOGY NORMAL APPEARANCE (NORMAL)
[2023-10-20 08:29] LABS: RBC MORPHOLOGY (MULTIPLE) NORMAL APPEARANCE (NORMAL); WBC MORPHOLOGY (MULTIPLE) NORMAL APPEARANCE (NORMAL)
== END 2023-10-20 15:05 | disposition home or self-care (01) | DRG 189 ==
LOC: EDUNIT# → ED 16:53 → ICU 22:26 → MS3 10-16 19:55
PROVIDERS: ADMIT Student in an Organized Health Care Education/Training Program; ATTEND Specialist
PROC: 3E0336Z Introduction of Nutritional Substance into Peripheral Vein, Percutaneous Approach (ICD-10-PCS; principal; 2023-10-09)
DX: J96.21 Acute and chronic respiratory failure with hypoxia (principal); J18.9 Pneumonia, unspecified organism; E43 Unspecified severe protein-calorie malnutrition; J44.0 Chronic obstructive pulmonary disease with (acute) lower respiratory infection; J44.1 Chronic obstructive pulmonary disease with (acute) exacerbation; J21.0 Acute bronchiolitis due to respiratory syncytial virus; Z68.1 Body mass index [BMI] 19.9 or less, adult; G47.33 Obstructive sleep apnea (adult) (pediatric); R13.10 Dysphagia, unspecified; J96.22 Acute and chronic respiratory failure with hypercapnia; F41.8 Other specified anxiety disorders; R00.0 Tachycardia, unspecified; I10 Essential (primary) hypertension; M48.54XD Collapsed vertebra, not elsewhere classified, thoracic region, subsequent encounter for fracture with routine healing; R53.1 Weakness; I25.10 Atherosclerotic heart disease of native coronary artery without angina pectoris; F43.9 Reaction to severe stress, unspecified; Z87.891 Personal history of nicotine dependence; F32.A Depression, unspecified; K21.9 Gastro-esophageal reflux disease without esophagitis; K44.9 Diaphragmatic hernia without obstruction or gangrene; Z99.81 Dependence on supplemental oxygen; I27.81 Cor pulmonale (chronic); K30 Functional dyspepsia; J43.9 Emphysema, unspecified; T73.0XXA Starvation, initial encounter; R41.82 Altered mental status, unspecified
CPT/HCPCS: 36415; 36600; 70450; 71045; 71260; 80048; 80053; 82306; 82330; 82607; 82746; 82803; 83540; 83690; 83735; 83880; 84100; 84132; 84134; 84466; 84478; 84484; 85025; 86738; 87040; 87086; 87150; 87633; 93005; 93306; 94640; 94660; 96365; 96366; 96368; 96375; 97116; 97162; 97166; 97530; 99285; 99291; A9270; J0131; J1650; J2060; J3411; J3490; J7040; J7626; Q9963; Q9967; 93307

== ENCOUNTER 2023-11-12 13:16 | Outpatient (CLI) | payer BC | END 2023-11-12 13:17 | disposition home or self-care (01) | LOC: RT 13:16 | PROVIDERS: ATTEND Internal Medicine | DX: J44.9 Chronic obstructive pulmonary disease, unspecified (principal) | CPT/HCPCS: 94060; 94729 ==

== ENCOUNTER 2023-12-23 12:48 | Outpatient (CLI) | payer BC ==
--- NOTE | 2023-12-24 09:55 | Mammography Report ---
BILATERAL DIGITAL SCREENING MAMMOGRAM 3D/2D: 12/23/2023 CLINICAL: Baseline exam. Routine screening. No prior exams were available for comparison. Both breasts are heterogeneously dense, which may obscure small masses (category c / 51-75% glandular tissue). No significant masses, calcifications, or other findings are seen in either breast. IMPRESSION: NEGATIVE There is no mammographic evidence of malignancy. A 1 year screening mammogram is recommended. Based on the Tyrer Cuzick model (a risk assessment model) the patient's lifetime risk is 6.2% and her 10 year risk is 2.7%. According to the ACR, ACS, and NCCN guidelines, an annual breast MRI exam larry g with mammogram is recommended if the patient's lifetime risk is 20% or greater. This exam was interpreted at Station ID: [id number]. NOTE: For mammograms, a report in lay terms will be sent to the patient. Approximately 15% of breast malignancies will not be visualized mammographically. In the management of a palpable breast mass, a negative mammogram must not discourage biopsy of a clinically suspicious lesion. Electronically Signed By: Mario vincent/soham:12/23/2023 18:07:08 ACR BI-RADS Category 1: Negative 3341F PARENCHYMAL PATTERN: (D) - The breast(s) demonstrate(s) heterogeneously dense fibroglandular parmeredith cain. BI-RADS CATEGORY: (1) - 1 RECOMMENDATION: (ANNUAL) - Recommend routine annual screening mammography. [id number] 1 year screening LATERALITY: (B)
== END 2023-12-23 12:49 | disposition home or self-care (01) ==
LOC: DI.S 12:48
PROVIDERS: ATTEND Internal Medicine
DX: Z12.31 Encounter for screening mammogram for malignant neoplasm of breast (principal); R92.333 Mammographic heterogeneous density, bilateral breasts

== ENCOUNTER 2024-11-05 16:15 | Inpatient (IN) ==
--- NOTE | 2024-11-05 16:43 | ED Physician Documentation ---
History of Present Illness Stated complaint Stated Complaint: SOA Chief complaint Chief Complaint: Resp History obtained from History obtained from: EMS Additonal information Additional information: Patient is a 64-year-old female history of chronic hypoxia with obstructive sleep apnea. Does not tolerate any activity with less than 4 L of oxygen per nasal cannula per her primary care note. Also has a history of advanced COPD. Also apparently has a history of esophageal squamous cell carcinoma. Has a G- tube in place. Patient reportedly receives care for her cancer at [facility]. According to EMS the patient is basically living on BiPAP during all hours of the day at home now. They were called for increasing difficulty breathing. They gave her nebulizer treatments, but before they could transition her to CPAP/BiPAP in the ambulance she began to have increasing respiratory difficulty, confusion and clinically worsening. They state the family told them that she was full code, therefore they gave her ketamine, Versed, rocuronium and fentanyl. Intubation was performed. No other history available at this time. Meds/Allgy Home Medications Ambulatory Orders Medication Instructions Recorded Confirmed food supplemt, lactose-reduced ea PO QDAY 07/13/24 10/18/24 (Ensure Clear oral liquid) famotidine 40 mg/5 mL (8 mg/mL) See Rx Instructions .Route 07/29/24 10/18/24 oral suspension .COMPLEX #300 mL metoprolol tartrate 50 mg tablet 50 mg PO BID #180 tabs 08/12/24 10/18/24 mometasone-formoterol HFA 200 2 puff PO BID #8.8 grams 09/02/24 10/18/24 mcg-5 mcg/actuation aerosol inhaler (Dulera) lidocaine 5 % topical gel See Rx Instructions .Route 10/18/24 10/18/24 .COMPLEX #30 grams albuterol sulfate 90 mcg/actuation See Rx Instructions .Route 10/25/24 aerosol inhaler .COMPLEX #8.5 grams ipratropium 0.5 mg-albuterol 3 mg See Rx Instructions .Route 10/25/24 (2.5 mg base)/3 mL nebulization .COMPLEX #360 mL soln Allergies Allergies Allergy/AdvReac Type Severity Reaction Status Date / Time clonidine Allergy Severe Itching Verified 11/05/24 17:05 Penicillins Allergy Severe Itching Verified 11/05/24 17:05 PFSH Medical History Medical History (Updated 11/05/24 @ 19:18 by Josué Rosado MD) Bilateral cataracts March 2020 Surgical History Surgical History (Updated 10/18/24 @ 07:20 by Loida Iraheta LPN) S/P cataract surgery BL Family History Family History (Updated 07/23/24 @ 16:25 by Chandu Kim MA) Mother High blood pressure Father High blood pressure Alcoholism Drug abuse Social History Social History (Updated 10/18/24 @ 10:34 by Loida Iraheta LPN) Smoking Status: Former smoker If you are a former smoker, when did you quit? (Date/Year): 2021 Number of Years Smoked: 20 How many cigarettes a day do you smoke? (20 cigarettes=1 Pk): 20 Do you dip or chew tobacco?: No Do you vape?: No Patient requests smoking cessation consult: No Initiate information on smoking cessation: No Living arrangement: At home Living Condition: With family Relationship: Level: Independent History of Abuse: No ETOH Use: Wine Frequency: Daily Substance Use: denies use POLST Patient has POLST: No POLST Status: Full Code (SHe does not want to be intubated for any length of time. If we can save her life and she can come off the ventilator and 2 or 3 days that would be fine. If it looks like its going to be longer than that, DO NOT INTUBATE her.) Exam Constitutional Thin, frail, cachectic female, intubated HENMT normocephalic and head/scalp atraumatic Eyes PERRL Neck/C-Spine trachea midline Chest inspection of chest normal and palpation of chest normal Respiratory breath sounds equal bilaterally Cardiovascular normal heart rate noted and regular rhythm noted Gastrointestinal abdomen soft to palpation and nontender to palpation G-tube in place Genitourinary no CVA tenderness Back/Pelvis No step-off or deformity Extremities no deformity No edema Neurology Intubated Skin skin color normal Results Vitals Vitals: Vital Signs - 24 hr 11/05/24 16:28 11/05/24 16:42 11/05/24 17:04 Temperature 36.4 C L Temperature Source Temporal Artery Scan Pulse Rate 109 H 110 H 93 Respiratory Rate 20 20 Blood Pressure 64/54 L 95/72 O2 Saturation 93 96 O2 Source Mechanical ventilator Mechanical ventilator Fraction of Inspired Oxygen (FIO2) 40 Pain Intensity 0 0 Oxygen O2 Source Mechanical ventilator Labs Labs: Laboratory Tests 11/05/24 11/05/24 11/05/24 16:43 17:08 17:21 WBC 13.3 H RBC 2.95 L Hgb 8.0 L Hct 27.2 L MCV 92.2 MCH 27.1 MCHC 29.4 L RDW 14.9 Plt Count 318 MPV 9.9 Neut # (Auto) 11.3 H Lymph # (Auto) 1.0 L [place] # (Auto) 0.9 Eos # (Auto) 0.0 Baso # (Auto) 0.0 Absolute Nucleated RBC 0.00 Nucleated RBC % 0.0 PT 11.9 INR 1.1 APTT 26.5 Sodium 133 L Potassium 4.6 H Chloride 90 L Carbon Dioxide 32 Anion Gap 11.0 BUN 62 H Creatinine 1.0 Estimated GFR (MDRD) 56 L Glucose 187 H Lactic Acid 3.8 H* Calcium 8.4 L Total Bilirubin 0.3 AST 50 H ALT 26 Alkaline Phosphatase 96 Total Protein 6.1 L Albumin 3.0 L Globulin 3.1 Albumin/Globulin Ratio 1.0 Lipase 72 Urine Color YELLOW Urine Clarity HAZY Urine pH 6.0 Ur Specific [place] 1.015 Urine Protein 100 H Urine Glucose (UA) NEGATIVE Urine Ketones TRACE Urine Occult Blood NEGATIVE Urine Nitrite NEGATIVE Urine Bilirubin NEGATIVE Urine Urobilinogen 1 (NORMAL) Ur Leukocyte Esterase NEGATIVE Urine RBC 0-5 Urine WBC 0-3 Ur Squamous Epith Cells FEW Squamous Amorphous Sediment Moderate Urine Bacteria Few Urine Casts >50 Fine Granular Ur Microscopic Review INDICATED Urine Culture Comments NOT INDICATED Nasal Adenovirus (PCR) NOT DETECTED Nasal B. parapertussis DNA (PCR) NOT DETECTED Nasal Coronavir 229E PCR NOT DETECTED Nasal Coronavir HKU1 PCR NOT DETECTED Nasal Coronavir NL63 PCR NOT DETECTED Nasal Coronavir OC43 PCR NOT DETECTED Nasal Enterovir/Rhinovir PCR NOT DETECTED Nasal Influ A H1 2009 PCR DETECTED A Nasal Influenza B PCR NOT DETECTED Nasal Parainfluen 1 PCR NOT DETECTED Nasal Parainfluen 2 PCR NOT DETECTED Nasal Parainfluen 3 PCR NOT DETECTED Nasal Parainfluen 4 PCR NOT DETECTED Nasal RSV (PCR) NOT DETECTED Nasal B.pertussis DNA PCR NOT DETECTED Nasal C.pneumoniae (PCR) NOT DETECTED Matt Human Metapneumo PCR NOT DETECTED Nasal M.pneumoniae (PCR) NOT DETECTED Nasal SARS-CoV-2 (PCR) NOT DETECTED Rads (name of study) cxr: Relevant Findings:: Final report received PD Medical Decision Making ED course Complexity details: reviewed results and re-evaluated patient ED course: 64-year-old female with esophageal cancer, G-tube dependent for feeds. No family arrived in the emergency department. Limited history available. I did access her primary care records, she is full code, but with the caveat that if she is going to be intubated for more than 2 to 3 days she does not want to be intubated. Patient will likely be intubated for a prolonged period of time. She did have hypotension in the emergency department after being intubated and paralyzed by EMS. This improved with IV fluids. Started on Precedex. Patient appears very ill. Lactate is elevated. Given Levaquin for likely COPD exacerbation. Given Solu-Medrol as well. Discussed the case with Dr. Gongora, hospitalist who accepts. Patient reportedly has very severe COPD and has been maintained on BiPAP at home. Used to be on 4 L nasal cannula but would desat down to the 70s and low 80s whenever she moved. This document was made in part using voice recognition software. While efforts are made to proofread this document, sound alike and grammatical errors may occur. Discharge Plan Discharge Patient Disposition: 67 [facility] DC/Xfer Condition: Poor Clinical Impression: Primary esophageal squamous cell carcinoma Respiratory failure Qualifiers: Chronicity: acute Respiratory failure complication: hypoxia Qualified Code(s): J96.01 - Acute respiratory failure with hypoxia COPD (chronic obstructive pulmonary disease) Qualifiers: COPD type: unspecified COPD Qualified Code(s): J44.9 - Chronic obstructive pulmonary disease, unspecified Interventions: ED Admission Assessment Last Done: 11/05/24 18:31
--- NOTE | 2024-11-05 16:48 | XRAY Report ---
PROCEDURE: XR Chest 1V INDICATIONS: INTUBATED TECHNIQUE: One view of the chest was acquired. COMPARISON: 10/13/2023. FINDINGS: Surgical changes and devices: ET tube in satisfactory position. It is approximately 3 cm above the c jenny.. Lungs and pleura: No pleural effusions or pneumothorax. Emphysematous change. Question development o f a 9 mm pulmonary nodule, left mid to lower lung field No consolidation. Mediastinum: Mediastinal contours appear normal. Heart size is normal. Bones and chest wall: No suspicious bony lesions. Overlying soft tissues appear unremarkable. IMPRESSION: ET tube in satisfactory position. COPD. Question development of a 9 mm left lung pulmonary nodule. Comment: Recommend nonemergent chest CT after acute symptoms resolve. Reviewed by: Len Jimenez MD on 11/05/2024 4:47 PM PST Approved by: Len Jimenez MD on 11/05/2024 4:47 PM PST Station ID: [id number]
[2024-11-05 16:51] LABS: BASOPHILS % (AUTO) 0.2 %; EOSINOPHILS % (AUTO) 0.1 %; HCT - HEMATOCRIT 27.2 % (37.0-47.0); LYMPHOCYTES % (AUTO) 7.3 %; MEAN CORPUSCULAR HEMOGLOBIN 27.1 pg (27.0-31.0); MEAN CORPUSCULAR HGB CONC 29.4 g/dL (32.0-36.0); MEAN CORPUSCULAR VOLUME 92.2 fL (81.0-99.0); MEAN PLATELET VOLUME 9.9 fL (7.9-10.8); MONOCYTES # (AUTO) 0.9 10^3/uL (0.0-1.0); MONOCYTES % (AUTO) 6.9 %; NEUTROPHILS # (AUTO) 11.3 10^3/uL (1.5-6.6); NEUTROPHILS % (AUTO) 84.7 %; PLT - PLATELET COUNT 318 10^3/uL (130-450); RED BLOOD COUNT 2.95 10^6/uL (4.20-5.40); RED CELL DISTRIBUTION WIDTH 14.9 % (12.0-15.0); WHITE BLOOD COUNT 13.3 x10^3/uL (4.8-10.8)
[2024-11-05] MEDS: SODIUM CHLORIDE 0.9% 1,000 ML IV STA ×3 (16:52→16:59)
[2024-11-05] MEDS: methylPREDNISolone SUCCINATE 125 MG/2 ML VIAL IVP STA (16:58)
[2024-11-05 17:09] LABS: PARTIAL THROMBOPLASTIN TIME 26.5 secs (24.9-33.3)
[2024-11-05 17:10] LABS: BILIRUBIN,TOTAL 0.3 mg/dL (0.2-1.0); CALCIUM 8.4 mg/dL (8.5-10.3); LACTIC ACID, VENOUS 3.8 mmol/L (0.5-2.2); POTASSIUM 4.6 mmol/L (3.5-4.5); TOTAL PROTEIN 6.1 g/dL (6.4-8.9)
[2024-11-05 17:13] LABS: INR 1.1 (0.8-1.2); PT - PROTHROMBIN TIME 11.9 secs (9.9-12.6)
[2024-11-05 17:30] LABS: BILIRUBIN,URINE NEGATIVE (NEGATIVE); CLARITY,URINE HAZY (CLEAR); GLUCOSE, URINE (UA) NEGATIVE (NEGATIVE); KETONES,URINE (UA) TRACE mg/dL (NEGATIVE); LEUKOCYTE ESTERASE, URINE NEGATIVE (NEGATIVE); NITRITE,URINE NEGATIVE (NEGATIVE); OCCULT BLOOD,URINE NEGATIVE (NEGATIVE); PROTEIN,URINE 100 mg/dL (NEGATIVE); UROBILINOGEN,URINE 1 (NORMAL) E.U./dL (NORMAL)
[2024-11-05 17:39] LABS: RBC,URINE 0-5 /HPF (0-5); WBC,URINE 0-3 /HPF (0-5)
[2024-11-05 17:40] LABS: AMORPHOUS SEDIMENT,UR Moderate /LPF; BACTERIA,URINE Few /HPF (None Seen); CASTS, URINE >50 Fine Granular /LPF; SQUAMOUS EPITHELIAL CELL,UR FEW Squamous (<= Few)
[2024-11-05] MEDS: DEXMEDETOMIDINE 400 MCG/100 ML 100 ML IV PRN (17:44)
[2024-11-05] MEDS: levoFLOXacin 500 MG/100 ML 500 MG/100 ML BAG IV STA (17:54)
[2024-11-05 18:00] LABS: ABG BASE EXCESS 1.5 mmol/L (-2.0-3.0); ABG OXYGEN SATURATION 99 % (95-98); ABG PCO2 58 mmHg (34-45); ABG PH 7.29 (7.35-7.45); ABG PO2 177 mmHg (83-108); ABG TCO2 30.1 mmol/L (21.0-29.0); ALLEN TEST POSITIVE
[2024-11-05 18:01] LABS: ABG MODE OF VENTILATION SIMV; ABG RESPIRATORY RATE 20 b/min
[2024-11-05 18:06] LABS: CORONAVIRUS 229E-RESP PCR NOT DETECTED; CORONAVIRUS HKU1-RESP PCR NOT DETECTED; CORONAVIRUS NL63-RESP PCR NOT DETECTED; CORONAVIRUS OC43-RESP PCR NOT DETECTED; HUMAN METAPNEUMOVIRUS NOT DETECTED; RHINOVIRUS/ENTEROVIRUS NOT DETECTED; SARS-CoV-2 -RESP PCR PANEL NOT DETECTED
[2024-11-05 18:07] LABS: B. PARAPERTUSSIS- RESP PCR PAN NOT DETECTED; B. PERTUSSIS- RESP PCR PANEL NOT DETECTED; C. PNEUMONIAE- RESP PCR PANEL NOT DETECTED; INFLUENZA A H1 2009- RESP PCR DETECTED; INFLUENZA B - RESP PCR PANEL NOT DETECTED; M. PNEUMONIAE- RESP PCR PANEL NOT DETECTED; PARAINFLUENZA VIRUS 1 NOT DETECTED; PARAINFLUENZA VIRUS 2 NOT DETECTED; PARAINFLUENZA VIRUS 4 NOT DETECTED; RSV- RESP PCR PANEL NOT DETECTED
[2024-11-05] MEDS: PANTOPRAZOLE 40 MG VIAL IVP SCH (18:27)
[2024-11-05] MEDS: SODIUM CHLORIDE 0.9% 1,000 ML IV SCH (18:27)
[2024-11-05] MEDS ORDERED: NOREPINEPHRINE/0.9 % NS 8 MG/250 ML BAG IV ONE (19:06)
--- NOTE | 2024-11-05 19:19 | HISTORY & PHYSICAL EXAMINATION ---
Chief Complaint Chief Complaint Chief Complaint: SOA History of Present Illness Admitted From Admitted From:: home History Obtained From Records Reviewed: [facility] health chart and other imported records x 1year History obtained from: unable History of Present Illness HPI Comment/Other: 64-year-old female with past medical history of COPD malnutrition esophageal cancer presents to the ED via EMS for dyspnea. She has had COPD for quite a few years. She is dependent on 4 L via nasal cannula at baseline. According to the history is given to the paramedics she had been using continual BiPAP for days at home due to shortness of breath. Paramedics were called today with complaints of increasing dyspnea despite these treatments. She became more confused with worsening oxygen saturations on the way to the hospital and was intubated in route. She was admitted to this institution about a year ago for acute hypoxic respiratory failure. During that time she did recover and was discharged to home. At that time there was known dysphagia along with severe protein calorie malnutrition and patient was referred for workup. She eventually, 9 months later consented to EGD and had a near obstructing esophageal mass. Since that time she has pursued treatment of her esophageal cancer. She had open jejunostomy tube placement at [facility] in April 2024 and she has been as I stated prior pursuing active treatment. She was seen as an outpatient at [facility] just 4 days ago by energy consultant who was planning sigmoidoscopy due to recent abnormality in the sigmoid colon on PET scan. Today as I am seeing her she is intubated and sedated on Precedex. She is hypotensive with a MAP of 52 and there is no family at the bedside. CODE STATUS: Full Code (SHe does not want to be intubated for any length of time. If we can save her life and she can come off the ventilator and 2 or 3 days that would be fine. If it looks like its going to be longer than that, DO NOT INTUBATE her.) This is copied directly from her last hospital admission H&P dated October 07, 2023. Meds/Allgy Home Medications Ambulatory Orders Medication Instructions Recorded Confirmed food supplemt, lactose-reduced ea PO QDAY 07/13/24 10/18/24 (Ensure Clear oral liquid) famotidine 40 mg/5 mL (8 mg/mL) See Rx Instructions .Route 07/29/24 10/18/24 oral suspension .COMPLEX #300 mL metoprolol tartrate 50 mg tablet 50 mg PO BID #180 tabs 08/12/24 10/18/24 mometasone-formoterol HFA 200 2 puff PO BID #8.8 grams 09/02/24 10/18/24 mcg-5 mcg/actuation aerosol inhaler (Dulera) lidocaine 5 % topical gel See Rx Instructions .Route 10/18/24 10/18/24 .COMPLEX #30 grams albuterol sulfate 90 mcg/actuation See Rx Instructions .Route 10/25/24 aerosol inhaler .COMPLEX #8.5 grams ipratropium 0.5 mg-albuterol 3 mg See Rx Instructions .Route 10/25/24 (2.5 mg base)/3 mL nebulization .COMPLEX #360 mL soln Allergies Allergies Allergy/AdvReac Type Severity Reaction Status Date / Time clonidine Allergy Severe Itching Verified 11/05/24 17:05 Penicillins Allergy Severe Itching Verified 11/05/24 17:05 REPLACED BY [facility] Medical History Medical History Bilateral cataracts March 2020 Surgical History Surgical History (Updated 10/18/24 @ 07:20 by Loida Iraheta LPN) S/P cataract surgery BL Family History Family History Mother High blood pressure Father High blood pressure Alcoholism Drug abuse Social History Social History (Updated 10/18/24 @ 10:34 by Loida Iraheta LPN) Smoking Status: Former smoker If you are a former smoker, when did you quit? (Date/Year): 2021 Number of Years Smoked: 20 How many cigarettes a day do you smoke? (20 cigarettes=1 Pk): 20 Do you dip or chew tobacco?: No Do you vape?: No Patient requests smoking cessation consult: No Initiate information on smoking cessation: No Living arrangement: At home Living Condition: With family Relationship: Level: Independent History of Abuse: No ETOH Use: Wine Frequency: Daily Substance Use: denies use POLST Patient has POLST: No POLST Status: Full Code (SHe does not want to be intubated for any length of time. If we can save her life and she can come off the ventilator and 2 or 3 days that would be fine. If it looks like its going to be longer than that, DO NOT INTUBATE her.) Review of Systems Status of ROS: unobtainable due to endotracheal tube Prior Level of Functionality: oxygen dependent and chronically ill. Still actively pursuing cancer treatment. Exam Constitutional intubated and sedated on precedex with heart rate in the 90's HENMT normocephalic and head/scalp atraumatic Eyes PERRL arcus senilis Neck/C-Spine visual inspection normal and trachea midline Lymph no lymphadenopathy noted Chest inspection of chest normal and palpation of chest normal Respiratory breath sounds equal bilaterally diffuse bilateral rales. Cardiovascular normal heart rate noted, regular rhythm noted and no edema Gastrointestinal abdomen normal to inspection and abdomen soft to palpation j tube in place with large gauze dressing, no drainage seen Extremities normal to inspection and normal to palpation Neurology GCS 3T, no tremors noted Psychiatry intubated and sedated. Skin skin color normal Conclusion/Plan Problem List (1) Respiratory failure: Plan: Acute hypoxic respiratory failure with long history of COPD oxygen dependent and sounds like had been worsening at home for some time. Discussed with Dr. Rosado in the ED and decision was made to admit this patient for acute on chronic respiratory failure. Intubated in the field. Remains intubated and sedated. Does not desire prolonged intubation. We will continue to support her. I have ordered nebulizers. I have ordered steroids. Qualifiers: Chronicity: acute Respiratory failure complication: hypoxia Qualified Code(s): J96.01 - Acute respiratory failure with hypoxia (2) COPD (chronic obstructive pulmonary disease): Plan: Admission chest x-ray imaging reviewed. Appears to have severe emphysematous disease with flattening of the diaphragms. I do not see any infiltrate therefore I do not see an indication to treat for pneumonia. This is purely a COPD exacerbation. I do not have an accurate medication reconciliation but it appears the patient is on albuterol Atrovent nebulizer treatments at home, albuterol rescue inhaler, Dulera inhaler. I do not have a pulmonology note but I do see PFTs ordered by Dr. Ruvalcaba in the past indicating severe COPD. At home she is on chronic oxygen therapy 4 L via nasal cannula. Reading the notes of her last PCP visit dated October 18, 2024 the patient desaturate significantly on room air down into the high 70s. With exertion she desaturates even on her oxygen. It is evident that this is end-stage COPD. Qualifiers: COPD type: unspecified COPD Qualified Code(s): J44.9 - Chronic obstructive pulmonary disease, unspecified (3) Primary esophageal squamous cell carcinoma: Plan: She has been actively treated for this cancer. I can see a note from 4 days ago where she was seen by an endoscopist at [facility] and was planning for sigmoidoscopy due to visualized lesion in sigmoid colon on PET scan. She is J- tube dependent. I have consulted our dietitian for J-tube feeds. (4) Severe protein-calorie malnutrition: Plan: BMI of 15.3. We will optimize her nutritional status as much as possible. Plan I have spent 90 minutes in the care of this patient today. This includes time [id number], review and ordering of diagnostic imaging and laboratory studies and consultation with other providers.. Monitoring the patient's signs symptoms, evaluation of medication effectiveness and patient's response to treatment. There was no family at the bedside this evening. Patient is unable to give a history. Majority the history was gleaned through review of medical records and discussion with Dr. Rosado in the ED. Lab Results Lab results reviewed: Yes 11/05/24 16:43 11/05/24 16:43
[2024-11-05] MEDS: NOREPINEPHRINE/0.9 % NS 8 MG/250 ML BAG IV SCH (19:49)
[2024-11-05] MEDS: DEXAMETHASONE 10 MG/ML VIAL IVP ONE (19:50)
[2024-11-05] MEDS: SODIUM CHLORIDE FLUSH 0.9% 10 ML SYRINGE IVP PRN (20:12)
[2024-11-05] MEDS: ALBUTEROL NEB 2.5 MG/3 ML INH PRN (20:38)
[2024-11-05 20:57] LABS: LACTIC ACID, VENOUS 3.1 mmol/L (0.5-2.2)
[2024-11-05] MEDS: HYDROmorphone 0.5 MG/0.5 ML SYRINGE IVP PRN (23:48)
[2024-11-05] MEDS: SODIUM CHLORIDE FLUSH 0.9% 10 ML SYRINGE IVP SCH (23:49)
[2024-11-06 05:21] LABS: ABG PCO2 30 mmHg (34-45); ABG PH 7.54 (7.35-7.45); ABG PO2 138 mmHg (83-108)
[2024-11-06 05:22] LABS: ABG BASE EXCESS 3.6 mmol/L (-2.0-3.0); ABG MODE OF VENTILATION SIMV; ABG OXYGEN SATURATION 99 % (95-98); ABG RESPIRATORY RATE 20 b/min; ABG TCO2 27.2 mmol/L (21.0-29.0); ALLEN TEST POSITIVE
[2024-11-06 05:36] LABS: BASOPHILS % (AUTO) 0.2 %; HCT - HEMATOCRIT 26.4 % (37.0-47.0); HGB - HEMOGLOBIN 8.1 g/dL (12.0-16.0); LYMPHOCYTES # (AUTO) 0.5 10^3/uL (1.5-3.5); MEAN CORPUSCULAR HEMOGLOBIN 26.8 pg (27.0-31.0); MEAN CORPUSCULAR HGB CONC 30.7 g/dL (32.0-36.0); MEAN CORPUSCULAR VOLUME 87.4 fL (81.0-99.0); MEAN PLATELET VOLUME 9.9 fL (7.9-10.8); MONOCYTES # (AUTO) 0.4 10^3/uL (0.0-1.0); MONOCYTES % (AUTO) 5.2 %; NEUTROPHILS # (AUTO) 7.1 10^3/uL (1.5-6.6); PLT - PLATELET COUNT 290 10^3/uL (130-450); RED BLOOD COUNT 3.02 10^6/uL (4.20-5.40); WHITE BLOOD COUNT 8.1 x10^3/uL (4.8-10.8)
[2024-11-06 05:44] LABS: CALCIUM, IONIZED 1.09 mmol/L (1.09-1.30); VBG PH 7.469 (7.31-7.41)
[2024-11-06 05:56] LABS: CALCIUM 7.6 mg/dL (8.5-10.3); CREATININE 0.5 mg/dL (0.6-1.3); MAGNESIUM 1.7 mg/dL (1.7-2.3); PHOSPHORUS 2.4 mg/dL (2.5-5.0)
[2024-11-06] MEDS: CALCIUM GLUC 1,000MG/50ML-NACL 1,000 MG/50 ML BAG IV ONE (06:14)
[2024-11-06] MEDS: DEXMEDETOMIDINE 400 MCG/100 ML 100 ML IV SCH (06:15)
[2024-11-06] MEDS: MAGNESIUM SULFATE 2 GRAM 2 GM/50 ML BAG IV ONE (07:28)
[2024-11-06] MEDS ORDERED: POTASSIUM PHOSPHATE 15 MMOL in SODIUM CHLORIDE 0.9% 250 ML IV ONE (08:00)
[2024-11-06] MEDS: SODIUM PHOSPHATE 15 MMOL in SODIUM CHLORIDE 0.9% 250 ML IV ONE (08:37)
[2024-11-06] MEDS: ENOXAPARIN 40 MG/0.4 ML SYRINGE SUBQ SCH (09:26)
[2024-11-06] MEDS: DEXAMETHASONE 4 MG/ML VIAL IVP SCH (09:27)
[2024-11-06] MEDS: PROPOFOL 1000 MG/100 ML 1,000 MG/100 ML BOTTLE IV SCH (10:37)
[2024-11-06 14:38] LABS: VBG PH 7.443 (7.31-7.41)
[2024-11-06 14:39] LABS: CALCIUM, IONIZED 1.18 mmol/L (1.09-1.30)
--- NOTE | 2024-11-06 15:06 | PHARMACY PROGRESS NOTE ---
Best Possible Medication History Admit Date and Time: 11/05/24 1745 Home Medications Medication Instructions Recorded Confirmed Type famotidine 40 mg/5 mL (8 mg/mL) See Rx Instructions .Route 07/29/24 11/06/24 Rx oral suspension .COMPLEX #300 mL metoprolol tartrate 50 mg tablet 50 mg PO BID #180 tabs 08/12/24 11/06/24 Rx mometasone-formoterol HFA 200 2 puff PO BID #8.8 grams 09/02/24 11/06/24 Rx mcg-5 mcg/actuation aerosol inhaler (Dulera) albuterol sulfate 90 mcg/actuation See Rx Instructions .Route 10/25/24 11/06/24 Rx aerosol inhaler .COMPLEX #8.5 grams ipratropium 0.5 mg-albuterol 3 mg See Rx Instructions .Route 10/25/24 11/06/24 Rx (2.5 mg base)/3 mL nebulization .COMPLEX #360 mL soln pantoprazole 40 mg tablet,delayed 40 mg PO ONCE 11/06/24 11/06/24 History release Processed by: Pharmacy Medications reviewed in ED?: No Medication History completed: Yes Patient Interview: Pt unable to participate Secondary Source(s): Pharmacy records and Insurance records [facility] Statement: Pt unable to participate in interview. [employer] and Pharmacy records reviewed. As the person ultimately responsible for medication therapy, providers are able to order a medication from an existing home medication list in [facility] via the "Reconcile Routine" prior to Confirmation of that medication by application support consultant. [facility] practice is discouraged except when the physician, in their clinical judgment, deems that a medical need exists for a medication without regard to previous use.
[2024-11-06] MEDS: CARBOXYMETHYLCELLULOSE OPHTH DROPS EACHEYE PRN (17:27)
--- NOTE | 2024-11-06 19:09 | PROVIDER PROGRESS NOTE ---
Subjective Prog Note Date Prog Note Date: 11/06/24 Subjective Subjective: She is intubated and sedated. We have been using propofol but she seems a bit unsettled on this. And not adequately sedated. This morning I started propofol shortly thereafter was at the bedside and she was able to write a note. She states that she did not want to . She is unable to further communicate her wishes. Her left eye is bothering her and we are starting artificial tears for this. Current Medications Current Medications Current Medications: Current Medications Generic Name Dose Route Start Last Admin Trade Name Freq PRN Reason Stop Dose Admin Albuterol 2.5 mg 11/05/24 19:46 11/06/24 16:49 Albuterol Neb 2.5 Mg/3 Ml INH 2.5 mg RTQ4H PRN Administration Wheezing Carboxymethylcellulose 1 drops 11/06/24 15:22 11/06/24 17:27 Carboxymethylcellulose Ophth Drops EACHEYE 1 drops PRN PRN Administration Dry Eye Dexamethasone 6 mg 11/06/24 09:00 11/06/24 09:27 Dexamethasone 4 Mg/Ml Vial IVP 6 mg DAILY AZAEL Administration Enoxaparin Sodium 40 mg 11/06/24 09:00 11/06/24 09:26 Enoxaparin 40 Mg/0.4 Ml Syringe SUBQ 40 mg DAILY AZAEL Administration Hydromorphone HCl 0.5 mg 11/05/24 18:05 11/06/24 17:27 Hydromorphone 0.5 Mg/0.5 Ml Syringe IVP 0.5 mg Q2H PRN Administration Pain 8 to 10 Norepinephrine/Sodium Chloride 8 mg in 250 mls @ 15 mls/hr 11/05/24 20:00 11/06/24 15:00 Levophed 8 Mg/250-0.9% Nacl IV 0 mcg/min .[id number] AZAEL 0 mls/hr Titration Protocol 8 MCG/MIN Dexmedetomidine/Sodium Chloride 100 mls @ 1.775 mls/hr 11/05/24 22:00 11/06/24 18:28 Precedex Premix IV 0.7 mcg/kg/hr .[id number] AZAEL 6.21 mls/hr Administration Protocol 0.2 MCG/KG/HR Propofol 1,000 mg in 100 mls @ 1.92 mls/hr 11/06/24 11:00 11/06/24 17:07 Diprivan IV 30 mcg/kg/min .[id number] AZAEL 5.76 mls/hr Titration Protocol 10 MCG/KG/MIN Multi-Ingred Cream/Lotion/Oil/Oint 1 applic 11/06/24 15:22 Mineral Oil/Petrolat Ophth Oint EACHEYE QPM PRN Dry Eye Pantoprazole Sodium 40 mg 11/05/24 18:05 11/06/24 06:20 Pantoprazole 40 Mg Vial IVP 40 mg QDAC AZAEL Administration Sodium Chloride 10 ml 11/06/24 01:00 11/06/24 17:31 Sodium Chloride Flush 0.9% 10 Ml Syringe IVP 10 ml 0100,[id number],1700 AZAEL Administration Sodium Chloride 10 ml 11/05/24 18:05 11/06/24 06:20 Sodium Chloride Flush 0.9% 10 Ml Syringe IVP 10 ml PRN PRN Administration NEEDED PER PROVIDER ORDERS Objective Vital Signs/Intake & Output Vital Signs: Vital Signs x48h Temp Pulse Pulse Resp BP Pulse Ox 11/06/24 19:00 63 16 115/74 95 11/06/24 18:00 36.6 C 71 16 121/72 98 11/06/24 17:00 36.5 C 68 129/83 99 11/06/24 16:56 77 16 11/06/24 16:50 62 11/06/24 16:00 36.5 C 61 16 116/74 95 11/06/24 15:00 36.1 C L 63 16 124/75 96 11/06/24 14:00 36.3 C L 61 16 128/79 96 11/06/24 13:03 66 11/06/24 13:00 36.4 C L 67 16 117/79 96 11/06/24 12:00 36.5 C 81 22 120/76 94 Intake & Output: Intake & Output 11/03/24 11/04/24 11/05/24 11/06/24 23:59 23:59 23:59 23:59 Intake Total 2020 3516 / 3516 Output Total 450 / 450 900 / 900 Balance 1571 / 1571 2616 / 2616 Weight (kg) 35.5 kg 32 kg Lab Results 11/06/24 04:40 11/06/24 04:40 Other Labs: Lab Results x24hrs 11/06/24 11/06/24 11/06/24 Range/Units 14:16 05:07 04:40 WBC 8.1 (4.8-10.8) x10^3/uL RBC 3.02 L (4.20-5.40) 10^6/uL Hgb 8.1 L (12.0-16.0) g/dL Hct 26.4 L (37.0-47.0) % MCV 87.4 (81.0-99.0) fL MCH 26.8 L (27.0-31.0) pg MCHC 30.7 L (32.0-36.0) g/dL RDW 15.0 (12.0-15.0) % Plt Count 290 (130-450) 10^3/uL MPV 9.9 (7.9-10.8) fL Neut # (Auto) 7.1 H (1.5-6.6) 10^3/uL Lymph # (Auto) 0.5 L (1.5-3.5) 10^3/uL [place] # (Auto) 0.4 (0.0-1.0) 10^3/uL Eos # (Auto) 0.0 (0.0-0.7) 10^3/uL Baso # (Auto) 0.0 (0.0-0.1) 10^3/uL Absolute Nucleated RBC 0.00 x10^3/uL Nucleated RBC % 0.0 /100WBC Bld Gas Analysis Time 0515 Sample Site LEFT RADIAL ABG pH 7.54 H (7.35-7.45) ABG pCO2 30 L (34-45) mmHg ABG pO2 138 H (83-108) mmHg ABG HCO3 26.3 H (22.0-26.0) mmol/L ABG Total CO2 27.2 (21.0-29.0) mmol/L ABG O2 Saturation 99 H (95-98) % ABG Base Excess 3.6 H (-2.0-3.0) mmol/L Josh Test POSITIVE VBG pH 7.443 H 7.469 H (7.31-7.41) Ionized Calcium 1.18 1.09 (1.09-1.30) mmol/L Respiration Rate 20 b/min O2 Delivery Device VENTILATOR Vent Mode SIMV FiO2 40.00 Tidal Volume 350 mL PEEP 5 cmH2O Pressure Support Vent 12 cmH2O Sodium 137 (135-145) mmol/L Potassium 4.0 (3.5-4.5) mmol/L Chloride 102 (101-111) mmol/L Carbon Dioxide 25 (21-32) mmol/L Anion Gap 10.0 (6-13) BUN 31 H (6-20) mg/dL Creatinine 0.5 L (0.6-1.3) mg/dL Estimated GFR (MDRD) 125 (>89) Glucose 150 H (74-104) mg/dL Lactic Acid (0.5-2.2) mmol/L Calcium 7.6 L (8.5-10.3) mg/dL Phosphorus 2.4 L (2.5-5.0) mg/dL Magnesium 2.4 H 1.7 (1.7-2.3) mg/dL Nasal Screen MRSA (PCR) (NEGATIVE) 11/06/24 11/05/24 11/05/24 Range/Units 00:17 20:13 18:29 WBC (4.8-10.8) x10^3/uL RBC (4.20-5.40) 10^6/uL Hgb (12.0-16.0) g/dL Hct (37.0-47.0) % MCV (81.0-99.0) fL MCH (27.0-31.0) pg MCHC (32.0-36.0) g/dL RDW (12.0-15.0) % Plt Count (130-450) 10^3/uL MPV (7.9-10.8) fL Neut # (Auto) (1.5-6.6) 10^3/uL Lymph # (Auto) (1.5-3.5) 10^3/uL [place] # (Auto) (0.0-1.0) 10^3/uL Eos # (Auto) (0.0-0.7) 10^3/uL Baso # (Auto) (0.0-0.1) 10^3/uL Absolute Nucleated RBC x10^3/uL Nucleated RBC % /100WBC Bld Gas Analysis Time Sample Site ABG pH (7.35-7.45) ABG pCO2 (34-45) mmHg ABG pO2 (83-108) mmHg ABG HCO3 (22.0-26.0) mmol/L ABG Total CO2 (21.0-29.0) mmol/L ABG O2 Saturation (95-98) % ABG Base Excess (-2.0-3.0) mmol/L Josh Test VBG pH (7.31-7.41) Ionized Calcium (1.09-1.30) mmol/L Respiration Rate b/min O2 Delivery Device Vent Mode FiO2 Tidal Volume mL PEEP cmH2O Pressure Support Vent cmH2O Sodium (135-145) mmol/L Potassium (3.5-4.5) mmol/L Chloride (101-111) mmol/L Carbon Dioxide (21-32) mmol/L Anion Gap (6-13) BUN (6-20) mg/dL Creatinine (0.6-1.3) mg/dL Estimated GFR (MDRD) (>89) Glucose (74-104) mg/dL Lactic Acid 1.1 3.1 H* (0.5-2.2) mmol/L Calcium (8.5-10.3) mg/dL Phosphorus (2.5-5.0) mg/dL Magnesium (1.7-2.3) mg/dL Nasal Screen MRSA (PCR) NEGATIVE (NEGATIVE) Assessment/Plan Problem List (1) Respiratory failure: Impression: Acute hypoxic respiratory failure with long history of COPD oxygen dependent and sounds like had been worsening at home for some time. Remains intubated and sedated. Does not desire prolonged intubation. We will continue to support her. I have ordered nebulizers. I have ordered steroids. She has been oxygen dependent for quite some time. It seems that her COPD was worsening markedly at home and she had placed herself on BiPAP continuously for several days prior to coming into the hospital. I spoke with her spouse Ryan. He does not have a great understanding of what her medical situation is. He does not know what her tube feeds are or what she is supposed to be on. He does not know what was seen at the colonoscopy that she had done last week and he does not have a good understanding of the severity of her COPD. I would like for Ryan to be present here in the hospital to have a discussion regarding Aleena's care. He agrees that he can be here tomorrow in the middle of the day and we will discuss further at that time. Qualifiers: Chronicity: acute Respiratory failure complication: hypoxia Qualified Code(s): J96.01 - Acute respiratory failure with hypoxia (2) COPD (chronic obstructive pulmonary disease): Impression: Oxygen dependent COPD 3 to 4 L at home with worsening at home over previous days. I have placed the patient on steroids, Decadron 6 mg a day. She is also on nebulizer treatments. I will start azithromycin for its anti-inflammatory properties. I do not believe she has a pneumonia.The leukocytosis she had on admission has resolved. Qualifiers: COPD type: unspecified COPD Qualified Code(s): J44.9 - Chronic obstructive pulmonary disease, unspecified (3) Primary esophageal squamous cell carcinoma: Impression: She has a diagnosed esophageal squamous cell carcinoma. I was able to review the oncology note from 09/15/2024. Tumor board at [facility] correctly ascertain that she was not strong enough for chemo and radiation treatment for her esophageal cancer. They had forwarded pathology for consideration of immunotherapy treatment. She was due to return to follow-up with oncology in about 6 weeks this would have been early October. Additionally she was to get a colonoscopy for a focus of glucose metabolism in her sigmoid colon. Colonoscopy was completed and I have requested records regarding the colonoscopy from [facility] today. I will be meeting with her family at her bedside to talk about her care in general tomorrow as they are unable to make it to the hospital today. (4) Severe protein-calorie malnutrition: Impression: Ongoing. Is been difficult for her to gain weight. All according to the oncology note about 6 weeks ago she was using J-tube feedings at 25 cc an hour at home unable to get to goal of 45 cc an hour. She appears incredibly malnourished with temporal wasting and a BMI of 13.8. I have spent 65 minutes in the care of this patient today. This includes time [id number], review and ordering of diagnostic imaging and laboratory studies..
--- NOTE | 2024-11-06 20:52 | XRAY Report ---
PROCEDURE: XR No-Charge 1V Abdomen INDICATIONS: for PEJ position TECHNIQUE: 1 view of the abdomen were acquired. COMPARISON: None. FINDINGS AND IMPRESSION: A left abdominal percutaneous feeding tube is seen, entering the abdomen in the mid aspect and tip se en projecting over the left pelvis. Bladder catheter is in place. No specific radiographic signs of bowel obstruction. Nonspecific density is seen in the right upper pelvic soft tissues. Osseous degenerative changes. Vascular calcifications Reviewed by: Raad Jarquin MD on 11/06/2024 8:50 PM PST Approved by: Raad Jarquin MD on 11/06/2024 8:50 PM PST Station ID: [id number]
[2024-11-07 05:04] LABS: BASOPHILS % (AUTO) 0.1 %; HCT - HEMATOCRIT 26.6 % (37.0-47.0); HGB - HEMOGLOBIN 8.1 g/dL (12.0-16.0); LYMPHOCYTES % (AUTO) 11.8 %; MEAN CORPUSCULAR HEMOGLOBIN 26.7 pg (27.0-31.0); MEAN CORPUSCULAR HGB CONC 30.5 g/dL (32.0-36.0); MEAN CORPUSCULAR VOLUME 87.8 fL (81.0-99.0); MONOCYTES # (AUTO) 0.5 10^3/uL (0.0-1.0); NEUTROPHILS # (AUTO) 6.7 10^3/uL (1.5-6.6); NEUTROPHILS % (AUTO) 81.6 %; PLT - PLATELET COUNT 313 10^3/uL (130-450); RED BLOOD COUNT 3.03 10^6/uL (4.20-5.40); RED CELL DISTRIBUTION WIDTH 15.2 % (12.0-15.0); WHITE BLOOD COUNT 8.2 x10^3/uL (4.8-10.8)
[2024-11-07 05:15] LABS: CALCIUM, IONIZED 1.16 mmol/L (1.09-1.30); VBG PH 7.539 (7.31-7.41)
[2024-11-07 05:31] LABS: MAGNESIUM 2.2 mg/dL (1.7-2.3); PHOSPHORUS 3.6 mg/dL (2.5-5.0)
[2024-11-07 05:32] LABS: ALBUMIN 2.5 g/dL (3.2-5.5); BILIRUBIN,TOTAL 0.2 mg/dL (0.2-1.0); CALCIUM 8.1 mg/dL (8.5-10.3); CREATININE 0.5 mg/dL (0.6-1.3); POTASSIUM 3.7 mmol/L (3.5-4.5); TOTAL PROTEIN 5.1 g/dL (6.4-8.9)
[2024-11-07] MEDS: POTASSIUM CHLOR 10 MEQ/100 ML 10 MEQ/100 ML BAG IV SCH (06:15)
[2024-11-07 08:20] LABS: ABG BASE EXCESS 3.6 mmol/L (-2.0-3.0); ABG OXYGEN SATURATION 99 % (95-98); ABG PCO2 38 mmHg (34-45); ABG PH 7.47 (7.35-7.45); ABG PO2 111 mmHg (83-108); ABG TCO2 28.7 mmol/L (21.0-29.0); ALLEN TEST POSITIVE
[2024-11-07 08:21] LABS: ABG MODE OF VENTILATION SIMV; ABG RESPIRATORY RATE 16 b/min
--- NOTE | 2024-11-07 14:33 | ADVANCE CARE PLANNING NOTE ---
Advance Care Planning Planning Encounter Date: 11/07/24 Time: 13:55 Parties in Attendance: Shweta Cosme PA-C, daughter Haley, son Favio, son Hill, Ryan Decisional Capacity of the Patient: intubated and sedated, but despite Precedex and propofol she has been making her needs known. Diagnosis for Encounter (1) Respiratory failure: Qualifiers: Chronicity: acute Respiratory failure complication: hypoxia Qualified Code(s): J96.01 - Acute respiratory failure with hypoxia (2) COPD (chronic obstructive pulmonary disease): Qualifiers: COPD type: unspecified COPD Qualified Code(s): J44.9 - Chronic obstructive pulmonary disease, unspecified (3) Primary esophageal squamous cell carcinoma: (4) Severe protein-calorie malnutrition: Encounter Subjective/Patient's Story: Oxygen dependent for >2 years, malnourished since at least Jun 2023 when she choked on a hamburger. It has been a rough several yearss. [place] she is well supported, but they are not particularly medically literate. Aleena feels strongly that she does not want to . She has fought hard against her esophageal cancer and her COPD but the fight is becoming more difficult to when. Her family strongly supports her desire for the best medical therapy but they are starting to understand that the best medical therapy is not enough. Objective/Medical Story: Severe protein calorie malnutrition with BMI of around 14. Has been on jejunal feeds for about 6 months now almost at goal at home of 40 mL/h with a goal of 45 mL/h. Diagnosis of esophageal cancer present for about 6 months although the cancer has been severe enough to be obstructive since around June 2023. There was some delay in diagnosis due to patient's resistance to undergoing medical procedures. Daughter starting to notice some sacral erythema at the end of the week as she was cleaning her mother because her mother is spending so much time in bed. Respiratory status had been declining at home for 3 to 4 days. Patient been refusing treatment to medical facility until he got so severe that her family overrode her wishes and called EMS. Patient was intubated via EMS on the way to the hospital 2 days ago. Goals of Care: Patient and her family want her to continue to fight her end-stage COPD and her metastatic esophageal cancer. Unfortunately these illnesses seem to be getting to the point that there is no medical therapy that will sustain life. Her daughter Haley does not want to make her to mother miserable. She sees that Aleena is becoming more and more uncomfortable and sicker and sicker despite treatment. Plan: Discussed with the family that prolonged intubation is not a good option in a patient with end-stage COPD. Family has many questions about why her COPD is so bad. We talked about this to their satisfaction. I explained to the family that we would all gather at the bedside tomorrow at about 1300. We would extubate the patient and then support her in every way that we can short of reintubation. I explained to them that placing the patient on further ventilatory support is medically futile. Additional Discussion: It is reasonable to think that we can have further advance care planning discussions with the patient able to participate in the coming days. Therefore at this point we will not fill out a POLST. Code Status: Do Not Attempt Resuscitation Time spent on advance care plannin
--- NOTE | 2024-11-07 14:47 | PROVIDER PROGRESS NOTE ---
Subjective Prog Note Date Prog Note Date: 11/07/24 Subjective Subjective: intubated. Gestures very frequently for eye drops. left eye is irritating to her. Otherwise she has no complaints aside from wanting the tube out. Current Medications Current Medications Current Medications: Current Medications Generic Name Dose Route Start Last Admin Trade Name Freq PRN Reason Stop Dose Admin Albuterol 2.5 mg 11/05/24 19:46 11/07/24 12:54 Albuterol Neb 2.5 Mg/3 Ml INH 2.5 mg RTQ4H PRN Administration Wheezing Carboxymethylcellulose 1 drops 11/06/24 15:22 11/07/24 05:55 Carboxymethylcellulose Ophth Drops EACHEYE 1 drops PRN PRN Administration Dry Eye Dexamethasone 6 mg 11/06/24 09:00 11/07/24 09:02 Dexamethasone 4 Mg/Ml Vial IVP 6 mg DAILY AZAEL Administration Enoxaparin Sodium 40 mg 11/06/24 09:00 11/07/24 09:02 Enoxaparin 40 Mg/0.4 Ml Syringe SUBQ 40 mg DAILY AZAEL Administration Hydromorphone HCl 0.5 mg 11/05/24 18:05 11/07/24 13:16 Hydromorphone 0.5 Mg/0.5 Ml Syringe IVP 0.5 mg Q2H PRN Administration Pain 8 to 10 Norepinephrine/Sodium Chloride 8 mg in 250 mls @ 15 mls/hr 11/05/24 20:00 11/07/24 13:51 Levophed 8 Mg/250-0.9% Nacl IV Not Given .[id number] AZAEL Protocol 8 MCG/MIN Propofol 1,000 mg in 100 mls @ 1.92 mls/hr 11/06/24 11:00 11/07/24 09:41 Diprivan IV 40 mcg/kg/min .[id number] AZAEL 7.68 mls/hr Titration Protocol 10 MCG/KG/MIN Midazolam HCl 50 mg in 50 mls @ 1.32 mls/hr 11/07/24 15:00 Versed Drip 50 Mg/50 Ml IV .[id number] AZAEL Protocol 0.04 MG/KG/HR Multi-Ingred Cream/Lotion/Oil/Oint 1 applic 11/06/24 15:22 Mineral Oil/Petrolat Ophth Oint EACHEYE QPM PRN Dry Eye Pantoprazole Sodium 40 mg 11/05/24 18:05 11/07/24 06:17 Pantoprazole 40 Mg Vial IVP 40 mg QDAC AZAEL Administration Sodium Chloride 10 ml 11/06/24 01:00 11/07/24 09:03 Sodium Chloride Flush 0.9% 10 Ml Syringe IVP 10 ml 0100,0900,1700 AZAEL Administration Sodium Chloride 10 ml 11/05/24 18:05 11/07/24 09:03 Sodium Chloride Flush 0.9% 10 Ml Syringe IVP 10 ml PRN PRN Administration NEEDED PER PROVIDER ORDERS Objective Vital Signs/Intake & Output Reviewed Vital Signs: Yes Vital Signs: Vital Signs x48h Temp Pulse Pulse Resp BP Pulse Ox 11/07/24 14:00 36.9 C 72 24 100/66 94 11/07/24 13:00 74 24 119/84 96 11/07/24 12:57 77 21 11/07/24 12:48 63 11/07/24 12:00 60 16 95/64 95 11/07/24 11:10 100/63 11/07/24 11:00 36.7 C 60 21 129/68 95 11/07/24 10:56 158/80 H 11/07/24 10:52 131/77 H 11/07/24 10:45 72 18 78/53 L 98 11/07/24 10:00 65 19 98/65 97 11/07/24 09:44 63 11/07/24 09:39 64 14 11/07/24 09:00 59 L 14 120/73 98 11/07/24 08:00 36.9 C 60 15 106/65 98 11/07/24 07:47 59 L 11/07/24 07:00 36.7 C 64 16 85/57 L 96 Intake & Output: Intake & Output 11/04/24 11/05/24 11/06/24 11/07/24 23:59 23:59 23:59 23:59 Intake Total 2020 3516 / 3516 999 / 999 Output Total 450 / 450 990 / 990 162 / 162 Balance 1571 / 1571 2526 / 2526 837 / 837 Weight (kg) 35.5 kg 32 kg 33 kg Objective General Appearance: positive No acute distress and Other (after starting the Versed, she is resting peacefully) Eyes Bilateral: positive PERRL, Conjunctivae nml and No scleral icterus ENT: positive ENT inspection nml Neck: positive Nml inspection Respiratory: positive Chest non-tender, No respiratory distress and Other (She is on the ventilator, RR 14. peak pressures 45); negative Wheezes Cardiovascular: positive Regular rate & rhythm, No murmur and Other (tachy to 120's when agitated, but in 60's when resting. ) Abdomen: positive Non-tender, No distention and Other (PEJ in place. ) Skin: positive Color nml Extremities: positive No pedal edema Neurologic/Psychiatric: positive Other (at times she is very awake. Moves all extremities. ) Lab Results 11/07/24 04:30 11/07/24 10:51 Other Labs: Lab Results x24hrs 11/07/24 11/07/24 11/07/24 Range/Units 10:51 08:08 04:30 WBC 8.2 (4.8-10.8) x10^3/uL RBC 3.03 L (4.20-5.40) 10^6/uL Hgb 8.1 L (12.0-16.0) g/dL Hct 26.6 L (37.0-47.0) % MCV 87.8 (81.0-99.0) fL MCH 26.7 L (27.0-31.0) pg MCHC 30.5 L (32.0-36.0) g/dL RDW 15.2 H (12.0-15.0) % Plt Count 313 (130-450) 10^3/uL MPV 10.0 (7.9-10.8) fL Neut # (Auto) 6.7 H (1.5-6.6) 10^3/uL Lymph # (Auto) 1.0 L (1.5-3.5) 10^3/uL [place] # (Auto) 0.5 (0.0-1.0) 10^3/uL Eos # (Auto) 0.0 (0.0-0.7) 10^3/uL Baso # (Auto) 0.0 (0.0-0.1) 10^3/uL Absolute Nucleated RBC 0.00 x10^3/uL Nucleated RBC % 0.0 /100WBC Bld Gas Analysis Time 0813 Sample Site LEFT RADIAL ABG pH 7.47 H (7.35-7.45) ABG pCO2 38 (34-45) mmHg ABG pO2 111 H (83-108) mmHg ABG HCO3 27.5 H (22.0-26.0) mmol/L ABG Total CO2 28.7 (21.0-29.0) mmol/L ABG O2 Saturation 99 H (95-98) % ABG Base Excess 3.6 H (-2.0-3.0) mmol/L Josh Test POSITIVE VBG pH 7.539 H (7.31-7.41) Ionized Calcium 1.16 (1.09-1.30) mmol/L Respiration Rate 16 b/min O2 Delivery Device VENTILATOR Vent Mode SIMV FiO2 35.00 Tidal Volume 350 mL PEEP 5 cmH2O Pressure Support Vent 12 cmH2O Sodium 137 (135-145) mmol/L Potassium 4.5 3.7 (3.5-4.5) mmol/L Chloride 105 (101-111) mmol/L Carbon Dioxide 25 (21-32) mmol/L Anion Gap 7.0 (6-13) BUN 25 H (6-20) mg/dL Creatinine 0.5 L (0.6-1.3) mg/dL Estimated GFR (MDRD) 125 (>89) Glucose 153 H (74-104) mg/dL Calcium 8.1 L (8.5-10.3) mg/dL Phosphorus 3.6 (2.5-5.0) mg/dL Magnesium 2.2 (1.7-2.3) mg/dL Total Bilirubin 0.2 (0.2-1.0) mg/dL AST 36 (10-42) IU/L ALT 19 (10-60) IU/L Alkaline Phosphatase 69 (42-121) IU/L Total Protein 5.1 L (6.4-8.9) g/dL Albumin 2.5 L (3.2-5.5) g/dL Globulin 2.6 (2.1-4.2) g/dL Albumin/Globulin Ratio 1.0 (1.0-2.2) Prealbumin 9 L (17-34) mg/dL Other Results/Comments Other Results/Comments: ABG shows resolving alkalosis, bicarb mildly elevated at 27.5. pO2 111, rate decreased to 14. Assessment/Plan Problem List (1) Respiratory failure: Impression: Acute hypoxic respiratory failure with long history of COPD oxygen dependent and sounds like had been worsening at home for some time. Remains intubated and sedated. Does not desire prolonged intubation. We will continue to support her. I have ordered nebulizers. I have ordered steroids. Flu A pos on admit, but of little consequence as she had been ill for multiple days prior to that time. She has been oxygen dependent for quite some time. It seems that her COPD was worsening markedly at home and she had placed herself on BiPAP continuously for several days prior to coming into the hospital. I spoke with her spouse Ryan. He does not have a great understanding of what her medical situation is. He does not know what her tube feeds are or what she is supposed to be on. He does not know what was seen at the colonoscopy that she had done last week and he does not have a good understanding of the severity of her COPD. Family present at bedside today. Asking me why her COPD is so severe. This is a hard question to answer. I explained to them that her smoking did not help, and her body seems to have been intolerant of it. They have heated their home with wood most of her adult life, and cook with propane in the home. Daughter also admits to me that ventilation over propane stove in home likely not adequate. I have reassured them that none of this is their fault, and that we are all trying to support Aleena, but her disease is severe. Qualifiers: Chronicity: acute Respiratory failure complication: hypoxia Qualified Code(s): J96.01 - Acute respiratory failure with hypoxia (2) COPD (chronic obstructive pulmonary disease): Impression: Oxygen dependent COPD 3 to 4 L at home with worsening at home over previous days. I have placed the patient on steroids, Decadron 6 mg a day. She is also on nebulizer treatments. I will start azithromycin for its anti-inflammatory properties. I do not believe she has a pneumonia.The leukocytosis she had on admission has resolved. No indication for Tamiflu, she had been sick for too long prior to presentation. Qualifiers: COPD type: unspecified COPD Qualified Code(s): J44.9 - Chronic obstructive pulmonary disease, unspecified (3) Primary esophageal squamous cell carcinoma: Impression: She has a diagnosed esophageal squamous cell carcinoma. I was able to review the oncology note from 09/15/2024. Tumor board at [facility] correctly ascertain that she was not strong enough for chemo and radiation treatment for her esophageal cancer. They had forwarded pathology for consideration of immunotherapy treatment. She was due to return to follow-up with oncology in about 6 weeks this would have been early October. Additionally she was to get a colonoscopy for a focus of glucose metabolism in her sigmoid colon. Colonoscopy was completed and I have requested records regarding the colonoscopy from [facility] yesterday- I have not received. will try again tomorrow as it is a week day. ACP discussion with family today (4) Severe protein-calorie malnutrition: Impression: Ongoing. Is been difficult for her to gain weight. All according to the oncology note about 6 weeks ago she was using J-tube feedings at 25 cc an hour at home unable to get to goal of 45 cc an hour. She appears incredibly malnourished with temporal wasting and a BMI of 13.8. Daughter Haley reports that they have been able to get to 40cc/hr at home recently. I have spent 65 minutes in the care of this patient today. This includes time [id number], review and ordering of diagnostic imaging and laboratory studies. This is exclusive of time spent in ACP discussion.
[2024-11-07] MEDS: MIDAZOLAM DRIP 50 MG/50 ML 50 MG/50 ML BAG IV SCH (15:19)
[2024-11-07] MEDS: DEXTROSE 5%-0.45% NACL 1,000 ML IV SCH (16:14)
[2024-11-07] MEDS: AZITHROMYCIN INJ 500 MG in SODIUM CHLORIDE 0.9% 250 ML IV SCH (17:16)
[2024-11-07] MEDS: CHLORHEXIDINE GLUCONATE 15 ML UDC PO SCH (20:13)
[2024-11-08] MEDS: MINERAL OIL/PETROLAT OPHTH OINT EACHEYE PRN (01:47)
[2024-11-08] MEDS ORDERED: SODIUM CHLORIDE FOR INHALATION 5 ML NEB ONE (02:00)
[2024-11-08 05:14] LABS: BASOPHILS % (AUTO) 0.1 %; HCT - HEMATOCRIT 25.6 % (37.0-47.0); HGB - HEMOGLOBIN 7.6 g/dL (12.0-16.0); LYMPHOCYTES % (AUTO) 15.3 %; MEAN CORPUSCULAR HEMOGLOBIN 27.2 pg (27.0-31.0); MEAN CORPUSCULAR HGB CONC 29.7 g/dL (32.0-36.0); MEAN CORPUSCULAR VOLUME 91.8 fL (81.0-99.0); MEAN PLATELET VOLUME 9.5 fL (7.9-10.8); PLT - PLATELET COUNT 318 10^3/uL (130-450); RED BLOOD COUNT 2.79 10^6/uL (4.20-5.40); RED CELL DISTRIBUTION WIDTH 15.4 % (12.0-15.0); WHITE BLOOD COUNT 12.3 x10^3/uL (4.8-10.8)
[2024-11-08 05:21] LABS: ABNORMAL LYMPHS % (MANUAL) 0 %
[2024-11-08 05:43] LABS: CALCIUM 7.8 mg/dL (8.5-10.3); CREATININE 0.4 mg/dL (0.6-1.3); POTASSIUM 4.5 mmol/L (3.5-4.5)
[2024-11-08 05:54] LABS: BAND NEUTROPHILS % (MANUAL) 1 %; LYMPHOCYTES # (MANUAL) 1.4 10^3/uL (1.5-3.5); LYMPHOCYTES % (MANUAL) 11 %; MONOCYTES # (MANUAL) 1.1 10^3/uL (0.0-1.0); NEUTROPHILS # (MANUAL) 9.6 10^3/uL (1.5-6.6); PLASMA CELLS % (MANUAL) 2 %
[2024-11-08 05:55] LABS: PLATELET ESTIMATE, MANUAL NORMAL (130-450,000) (NORMAL); PLATELET MORPHOLOGY NORMAL APPEARANCE (NORMAL); RBC MORPHOLOGY (MULTIPLE) NORMAL APPEARANCE (NORMAL); WBC MORPHOLOGY (MULTIPLE) NORMAL APPEARANCE (NORMAL)
[2024-11-08 05:56] LABS: DIFFERENTIAL COMMENT MANUAL DIFFERENTIAL; SLIDE SENT FOR PATH REVIEW? Indicated
[2024-11-08 06:30] LABS: MAGNESIUM 1.8 mg/dL (1.7-2.3)
[2024-11-08 06:36] LABS: PHOSPHORUS 1.7 mg/dL (2.5-5.0)
[2024-11-08] MEDS: MAGNESIUM SULFATE 2 GRAM 2 GM/50 ML BAG IV ONE (06:53)
[2024-11-08] MEDS: SODIUM PHOSPHATE 15 MMOL in SODIUM CHLORIDE 0.9% 250 ML IV ONE (08:49)
--- NOTE | 2024-11-08 09:54 | PROVIDER PROGRESS NOTE ---
Subjective Prog Note Date Prog Note Date: 11/08/24 Subjective Subjective: no change. she is more comfortable on versed and propofol The versed was turned down prior to extubation and the propofol was turned off prior to extubation Current Medications Current Medications Current Medications: Current Medications Generic Name Dose Route Start Last Admin Trade Name Freq PRN Reason Stop Dose Admin Albuterol 2.5 mg 11/05/24 19:46 11/08/24 03:34 Albuterol Neb 2.5 Mg/3 Ml INH 2.5 mg RTQ4H PRN Administration Wheezing Bacitracin 1 packet 11/07/24 18:09 Bacitracin Zinc Oint 1 Packet TOP PRN PRN Skin Care Carboxymethylcellulose 1 drops 11/06/24 15:22 11/07/24 05:55 Carboxymethylcellulose Ophth Drops EACHEYE 1 drops PRN PRN Administration Dry Eye Chlorhexidine Gluconate 15 ml 11/07/24 21:00 11/08/24 08:41 Chlorhexidine Gluconate 15 Ml Udc PO 15 ml BID AZAEL Administration Dexamethasone 6 mg 11/06/24 09:00 11/08/24 08:41 Dexamethasone 4 Mg/Ml Vial IVP 6 mg DAILY AZAEL Administration Enoxaparin Sodium 40 mg 11/06/24 09:00 11/08/24 08:40 Enoxaparin 40 Mg/0.4 Ml Syringe SUBQ 40 mg DAILY AZAEL Administration Hydromorphone HCl 0.5 mg 11/05/24 18:05 11/08/24 08:19 Hydromorphone 0.5 Mg/0.5 Ml Syringe IVP 0.5 mg Q2H PRN Administration Pain 8 to 10 Norepinephrine/Sodium Chloride 8 mg in 250 mls @ 15 mls/hr 11/05/24 20:00 11/08/24 04:15 Levophed 8 Mg/250-0.9% Nacl IV 0 mcg/min .[id number] AZAEL 0 mls/hr Titration Protocol 8 MCG/MIN Propofol 1,000 mg in 100 mls @ 1.92 mls/hr 11/06/24 11:00 11/08/24 09:00 Diprivan IV 35 mcg/kg/min .[id number] AZAEL 6.72 mls/hr Administration Protocol 10 MCG/KG/MIN Midazolam HCl 50 mg in 50 mls @ 1.32 mls/hr 11/07/24 15:00 11/07/24 15:19 Versed Drip 50 Mg/50 Ml IV 0.04 mg/kg/hr .[id number] AZAEL 1.32 mls/hr Administration Protocol 0.04 MG/KG/HR Dextrose/Sodium Chloride 1,000 mls @ 50 mls/hr 11/07/24 16:00 11/07/24 16:14 D5.45ns IV 50 mls/hr .Q20H AZAEL Administration Azithromycin 500 mg/ Sodium 250 mls @ 250 mls/hr 11/07/24 16:37 11/08/24 09:26 Chloride IV 11/09/24 09:59 250 mls/hr DAILY AZAEL Administration Sodium Phosphate 15 mmol/ 255 mls @ 63.75 mls/hr 11/08/24 06:44 11/08/24 08:49 Sodium Chloride IV 11/08/24 10:43 63.75 mls/hr ONCE ONE Administration Protocol Multi-Ingred Cream/Lotion/Oil/Oint 1 applic 11/06/24 15:22 11/08/24 07:53 Mineral Oil/Petrolat Ophth Oint EACHEYE 1 applic QPM PRN Administration Dry Eye Pantoprazole Sodium 40 mg 11/05/24 18:05 11/08/24 06:13 Pantoprazole 40 Mg Vial IVP 40 mg QDAC AZAEL Administration Sodium Chloride 10 ml 11/06/24 01:00 11/08/24 08:21 Sodium Chloride Flush 0.9% 10 Ml Syringe IVP 10 ml 0100,0900,1700 AZAEL Administration Sodium Chloride 10 ml 11/05/24 18:05 11/08/24 06:16 Sodium Chloride Flush 0.9% 10 Ml Syringe IVP 10 ml PRN PRN Administration NEEDED PER PROVIDER ORDERS Objective Vital Signs/Intake & Output Reviewed Vital Signs: Yes Vital Signs: Vital Signs x48h Temp Pulse Pulse Resp BP Pulse Ox 11/08/24 09:24 78 11/08/24 09:00 37.1 C 75 16 92/59 L 95 11/08/24 08:00 37.3 C 87 29 H 116/71 93 11/08/24 07:00 85 30 H 103/60 95 11/08/24 06:56 97 11/08/24 06:00 37.3 C 92 28 H 95/56 L 93 02/10/25 05:32 97 11/08/24 05:00 37.1 C 76 24 106/60 96 11/08/24 04:00 37.0 C 72 16 103/60 95 11/08/24 03:42 66 11/08/24 03:35 66 14 11/08/24 03:00 37.0 C 66 14 137/74 H 99 11/08/24 02:00 37.2 C 89 30 H 104/66 93 Intake & Output: Intake & Output 11/05/24 11/06/24 11/07/24 11/08/24 23:59 23:59 23:59 23:59 Intake Total 2020 3516 / 3516 1334 / 1334 2149 / 2149 Output Total 450 / 450 990 / 990 396 / 396 305 / 305 Balance 1571 / 1571 2526 / 2526 938 / 938 1844 / 1844 Weight (kg) 35.5 kg 32 kg 33 kg 34 kg Objective General Appearance: positive No acute distress and Other (after starting the Versed, she is resting peacefully) Eyes Bilateral: positive PERRL, Conjunctivae nml and No scleral icterus ENT: positive ENT inspection nml Neck: positive Nml inspection Respiratory: positive Chest non-tender, No respiratory distress and Rales (diffuse); negative Wheezes (diffuse) Cardiovascular: positive Regular rate & rhythm, No murmur and Other (tachy to 120's when agitated and has been tachycardic since extubation, despite anxiolysis. ) Abdomen: positive Non-tender, No distention and Other (PEJ in place. ) Skin: positive Color nml Extremities: positive No pedal edema Neurologic/Psychiatric: positive Other (at times she is very awake. Moves all extremities. ) Lab Results 11/08/24 04:56 11/08/24 04:56 Other Labs: Lab Results x24hrs 11/08/24 11/07/24 Range/Units 04:56 10:51 WBC 12.3 H (4.8-10.8) x10^3/uL RBC 2.79 L (4.20-5.40) 10^6/uL Hgb 7.6 L (12.0-16.0) g/dL Hct 25.6 L (37.0-47.0) % MCV 91.8 (81.0-99.0) fL MCH 27.2 (27.0-31.0) pg MCHC 29.7 L (32.0-36.0) g/dL RDW 15.4 H (12.0-15.0) % Plt Count 318 (130-450) 10^3/uL MPV 9.5 (7.9-10.8) fL Neut # (Auto) Not Reportable Lymph # (Auto) Not Reportable [place] # (Auto) Not Reportable Eos # (Auto) Not Reportable Baso # (Auto) Not Reportable Absolute Nucleated RBC Not Reportable Total Counted 100 Band Neuts % (Manual) 1 (0 - 10) % Abnorm Lymph % (Manual) 0 % Plasma Cell % (Manual) 2 % Nucleated RBC % Not Reportable Neutrophils # (Manual) 9.6 H (1.5-6.6) 10^3/uL Lymphocytes # (Manual) 1.4 L (1.5-3.5) 10^3/uL Monocytes # (Manual) 1.1 H (0.0-1.0) 10^3/uL Eosinophils # (Manual) 0.0 (0-0.7) 10^3/uL Basophils # (Manual) 0.0 (0-0.1) 10^3/uL Differential Comment MANUAL DIFFERENTIAL WBC Morphology NORMAL APPEARANCE (NORMAL) Platelet Estimate NORMAL (130-450,000) (NORMAL) Platelet Morphology NORMAL APPEARANCE (NORMAL) RBC Morph Micro Appear NORMAL APPEARANCE (NORMAL) Sodium 134 L (135-145) mmol/L Potassium 4.5 4.5 (3.5-4.5) mmol/L Chloride 103 (101-111) mmol/L Carbon Dioxide 29 (21-32) mmol/L Anion Gap 2.0 L (6-13) BUN 24 H (6-20) mg/dL Creatinine 0.4 L (0.6-1.3) mg/dL Estimated GFR (MDRD) 161 (>89) Glucose 134 H (74-104) mg/dL Calcium 7.8 L (8.5-10.3) mg/dL Phosphorus 1.7 L (2.5-5.0) mg/dL Magnesium 1.8 (1.7-2.3) mg/dL Slides for Path Review Indicated Assessment/Plan Problem List (1) Respiratory failure: Impression: Acute hypoxic respiratory failure with long history of COPD oxygen dependent and sounds like had been worsening at home for some time. Extubated today per patient's prior goals of not wanting to be intubated more than 3 days. Flu A pos on admit, but of little consequence as she had been ill for multiple days prior to that time. She has been oxygen dependent for quite some time. It seems that her COPD was worsening markedly at home and she had placed herself on BiPAP continuously for several days prior to coming into the hospital. I spoke with her spouse Ryan. He does not have a great understanding of what her medical situation is. He does not know what her tube feeds are or what she is supposed to be on. He does not know what was seen at the colonoscopy that she had done last week and he does not have a good understanding of the severity of her COPD. This please see my advance care planning note for further details. I have requested palliative care consultation today - they were not able to see the patient. Qualifiers: Chronicity: acute Respiratory failure complication: hypoxia Qualified Code(s): J96.01 - Acute respiratory failure with hypoxia (2) COPD (chronic obstructive pulmonary disease): Impression: Oxygen dependent COPD 3 to 4 L at home with worsening at home over previous days. I have placed the patient on steroids, Decadron 6 mg a day, I will stop Decadron tomorrow as that will be 5 total days for the COPD exacerbation.. She is also on nebulizer treatments. I will start azithromycin for its anti- inflammatory properties,This will also finish after 3 days. I do not believe she has a pneumonia.The leukocytosis she had on admission has resolved. No indication for Tamiflu, she had been sick for too long prior to presentation. Qualifiers: COPD type: unspecified COPD Qualified Code(s): J44.9 - Chronic obstructive pulmonary disease, unspecified (3) Primary esophageal squamous cell carcinoma: Impression: She has a diagnosed esophageal squamous cell carcinoma. I was able to review the oncology note from 09/15/2024. Tumor board at [facility] correctly ascertain that she was not strong enough for chemo and radiation treatment for her esophageal cancer. They had forwarded pathology for consideration of immunotherapy treatment. She was due to return to follow-up with oncology in about 6 weeks this would have been early October. Additionally she was to get a colonoscopy for a focus of glucose metabolism in her sigmoid colon on PET scan. Colonoscopy was completed and I have requested records regarding the colonoscopy from [facility] yesterday Additional request made to [facility] today for results of colonoscopy and any associated pathology.. ACP discussion with family today (4) Severe protein-calorie malnutrition: Impression: Ongoing. Is been difficult for her to gain weight. All according to the oncology note about 6 weeks ago she was using J-tube feedings at 25 cc an hour at home unable to get to goal of 45 cc an hour. She appears incredibly malnourished with temporal wasting and a BMI of 13.8. Daughter Haley reports that they have been able to get to 40cc/hr at home recently. We have restarted jejunostomy feedings in order to support the patient. I have spent 65 minutes in the care of this patient today. This includes time [id number], review and ordering of diagnostic imaging and laboratory studies. This is exclusive of time spent in ACP discussion. (5) Hypophosphatemia: Impression: Likely due to malnutrition and refeeding. Phosphate was repleted today.
[2024-11-08] MEDS ORDERED: SUCRALFATE 1 GM/10 ML UDC PO PRN (14:32)
--- NOTE | 2024-11-08 14:35 | ADVANCE CARE PLANNING NOTE ---
Advance Care Planning Planning Encounter Date: 11/08/24 Time: 13:00 Parties in Attendance: daughter Haley, Ryan Diagnosis for Encounter (1) Respiratory failure: Qualifiers: Chronicity: acute Respiratory failure complication: hypoxia Qualified Code(s): J96.01 - Acute respiratory failure with hypoxia (2) COPD (chronic obstructive pulmonary disease): Qualifiers: COPD type: unspecified COPD Qualified Code(s): J44.9 - Chronic obstructive pulmonary disease, unspecified (3) Primary esophageal squamous cell carcinoma: (4) Severe protein-calorie malnutrition: (5) Hypophosphatemia: Encounter Objective/Medical Story: Aleena was just extubated. She is hypoxic with nasal cannula and oxygen mask. We will able to apply her home BiPAP machine and bleed in 10 L of oxygen. With this we are able to get her sats into the low 90s. She is awake and alert but unable to speak. She complains of pain in her chest. Her family perceives that she has lots of air hunger right now. Long discussion with patient's family regarding her ability to recover from this. They believe that she is a fighter and that she wants to keep fighting. She does not want to . I explained to them that our medical toolbox is nearing empty. She is unable to withstand treatment for her esophageal cancer. She is dependent on jejunostomy tube feedings and respiratory support which renders her unable to speak, causes discomfort in her eyes from the leakage of the air. Her family insist that she continue can continue to fight and to get stronger and get treatment for her esophageal cancer. At 1 point her daughter Haley does question is my mom going to ? I once again explained to Haley and Ryan that the toolbox of medical treatment for this patient is almost empty. They do want to continue with all reasonable medical therapy. They understand that they want Aleena to be comfortable but they also do not want to go to comfort measures only status. I have explained to them that the goal for Aleena is comfort, and that we would never remove all medical therapy. We will continue to make her as comfortable as possible, and giving her oxygen, and as much oxygen as possible is part of that. Anxiolysis is also part of that, and they have been reassured that she will get this as well. I have explained to them repeatedly that we will not be reintubating the patient due to medical futility. They agree with me that they want their mother to be comfortable. But they do not want to give up the fight. I am asking palliative care to see this patient and her family to try to help them understand what limited options are left. Goals of Care: This patient is not comfort measures only. We are treating with maximal medical therapy short of intubation and CPR. Code Status: Do Not Attempt Resuscitation Time spent on advance care plannin
[2024-11-08] MEDS: PANTOPRAZOLE 40 MG VIAL IVP SCH (21:33)
[2024-11-08] MEDS: HYDROmorphone 0.5 MG/0.5 ML SYRINGE IVP PRN (21:34)
[2024-11-09 05:46] LABS: BASOPHILS % (AUTO) 0.1 %; HCT - HEMATOCRIT 31.6 % (37.0-47.0); HGB - HEMOGLOBIN 8.8 g/dL (12.0-16.0); LYMPHOCYTES % (AUTO) 12.6 %; MEAN CORPUSCULAR HEMOGLOBIN 27.1 pg (27.0-31.0); MEAN CORPUSCULAR HGB CONC 27.8 g/dL (32.0-36.0); MEAN CORPUSCULAR VOLUME 97.2 fL (81.0-99.0); MEAN PLATELET VOLUME 9.2 fL (7.9-10.8); MONOCYTES % (AUTO) 9.9 %; NEUTROPHILS % (AUTO) 73.2 %; PLT - PLATELET COUNT 356 10^3/uL (130-450); RED BLOOD COUNT 3.25 10^6/uL (4.20-5.40); RED CELL DISTRIBUTION WIDTH 15.6 % (12.0-15.0); WHITE BLOOD COUNT 13.4 x10^3/uL (4.8-10.8)
[2024-11-09 05:59] LABS: PHOSPHORUS 3.6 mg/dL (2.5-5.0)
[2024-11-09 06:32] LABS: ALBUMIN 2.9 g/dL (3.2-5.5); BILIRUBIN,TOTAL 0.2 mg/dL (0.2-1.0); CALCIUM 8.2 mg/dL (8.5-10.3); CREATININE 0.4 mg/dL (0.6-1.3); POTASSIUM 5.3 mmol/L (3.5-4.5); TOTAL PROTEIN 5.9 g/dL (6.4-8.9)
[2024-11-09 06:33] LABS: CALCIUM, IONIZED 1.19 mmol/L (1.09-1.30)
[2024-11-09 07:02] LABS: ABNORMAL LYMPHS % (MANUAL) 5 %; BAND NEUTROPHILS % (MANUAL) 3 %; DIFFERENTIAL COMMENT MANUAL DIFFERENTIAL; LYMPHOCYTES # (MANUAL) 3.4 10^3/uL (1.5-3.5); LYMPHOCYTES % (MANUAL) 20 %; MONOCYTES # (MANUAL) 1.3 10^3/uL (0.0-1.0); MYELOCYTES % (MANUAL) 4 %; NEUTROPHILS # (MANUAL) 8.2 10^3/uL (1.5-6.6); PLATELET ESTIMATE, MANUAL NORMAL (130-450,000) (NORMAL); PLATELET MORPHOLOGY NORMAL APPEARANCE (NORMAL); RBC MORPHOLOGY (MULTIPLE) NORMAL APPEARANCE (NORMAL)
[2024-11-09] MEDS: BACITRACIN ZINC OINT 1 PACKET TOP PRN (08:45)
[2024-11-09 12:55] VITALS: TEMP 99
--- NOTE | 2024-11-09 13:03 | PROVIDER PROGRESS NOTE ---
Subjective Prog Note Date Prog Note Date: 11/09/24 Subjective Subjective: She is alert, but not commmunicating. She was given a Sharpie and paper, and not able to give me any information. Does not want to remove BiPAP mask. Does not seem to have any discomfort in the morning, but when return this afternoon, she is agitated and moaning. Seems unsettled and very uncomfortable. . Current Medications Current Medications Current Medications: Current Medications Generic Name Dose Route Start Last Admin Trade Name Freq PRN Reason Stop Dose Admin Albuterol 2.5 mg 11/05/24 19:46 11/08/24 03:34 Albuterol Neb 2.5 Mg/3 Ml INH 2.5 mg RTQ4H PRN Administration Wheezing Bacitracin 1 packet 11/07/24 18:09 11/09/24 08:45 Bacitracin Zinc Oint 1 Packet TOP 1 packet PRN PRN Administration Skin Care Carboxymethylcellulose 1 drops 11/06/24 15:22 11/09/24 08:47 Carboxymethylcellulose Ophth Drops EACHEYE 1 drops PRN PRN Administration Dry Eye Chlorhexidine Gluconate 15 ml 11/07/24 21:00 11/09/24 08:44 Chlorhexidine Gluconate 15 Ml Udc PO 15 ml BID AZAEL Administration Diatrizoate Meglum/Diatrizoate Sod 10 ml 11/09/24 12:52 Diatr Meglu/Diatrizoate Sodium 120 Ml Bottle JT 11/09/24 12:53 ONCE ONE Enoxaparin Sodium 40 mg 11/06/24 09:00 11/09/24 08:44 Enoxaparin 40 Mg/0.4 Ml Syringe SUBQ 40 mg DAILY AZAEL Administration Haloperidol 1 mg 11/08/24 15:19 Haloperidol 5 Mg/Ml Vial IVP Q6H PRN Agitation Hydromorphone HCl 0.5 mg 11/08/24 14:33 11/09/24 04:58 Hydromorphone 0.5 Mg/0.5 Ml Syringe IVP 0.5 mg Q1HR PRN Administration Pain 8 to 10 Norepinephrine/Sodium Chloride 8 mg in 250 mls @ 15 mls/hr 11/05/24 20:00 11/08/24 20:12 Levophed 8 Mg/250-0.9% Nacl IV Infused .[id number] AZAEL Titration Protocol 8 MCG/MIN Midazolam HCl 50 mg in 50 mls @ 1.32 mls/hr 11/07/24 15:00 11/09/24 11:46 Versed Drip 50 Mg/50 Ml IV 0.04 mg/kg/hr .[id number] AZAEL 1.32 mls/hr Titration Protocol 0.04 MG/KG/HR Dextrose/Sodium Chloride 1,000 mls @ 50 mls/hr 11/07/24 16:00 11/08/24 17:17 D5.45ns IV 50 mls/hr .Q20H AZAEL Administration Multi-Ingred Cream/Lotion/Oil/Oint 1 applic 11/06/24 15:22 11/08/24 07:53 Mineral Oil/Petrolat Ophth Oint EACHEYE 1 applic QPM PRN Administration Dry Eye Pantoprazole Sodium 40 mg 11/08/24 21:00 11/09/24 08:42 Pantoprazole 40 Mg Vial IVP 40 mg BID AZAEL Administration Sodium Chloride 10 ml 11/06/24 01:00 11/09/24 08:45 Sodium Chloride Flush 0.9% 10 Ml Syringe IVP 10 ml 0100,0900,1700 AZAEL Administration Sodium Chloride 10 ml 11/05/24 18:05 11/08/24 06:16 Sodium Chloride Flush 0.9% 10 Ml Syringe IVP 10 ml PRN PRN Administration NEEDED PER PROVIDER ORDERS Sucralfate 1 gm 11/08/24 14:32 Sucralfate 1 Gm/10 Ml Udc PO 0700,1100,1600,2200 PRN pain Objective Vital Signs/Intake & Output Reviewed Vital Signs: Yes Vital Signs: Vital Signs x48h Temp Pulse Resp BP Pulse Ox O2 Flow Rate 11/09/24 12:00 37.2 C 112 H 15 114/70 98 10 11/09/24 11:00 114 H 13 118/83 99 10 11/09/24 10:00 115 H 14 98/76 99 10 11/09/24 09:53 10 11/09/24 09:00 123 H 11 L 106/74 99 10 11/09/24 08:00 37.0 C 120 H 14 136/92 H 99 10 11/09/24 07:00 104 H 16 100/66 100 10 11/09/24 06:00 36.5 C 107 H 15 106/66 100 10 Intake & Output: Intake & Output 11/06/24 11/07/24 11/08/24 11/09/24 23:59 23:59 23:59 23:59 Intake Total 3516 / 3516 1334 / 1334 4750 / 4750 1207 / 1207 Output Total 990 / 990 396 / 396 803 / 803 427 / 427 Balance 2526 / 2526 938 / 938 3947 / 3947 780 / 780 Weight (kg) 32 kg 33 kg 34 kg 37 kg Objective General Appearance: positive No acute distress and Other (sitting up in bed on the BiPAP machine. ) Eyes Bilateral: positive PERRL and Conjunctivae nml ENT: positive Dry mucous membranes (lips are parched. ) Neck: positive Nml inspection and Trachea midline Respiratory: positive Chest non-tender and Rales (diffuse) Cardiovascular: positive Tachycardia (sinus) Abdomen: positive Abnml bowel sounds (abdomen is quiet, distended but not tender. ) Back: positive Nml inspection Skin: positive Color nml Extremities: positive No pedal edema Neurologic/Psychiatric: positive Other (awake but not communicating) Lab Results 11/09/24 05:34 11/09/24 13:10 Other Labs: Lab Results x24hrs 11/09/24 11/08/24 Range/Units 05:34 15:09 WBC 13.4 H (4.8-10.8) x10^3/uL RBC 3.25 L (4.20-5.40) 10^6/uL Hgb 8.8 L (12.0-16.0) g/dL Hct 31.6 L (37.0-47.0) % MCV 97.2 (81.0-99.0) fL MCH 27.1 (27.0-31.0) pg MCHC 27.8 L (32.0-36.0) g/dL RDW 15.6 H (12.0-15.0) % Plt Count 356 (130-450) 10^3/uL MPV 9.2 (7.9-10.8) fL Neut # (Auto) Not Reportable Lymph # (Auto) Not Reportable [place] # (Auto) Not Reportable Eos # (Auto) Not Reportable Baso # (Auto) Not Reportable Absolute Nucleated RBC Not Reportable Total Counted 100 Band Neuts % (Manual) 3 (0 - 10) % Abnorm Lymph % (Manual) 5 % Myelocytes % 4 H ( - 0) % Nucleated RBC % Not Reportable Neutrophils # (Manual) 8.2 H (1.5-6.6) 10^3/uL Lymphocytes # (Manual) 3.4 (1.5-3.5) 10^3/uL Monocytes # (Manual) 1.3 H (0.0-1.0) 10^3/uL Eosinophils # (Manual) 0.0 (0-0.7) 10^3/uL Basophils # (Manual) 0.0 (0-0.1) 10^3/uL Differential Comment MANUAL DIFFERENTIAL Platelet Estimate NORMAL (130-450,000) (NORMAL) Platelet Morphology NORMAL APPEARANCE (NORMAL) RBC Morph Micro Appear NORMAL APPEARANCE (NORMAL) VBG pH 7.269 L (7.31-7.41) Ionized Calcium 1.19 (1.09-1.30) mmol/L Sodium 132 L (135-145) mmol/L Potassium 5.3 H (3.5-4.5) mmol/L Chloride 99 L (101-111) mmol/L Carbon Dioxide 31 (21-32) mmol/L Anion Gap 2.0 L (6-13) BUN 20 (6-20) mg/dL Creatinine 0.4 L (0.6-1.3) mg/dL Estimated GFR (MDRD) 161 (>89) Glucose 124 H (74-104) mg/dL Calcium 8.2 L (8.5-10.3) mg/dL Phosphorus 3.6 4.9 (2.5-5.0) mg/dL Total Bilirubin 0.2 (0.2-1.0) mg/dL AST 30 (10-42) IU/L ALT 27 (10-60) IU/L Alkaline Phosphatase 75 (42-121) IU/L Total Protein 5.9 L (6.4-8.9) g/dL Albumin 2.9 L (3.2-5.5) g/dL Globulin 3.0 (2.1-4.2) g/dL Albumin/Globulin Ratio 1.0 (1.0-2.2) Prealbumin 22 (17-34) mg/dL Assessment/Plan Problem List (1) Respiratory failure: Impression: Acute hypoxic respiratory failure with long history of COPD oxygen dependent and sounds like had been worsening at home for some time. Extubated 2/10 per patient's prior goals of not wanting to be intubated more than 3 days. Flu A pos on admit, but of little consequence as she had been ill for multiple days prior to that time. She has been oxygen dependent for quite some time. It seems that her COPD was worsening markedly at home and she had placed herself on BiPAP continuously for several days prior to coming into the hospital. I spoke with her spouse Ryan. He does not have a great understanding of what her medical situation is. He does not know what her tube feeds are or what she is supposed to be on. He does not know what was seen at the colonoscopy that she had done last week and he does not have a good understanding of the severity of her COPD. Palliative care to see the patient and family to further discuss GOC. By the time palliative care was able to see this patient, she was at the point of comfort measures only. It became quite clear to her and daughter this afternoon that this was the only option and the best one. We are transitioning immediately this afternoon. I have added basal rate [employer] dilaudid. I am continuing Versed drip, and I have ordered Haldol IVP for agitation. This patient is actively dying and therefore is best served by remaining here and getting care that she needs. Qualifiers: Chronicity: acute Respiratory failure complication: hypoxia Qualified Code(s): J96.01 - Acute respiratory failure with hypoxia (2) COPD (chronic obstructive pulmonary disease): Impression: Oxygen dependent COPD 3 to 4 L at home with worsening at home days [employer]. I have placed the patient on steroids, Decadron 6 mg a day, I will stop Decadron today as that will be 5 total days for the COPD exacerbation.. She is also on nebulizer treatments. I will start azithromycin for its anti-inflammatory properties,This will also finish after 3 days. She has now been treated for a COPD exacerbation with Decadron and azithromycin. Her white blood cell count today is up to 13.4. Could be secondary to steroids. 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 Qualifiers: COPD type: unspecified COPD Qualified Code(s): J44.9 - Chronic obstructive pulmonary disease, unspecified (3) Ileus: Impression: This is a new development. Her abdomen is distended. She has no bowel tones when I listened. Tube feeds have been stopped. I have asked radiology to instill 10 mL of Gastrografin into the J-tube and take a 1 view x-ray of the abdomen. This will help to determine patency of the J-tube and can she had a follow-up film to see if the contrast moves through the intestine. I have held feedings. I have independently assessed the X ray and tube looks to be in the intestine and working. I think her ileus is due to her overall debilitated state. She is actively dying. (4) Primary esophageal squamous cell carcinoma: Impression: She has a diagnosed esophageal squamous cell carcinoma. I was able to review the oncology note from 09/15/2024. Tumor board at [facility] correctly ascertain that she was not strong enough for chemo and radiation treatment for her esophageal cancer. They had forwarded pathology for consideration of immunotherapy treatment. She was due to return to follow-up with oncology in about 6 weeks this would have been early October. Additionally she was to get a colonoscopy for a focus of glucose metabolism in her sigmoid colon on PET scan. Colonoscopy was completed and I have requested records regarding the colonoscopy from [facility] yesterday- received. Unable to complete the colonoscopy as unable to insufflate the colon, Ct enterography was recommended, of no consequence, patient is actively dying. (5) Severe protein-calorie malnutrition: Impression: Ongoing. Is been difficult for her to gain weight. All according to the oncology note about 6 weeks ago she was using J-tube feedings at 25 cc an hour at home unable to get to goal of 45 cc an hour. She appears incredibly malnourished with temporal wasting and a BMI of 13.8. Daughter Haley reports that they have been able to get to 40cc/hr at home recently. We have restarted jejunostomy feedings in order to support the patient. (6) Hypophosphatemia: Impression: Likely due to malnutrition and refeeding. Phosphate was repleted (7) Hyperkalemia: Impression: new problem today. Developed with her ileus- therefore unable to give Lokelma. I started hypokalemia protocol (IVP insulin, IVP D50, albuterol), but patient then became agitated, and her overall status worsened. decision was made to proceed to CATERER'S AIDE, as she is actively dying. (8) Dependence on continuous supplemental oxygen: Impression: See above. On home BiPAP with 10L O2 bled in. I have spent 53 minutes in the care of this patient today. This includes time [id number], review and ordering of diagnostic imaging and laboratory studies. This is exclusive of time spent in ACP discussion (which have been happening for 3 days ongoing).
[2024-11-09 13:42] LABS: CALCIUM 8.3 mg/dL (8.5-10.3); CREATININE 0.4 mg/dL (0.6-1.3); POTASSIUM 5.6 mmol/L (3.5-4.5)
[2024-11-09] MEDS: DIATR MEGLU/DIATRIZOATE SODIUM 120 ML BOTTLE JT ONE (13:45)
[2024-11-09] MEDS: DEXTROSE 50% ABBOJECT 25 GM/50 ML SYRINGE IVP ONE (14:57)
[2024-11-09] MEDS: INSULIN REGULAR, HUMAN 300 UNIT/3 ML PEN IVP ONE (14:58)
--- NOTE | 2024-11-09 15:06 | XRAY Report ---
PROCEDURE: XR Abdomen 1 V INDICATIONS: to confirm placement of J-tube TECHNIQUE: One view of the abdomen acquired. COMPARISON: None. FINDINGS: Surgical changes and devices: There is a urinary bladder catheter. There is a jejunostomy tube with i ts tip in the area of opacified proximal small bowel. LUNGS: Lungs are hyperinflated. Bowel: Bowel gas pattern is normal. Soft tissues: No suspicious abdominal calcifications. Visualized solid organ contours appear normal in size. Bones: No suspicious bony lesions. IMPRESSION: Jejunostomy catheter present in the left lower quadrant in the area of opacified normal-appearing pro ximal small bowel. Reviewed by: Aleja Samaniego MD on 11/09/2024 3:05 PM PST Approved by: Aleja Samaniego MD on 11/09/2024 3:05 PM PST Station ID: [email or web address]
[2024-11-09] MEDS: CONCENTRATED ALBUTEROL NEB 2.5 MG/0.5 ML INH STA (15:34)
[2024-11-09] MEDS: HALOPERIDOL 5 MG/ML VIAL IVP PRN (16:54)
[2024-11-09] MEDS ORDERED: GLYCOPYRROLATE 1 MG/5 ML VIAL SUBQ PRN (17:26)
[2024-11-09] MEDS ORDERED: CARBOXYMETHYLCELLULOSE OPHTH DROPS EACHEYE PRN (17:26)
[2024-11-09] MEDS ORDERED: haloperidoL 1 MG TABLET PO PRN (17:26)
[2024-11-09] MEDS ORDERED: MINERAL OIL/PETROLAT OPHTH OINT EACHEYE PRN (17:26)
[2024-11-09] MEDS: HYDROmorphone PCA 20MG/100ML IV PRN (18:54)
--- NOTE | 2024-11-09 19:09 | ADVANCE CARE PLANNING NOTE ---
Advance Care Planning Planning Encounter Date: 11/09/24 Time: 16:30 Purpose: ongoing care decisions. Parties in Attendance: Haley and Ryan Chatman. DAVID Tirado Palliative Care Decisional Capacity of the Patient: unable to participate Diagnosis for Encounter (1) Respiratory failure: Qualifiers: Chronicity: acute Respiratory failure complication: hypoxia Qualified Code(s): J96.01 - Acute respiratory failure with hypoxia (2) COPD (chronic obstructive pulmonary disease): Qualifiers: COPD type: unspecified COPD Qualified Code(s): J44.9 - Chronic obstructive pulmonary disease, unspecified (3) Ileus: (4) Primary esophageal squamous cell carcinoma: (5) Severe protein-calorie malnutrition: (6) Hypophosphatemia: (7) Hyperkalemia: (8) Dependence on continuous supplemental oxygen: (9) Acute and chronic respiratory failure with hypoxia: Encounter Subjective/Patient's Story: She has been a person who has been the center of her family. She has been full of life and always lived and loved with passion. Her talks about this, and that everything that she did, she did with great gusto. She was not ready to stop living. Objective/Medical Story: Aleena's body is giving up. She has an intestinal ileus. She is becoming agitated on the BiPap, and is moaning. She is unable to communicate the source of her discomfort. the medical situation is such that she needs comfort care. nothing can be done. Goals of Care: Ryan and Haley want her to be comfortable. 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 Time spent on advance care plannin min
[2024-11-10 09:21] VITALS: BP 77/49; O2SAT 85
--- NOTE | 2024-11-10 11:17 | PROVIDER PROGRESS NOTE ---
<Statement entered by Amado Magana DNP - 11/10/24 18:20> Patient was seen and examined by me with a separate encounter after being seen by ROSEY student. I reviewed the student's documentation including patient history, physical examination, laboratory, imaging, clinical assessment and treatment plan. I have discussed the management of the patient with the student, and with the patient. There are no changes. Discussed with her over the phone, he states at this time he would like for us to take her off of BiPAP. He [place] [facility] [place] and [place] is his preferred home. Provided reassurance to family member at bedside that we would do everything in our power to keep her comfortable as she dies. Documented by User: Pollo Garcia 11/10/24 13:51 Subjective Prog Note Date Prog Note Date: 11/10/24 Subjective Pt reports feeling: No change Subjective: Mrs. Chatman is a 64-year old recently placed on comfort care/ palliative care following, admitted for acute on chronic COPD exceration. was initially intubated on admit for ARF w/ hypoxia unresolved with home BiPAP. She was extubated 11/08 and was placed on BiPAP, unable to ween off and declining mentation. This morning, pt was alert to voice but not following commands. Family is reportedly coming into day to meet and say good bye prior to taking off BiPAP/O2 support. 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 Current Medications Current Medications Current Medications: Current Medications Generic Name Dose Route Start Last Admin Trade Name Freq PRN Reason Stop Dose Admin Albuterol 2.5 mg 11/05/24 19:46 11/08/24 03:34 Albuterol Neb 2.5 Mg/3 Ml INH 2.5 mg RTQ4H PRN Administration Wheezing Bacitracin 1 packet 11/07/24 18:09 11/09/24 08:45 Bacitracin Zinc Oint 1 Packet TOP 1 packet PRN PRN Administration Skin Care Carboxymethylcellulose 1 drops 11/06/24 15:22 11/10/24 08:57 Carboxymethylcellulose Ophth Drops EACHEYE 1 drops PRN PRN Administration Dry Eye Carboxymethylcellulose 1 drops 11/09/24 17:26 Carboxymethylcellulose Ophth Drops EACHEYE QID PRN Dry Eye Chlorhexidine Gluconate 15 ml 11/07/24 21:00 11/10/24 08:56 Chlorhexidine Gluconate 15 Ml Udc PO 15 ml BID AZAEL Administration Glycopyrrolate 0.2 mg 11/09/24 17:26 Glycopyrrolate 1 Mg/5 Ml Vial SUBQ Q4H PRN Excessive secretions Haloperidol 1 mg 11/08/24 15:19 11/10/24 10:06 Haloperidol 5 Mg/Ml Vial IVP 1 mg Q6H PRN Administration Agitation Haloperidol 2 mg 11/09/24 17:26 Haloperidol 1 Mg Tablet PO Q2H PRN Agitation Hydromorphone HCl 20 mg 11/09/24 17:26 11/09/24 18:54 Hydromorphone [facility] [employer] 20mg/100ml IV 20 mg PRN PRN Administration PAIN 1-4 Protocol Midazolam HCl 50 mg in 50 mls @ 1.32 mls/hr 11/07/24 15:00 11/09/24 23:14 Versed Drip 50 Mg/50 Ml IV 0.05 mg/kg/hr .[id number] AZAEL 1.65 mls/hr Administration Protocol 0.04 MG/KG/HR Multi-Ingred Cream/Lotion/Oil/Oint 1 applic 11/06/24 15:22 11/08/24 07:53 Mineral Oil/Petrolat Ophth Oint EACHEYE 1 applic QPM PRN Administration Dry Eye Pantoprazole Sodium 40 mg 11/08/24 21:00 11/10/24 08:57 Pantoprazole 40 Mg Vial IVP 40 mg BID AZAEL Administration Sodium Chloride 10 ml 11/06/24 01:00 11/10/24 08:57 Sodium Chloride Flush 0.9% 10 Ml Syringe IVP 10 ml 0100,0900,1700 AZAEL Administration Sodium Chloride 10 ml 11/05/24 18:05 11/08/24 06:16 Sodium Chloride Flush 0.9% 10 Ml Syringe IVP 10 ml PRN PRN Administration NEEDED PER PROVIDER ORDERS Objective Vital Signs/Intake & Output Vital Signs: Vital Signs x48h Temp Pulse Resp BP Pulse Ox O2 Flow Rate 11/10/24 09:00 37.2 C 90 20 77/49 L 85 L 6 11/10/24 07:30 6 11/10/24 06:10 18 Intake & Output: Intake & Output 02/0911/08/24 11/09/24 11/10/24 23:59 23:59 23:59 23:59 Intake Total 1334 / 1334 4750 / 4750 2473 / 2473 Output Total 396 / 396 803 / 803 836 / 836 550 / 550 Balance 938 / 938 3947 / 3947 1637 / 1637 -550 / -550 Weight (kg) 33 kg 34 kg 37 kg Objective General Appearance: positive Lethargic Eyes Bilateral: positive PERRL and EOMI ENT: positive ENT inspection nml and Dry mucous membranes Neck: positive Nml inspection, Thyroid nml, No JVD and Trachea midline Respiratory: positive Wheezes and Other (on BiPAP) Cardiovascular: positive No murmur and No gallop Abdomen: positive Non-tender and No distention Skin: positive Warm, Dry and Pallor Extremities: positive Non-tender Neurologic/Psychiatric: positive Disoriented to person, Disoriented to place, Disoriented to time and Weakness Lab Results 11/09/24 05:34 11/09/24 13:10 Other Labs: Lab Results x24hrs 11/09/24 Range/Units 13:10 Sodium 134 L (135-145) mmol/L Potassium 5.6 H (3.5-4.5) mmol/L Chloride 100 L (101-111) mmol/L Carbon Dioxide 33 H (21-32) mmol/L Anion Gap 1.0 L (6-13) BUN 19 (6-20) mg/dL Creatinine 0.4 L (0.6-1.3) mg/dL Estimated GFR (MDRD) 161 (>89) Glucose 123 H (74-104) mg/dL Calcium 8.3 L (8.5-10.3) mg/dL Assessment/Plan Problem List (1) Respiratory failure: Impression: ARF w/ chronic COPD, home O2 dependent. Extubated 2/10 placed on BiPAP, unable to ween off Flu A pos on admit. Qualifiers: Chronicity: acute Respiratory failure complication: hypoxia Qualified Code(s): J96.01 - Acute respiratory failure with hypoxia (2) COPD (chronic obstructive pulmonary disease): Impression: Acute on Chronic COPD excacerbation. On home O2. Treatments d/c'd per comfort care. Qualifiers: COPD type: unspecified COPD Qualified Code(s): J44.9 - Chronic obstructive pulmonary disease, unspecified (3) Ileus: Impression: TF stopped, treatments d/c'd (4) Primary esophageal squamous cell carcinoma: Impression: Not recommended for treatment, on comfort care. (5) Hypophosphatemia: Impression: Treatments d/c'd. Comfort care (6) Hyperkalemia: Impression: Treatments d/c'd. Comfort care. (7) Dependence on continuous supplemental oxygen: Impression: See above. On home BiPAP with 10L O2 bled in. Documented by User: Fadi Kirk MD 11/10/24 14:02 Objective Lab Results 11/09/24 05:34 11/09/24 13:10 Assessment/Plan Problem List (1) Respiratory failure: Qualifiers: Chronicity: acute Respiratory failure complication: hypoxia Qualified Code(s): J96.01 - Acute respiratory failure with hypoxia (2) COPD (chronic obstructive pulmonary disease): Qualifiers: COPD type: unspecified COPD Qualified Code(s): J44.9 - Chronic obstructive pulmonary disease, unspecified (3) Ileus: (4) Primary esophageal squamous cell carcinoma: (5) Hypophosphatemia: (6) Hyperkalemia: (7) Dependence on continuous supplemental oxygen: Documented by User: Amado Magana DNP 11/10/24 18:19 Objective Lab Results 11/09/24 05:34 11/09/24 13:10 Assessment/Plan Problem List (1) Respiratory failure: Impression: ARF w/ chronic COPD, home O2 dependent. Extubated 2/10 placed on BiPAP, unable to wean off Flu A pos on admit. Outside tamiflu window Qualifiers: Chronicity: acute Respiratory failure complication: hypoxia Qualified Code(s): J96.01 - Acute respiratory failure with hypoxia (2) COPD (chronic obstructive pulmonary disease): Qualifiers: COPD type: unspecified COPD Qualified Code(s): J44.9 - Chronic obstructive pulmonary disease, unspecified (3) Ileus: (4) Primary esophageal squamous cell carcinoma: (5) Hypophosphatemia: (6) Hyperkalemia: (7) Dependence on continuous supplemental oxygen:
[2024-11-10 12:22] LABS: PATHOLOGIST SLIDE COMMENTS SEE SEPARATE REPORT
--- NOTE | 2024-11-10 21:10 | MISCELLANEOUS PROVIDER NOTE ---
Miscellaneous Provider Note - Note: Called into room by nursing staff who reports patient has lost her pulse. Nolan adornont is DNR, comfort measures only and this is expected. Absent heart/lung sounds, pupils fixed. RN at bedside at time of pronouncement, no family at bedside Time of 11/10/2024 at 2052 Discharge summary to follow
--- NOTE | 2024-11-10 21:40 | Discharge Summary ---
"Discharge Summary Admit Date: 11/05/24 Discharge Date: 11/10/24 Discharging Provider: Amado Magana NP Primary Care Provider: Wendi Castano Code Status: Do Not Attempt Resuscitation DIAGNOSES Admission Diagnoses: COPD with respiratory failure, acute Esophageal cancer Severe protein calorie malnutrition Discharge Diagnoses with Status of Each Condition: Patient is COPD with respiratory failure, acute Ileus Esophageal cancer Severe protein calorie malnutrition Hypophosphatemia Hyperkalemia Dependence on supplemental oxygen HPI History of Present Illness: 64-year-old female with past medical history of COPD malnutrition esophageal cancer presents to the ED via EMS for dyspnea. She has had COPD for quite a few years. She is dependent on 4 L via nasal cannula at baseline. According to the history is given to the paramedics she had been using continual BiPAP for days at home due to shortness of breath. Paramedics were called today with complaints of increasing dyspnea despite these treatments. She became more confused with worsening oxygen saturations on the way to the hospital and was intubated in route. She was admitted to this institution about a year ago for acute hypoxic respiratory failure. During that time she did recover and was discharged to home. At that time there was known dysphagia along with severe protein calorie malnutrition and patient was referred for workup. She eventually, 9 months later consented to EGD and had a near obstructing esophageal mass. Since that time she has pursued treatment of her esophageal cancer. She had open jejunostomy tube placement at [facility] in April 2024 and she has been as I stated prior pursuing active treatment. She was seen as an outpatient at [facility] just 4 days ago by review consultant who was planning sigmoidoscopy due to recent abnormality in the sigmoid colon on PET scan. Today as I am seeing her she is intubated and sedated on Precedex. She is hypotensive with a MAP of 52 and there is no family at the bedside. CONSULTS | PROCEDURES Consultations: Palliative care HOSPITAL COURSE Hospital Course: Patient was admitted to the ICU on ventilator. Per patient's goals, she was extubated on 11/08 onto BiPAP. Plan of care discussion was had several times with family given her severe chronic respiratory ailments. The decision was made on 09/08/2025 for her to be changed to comfort measures only status. She was left on BiPAP in spite of this so that her family could come in and say their goodbyes. On 11/10/2024 at 1800, was contacted and he made the decision to take her off of her BiPAP. She on 11/10/2024 at 2053 ALLERGIES Allergies Allergy/AdvReac Type Severity Reaction Status Date / Time clonidine Allergy Severe Itching Verified 11/05/24 17:05 Penicillins Allergy Severe Itching Verified 11/05/24 17:05 MEDICATIONS Ambulatory Orders Medication Instructions Recorded Confirmed famotidine 40 mg/5 mL (8 mg/mL) See Rx Instructions .Route 07/29/24 11/06/24 oral suspension .COMPLEX #300 mL metoprolol tartrate 50 mg tablet 50 mg PO BID #180 tabs 08/12/24 11/06/24 mometasone-formoterol HFA 200 2 puff PO BID #8.8 grams 09/02/24 11/06/24 mcg-5 mcg/actuation aerosol inhaler (Dulera) albuterol sulfate 90 mcg/actuation See Rx Instructions .Route 10/25/24 11/06/24 aerosol inhaler .COMPLEX #8.5 grams ipratropium 0.5 mg-albuterol 3 mg See Rx Instructions .Route 10/25/24 11/06/24 (2.5 mg base)/3 mL nebulization .COMPLEX #360 mL soln pantoprazole 40 mg tablet,delayed 40 mg PO ONCE 11/06/24 11/06/24 release PHYSICAL EXAM AT DISCHARGE General Appearance: positive Other (Patient is ) LABS 11/09/24 05:34 11/09/24 13:10 Discharge Plan Discharge Patient Disposition: 20 Print Language: German Date/Time: 11/10/24 20:53"
== END 2024-11-10 20:53 | disposition expired | DRG 208 ==
LOC: ED 16:22 → ICU 17:45
PROVIDERS: ADMIT Specialist; ATTEND Specialist
DX: Z99.81 Dependence on supplemental oxygen; J10.1 Influenza due to other identified influenza virus with other respiratory manifestations; Z93.1 Gastrostomy status; Z87.891 Personal history of nicotine dependence; E83.39 Other disorders of phosphorus metabolism; I95.9 Hypotension, unspecified; J96.01 Acute respiratory failure with hypoxia; Z51.5 Encounter for palliative care; J44.1 Chronic obstructive pulmonary disease with (acute) exacerbation; Z66 Do not resuscitate; H57.89 Other specified disorders of eye and adnexa; Z68.1 Body mass index [BMI] 19.9 or less, adult; K56.7 Ileus, unspecified; J44.9 Chronic obstructive pulmonary disease, unspecified; C15.9 Malignant neoplasm of esophagus, unspecified; E43 Unspecified severe protein-calorie malnutrition; G47.33 Obstructive sleep apnea (adult) (pediatric); E87.5 Hyperkalemia; J96.21 Acute and chronic respiratory failure with hypoxia